=== PATIENT | male | born 1980 | race Caucasian/White ===

== ENCOUNTER 2019-12-25 10:24 | Outpatient (REF) | payer OTHER, SELFPAY ==
--- NOTE | 2019-12-25 10:31 | US_ITS ---
EXAMINATION: US EXTREMITY NONVASCULAR CLINICAL INFORMATION: Palpable soft tissue lesions right arm, left forearm and left hand. COMPARISON: None. TECHNIQUE: Routine limited imaging through the right arm, left forearm and left hand was performed. FINDINGS: Imaging through the right arm reveals a deep to subcutaneous soft tissue measuring 1.1 x 0.8 x 0.5 cm. It is slightly hyperechoic but similar to subcutaneous fat echotexture. This is most likely a small lipoma. Imaging through the left anterior mid forearm reveals an oval hyperechoic lesion deep to subcutaneous soft tissues measuring 1.1 x 1.6 x 0.4 cm. There is a similar echotexture to subcutaneous fat and most likely a lipoma. Imaging of the palmar aspect of left hand reveals an anechoic elongated lesion measuring 1.2 x 0.3 x 0.5 cm, deep to subcutaneous soft tissues, likely cyst or hematoma. Exact origin of this lesion is not known. US/US extremity nonvascular IMPRESSION: Two deep subcutaneous lesions in the right arm and left anterior mid forearm are most likely lipomas. An anechoic lesion in the left palmar aspect of the hand is likely complex fluid or old hematoma.
== END 2019-12-25 10:25 | disposition home or self-care (01) ==
LOC: HO.HMGCX 10:24
PROVIDERS: PCP Internal Medicine; Visit Provider Nurse Practitioner Family
DX: Q74.0 Other congenital malformations of upper limb(s), including shoulder girdle (principal)
CPT/HCPCS: 76882

== ENCOUNTER 2020-09-14 10:05 | Emergency (ER) | payer OTHER, SELFPAY ==
--- NOTE | ~2020-09-14 | US_ITS ---
EXAMINATION: US ABDOMEN LIMITED CLINICAL INFORMATION: Right upper quadrant pain with positive Dockery sign. COMPARISON: None TECHNIQUE: Real-time imaging of the right upper quadrant abdominal viscera. FINDINGS: PANCREAS: The pancreas is obscured by overlying gas LIVER: The liver is normal in size, contour with slight increased echogenicity. There is focal fatty sparing adjacent to the gallbladder. There is a hypodense lesion in the right hepatic lobe measuring 0.9 x 0.7 x 0.7 cm probable small cysts. No intrahepatic ductal dilatation seen. GALLBLADDER: There is a small echogenic stone in the neck of the gallbladder measuring 6 mm no additional echogenic stones seen. The gallbladder is physiologically distended without sludge, polyps, wall thickening or pericholecystic fluid. COMMON BILE DUCT: Normal in caliber measuring 0.6 cm in diameter. RIGHT KIDNEY: Normal. No hydronephrosis. No renal calculi or focal parenchymal lesions. The kidney measures 10.9 cm in maximum dimension. FREE FLUID: None. US/US abdomen limited IMPRESSION: Mild hepatic steers stenosis with area of focal fatty sparing adjacent to gallbladder. The small right hepatic lobe cyst. Small echogenic stone in neck of gallbladder but no wall thickening or pericholecystic fluid collection seen.
--- NOTE | ~2020-09-14 | XR_ITS ---
EXAMINATION: XR CHEST CLINICAL INFORMATION: Right-sided rib pain COMPARISON: Previous chest x-ray April 2019 TECHNIQUE: Frontal view of the chest was obtained. FINDINGS: The cardiac and mediastinal contours are stable. There are surgical clips projecting over the left mid lung. The lungs are otherwise clear. There is no pleural effusion or pneumothorax. There are median sternotomy wires. Bony structures are otherwise unremarkable. XR/XR chest 1V IMPRESSION: No evidence for acute disease in the chest.
[2020-09-14 10:06] VITALS: BP 140/95; PULSE 84; RESP 12; TEMP 36.6; O2SAT 97; BMI 34.0
--- NOTE | 2020-09-14 10:47 | ED_ITS ---
HPI - Abdominal Pain General Chief Complaint: Abdominal Pain Stated Complaint: abd pain Time Seen by Provider: 09/14/20 10:47 Source: patient Mode of arrival: ambulatory Limitations: no limitations History of Present Illness MD elicited complaint: abdominal pain Pertinent past history: other (12 years ago testicular cancer that resulted in large mass in chest needing reconstruction as well as incisional upper abdominal hernia x 2 mesh revisions) Onset (ago): week(s) (1) Pain Consistency: constant and intermittent Location: RUQ Severity: severe Quality: stabbing Radiation: back Migration to: no migration Exacerbating factors: eating and movement Relieving factors: nothing Associated symptoms: nausea and vomiting Related Data Previous Rx's Medication Instructions Recorded albuterol sulfate 90 mcg/actuation 2 puff INHALATION Q6H PRN #8.5 g 08/18/20 aerosol inhaler famotidine [Pepcid] 20 mg PO DAILY PRN #30 tab 09/14/20 hydrocodone-acetaminophen 1 tab PO Q6H PRN #15 tab 09/14/20 ondansetron 4 mg PO Q8H PRN #20 tab 09/14/20 Allergies Allergy/AdvReac Type Severity Reaction Status Date / Time metoclopramide [From REGLAN] Allergy Intermediate FEELS Unverified 12/24/19 11:15 LIKE I'M JUMPING OUT OF MY SKIN{ pneumococcal vaccine Allergy Unknown UNKNOWN Unverified 12/24/19 11:15 [PNEUMOCOCCAL VACCINE] Prevnar AdvReac Unknown CELLULITIS Uncoded 12/24/19 11:15 prevnar AdvReac Unknown cellulitis Uncoded 12/24/19 11:15 Review of Systems Review of Systems Constitutional : No Weight loss, No Fever, No Chills ENT/Mouth : No sore throat, No Rhinorrhea Eyes: No Swelling, No Redness Cardiovascular : No Chest Pain, No SOB, NoEdema Respiratory : No Cough, No Sputum, No Wheezing Gastrointestinal : Positive Nausea, Positive Vomiting, no Diarrhea, positive abdominal Pain, No Hematochezia, No Melena Genitourinary : No Dysuria, No Urinary Frequency, No Hematuria, No Urgency Musculoskeletal : No joint pain, No Myalgias, No Joint Swelling Skin : No Skin Lesions, No rash Neuro : No Weakness, No Numbness, No Dizziness, No Headache Psych : No Anxiety/Panic, No Depression Heme/Lymph: No Bruising, No Lymphadenopathy Endocrine : No Polyuria, No Polydipsia All other systems reviewed and are negative. Physical Exam Vital Signs: Vital Signs: Last Vital Signs Temp 98.1 F 09/14/20 12:57 Pulse 80 09/14/20 12:57 Resp 16 09/14/20 12:57 BP 141/84 H 09/14/20 12:57 Pulse Ox 97 09/14/20 12:57 Body Mass Index 34.0 Appearance: Alert. Oriented X3. No acute distress. Eyes: Pupils equal, round and reactive to light. ENT: Pharynx normal. Neck: Normal inspection. Neck supple. CVS: Normal heart rate and rhythm. Pulses normal. Respiratory: No respiratory distress. Breath sounds normal. Abdomen: Soft and moderate RUQ pain with + Dockery's sign Skin: Skin warm and dry. Normal skin color. Normal skin turgor. Extremities: No lower extremity edema. No calf ttp Neuro: Oriented X 3. No motor deficit. No sensory deficit. Course Course Course Narrative: normal LFTs, normal WBC - no cholecystitis, stable for DC home with outpatient follow up MDM - Abdominal Pain MDM Narrative Medical decision making narrative: 40 yo male with hx of testicular cancer in remission several years comes in with 1 week of RUQ pain and n/v has dockery's sign at this time will obtain labs, US of GB, IV morphine for pain, CXR to r/o mass (given history) dispo per results and findings. Differential Diagnosis Differential diagnosis: Likely abdominal pain; Unlikely acute appendicitis Lab Data Result diagrams: 09/14/20 11:08 09/14/20 11:08 Labs: Lab Results 09/14/20 09/14/20 09/14/20 Range/Units 11:08 11:08 11:08 WBC 5.8 (4.8-10.8) X10*3/uL RBC 4.52 L (4.60-5.80) X10*6/uL Hgb 13.6 L (14.0-18.0) g/dl Hct 40.8 L (42-52) % MCV 90.3 (80-98) fL MCH 30.1 (27.0-33.0) pg MCHC 33.3 (31.0-36.0) g/dl RDW 12.5 (11.0-16.0) % Plt Count 235 (160-400) X10*3/uL MPV 9.3 L (9.4-12.4) fL Immature Gran % (Auto) 0.3 (0.0-0.4) % Neut % (Auto) 62.8 (45-73) % Lymph % (Auto) 25.2 (20-40) % [place] % (Auto) 8.1 (2-11) % Eos % (Auto) 3.1 (0-4) % Baso % (Auto) 0.5 (0-2) % Lymph # (Auto) 1.5 (1.2-4.9) X10*3/uL [place] # (Auto) 0.5 (0.1-1.2) X10*3/uL Eos # (Auto) 0.2 (0.0-0.4) X10*3/uL Baso # (Auto) 0.0 (0.0-0.2) X10*3/uL Abs Immat Gran (auto) 0.02 (0.00-0.03) X10*3/uL Absolute Neuts (auto) 3.7 (2.0-8.3) X10*3/uL Absolute Nucleated RBC 0.000 (0.0-0.012) X10*3/uL Nucleated RBC % (auto) 0.0 (0.0-0.2) /100WBC Sodium 138 (135-145) mmol/L Potassium 4.2 (3.3-5.1) mmol/L Chloride 102 (96-108) mmol/L Carbon Dioxide 28 (22-29) mmol/L Anion Gap 12 (12-20) BUN 18 H (9-16) mg/dL Creatinine 1.26 (0.5-1.4) mg/dL Estim Creat Clear Calc 94.6 Estimated GFR > 60 Random Glucose 104 (60-115) mg/dL Calcium 9.6 (8.4-10.2) mg/dL Magnesium 1.9 (1.6-2.6) mg/dL Total Bilirubin 0.5 (0.0-1.0) mg/dL Direct Bilirubin 0.2 (0.0-0.5) mg/dL AST 24 (5-37) U/L ALT 34 (0-40) U/L Alkaline Phosphatase 96 (39-117) U/L Total Protein 7.5 (6.5-8.0) g/dL Albumin 4.3 (3.5-5.0) g/dL Lipase 19 (8-78) U/L COVID-19 ([facility]IDA) Negative (Negative) COVID-19 Clin Com See Note Discharge Plan Discharge Clinical Impression: Biliary colic Patient Disposition: Home, Self-Care Instructions: Biliary Colic (ED), Low Fat Diet (ED) Additional Instructions: return to ED for any worsening symptoms or concerns Prescriptions: New hydrocodone-acetaminophen 5-325 mg tablet 1 tab PO Q6H PRN (Reason: pain) Qty: 15 RF: 0 famotidine [Pepcid] 20 mg tablet 20 mg PO DAILY PRN (Reason: abdominal discomfort) Qty: 30 RF: 0 ondansetron 4 mg tablet,disintegrating 4 mg PO Q8H PRN (Reason: nausea and vomiting) Qty: 20 RF: 0 No Action albuterol sulfate [ProAir HFA] 90 mcg/actuation HFA aerosol inhaler 2 puff inhalation Q6H PRN (Reason: shortness of breath or wheezing) Qty: 8.5 RF: 1 Referrals: Kumar Carrillo MD [Physician] - 1 week (call for appointment in the next week ) Stand Alone Forms: Work/School Release [facility] Past Medical History Medical History (Updated 09/14/20 @ 13:37 by Guadalupe Arnold DO) Testicular cancer Surgical History (Updated 09/14/20 @ 11:05 by Guadalupe Arnold DO) H/O ventral hernia repair Social History Social History (Updated 09/14/20 @ 11:05 by Guadalupe Arnold DO) Alcohol intake: current Alcohol intake frequency: holidays/special occasions only Patient Tobacco Use Status: Never used Tobacco Use of substances other than those prescribed or required for medical reasons: No Advance Directives: Yes Advance Directives Information Provided: Yes Advance Directives on File: No
[2020-09-14 11:14] VITALS: BP 126/84; PULSE 84; RESP 16; TEMP 36.9; O2SAT 98
[2020-09-14 11:14] LABS: MANUAL DIFF FLAG NO
[2020-09-14] MEDS: ondansetron HCL 4 MG/2 ML VIAL IVPUSH (11:14)
[2020-09-14] MEDS: Morphine Sulfate 4 MG/ML CARTRIDGE IVPUSH (11:14)
[2020-09-14] MEDS: 0.9 % Sodium Chloride 1,000 ML 999 ML IVCONT (11:14)
[2020-09-14 11:17] LABS: Basophils Percent Auto 0.5 % (0-2); Eosinophils Absolute Auto 0.2 X10*3/uL (0.0-0.4); Eosinophils Percent Auto 3.1 % (0-4); Hematocrit 40.8 % (42-52); Hemoglobin 13.6 g/dl (14.0-18.0); Imm Gran Abs Auto 0.02 X10*3/uL (0.00-0.03); Imm Gran Pct Auto 0.3 % (0.0-0.4); Lymphocytes Absolute Auto 1.5 X10*3/uL (1.2-4.9); Lymphocytes Percent Auto 25.2 % (20-40); Mean Corpuscular HGB Conc 33.3 g/dl (31.0-36.0); Mean Corpuscular Hemoglobin 30.1 pg (27.0-33.0); Mean Corpuscular Volume 90.3 fL (80-98); Mean Platelet Volume 9.3 fL (9.4-12.4); Monocytes Absolute Auto 0.5 X10*3/uL (0.1-1.2); Monocytes Percent Auto 8.1 % (2-11); Neutrophils Absolute Auto 3.7 X10*3/uL (2.0-8.3); Neutrophils Percent Auto 62.8 % (45-73); Platelet Count 235 X10*3/uL (160-400); Red Blood Count 4.52 X10*6/uL (4.60-5.80); Red Cell Distribution Width 12.5 % (11.0-16.0); White Blood Count 5.8 X10*3/uL (4.8-10.8)
[2020-09-14 11:31] LABS: COVID-19 Test Negative (Negative)
[2020-09-14 11:41] LABS: Alanine Aminotransferase 34 U/L (0-40); Albumin Level 4.3 g/dL (3.5-5.0); Alkaline Phosphatase 96 U/L (39-117); Anion Gap 12 (12-20); Aspartate Amino Transferase 24 U/L (5-37); Bilirubin Direct 0.2 mg/dL (0.0-0.5); Bilirubin Total 0.5 mg/dL (0.0-1.0); Blood Urea Nitrogen 18 mg/dL (9-16); Calcium 9.6 mg/dL (8.4-10.2); Carbon Dioxide 28 mmol/L (22-29); Chloride 102 mmol/L (96-108); Creatinine Clr Calc Pharmacy 94.6; Estimated Glomerular Filt Rate > 60; Glucose Random 104 mg/dL (60-115); Lipase 19 U/L (8-78); Magnesium 1.9 mg/dL (1.6-2.6); Potassium 4.2 mmol/L (3.3-5.1); Sodium 138 mmol/L (135-145); Total Protein 7.5 g/dL (6.5-8.0)
[2020-09-14 12:57] VITALS: BP 141/84; PULSE 80; RESP 16; TEMP 36.7; O2SAT 97
== END 2020-09-14 14:25 | disposition home or self-care (01) ==
PROVIDERS: Emergency Provider Emergency Medicine; PCP Internal Medicine
DX: K80.50 Calculus of bile duct without cholangitis or cholecystitis without obstruction (principal); R10.11 Right upper quadrant pain; Z79.899 Other long term (current) drug therapy; Z20.822 Contact with and (suspected) exposure to COVID-19
CPT/HCPCS: 36415; 71045; 76705; 80048; 80076; 83690; 83735; 85025; 87635; 96365; 96375; 99284; J2270; J2405

== ENCOUNTER 2020-09-18 13:02 | Inpatient (IN) | payer OTHER, SELFPAY ==
[2020-09-18 13:04] VITALS: BP 135/75; PULSE 96; RESP 18; TEMP 36.7; O2SAT 99; BMI 34.7
[2020-09-18 15:55] LABS: MANUAL DIFF FLAG NO
[2020-09-18 15:56] LABS: Glucose Urine UA NEG (NEG); Leukocyte Esterase Urine NEG (NEG); Nitrite Urine NEG (NEG); PH 6.5 (5.0-8.0); Urine Blood NEG (NEG); Urine Ketones NEG (NEG); Urine Protein NEG (NEG-TRACE)
[2020-09-18 15:57] VITALS: BP 137/84; PULSE 88; RESP 18; TEMP 36.6; O2SAT 99
[2020-09-18 15:57] LABS: Appearance Urine CLEAR; Color Urine YELLOW
[2020-09-18 15:58] LABS: Basophils Percent Auto 0.2 % (0-2); Eosinophils Percent Auto 0.2 % (0-4); Hemoglobin 14.2 g/dl (14.0-18.0); Imm Gran Abs Auto 0.01 X10*3/uL (0.00-0.03); Imm Gran Pct Auto 0.2 % (0.0-0.4); Lymphocytes Absolute Auto 1.3 X10*3/uL (1.2-4.9); Lymphocytes Percent Auto 20.7 % (20-40); Mean Corpuscular Hemoglobin 29.8 pg (27.0-33.0); Mean Corpuscular Volume 90.1 fL (80-98); Mean Platelet Volume 9.2 fL (9.4-12.4); Monocytes Absolute Auto 0.4 X10*3/uL (0.1-1.2); Monocytes Percent Auto 6.2 % (2-11); Neutrophils Absolute Auto 4.6 X10*3/uL (2.0-8.3); Neutrophils Percent Auto 72.5 % (45-73); Platelet Count 239 X10*3/uL (160-400); Red Blood Count 4.77 X10*6/uL (4.60-5.80); Red Cell Distribution Width 12.6 % (11.0-16.0); White Blood Count 6.3 X10*3/uL (4.8-10.8)
[2020-09-18 16:00] VITALS: BP 121/68; PULSE 84; RESP 16; O2SAT 100
[2020-09-18 16:29] LABS: Alanine Aminotransferase 40 U/L (0-40); Albumin Level 4.7 g/dL (3.5-5.0); Alkaline Phosphatase 95 U/L (39-117); Anion Gap 13 (12-20); Aspartate Amino Transferase 21 U/L (5-37); Bilirubin Direct 0.2 mg/dL (0.0-0.5); Bilirubin Total 0.3 mg/dL (0.0-1.0); Blood Urea Nitrogen 12 mg/dL (9-16); Carbon Dioxide 29 mmol/L (22-29); Chloride 103 mmol/L (96-108); Creatinine Clr Calc Pharmacy 107.5; Estimated Glomerular Filt Rate > 60; Glucose Random 110 mg/dL (60-115); Lipase 16 U/L (8-78); Potassium 4.1 mmol/L (3.3-5.1); Sodium 141 mmol/L (135-145)
[2020-09-18] MEDS: 0.9 % Sodium Chloride 1,000 ML 999 ML IV (16:34)
--- NOTE | 2020-09-18 16:37 | ED_ITS ---
HPI - General Adult General Chief complaint: General Medical Stated complaint: Gallstone Time Seen by Provider: 09/18/20 16:04 Source: patient Mode of arrival: ambulatory Limitations: no limitations History of Present Illness HPI narrative: 40 y/o female with history of testicular cancer w large chest mass at age 28 s/p resection and reconstruction, history of incisional hernia repair x2, mild intermittent asthma and recently diagnosed gallstones who presents to the ER with ongoing RUQ pain. He was seen here on 09/14 - RUQ U/S showed a small stone in the neck of the gallbladder without wall thickening or pericholecystic fluid. LFTs were normal. He was discharged with hydrocodone for pain control and follow up with General Surgery. He called the Surgeon and cannot get in to be seen until of this week. He took his last hydrocodone last night and the pain persists. He has bouts of nause but no vomit ing. No fevers, chills, or diarrhea. He has been doing his best to make dietary modifications but admits to some indiscretions. MD complaint: RUQ pain Onset (ago): day(s) () Location: abdomen Radiation: non-radiation Severity: severe Severity scale (1-10): 7 Quality: aching and sharp Pain Consistency: constant (comes in waves) Relieving factors: medication Exacerbating factors: eating Associated symptoms: denies other symptoms and loss of appetite (because of pain) Treatments prior to arrival: none Related Data Previous Rx's Medication Instructions Recorded albuterol sulfate 90 mcg/actuation 2 puff INHALATION Q6H PRN #8.5 g 08/18/20 aerosol inhaler famotidine [Pepcid] 20 mg PO DAILY PRN #30 tab 09/14/20 hydrocodone-acetaminophen 1 tab PO Q6H PRN #15 tab 09/14/20 ondansetron 4 mg PO Q8H PRN #20 tab 09/14/20 Allergies Allergy/AdvReac Type Severity Reaction Status Date / Time metoclopramide [From REGLAN] Allergy Intermediate FEELS Verified 09/18/20 13:04 LIKE I'M JUMPING OUT OF MY SKIN{ pneumococcal vaccine Allergy Unknown UNKNOWN Verified 09/18/20 13:04 [PNEUMOCOCCAL VACCINE] Prevnar AdvReac Unknown CELLULITIS Uncoded 12/24/19 11:15 prevnar AdvReac Unknown cellulitis Uncoded 12/24/19 11:15 Review of Systems Review of Systems: Constitutional: No Fever, No Chills ENT/Mouth: No sore throat, No Rhinorrhea, No Swallowing Difficulty Cardiovascular: No Chest Pain, No SOB, No Orthopnea, No Edema Respiratory: No Cough, No Sputum, No Wheezing, No dyspnea Gastrointestinal: + Nausea, No Vomiting, No Diarrhea, + abdominal Pain, No Hematochezia, No Melena Genitourinary: No Dysuria, No Urinary Frequency, No Hematuria Musculoskeletal: No joint pain, No Myalgias Skin: No Skin Lesions, No rash Neuro: No Weakness, No Numbness, No Dizziness, No Headache Heme/Lymph: No Bruising, No Lymphadenopathy PMFSH Past Medical History Attestation statement: The following information was validated with the patient. Medical History Asthma Gallstones Lung collapse Testicular cancer Thoracic cancer Surgical History H/O ventral hernia repair History of thoracic surgery S/P hernia surgery Social History Social History (Updated 09/14/20 @ 11:05 by Guadalupe Arnold DO) Alcohol intake: current Alcohol intake frequency: holidays/special occasions only Patient Tobacco Use Status: Never used Tobacco Advance Directives: Yes Advance Directives Information Provided: Yes Advance Directives on File: No Physical Exam Vital Signs: Vital Signs: Last Vital Signs Temp 97.8 F 09/18/20 15:57 Pulse 88 09/18/20 15:57 Resp 18 09/18/20 15:57 BP 137/84 09/18/20 15:57 Pulse Ox 99 09/18/20 15:57 Body Mass Index 34.7 Appearance: Alert. Oriented X3. No acute distress. Eyes: Pupils equal, round and reactive to light. ENT: Pharynx normal. Neck: Normal inspection. Neck supple. CVS: Normal heart rate and rhythm. Pulses normal. Respiratory: No respiratory distress. Breath sounds normal. Abdomen: Soft with moderate RUQ and epigastric tenderness, +rebound, no guarding. +BS x4 Skin: Skin warm and dry. Normal skin color. Normal skin turgor. No rashes. Extremities: No lower extremity edema. Neuro: Oriented X 3. No motor deficit. No sensory deficit. Course Course Course Narrative: 40 y/o male with known gallstones presenting with ongoing RUQ pain despite oral narcotics and diet modifications. Stones were non-obstructing when initially diagnosed. He has no signs of sepsis, doubt cholangitis. LFTs ordered to help r/o ductal obstruction. Pain is currently 7/10 - IV morphine and IVF ordered. Reevaluation(s) Reevaluation #1: LFTs are normal. Will discuss admission for cholecystectomy given ongoing pain. Reevaluation #2: Dr. Maria will admit. Consultations Consultation #1: General Surgery - Dr. Mraia Medical Decision Making Lab Data Result diagrams: 09/18/20 15:48 09/18/20 15:48 Labs: Lab Results 09/18/20 09/18/20 09/18/20 Range/Units 15:48 15:48 15:48 WBC 6.3 (4.8-10.8) X10*3/uL RBC 4.77 (4.60-5.80) X10*6/uL Hgb 14.2 (14.0-18.0) g/dl Hct 43.0 (42-52) % MCV 90.1 (80-98) fL MCH 29.8 (27.0-33.0) pg MCHC 33.0 (31.0-36.0) g/dl RDW 12.6 (11.0-16.0) % Plt Count 239 (160-400) X10*3/uL MPV 9.2 L (9.4-12.4) fL Immature Gran % (Auto) 0.2 (0.0-0.4) % Neut % (Auto) 72.5 (45-73) % Lymph % (Auto) 20.7 (20-40) % [place] % (Auto) 6.2 (2-11) % Eos % (Auto) 0.2 (0-4) % Baso % (Auto) 0.2 (0-2) % Lymph # (Auto) 1.3 (1.2-4.9) X10*3/uL [place] # (Auto) 0.4 (0.1-1.2) X10*3/uL Eos # (Auto) 0.0 (0.0-0.4) X10*3/uL Baso # (Auto) 0.0 (0.0-0.2) X10*3/uL Abs Immat Gran (auto) 0.01 (0.00-0.03) X10*3/uL Absolute Neuts (auto) 4.6 (2.0-8.3) X10*3/uL Absolute Nucleated RBC 0.000 (0.0-0.012) X10*3/uL Nucleated RBC % (auto) 0.0 (0.0-0.2) /100WBC Sodium 141 (135-145) mmol/L Potassium 4.1 (3.3-5.1) mmol/L Chloride 103 (96-108) mmol/L Carbon Dioxide 29 (22-29) mmol/L Anion Gap 13 (12-20) BUN 12 (9-16) mg/dL Creatinine 1.12 (0.5-1.4) mg/dL Estim Creat Clear Calc 107.5 Estimated GFR > 60 Random Glucose 110 (60-115) mg/dL Calcium 10.0 (8.4-10.2) mg/dL Total Bilirubin 0.3 (0.0-1.0) mg/dL Direct Bilirubin 0.2 (0.0-0.5) mg/dL AST 21 (5-37) U/L ALT 40 (0-40) U/L Alkaline Phosphatase 95 (39-117) U/L Total Protein 8.0 (6.5-8.0) g/dL Albumin 4.7 (3.5-5.0) g/dL Lipase 16 (8-78) U/L Urine Color YELLOW Urine Appearance CLEAR Urine pH 6.5 (5.0-8.0) Ur Specific [place] 1.010 (1.005-1.025) Urine Protein NEG (NEG-TRACE) MG/DL Urine Glucose (UA) NEG (NEG) MG/DL Urine Ketones NEG (NEG) MG/DL Urine Blood NEG (NEG) Urine Nitrite NEG (NEG) Ur Leukocyte Esterase NEG (NEG) COVID-19 ([facility]IDA) (Negative) COVID-19 Clin Com 09/18/20 Range/Units 16:20 WBC (4.8-10.8) X10*3/uL RBC (4.60-5.80) X10*6/uL Hgb (14.0-18.0) g/dl Hct (42-52) % MCV (80-98) fL MCH (27.0-33.0) pg MCHC (31.0-36.0) g/dl RDW (11.0-16.0) % Plt Count (160-400) X10*3/uL MPV (9.4-12.4) fL Immature Gran % (Auto) (0.0-0.4) % Neut % (Auto) (45-73) % Lymph % (Auto) (20-40) % [place] % (Auto) (2-11) % Eos % (Auto) (0-4) % Baso % (Auto) (0-2) % Lymph # (Auto) (1.2-4.9) X10*3/uL [place] # (Auto) (0.1-1.2) X10*3/uL Eos # (Auto) (0.0-0.4) X10*3/uL Baso # (Auto) (0.0-0.2) X10*3/uL Abs Immat Gran (auto) (0.00-0.03) X10*3/uL Absolute Neuts (auto) (2.0-8.3) X10*3/uL Absolute Nucleated RBC (0.0-0.012) X10*3/uL Nucleated RBC % (auto) (0.0-0.2) /100WBC Sodium (135-145) mmol/L Potassium (3.3-5.1) mmol/L Chloride (96-108) mmol/L Carbon Dioxide (22-29) mmol/L Anion Gap (12-20) BUN (9-16) mg/dL Creatinine (0.5-1.4) mg/dL Estim Creat Clear Calc Estimated GFR Random Glucose (60-115) mg/dL Calcium (8.4-10.2) mg/dL Total Bilirubin (0.0-1.0) mg/dL Direct Bilirubin (0.0-0.5) mg/dL AST (5-37) U/L ALT (0-40) U/L Alkaline Phosphatase (39-117) U/L Total Protein (6.5-8.0) g/dL Albumin (3.5-5.0) g/dL Lipase (8-78) U/L Urine Color Urine Appearance Urine pH (5.0-8.0) Ur Specific [place] (1.005-1.025) Urine Protein (NEG-TRACE) MG/DL Urine Glucose (UA) (NEG) MG/DL Urine Ketones (NEG) MG/DL Urine Blood (NEG) Urine Nitrite (NEG) Ur Leukocyte Esterase (NEG) COVID-19 ([facility]IDA) Negative (Negative) COVID-19 Clin Com See Note Discharge Plan Discharge Clinical Impression: Biliary colic Gallstone Qualifiers: Cholecystitis presence: without cholecystitis Biliary obstruction: without biliary obstruction Qualified Code(s): K80.20 - Calculus of gallbladder without cholecystitis without obstruction Patient Disposition: Admitted As Inpatient
[2020-09-18 16:52] LABS: COVID-19 Test Negative (Negative)
[2020-09-18] MEDS: 0.9 % Sodium Chloride 1,000 ML 999 ML IVCONT (17:00)
[2020-09-18] MEDS: Morphine Sulfate 4 MG/ML CARTRIDGE IVPUSH ×3 (17:00→23:19)
[2020-09-18 18:22] VITALS: BP 125/80; PULSE 81; RESP 18; TEMP 36.8; O2SAT 97
[2020-09-18 20:09] VITALS: BP 145/88; PULSE 76; RESP 15; TEMP 36.5; O2SAT 99
[2020-09-18] MEDS: Piperacillin Sodium/Tazobactam 3.375 GM in 0.9 % Sodium Chloride 50 ML IV (20:27)
[2020-09-18] MEDS: Dextrose 5 % and Lactated Ring 1,000 ML 125 ML IVCONT (20:30)
[2020-09-18] MEDS: 0.9 % Sodium Chloride Flush 3 ML SYRINGE IVFLUSH (20:32)
[2020-09-18 20:33] VITALS: BMI 34.3
[2020-09-18] MEDS: Acetaminophen 325 MG TABLET 650 MG PO (21:43)
[2020-09-18] MEDS: oxyCODONE HCl Immed Release 5 MG TABLET PO (21:43)
[2020-09-18 23:10] VITALS: BP 108/66; PULSE 74; RESP 18; TEMP 36.4; O2SAT 94
[2020-09-19] VITALS (15 sets, daily range): BP systolic 115–146; BP diastolic 61–93; PULSE 56–87; RESP 14–18; TEMP 36.2–36.7; O2SAT 94–100
[2020-09-19] MEDS: Morphine Sulfate 4 MG/ML CARTRIDGE IVPUSH ×3 (03:23→23:04)
[2020-09-19] MEDS: Piperacillin Sodium/Tazobactam 3.375 GM in 0.9 % Sodium Chloride 50 ML IV ×2 (03:23→08:46)
[2020-09-19] MEDS: Dextrose 5 % and Lactated Ring 1,000 ML 125 ML IVCONT ×3 (03:23→23:04)
--- NOTE | 2020-09-19 05:54 | P.HPGS_ITS ---
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 He presents now with complaints of abdominal pain in the right upper quadrant and was determined to have gallstones in the gallbladder. He was previously evalauted in the ED and arrangements made for follow up in the with surgery, but the pain is worsening, therefore he returns to the ED. He is admitted to the surgical service for management of his acute cholecysititis Review of Systems Constitutional: Constitutional: Denies chills, Denies fever(s), Denies headache(s) and Denies poor appetite ENT: Denies dizziness and Denies headache(s) Cardiovascular: Cardiovascular: Denies chest pain, Denies rapid heart rate, Denies palpitations and Denies slow heart rate Respiratory: Respiratory: Denies chest congestion, Denies cough, Denies pain on inspiration and Denies wheezing Gastrointestinal: Gastrointestinal: Denies abdominal pain, Denies bloating, Denies change in stool character, Denies constipation, Denies diarrhea, Denies nausea, Denies vomiting and Denies hematemesis Musculoskeletal: Musculoskeletal: Denies back pain, Denies arthralgias, Denies joint swelling and Denies numbness Integumentary/Breasts: Skin/Breast: Denies change in pigmentation, Denies erythema and Denies rash Neurologic: Denies dizziness, Denies headache(s) and Denies numbness Psychiatric: Psychiatric: Denies anxiety and Denies depression Endocrine: Endocrine: Denies palpitations Hematologic/Lymphatic: Hematologic/Lymphatic: Denies easy bleeding, Denies easy bruising and Denies lymphadenopathy Allergic/Immunologic: Allergic/Immunologic: Denies wheezing PMFSH Past Medical History Medical History Asthma Gallstones Lung collapse Testicular cancer Thoracic cancer Surgical History Surgical History H/O ventral hernia repair History of thoracic surgery S/P hernia surgery Social History Social History (Updated 09/14/20 @ 11:05 by Guadalupe Arnold DO) Household Members: Family Housing: House Do you presently have visiting nurse or other home services: No Alcohol intake: current Alcohol intake frequency: a few times a week Patient Tobacco Use Status: Never used Tobacco Smoked in Last 30 Days: No Use of substances other than those prescribed or required for medical reasons: No Currently Displaying Signs/Symptoms of Drug Intoxication Withdrawal: No Any prior treatment program specific to substance use: No Have you been hit, kicked, punched, or otherwise hurt by someone within the past year? If so, by whom?: No Do you feel safe in your current relationship?: Yes Is there a partner from a previous relationship who is making you feel unsafe now?: No Are you made to feel afraid or neglected: No Advance Directives: Yes Advance Directives Information Provided: Yes Advance Directives on File: No Advance Directives Date on File: 09/18/20 Do you have thoughts of harming others: None Do you have a plan to hurt others: No Plan Recently lost weight without trying: No Nutrition Risks: No Nutritional Risk Poor oral hygiene: No Meds Allergies Allergy/AdvReac Type Severity Reaction Status Date / Time metoclopramide [From REGLAN] Allergy Intermediate FEELS Verified 09/18/20 13:04 LIKE I'M JUMPING OUT OF MY SKIN{ pneumococcal vaccine Allergy Unknown UNKNOWN Verified 09/18/20 13:04 [PNEUMOCOCCAL VACCINE] Prevnar AdvReac Unknown CELLULITIS Uncoded 12/24/19 11:15 prevnar AdvReac Unknown cellulitis Uncoded 12/24/19 11:15 Active Medications: Current Medications Generic Name Dose Route Start Last Admin Trade Name Freq PRN Reason Stop Dose Admin Acetaminophen 650 mg 09/18/20 17:27 09/18/20 21:43 Acetaminophen 325 Mg Tablet PO 650 mg Q6H PRN Administration Pain, Mild (Pain Scale 1-3) Albuterol Sulfate 2 puff 09/18/20 17:27 Albuterol Sulfate 90 Mcg 8 Gm Inhaler INHALE Q6H PRN shortness of breath or wheezing Dextrose/Lactated Ringer's 1,000 mls @ 125 mls/hr 09/18/20 17:27 09/19/20 04:14 D5lr IVCONT 125 mls/hr .Q8H MADHURI Infusion Piperacillin Sod/Tazobactam 50 mls @ 100 mls/hr 09/18/20 21:00 09/19/20 04:11 Sod 3.375 gm/ Sodium Chloride IV Infused Q6H MADHURI Infusion Morphine Sulfate 4 mg 09/18/20 17:27 09/19/20 03:23 Morphine Sulfate 4 Mg/Ml Cartridge IVPUSH 4 mg Q3H PRN Administration Pain, Severe (Pain Scale 7-10) Ondansetron HCl 4 mg 09/18/20 17:27 Ondansetron Hcl 4 Mg/2 Ml Vial IVPUSH Q8H PRN Nausea and Vomiting Oxycodone HCl 5 mg 09/18/20 17:27 09/18/20 21:43 Oxycodone Hcl Immed Release 5 Mg Tablet PO 5 mg Q6H PRN Administration Pain, Moderate (Pain Scale 4-6 Sodium Chloride 3 ml 09/19/20 00:00 09/18/20 20:32 0.9 % Sodium Chloride Flush 3 Ml Syringe IVFLUSH 3 ml QSHIFT MADHURI Administration Zolpidem Tartrate 5 mg 09/18/20 17:27 Zolpidem Tartrate 5 Mg Tablet PO BEDTIME PRN Insomnia Physical Exam 2 Vital Signs: Vital Signs: Last Vital Signs Temp 97.2 F 09/19/20 03:24 Pulse 56 09/19/20 03:24 Resp 16 09/19/20 03:24 BP 116/68 09/19/20 03:24 Pulse Ox 97 09/19/20 03:24 Body Mass Index 34.3 Const: General: cooperative, comfortable and well developed Nutritional Appearance: well nourished Orientation/consciousness: patient oriented x3 Eyes: Sclerae: sclerae normal EOM: EOMs intact bilaterally Neck: Neck: Yes normal visual inspection Resp: Effort & Inspection: normal respiratory effort, no cough, no respiratory distress and no stridor Cardio: Jugular venous distension: no JVD GI: Inspection: Yes normal to inspection Palpation (GI): Soft to palpation, Tenderness to palpation present (GI) in the RUQ and Dockery's sign positive, no guarding and not rigid Skin: General skin exam: dry skin Rashes: no rashes Neuro: General: patient oriented x3 and no focal motor deficits Extrem: General: Yes full ROM and Yes no clubbing, cyanosis or edema Psych: Appearance: grossly normal Results Results Labs: Short CBC 09/18/20 Range/Units 15:48 WBC 6.3 (4.8-10.8) X10*3/uL Hgb 14.2 (14.0-18.0) g/dl Hct 43.0 (42-52) % Plt Count 239 (160-400) X10*3/uL BMP 09/18/20 15:48 Sodium 141 Potassium 4.1 Chloride 103 Carbon Dioxide 29 BUN 12 Creatinine 1.12 Calcium 10.0 Liver Function 09/18/20 Range/Units 15:48 Total Bilirubin 0.3 (0.0-1.0) mg/dL Direct Bilirubin 0.2 (0.0-0.5) mg/dL AST 21 (5-37) U/L ALT 40 (0-40) U/L Alkaline Phosphatase 95 (39-117) U/L Albumin 4.7 (3.5-5.0) g/dL Urine 09/18/20 Range/Units 15:48 Urine Color YELLOW Urine Appearance CLEAR Urine pH 6.5 (5.0-8.0) Ur Specific [place] 1.010 (1.005-1.025) Urine Protein NEG (NEG-TRACE) MG/DL Urine Glucose (UA) NEG (NEG) MG/DL Assessment and Plan (1) Acute cholecystitis due to biliary calculus: Status: Acute Patient with a known history of gallstones returning to the ED with persistent pain in the right upper quadrant, admitted for management of his acute cholecystitis. He continues to have abdominal pain in the right upper quadrant. I discussed options of dietary restriction verses laparoscopic / open cholecystectomy. After discussion of the procedure, risks, and alternatives, he consents to a laparoscopic cholecystectomy. He will be added onto the operative schedule for today. Quality Stroke Does the patient have a stroke diagnosis?: No VTE Prior VTE?: No VTE Risk Level:: Surgical - low VTE Device Contraindication: N/A - Device Ordered VTE Drug Contraindication: Treatment Not Indicated Procedures Date of Service Date of Service: 09/19/20
[2020-09-19 06:44] LABS: MANUAL DIFF FLAG NO
[2020-09-19 06:51] LABS: Basophils Percent Auto 0.5 % (0-2); Eosinophils Absolute Auto 0.1 X10*3/uL (0.0-0.4); Eosinophils Percent Auto 2.4 % (0-4); Hematocrit 38.9 % (42-52); Hemoglobin 12.7 g/dl (14.0-18.0); Imm Gran Abs Auto 0.01 X10*3/uL (0.00-0.03); Imm Gran Pct Auto 0.2 % (0.0-0.4); Lymphocytes Absolute Auto 1.5 X10*3/uL (1.2-4.9); Lymphocytes Percent Auto 36.3 % (20-40); Mean Corpuscular HGB Conc 32.6 g/dl (31.0-36.0); Mean Corpuscular Hemoglobin 30.1 pg (27.0-33.0); Mean Corpuscular Volume 92.2 fL (80-98); Mean Platelet Volume 9.8 fL (9.4-12.4); Monocytes Absolute Auto 0.5 X10*3/uL (0.1-1.2); Monocytes Percent Auto 10.7 % (2-11); Neutrophils Absolute Auto 2.1 X10*3/uL (2.0-8.3); Neutrophils Percent Auto 49.9 % (45-73); Platelet Count 208 X10*3/uL (160-400); Red Blood Count 4.22 X10*6/uL (4.60-5.80); Red Cell Distribution Width 12.9 % (11.0-16.0); White Blood Count 4.2 X10*3/uL (4.8-10.8)
[2020-09-19 07:42] LABS: Anion Gap 11 (12-20); Blood Urea Nitrogen 12 mg/dL (9-16); Carbon Dioxide 30 mmol/L (22-29); Chloride 104 mmol/L (96-108); Creatinine Clr Calc Pharmacy 95.9; Estimated Glomerular Filt Rate > 60; Glucose Random 112 mg/dL (60-115); Potassium 4.1 mmol/L (3.3-5.1); Sodium 141 mmol/L (135-145)
[2020-09-19] MEDS: Acetaminophen 325 MG TABLET 650 MG PO ×2 (08:45→13:33)
[2020-09-19] MEDS: oxyCODONE HCl Immed Release 5 MG TABLET PO ×2 (08:45→19:37)
--- NOTE | 2020-09-19 10:20 | MHC.CM.PN ---
CM MET WITH PT WHO REPORTS HE LIVES WITH HIS AND TWO DAUGHTERS AGES 16 AND 11. 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 PT THINKS HE HAS A HCP NAMING HIS HIS AGENT. PT CONFIRMS HIS PCP IS FLORIDALMA JASSO. CURRENT DC PLAN IS HOME WITH NO SERVICES PT WILL SELF ARRANGE TRANSPORT
--- NOTE | 2020-09-19 11:39 | HO.ANESPROP2 ---
[facility] Active Problems Active Problems: All Active Problems (Updated 09/19/20 @ 05:59 by Gurpreet Maria MD) Acute cholecystitis due to biliary calculus (Acute) Cyst (Acute) Arm anomaly (Acute) Biliary colic (Acute) Gallstone (Acute) Past Medical History Medical History Asthma Gallstones Lung collapse Testicular cancer Thoracic cancer Surgical History Surgical History H/O ventral hernia repair History of thoracic surgery S/P hernia surgery Social History Social History (Updated 09/14/20 @ 11:05 by Guadalupe Arnold DO) Household Members: Family Housing: House Do you presently have visiting nurse or other home services: No Alcohol intake: current Alcohol intake frequency: a few times a week Patient Tobacco Use Status: Never used Tobacco Smoked in Last 30 Days: No Use of substances other than those prescribed or required for medical reasons: Yes Currently Displaying Signs/Symptoms of Drug Intoxication Withdrawal: No Any prior treatment program specific to substance use: No Have you been hit, kicked, punched, or otherwise hurt by someone within the past year? If so, by whom?: No Do you feel safe in your current relationship?: Yes Is there a partner from a previous relationship who is making you feel unsafe now?: No Are you made to feel afraid or neglected: No Advance Directives: Yes Advance Directives Information Provided: Yes Advance Directives on File: No Advance Directives Date on File: 09/18/20 Do you have thoughts of harming others: None Do you have a plan to hurt others: No Plan Recently lost weight without trying: No Nutrition Risks: No Nutritional Risk Poor oral hygiene: No Current occupational status: employed Meds Allergies Allergy/AdvReac Type Severity Reaction Status Date / Time metoclopramide [From REGLAN] Allergy Intermediate FEELS Verified 09/19/20 11:03 LIKE I'M JUMPING OUT OF MY SKIN{ pneumococcal vaccine Allergy Intermediate Swelling Verified 09/19/20 11:03 [PNEUMOCOCCAL VACCINE] Prevnar AdvReac Mild CELLULITIS Uncoded 09/19/20 11:03 Active Medications: Current Medications Generic Name Dose Route Start Last Admin Trade Name Freq PRN Reason Stop Dose Admin Acetaminophen 650 mg 09/18/20 17:27 09/19/20 08:45 Acetaminophen 325 Mg Tablet PO 650 mg Q6H PRN Administration Pain, Mild (Pain Scale 1-3) Albuterol Sulfate 2 puff 09/18/20 17:27 Albuterol Sulfate 90 Mcg 8 Gm Inhaler INHALE Q6H PRN shortness of breath or wheezing Dextrose/Lactated Ringer's 1,000 mls @ 125 mls/hr 09/18/20 17:27 09/19/20 11:22 D5lr IVCONT Infused .Q8H MADHURI Infusion Piperacillin Sod/Tazobactam 50 mls @ 100 mls/hr 09/18/20 21:00 09/19/20 09:31 Sod 3.375 gm/ Sodium Chloride IV Infused Q6H MADHURI Infusion Morphine Sulfate 4 mg 09/18/20 17:27 09/19/20 03:23 Morphine Sulfate 4 Mg/Ml Cartridge IVPUSH 4 mg Q3H PRN Administration Pain, Severe (Pain Scale 7-10) Ondansetron HCl 4 mg 09/18/20 17:27 Ondansetron Hcl 4 Mg/2 Ml Vial IVPUSH Q8H PRN Nausea and Vomiting Oxycodone HCl 5 mg 09/18/20 17:27 09/19/20 08:45 Oxycodone Hcl Immed Release 5 Mg Tablet PO 5 mg Q6H PRN Administration Pain, Moderate (Pain Scale 4-6 Sodium Chloride 3 ml 09/19/20 00:00 09/19/20 07:29 0.9 % Sodium Chloride Flush 3 Ml Syringe IVFLUSH Not Given QSHIFT [facility] Zolpidem Tartrate 5 mg 09/18/20 17:27 Zolpidem Tartrate 5 Mg Tablet PO BEDTIME PRN Insomnia Exam Exam Date and Time: September 19, 2020 1139 Height,Weight and Vital Signs: Height 5 ft 9 in Weight 105.5 kg Last Vital Signs Temp 97.7 F 09/19/20 11:04 Pulse 65 09/19/20 11:04 Resp 18 09/19/20 11:04 BP 130/87 09/19/20 11:04 Pulse Ox 98 09/19/20 11:04 Pertinent Lab Results Pertinent Lab Results: Laboratory Tests 09/18/20 09/18/20 09/18/20 15:48 15:48 15:48 WBC 6.3 RBC 4.77 Hgb 14.2 Hct 43.0 MCV 90.1 MCH 29.8 MCHC 33.0 RDW 12.6 Plt Count 239 MPV 9.2 L Immature Gran % (Auto) 0.2 Neut % (Auto) 72.5 Lymph % (Auto) 20.7 [place] % (Auto) 6.2 Eos % (Auto) 0.2 Baso % (Auto) 0.2 Lymph # (Auto) 1.3 [place] # (Auto) 0.4 Eos # (Auto) 0.0 Baso # (Auto) 0.0 Abs Immat Gran (auto) 0.01 Absolute Neuts (auto) 4.6 Absolute Nucleated RBC 0.000 Nucleated RBC % (auto) 0.0 Sodium 141 Potassium 4.1 Chloride 103 Carbon Dioxide 29 Anion Gap 13 BUN 12 Creatinine 1.12 Estim Creat Clear Calc 107.5 Estimated GFR > 60 Random Glucose 110 Lactic Acid Calcium 10.0 Total Bilirubin 0.3 Direct Bilirubin 0.2 AST 21 ALT 40 Alkaline Phosphatase 95 Total Protein 8.0 Albumin 4.7 Lipase 16 Urine Color YELLOW Urine Appearance CLEAR Urine pH 6.5 Ur Specific [place] 1.010 Urine Protein NEG Urine Glucose (UA) NEG Urine Ketones NEG Urine Blood NEG Urine Nitrite NEG Ur Leukocyte Esterase NEG COVID-19 ([facility]) COVID-19 Clin Com 09/18/20 09/18/20 09/19/20 16:20 16:27 05:49 WBC 4.2 L RBC 4.22 L Hgb 12.7 L Hct 38.9 L MCV 92.2 MCH 30.1 MCHC 32.6 RDW 12.9 Plt Count 208 MPV 9.8 Immature Gran % (Auto) 0.2 Neut % (Auto) 49.9 Lymph % (Auto) 36.3 [place] % (Auto) 10.7 Eos % (Auto) 2.4 Baso % (Auto) 0.5 Lymph # (Auto) 1.5 [place] # (Auto) 0.5 Eos # (Auto) 0.1 Baso # (Auto) 0.0 Abs Immat Gran (auto) 0.01 Absolute Neuts (auto) 2.1 Absolute Nucleated RBC 0.000 Nucleated RBC % (auto) 0.0 Sodium Potassium Chloride Carbon Dioxide Anion Gap BUN Creatinine Estim Creat Clear Calc Estimated GFR Random Glucose Lactic Acid 1.0 Calcium Total Bilirubin Direct Bilirubin AST ALT Alkaline Phosphatase Total Protein Albumin Lipase Urine Color Urine Appearance Urine pH Ur Specific [place] Urine Protein Urine Glucose (UA) Urine Ketones Urine Blood Urine Nitrite Ur Leukocyte Esterase COVID-19 ([facility]) Negative COVID-19 [employer] Com See Note 09/19/20 05:49 WBC RBC Hgb Hct MCV MCH MCHC RDW Plt Count MPV Immature Gran % (Auto) Neut % (Auto) Lymph % (Auto) [place] % (Auto) Eos % (Auto) Baso % (Auto) Lymph # (Auto) [place] # (Auto) Eos # (Auto) Baso # (Auto) Abs Immat Gran (auto) Absolute Neuts (auto) Absolute Nucleated RBC Nucleated RBC % (auto) Sodium 141 Potassium 4.1 Chloride 104 Carbon Dioxide 30 H Anion Gap 11 L BUN 12 Creatinine 1.25 Estim Creat Clear Calc 95.9 Estimated GFR > 60 Random Glucose 112 Lactic Acid Calcium 9.0 D Total Bilirubin Direct Bilirubin AST ALT Alkaline Phosphatase Total Protein Albumin Lipase Urine Color Urine Appearance Urine pH Ur Specific [place] Urine Protein Urine Glucose (UA) Urine Ketones Urine Blood Urine Nitrite Ur Leukocyte Esterase COVID-19 ([facility]) COVID-19 Clin Com Airway Mallampati Class: III TM Dist: >3cm Neck ROM: Full Loose/Missing/Broken Teeth: No Heart: RRR Lungs: CTA Assessment and Plan Assessment Anesthesia Assessment: Anesthesia Plan Discussed and Chart Reviewed Final Anesthetic Review NPO: Yes ASA Class: II Final Preanesthetic Review: Meds/Allgs Chart Reviewed, Consent Obtained/Reviewed and Anes Risks/Benef Reviewed Patient Risk: Low Procedure Risk: Intermediate Anesthetic Plan Anesthetic Plan: GA Disposition: Standard PACU
--- NOTE | 2020-09-19 13:24 | P.OP_ITS ---
Operative Note Operative Note Date of Service: 09/19/20 Narrative: Preoperative diagnosis: Acute cholecystitis, cholelithiasis Postoperative diagnosis: Same Procedure: Laparoscopic cholecystectomy Surgeon: Gurpreet Maria MD [employer] Developer: No physician Anesthesia: General endotracheal Indications for procedure: 40-year-old male patient with a recent history of abdominal pain in the right upper quadrant found to have gallstones with a stone impacted at the neck of the gallbladder. 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 Patient presents today for laparoscopic or possible open cholecystectomy. Operative findings: Slightly distended gallbladder with mild adhesions to the under surface. A stone was noted in the neck of the gallbladder. Specimen: Gallbladder Estimated blood loss: 2 mL Complications: None Procedure details: Patient was brought to the OR and placed in a supine position. After administering general anesthesia the patient's abdomen was prepped with ChloraPrep and draped in a sterile fashion. Local anesthesia consisting of 0.25% Sensorcaine with epinephrine was infiltrated in a periumbilical region. A 5 mm incision was made above the umbilicus in a transverse fashion. The Veress needle was then inserted while elevating abdominal cavity with towel clips. After positive drop test the abdomen was insufflated to a pressure of 15 mm of mercury. The Veress needle was then re moved and a 5 mm trocar inserted. The camera was inserted in the abdomen explored. A 12 mm trocar was then placed in the epigastrium and two 5 mm trocars placed in the right upper quadrant. The patient was placed in reverse Trendelenburg positioning and rotated to the left. The gallbladder was grasped with the fundus and retracted cephalad.. The infundibulum Was then grasped and retracted away from the liver bed. The Dolphin dissected was then used to dissect the peritoneum off the infundibulum to reveal the junction with the cystic duct. Cystic artery was noted slightly medial and posterior to the cystic duct. After obtaining a critical view the cystic duct was doubly clipped and divided. The cystic artery was then doubly clipped and divided. The gallbladder was then dissected off the liver bed using electrocautery with an L hook. Hemostasis was assured all times using the electrocautery. When the gallbladder is completely dissected off the liver bed was placed in an Endo- Catch bag and brought out through the epigastric incision. The gallbladder was sent to pathology for further examination. The abdomen was then re-examined. The liver bed was irrigated and suctioned dry. No bleeding or bile leak could be identified. CO2 was then evacuated and all trocars removed. Fascia was closed at the epigastric incision using a [id number] 0 Polysorb suture. Skin was closed in all incisions using a subcuticular 4 0 Polysorb suture. Sterile dressing consisting of surgical glue was applied. The patient tolerated the procedure well. Sponge instrument and needle counts reported as correct. The patient was transferred to PACU in stable condition.
[2020-09-19] MEDS: oxyCODONE HCl Immed Release 5 MG TABLET 10 MG PO (13:33)
[2020-09-19] MEDS: fentaNYL citrate/PF 100 MCG/2 ML VIAL 50 MCG IVPUSH ×4 (13:35→13:56)
[2020-09-19] MEDS: Albuterol Sulfate 90 MCG 8 GM INHALER 2 PUFF INHALE (13:45)
[2020-09-19] MEDS: HYDROmorphone HCl 1 MG/ML SYRINGE IVPUSH (14:16)
[2020-09-19] MEDS: 0.9 % Sodium Chloride Flush 3 ML SYRINGE IVFLUSH (15:30)
[2020-09-20] MEDS: Morphine Sulfate 4 MG/ML CARTRIDGE IVPUSH ×2 (04:17→09:05)
[2020-09-20 05:01] VITALS: BP 100/54; PULSE 74; RESP 16; TEMP 36.7; O2SAT 99
[2020-09-20] MEDS: oxyCODONE HCl Immed Release 5 MG TABLET PO (07:05)
[2020-09-20] MEDS: Dextrose 5 % and Lactated Ring 1,000 ML 125 ML IVCONT (07:07)
[2020-09-20 07:18] VITALS: BP 135/71; PULSE 64; RESP 17; TEMP 36.4; O2SAT 99
--- NOTE | 2020-09-20 08:22 | MHC.CM.PN ---
PT DISCHARGING TODAY HOME SELF-CARE W/FOLLOW-UP W/ DR. LU IN 1 WEEK, FAMILY FOR TRANSPORT.
--- NOTE | 2020-09-20 08:42 | P.DS_ITS ---
DS: Providers Provider Date of Service: 09/20/20 Date of admission: 09/18/20 17:06 Date of discharge: 09/20/20 Primary care physician: Shweta Byers MD Admitting clinician: Gurpreet Maria Discharging clinician: Gurpreet Maria DS: Diagnosis Discharge Diagnosis (1) Acute cholecystitis due to biliary calculus: Status: Resolved DS: Medications Discharge Medications Home Medications: Previous Rx's Medication Instructions Recorded albuterol sulfate 90 mcg/actuation 2 puff INHALATION Q6H PRN #8.5 g 08/18/20 aerosol inhaler famotidine [Pepcid] 20 mg PO DAILY PRN #30 tab 09/14/20 hydrocodone-acetaminophen 1 tab PO Q6H PRN #15 tab 09/14/20 ondansetron 4 mg PO Q8H PRN #20 tab 09/14/20 oxycodone 5 mg PO Q6H PRN #14 tab 09/20/20 DS: Summary Hospital Course Hospital Course: Chris Godwin is a 40 year old male patient with a 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 He presents now with complaints of abdominal pain in the right upper quadrant and was determined to have gallstones in the gallbladder. He was previously evalauted in the ED and arrangements made for follow up in the with surgery, but the pain is worsening, therefore he returns to the ED. He is admitted to the surgical service for management of his acute cholecysititis On examination he was noted to be tender in the epigastrium and right upper q uadrant with a positive Dockery sign suggestive of acute cholecystitis. He was made NPO started on IV fluids and IV antibiotics. Arrangements were made for a laparoscopic cholecystectomy which was performed on 09/19/2020. Operative findings included a distended gallbladder with mild adhesions to the under surface. A stone was noted in the neck of the gallbladder. He tolerated the procedure well and was observed overnight following the procedure. He was started on a regular diet which he tolerated well without nausea or vomiting. On postoperative day 1 he reports some incisional discomfort but otherwise felt improved. He reported no further nausea vomiting or abdominal pain. He was discharged to home in stable condition. Discharge instructions were to avoid any heavy lifting for the next 2 weeks and to avoid fatty/greasy foods the next month. He should return to my office in 1-2 weeks for wound examination. He should call sooner for any concerns. Time Spent with Patient Time attestation: Total time spent providing and/or coordinating discharge services: Discharge coordination time: Less than 30 minutes Quality: Stroke Does the patient have a stroke diagnosis?: No Physical Exam Vital Signs: Vital Signs: Last Vital Signs Temp 97.6 F 09/20/20 07:18 Pulse 64 09/20/20 07:18 Resp 17 09/20/20 07:18 BP 135/71 09/20/20 07:18 Pulse Ox 99 09/20/20 07:18 Body Mass Index 34.3 Const: General: no acute distress Nutritional Appearance: well nourished Orientation/consciousness: patient oriented x3 Resp: Effort & Inspection: normal respiratory effort GI: Other: Soft, nondistended, intact incisions without bleeding or discharge Neuro: General: patient oriented x3 Extrem: Other: No edema DS: Data Data Completed and Pending Pending studies at discharge: Pending at discharge 09/19/20 12:59 Surgical [PTH] Routine Labs on day of discharge: Preliminary micro results at discharge 09/18/20 16:27 Blood Culture - Preliminary Blood - Venous No growth after 24 hours. 09/18/20 16:27 Blood Culture - Preliminary Blood - Venous No growth after 24 hours. Discharge Plan Discharge Patient Disposition: Home, Self-Care Discharge Diagnosis: Acute cholecystitis, cholelithiasis Referrals: Shweta Byers MD [Primary Care Provider] - 1 Week Gurpreet Maria MD [Physician] - 1 Week Discharge Medications: New oxycodone 5 mg tablet 5 mg PO Q6H PRN (Reason: pain) Qty: 14 RF: 0 Continued albuterol sulfate [ProAir HFA] 90 mcg/actuation HFA aerosol inhaler 2 puff inhalation Q6H PRN (Reason: shortness of breath or wheezing) Qty: 8.5 RF: 1 hydrocodone-acetaminophen 5-325 mg tablet 1 tab PO Q6H PRN (Reason: pain) Qty: 15 RF: 0 famotidine [Pepcid] 20 mg tablet 20 mg PO DAILY PRN (Reason: abdominal discomfort) Qty: 30 RF: 0 ondansetron 4 mg tablet,disintegrating 4 mg PO Q8H PRN (Reason: nausea and vomiting) Qty: 20 RF: 0 Discharge Orders: Discharge Order (Routine); Ordered 09/20/20 Ordered By: Gurpreet Maria Diet: low fat, low cholesterol Activity on Discharge: No heavy lifting Stand Alone Forms: Patient Portal Discharge page Activity Restrictions/Additional Instructions: No lifting > 10 pounds for 2 weeks No driving for one week Follow up in office in one week. Care Plan Goals: Return to normal diet and activity Health Concerns: Abdominal pain in the RUQ Plan of Treatment: Laparoscopic cholecystectomy Assessment: Acute cholecystitis, cholelithiasis Discharge Date/Time: 09/20/20 10:53
--- NOTE | 2020-09-20 08:42 | PM.PNGS ---
Subjective Subjective Date of Service: 09/20/20 Interval history: Patient is awake and alert, reports some incisional soreness but otherwise feels well. He tolerated a regular diet last night without nausea or vomiting. He has good pain relief with oral pain medication. Physical Exam Vital Signs: Vital Signs: Last Vital Signs Temp 97.6 F 09/20/20 07:18 Pulse 64 09/20/20 07:18 Resp 17 09/20/20 07:18 BP 135/71 09/20/20 07:18 Pulse Ox 99 09/20/20 07:18 Body Mass Index 34.3 Const: General: no acute distress Nutritional Appearance: well nourished Orientation/consciousness: patient oriented x3 Resp: Effort & Inspection: normal respiratory effort GI: Other: Soft, nondistended, intact incisions without bleeding or discharge Neuro: General: patient oriented x3 Extrem: Other: No edema Progress Note: A&P Assessment and plan (1) Acute cholecystitis due to biliary calculus: Status: Acute Assessment and Plan: Status post laparoscopic cholecystectomy pod 1. Patient is stable, tolerated the procedure well. He is tolerating a regular diet without nausea or vomiting. He is comfortable with oral pain medication. Plan on discharge to home today. He should follow up in the office in approximately 1 week. He may resume regular diet, low-fat. Fall Risk Details Current Medications: Current Medications Generic Name Dose Route Start Last Admin Trade Name Freq PRN Reason Stop Dose Admin Acetaminophen 650 mg 09/18/20 17:27 09/19/20 13:33 Acetaminophen 325 Mg Tablet PO 650 mg Q6H PRN Administration Pain, Mild (Pain Scale 1-3) Albuterol Sulfate 2 puff 09/18/20 17:09/19/20 13:45 Albuterol Sulfate 90 Mcg 8 Gm Inhaler INHALE 2 puff Q6H PRN Administration shortness of breath or wheezing Dextrose/Lactated Ringer's 1,000 mls @ 125 mls/hr 09/18/20 17:09/20/20 07:07 D5lr IVCONT 125 mls/hr .Q8H MADHURI Administration Morphine Sulfate 4 mg 09/18/20 17:27 09/20/20 04:17 Morphine Sulfate 4 Mg/Ml Cartridge IVPUSH 4 mg Q3H PRN Administration Pain, Severe (Pain Scale 7-10) Ondansetron HCl 4 mg 09/18/20 17:27 Ondansetron Hcl 4 Mg/2 Ml Vial IVPUSH Q8H PRN Nausea and Vomiting Oxycodone HCl 5 mg 09/18/20 17:27 09/20/20 07:05 Oxycodone Hcl Immed Release 5 Mg Tablet PO 5 mg Q6H PRN Administration Pain, Moderate (Pain Scale 4-6 Sodium Chloride 3 ml 09/19/20 00:00 09/20/20 07:08 0.9 % Sodium Chloride Flush 3 Ml Syringe IVFLUSH Not Given QSHIFT [facility] Zolpidem Tartrate 5 mg 09/18/20 17:27 Zolpidem Tartrate 5 Mg Tablet PO BEDTIME PRN Insomnia Time Spent With Patient Time: Total time spent is greater than 50% in coordination of care (as documented) at patient's floor/unit and/or counseling patient: Time with patient: 15 - 24 minutes Procedures Date of Service Date of Service: 09/20/20 Quality Stroke Does the patient have a stroke diagnosis?: No VTE Prior VTE?: No VTE Risk Level:: Surgical - low VTE Device Contraindication: N/A - Device Ordered VTE Drug Contraindication: Treatment Not Indicated
--- NOTE | 2020-09-20 11:09 | HO.POSTANES ---
Post Anesthesia Evaluation Post Anesthesia Evaluation Vital Signs: Vital Signs Temp Pulse Resp BP Pulse Ox 09/20/20 07:18 97.6 F 64 17 135/71 99 09/20/20 05:01 98.0 F 74 16 100/54 L 99 Anesthesia: General Endotracheal-GETA Mental Status: Awake Pain Control: Satisfactory Nausea/Vomiting: None Hydration: Adequate Anesthesia-Related Issues: No Anes. Related Issues
== END 2020-09-20 10:53 | disposition home or self-care (01) | DRG 263 ==
LOC: HO.ED 17:00 → HO.EDOVER 17:16 → HO.S3 17:59
PROVIDERS: Physician Assistant; Admitting Provider Surgery; Emergency Provider Emergency Medicine; PCP Internal Medicine; Visit Provider Surgery
PROC: 0FT44ZZ Resection of Gallbladder, Percutaneous Endoscopic Approach (ICD-10-PCS; CPT 47562; principal; 2020-09-19 12:30)
DX: K80.00 Calculus of gallbladder with acute cholecystitis without obstruction (principal); Z20.822 Contact with and (suspected) exposure to COVID-19; Z85.47 Personal history of malignant neoplasm of testis; Z79.899 Other long term (current) drug therapy
CPT/HCPCS: 47562; 36415; 80048; 80076; 81003; 83605; 83690; 85025; 87040; 87635; 88304; 99024; 99285; J1100; J1170; J1885; J2250; J2270; J2405; J2543; J3010

== ENCOUNTER → 2020-09-29 15:05 | Outpatient (BNVA) | payer OTHER, SELFPAY | PROVIDERS: PCP Internal Medicine; Visit Provider Surgery ==

== ENCOUNTER 2021-12-10 14:59 | Emergency (ER) | payer BC, SELFPAY ==
--- NOTE | 2021-12-10 | ECG_ITS ---
Test Reason : TACHYCARDIA Blood Pressure : / mmHG Vent. Rate : 092 BPM Atrial Rate : 092 BPM P-R Int : 140 ms QRS Dur : 094 ms QT Int : 356 ms P-R-T Axes : 044 -19 026 degrees QTc Int : 440 ms Sinus rhythm with marked sinus arrhythmia Incomplete right bundle branch block Left axis deviation Borderline ECG When compared with ECG of 10-DEC-2021 15:04, Premature atrial complexes are no longer Present Vent. rate has decreased BY 59 BPM Incomplete right bundle branch block is now Present Referred By: Matt Townsend Electronically Signed By:SHAHEEN ASHER MD
[2021-12-10 15:01] VITALS: BP 133/85; PULSE 149; O2SAT 100; BMI 32.5
--- NOTE | 2021-12-10 15:18 | ECG_ITS ---
Test Reason : TACHY Blood Pressure : / mmHG Vent. Rate : 151 BPM Atrial Rate : 151 BPM P-R Int : 124 ms QRS Dur : 082 ms QT Int : 280 ms P-R-T Axes : 080 042 037 degrees QTc Int : 443 ms Sinus tachycardia with Premature atrial complexes Nonspecific ST abnormality Abnormal ECG No previous ECGs available Referred By: Matt Townsend Electronically Signed By:SHAHEEN ASHER MD
--- NOTE | 2021-12-10 15:19 | ED.GENADULT ---
HPI - General Adult General Chief complaint: Arrhythmia/Palpitations Stated complaint: Palpitations Time Seen by Provider: 12/10/21 15:18 Source: patient and family () Mode of arrival: ambulatory Limitations: no limitations History of Present Illness HPI narrative: 41-year-old male came in for evaluation of feeling anxious and palpitation. Patient been having right shoulder pain since yesterday patient took half a pill of supposedly Percocet (brought it from the street while ago) shortly after taking the pill patient started to feel diaphoretic, very anxious, and palpitation, patient admitted that he felt that this is effect of the Percocet that he took and was worried that he might need a Narcan. No SI or HI. Patient drink Red Bull and 2 large cup of coffee today. Related Data Home Medications Medication Instructions Recorded Confirmed fluticasone 500 mcg-salmeterol 50 1 inh inhalation BID 10/03/20 10/03/20 mcg/dose blistr powdr for inhalation (Advair Diskus) Previous Rx's Medication Instructions Recorded famotidine 20 mg tablet (Pepcid) 20 mg PO DAILY PRN abdominal 09/14/20 discomfort #30 tabs ondansetron 4 mg disintegrating 4 mg PO Q8H PRN nausea and 09/14/20 tablet vomiting #20 tabs cetirizine 10 mg tablet 10 mg PO DAILY #30 tabs 11/03/20 azithromycin 250 mg tablet See Rx Instructions PO .COMPLEX #6 02/20/21 tabs ondansetron HCl 4 mg tablet 4 mg PO Q8H PRN nausea and 04/03/21 vomiting #20 tabs albuterol sulfate 90 mcg/actuation 2 puff inhalation Q6H PRN 05/16/21 aerosol inhaler (ProAir HFA) shortness of breath or wheezing #8.5 grams Allergies Allergy/AdvReac Type Severity Reaction Status Date / Time metoclopramide [From REGLAN] Allergy Intermediate FEELS Verified 04/03/21 12:45 LIKE I'M JUMPING OUT OF MY SKIN{ pneumococcal vaccine Allergy Intermediate Swelling Verified 04/03/21 12:45 [PNEUMOCOCCAL VACCINE] Prevnar AdvReac Mild CELLULITIS Uncoded 04/03/21 12:45 Review of Systems Review of Systems: All other systems are reviewed and are negative Constitutional: Reports as per HPI and Reports no additional constitutional complaints Eyes: Reports as per HPI and Reports no additional eye complaints Reports system reviewed and no additional complaints, except as documented Cardiovascular: Reports as per HPI and Reports no additional cardiovascular complaints Respiratory: Reports as per HPI and Reports no additional respiratory complaints Gastrointestinal: Reports as per HPI and Reports no additional gastrointestinal complaints Genitourinary: Reports no additional female genitourinary complaints Musculoskeletal: Reports no additional musculoskeletal complaints Skin/Breast: Reports system reviewed and no additional complaints, except as docu Psychiatric: Reports no additional psychiatric complaints Endocrine: Reports no additional endocrine complaints Hematologic/Lymphatic: Reports no additional hematologic/lymphatic complaints Allergic/Immunologic: Reports no additional allergic/immunologic complaints Reports system reviewed and no additional complaints, except as documented and Reports Abnormal speech present [facility] Past Medical History Medical History Asthma Dyslipidemia Gallstones Lung collapse Testicular cancer Thoracic cancer Surgical History H/O ventral hernia repair History of thoracic surgery Hx laparoscopic cholecystectomy S/P hernia surgery Social History Social History Household Members: Family Housing: House Do you presently have visiting nurse or other home services: No Alcohol intake: current Alcohol intake frequency: a few times a week Patient Tobacco Use Status: Never used Tobacco e-Cigarette/Vaping Use: Never Used Second Hand Smoke Exposure: No Advance Directives Date on File: 09/18/20 Current occupational status: employed 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 Blood pressure normal. Heart rate elevated. Respiration rate normal. Temperature normal. Oxygen saturation normal. Appearance: Alert. Oriented X3. No acute distress. Head: Normal external exam. Normocephalic. Atraumatic. No Suresh signs noted. No raccoon eyes noted Eyes: PERRLA. EOMI. Conjunctiva and sclera normal. Eyelids normal. ENT: TM's Normal. Pharynx normal. Uvula midline. Moist mucous membranes. No trismus noted. No drooling noted. No muffled voice noted. Neck: Normal inspection. Neck supple. FROM. No adenopathy. Thyroid Normal. No meningeal signs. No neck mass noted. CVS: Normal heart rate and rhythm. Heart sound normal. No murmurs noted. Pulses normal throughout. Respiratory: No respiratory distress. Painless inspiration. Breath sounds normal. No wheezes/rales/rhonchi noted. Chest nontender. No accessory muscle usage noted or decreased air movement noted. Abdomen: Soft and nontender. Bowel sounds normal in all 4 quadrants. No distention noted. No organomegaly noted. No visible injury noted. Back: No CVA tenderness. Full range of motion noted. Skin: Skin warm and dry. Normal skin color. Normal skin turgor. No rashes/lesions/lacerations noted. Extremities: No lower extremity edema. Extremities exhibit normal range of motion. Extremities nontender. Neuro: Oriented X 3. Cranial nerve exam: II-XII are grossly intact No motor deficit. No sensory deficit. Reflexes normal. Course Course Course Narrative: 41-year-old male came in for severe anxiety after using a Percocet, patient had a history of drug abuse. Symptoms is improving with p.o. Ativan, case signed out to . Medical Decision Making Lab Data Result diagrams: 12/10/21 15:22 12/10/21 15:21 Labs: Lab Results 12/10/21 Range/Units 15:16 POC Glucose 152 H (60-115) mg/dL Discharge Plan Discharge Clinical Impression: Anxiety, Sinus tachycardia, Drug abuse Patient Disposition: Still a Patient Prescriptions: No Action cetirizine 10 mg tablet 10 mg PO DAILY Qty: 30 0RF albuterol sulfate [ProAir HFA] 90 mcg/actuation HFA aerosol inhaler 2 puff inhalation Q6H PRN (Reason: shortness of breath or wheezing) Qty: 8.5 3RF famotidine [Pepcid] 20 mg tablet 20 mg PO DAILY PRN (Reason: abdominal discomfort) Qty: 30 0RF ondansetron 4 mg tablet,disintegrating 4 mg PO Q8H PRN (Reason: nausea and vomiting) Qty: 20 0RF fluticasone propion-salmeterol [Advair Diskus] 500-50 mcg/dose blister with device 1 inh inhalation BID azithromycin 250 mg tablet See Rx Instructions PO .COMPLEX Qty: 6 0RF Rx Instructions: take 500 mg today (day 1), then 250 mg for 4 days (days 2-5) PO ondansetron HCl 4 mg tablet 4 mg PO Q8H PRN (Reason: nausea and vomiting) Qty: 20 0RF
[2021-12-10] MEDS: 0.9 % Sodium Chloride 1,000 ML 999 ML IV (15:23)
[2021-12-10 15:26] VITALS: BP 155/80; PULSE 122; RESP 19; TEMP 36.4; O2SAT 100
[2021-12-10 15:26] LABS: MANUAL DIFF FLAG NO
[2021-12-10 15:43] LABS: Alanine Aminotransferase 30 U/L (0-40); Albumin Level 4.9 g/dL (3.5-5.0); Alkaline Phosphatase 105 U/L (39-117); Anion Gap 20 (12-20); Aspartate Amino Transferase 22 U/L (5-37); Bilirubin Direct 0.2 mg/dL (0.0-0.5); Bilirubin Total 0.5 mg/dL (0.0-1.0); Blood Urea Nitrogen 13 mg/dL (9-16); Carbon Dioxide 21 mmol/L (22-29); Chloride 101 mmol/L (96-108); Creatinine Clr Calc Pharmacy 96.2; Estimated Glomerular Filt Rate > 60; Glucose Random 153 mg/dL (60-115); Lipase 17 U/L (8-78); Potassium 3.7 mmol/L (3.3-5.1); Sodium 138 mmol/L (135-145); Total Protein 8.1 g/dL (6.5-8.0)
[2021-12-10 15:47] LABS: B Type Natriuretic Peptide < 10 pg/mL (<100); Troponin-I High Sensitivity < 3.5 ng/L (<3.5-35.0)
[2021-12-10] MEDS: LORazepam 1 MG TABLET 2 MG PO (15:50)
[2021-12-10 15:57] LABS: Appearance Urine Clear; Color Urine Yellow; Glucose Urine UA Negative (Negative); Leukocyte Esterase Urine Negative (Negative); Nitrite Urine Negative (Negative); Specific Gravity - Urine <= 1.005 (1.005-1.025); Urine Blood Negative (Negative); Urine Ketones Negative (Negative); Urine Protein Negative (Neg-Trace)
[2021-12-10 15:58] LABS: Amphetamine Screen Urine Not Detected (Not Detect); Barbiturates, Urine Not Detected (Not Detect); Benzodiazepines Screen Urine Not Detected (Not Detect); Cannabinoid Screen Urine Not Detected (Not Detect); Cocaine Screen Urine Not Detected (Not Detect); Fentanyl, urine POSITIVE (Not Detect); Opiate Screen Urine Not Detected (Not Detect); Phencyclidine Screen Urine Not Detected (Not Detect)
[2021-12-10 16:01] LABS: COVID-19 Test Negative (Negative); IDNOW Serial# 16C4AD1C
[2021-12-10 17:17] LABS: Basophils Percent Auto 0.4 % (0-2); Eosinophils Percent Auto 0.1 % (0-4); Hematocrit 41.7 % (42.0-52.0); Hemoglobin 14.1 g/dl (14.0-18.0); Imm Gran Abs Auto 0.03 X10*3/uL (0.00-0.03); Imm Gran Pct Auto 0.3 % (0.0-0.4); Lymphocytes Absolute Auto 0.9 X10*3/uL (1.2-4.9); Lymphocytes Percent Auto 8.9 % (20-40); Mean Corpuscular HGB Conc 33.8 g/dl (31.0-36.0); Mean Corpuscular Hemoglobin 29.6 pg (27.0-33.0); Mean Corpuscular Volume 87.4 fL (80.0-98.0); Monocytes Absolute Auto 0.3 X10*3/uL (0.1-1.2); Neutrophils Absolute Auto 8.8 x10*3/uL (2.0-8.3); Neutrophils Percent Auto 87.3 % (45-73); Platelet Count 290 X10*3/uL (160-400); Red Blood Count 4.77 X10*6/uL (4.60-5.80); Red Cell Distribution Width 12.3 % (11.0-16.0); White Blood Count 10.1 X10*3/uL (4.8-10.8)
[2021-12-10 18:19] VITALS: BP 127/61; PULSE 113; RESP 21; TEMP 36.9; O2SAT 87
== END 2021-12-10 18:57 | disposition home or self-care (01) ==
PROVIDERS: Emergency Medicine; Emergency Provider Emergency Medicine Emergency Medical Services; PCP Internal Medicine
DX: R00.0 Tachycardia, unspecified (principal); F41.1 Generalized anxiety disorder; F43.0 Acute stress reaction; F11.10 Opioid abuse, uncomplicated; R06.02 Shortness of breath; Z20.822 Contact with and (suspected) exposure to COVID-19; Z79.899 Other long term (current) drug therapy
CPT/HCPCS: 36415; 71045; 80048; 80076; 80307; 81003; 82947; 83690; 83880; 84484; 85025; 87635; 93005; 99284

== ENCOUNTER 2022-10-30 20:26 | Emergency (ER) | payer BC, SELFPAY ==
--- NOTE | ~2022-10-30 | XR_ITS ---
EXAMINATION: XR FOOT, LEFT CLINICAL INFORMATION: Swelling, ecchymosis and tender distal and dorsal foot. COMPARISON: None available. TECHNIQUE: AP, lateral, and oblique views of the left foot. FINDINGS: There is no visible fracture or dislocation. There is mild distal dorsal foot soft tissue swelling. The joint spaces are maintained. The ankle mortise and subtalar joints are normal. XR/XR foot LT min 3V IMPRESSION: Nonspecific mild dorsal distal foot soft tissue swelling. No underlying bony or joint abnormality seen.
[2022-10-30 20:29] VITALS: BP 146/83; PULSE 113; RESP 18; TEMP 37.3; O2SAT 96; BMI 33.2
--- NOTE | 2022-10-30 20:37 | ED_ITS ---
HPI - General Adult General Chief complaint: Extremity Injury, Lower Stated complaint: L foot pain / ? fracture Time Seen by Provider: 10/30/22 23:24 Source: patient and family Mode of arrival: ambulatory Limitations: no limitations History of Present Illness HPI narrative: patient comes to the emergency room complaining of pain and swelling to the dorsum of the foot. Patient was playing softball today, patient got accidentaly cleated on the dorsum of the foot. Patient denies ankle pain. Related Data Home Medications Medication Instructions Recorded Confirmed fluticasone 500 mcg-salmeterol 50 1 inh inhalation BID 10/03/20 10/03/20 mcg/dose blistr powdr for inhalation (Advair Diskus) Previous Rx's Medication Instructions Recorded famotidine 20 mg tablet (Pepcid) 20 mg PO DAILY PRN abdominal 09/14/20 discomfort #30 tabs ondansetron 4 mg disintegrating 4 mg PO Q8H PRN nausea and 09/14/20 tablet vomiting #20 tabs cetirizine 10 mg tablet 10 mg PO DAILY #30 tabs 11/03/20 azithromycin 250 mg tablet See Rx Instructions PO .COMPLEX #6 02/20/21 tabs ondansetron HCl 4 mg tablet 4 mg PO Q8H PRN nausea and 04/03/21 vomiting #20 tabs albuterol sulfate 90 mcg/actuation 2 puff inhalation Q6H PRN 05/16/21 aerosol inhaler (ProAir HFA) shortness of breath or wheezing #8.5 grams ibuprofen 600 mg tablet 600 mg PO TID PRN fever or pain 10/30/22 #20 tabs Allergies Allergy/AdvReac Type Severity Reaction Status Date / Time metoclopramide [From REGLAN] Allergy Intermediate FEELS Verified 04/03/21 12:45 LIKE I'M JUMPING OUT OF MY SKIN{ pneumococcal vaccine Allergy Intermediate Swelling Verified 04/03/21 12:45 [PNEUMOCOCCAL VACCINE] Prevnar AdvReac Mild CELLULITIS Uncoded 04/03/21 12:45 Review of Systems Review of Systems: Constitutional : No Weight loss, No Fever, No Chills, No Night Sweats, No Fatigue, No Malaise ENT/Mouth : No Hearing loss, No Ear Pain, No Nasal Congestion, No Sinus Pain, No Hoarseness, No sore throat, No Rhinorrhea, No Swallowing Difficulty Eyes: No Eye Pain, No Swelling, No Redness, No Foreign Body, No Discharge, No Vision Changes Cardiovascular : No Chest Pain, No SOB, No Dyspnea on Exertion, No Orthopnea, No Edema, No Palpitations Respiratory : No Cough, No Sputum, No Wheezing, No Smoke Exposure, No Dyspnea Gastrointestinal : No Nausea, No Vomiting, No Diarrhea, No Constipation, No abdominal Pain, No Hematochezia, No Melena Genitourinary : no irregular bleeding, No Dysuria, No Urinary Frequency, No Hematuria, No Urinary Incontinence, No Urgency, No Flank Pain, No Urinary Flow Changes, No Hesitancy Musculoskeletal : Complaining of pain on the dorsum foot and swelling,No joint pain, No Myalgias, No Joint Swelling Skin : No Skin Lesions, No rash Neuro : No Weakness, No Numbness, No Paresthesias, No Loss of Consciousness, No Dizziness, No Headache Psych : No Anxiety/Panic, No Depression, No SI/HI/AH/VH, No Social Issues, Heme/Lymph: No Bruising, No Bleeding,No Lymphadenopathy Endocrine : No Polyuria, No Polydipsia, No Temperature Intolerance [facility] Past Medical History Medical History Asthma Dyslipidemia Gallstones Lung collapse Testicular cancer Thoracic cancer Surgical History H/O ventral hernia repair History of thoracic surgery Hx laparoscopic cholecystectomy S/P hernia surgery Social History Social History Household Members: Family Housing: House Do you presently have visiting nurse or other home services: No Alcohol intake: current Alcohol intake frequency: holidays/special occasions only Patient Tobacco Use Status: Never used Tobacco Smoked in Last 30 Days: Yes e-Cigarette/Vaping Use: Never Used Second Hand Smoke Exposure: No Use of substances other than those prescribed or required for medical reasons: No Advance Directives: No Advance Directives Information Provided: No Advance Directives Date on File: 09/18/20 Current occupational status: employed 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 Oriented X3. No acute distress. Eyes: Pupils equal, round and reactive to light. ENT: Pharynx normal. Neck: Normal inspection. Neck supple. No lymph nodes noted. No crepitus CVS: Normal heart rate and rhythm. Pulses normal. Normal S1 and S2 Respiratory: No respiratory distress. Breath sounds normal. No Wheezing. No rales Abdomen: Soft and nontender. No rigidity. No distention. Skin: Skin warm and dry. Normal skin color. Normal skin turgor. Extremities: No lower extremity edema. No Lacerations. No Rash, ecchymosis and swelling to the dorsum of the foot, patient able to wiggle the toes. No ankle swelling, ecchymosis or deformity. Patient ambulatory Neuro: Oriented X 3. No motor deficit. No sensory deficit. Moving all extremities. No slurred speech. CN 2 through 12 grossly intact Psych: calm, cooperative, normal affect Course Course Course Narrative: This is a rapid medical exam: Additional HPI, ROS, PE not included below will be deferred to primary provider. Patient is a 42-year-old male presenting to the emergency department with complaint of left foot pain, swelling, and ecchymosis. States he was playing a softball game when another player landed on his foot with their cleat. States pain is 5/10. Did not take any OTC medications. Ecchymosis to 2nd-4th toes. States he completed the first game, did not play the second game due to pain. Plan: x-ray Medications Administered Discontinued Medications Generic Name Dose Route Start Last Admin Trade Name Freq PRN Reason Stop Dose Admin Ibuprofen 600 mg 10/30/22 23:34 10/31/22 00:08 Ibuprofen 600 Mg Tablet PO 10/30/22 23:35 600 mg ONCE ONE Administration Medical Decision Making Medical Decision Making [facility] Narrative: - my interpretation of x-ray of the foot: No fracture - patient given p.o. ibuprofen and foot was Jose Roberto wrapped Differential Diagnosis Differential Diagnoses: The differential diagnosis associated with the presentation includes ( foot ecchymosis, contusion, fracture, dislocation) Independent Interpretation I performed an independent interpretation of an: Plain X-Ray Radiology Impression Discussion of test interpretation with radiology: I have reviewed the radiologist's reading. Radiologist Impression: FINDINGS: There is no visible fracture or dislocation. There is mild distal dorsal foot soft tissue swelling. The joint spaces are maintained. The ankle mortise and subtalar joints are normal. XR/XR foot LT min 3V IMPRESSION: Nonspecific mild dorsal distal foot soft tissue swelling. No underlying bony or joint abnormality seen. Discharge Plan Discharge Clinical Impression: Contusion of foot Patient Disposition: Home, Self-Care Instructions: Foot Contusion (ED) Additional Instructions: Please follow-up with your primary care physician tomorrow. If you have any worsening or new symptoms, please return to the emergency room or call 911 Prescriptions: New ibuprofen 600 mg tablet 600 mg PO TID PRN (Reason: fever or pain) Qty: 20 0RF No Action cetirizine 10 mg tablet 10 mg PO DAILY Qty: 30 0RF albuterol sulfate [ProAir HFA] 90 mcg/actuation HFA aerosol inhaler 2 puff inhalation Q6H PRN (Reason: shortness of breath or wheezing) Qty: 8.5 3RF famotidine [Pepcid] 20 mg tablet 20 mg PO DAILY PRN (Reason: abdominal discomfort) Qty: 30 0RF ondansetron 4 mg tablet,disintegrating 4 mg PO Q8H PRN (Reason: nausea and vomiting) Qty: 20 0RF fluticasone propion-salmeterol [Advair Diskus] 500-50 mcg/dose blister with device 1 inh inhalation BID azithromycin 250 mg tablet See Rx Instructions PO .COMPLEX Qty: 6 0RF Rx Instructions: take 500 mg today (day 1), then 250 mg for 4 days (days 2-5) PO ondansetron HCl 4 mg tablet 4 mg PO Q8H PRN (Reason: nausea and vomiting) Qty: 20 0RF Interventions: ED Discharge Assessment Last Done: 10/31/22 00:46 Discharge Date/Time: 10/31/22 00:46
[2022-10-31] MEDS: Ibuprofen 600 MG TABLET PO (00:08)
[2022-10-31 00:25] VITALS: BP 121/80; PULSE 78; RESP 18; TEMP 36.6; O2SAT 98
--- NOTE | 2022-10-31 00:26 | MHC.EDTECH ---
Hourly rounds and vitals completed, Jose Roberto wrap applied to left foot/ankle per the request of RN. Patient tolerated well and is awaiting discharge at this time.
--- NOTE | 2022-10-31 00:44 | PC.NURSE ---
licensed nurse practitioner placed bora wrap to L LE. CMS intact. pt able to move digits. pt able to bare body weight at discharge. pt ambulatory.vss. pt provided with discharge packet. pt verbalized understanding of discharge plan pt present at bedside at discharge
== END 2022-10-31 00:46 | disposition home or self-care (01) ==
PROVIDERS: Emergency Provider Emergency Medicine; PCP Registered Nurse
DX: M79.672 Pain in left foot (principal)
CPT/HCPCS: 73630; 99283; 99284

== ENCOUNTER 2023-01-22 21:31 | Inpatient (IN) | payer OTHER, SELFPAY ==
[2023-01-22] VITALS (7 sets, daily range): BP systolic 147–242; BP diastolic 93–108; PULSE 101–139; RESP 14–32; TEMP 35.1–37.6; O2SAT 97–98; BMI 33.2
--- NOTE | ~2023-01-22 | XR_ITS ---
EXAMINATION: PORTABLE CHEST 1 VIEW CLINICAL INFORMATION: cp. COMPARISON: 12/10/2021. TECHNIQUE: Portable frontal view of the chest was obtained. FINDINGS: Lungs well-expanded with chronic appearing reticular markings again seen more set the lung bases. Atelectasis would be favored. No superimposed focal infiltrate, edema, or pneumothorax. Endotracheal tube tip approximately 5 cm above the aminah. Patient status post sternotomy. Chain staple line in the left lung. No acute bony abnormality. XR/XR chest 1V IMPRESSION: Chronic appearing and postoperative changes. Endotracheal tube tip approximately 5 cm above the aminah.
--- NOTE | ~2023-01-22 | CT_ITS ---
EXAMINATION: CT ABDOMEN AND PELVIS WITH CONTRAST CLINICAL INFORMATION: Elevated lactic acid COMPARISON: CT abdomen pelvis 04/08/2019 TECHNIQUE: Multidetector volumetric images were obtained from the superior aspect of the liver through the pubic symphysis following administration 100 mL of Omnipaque 350 intravenous contrast. Sagittal and coronal reformatted images were obtained on the technologist's workstation. Oral contrast: No This CT examination was performed using dose optimization techniques as appropriate, variously including the following: *Automated exposure control *Adjustment of mA and/or kV according to patient size (this includes techniques or standardized protocols for targeted exams where dose is matched to indication/reason for exam; i.e. extremities or head) *Use of iterative reconstruction technique DLP: 1242 mGy-cm FINDINGS: LUNG BASES: See report of CT chest performed contemporaneously LIVER, GALLBLADDER, AND BILIARY TREE: The liver is normal in size but with decreased attenuation suggesting steatosis. No focal hepatic lesion or biliary ductal dilatation is present. Status post cholecystectomy. PANCREAS: Unremarkable. SPLEEN: Unremarkable. ADRENAL GLANDS: Unremarkable. KIDNEYS AND URETERS: The kidneys are normal in size, shape, and attenuation. No hydronephrosis, hydroureter, or calculi seen. No perinephric stranding. BLADDER: Paulino catheter is present. In the bladder with a small amount of air. The bladder is decompressed and poorly evaluated GASTROINTESTINAL TRACT: An NG tube is present with its tip in the gastric antrum. The small and large bowel are unremarkable. The appendix is unremarkable. ABDOMINAL WALL: No significant hernia is appreciated. LYMPH NODES: No retroperitoneal lymphadenopathy. VASCULAR: Unremarkable. PELVIC VISCERA: Unremarkable. OSSEOUS STRUCTURES: Unremarkable. CT/CT abdomen pelvis w IV con IMPRESSION: 1. A cause for the patient's elevated lactic acid is not found. 2. Incidental note made of hepatic steatosis, cholecystectomy, NG tube and Paulino catheter. Fleischner guidelines were followed.
--- NOTE | ~2023-01-22 | CT_ITS ---
EXAMINATION: CT ANGIOGRAM OF THE CHEST WITH AND WITHOUT CONTRAST (CT PULMONARY ANGIOGRAM FOR PE) CLINICAL INFORMATION: Reason for Exam ACUTE SOB, intubated COMPARISON: Chest radiographs earlier today TECHNIQUE: Prior to contrast administration, noncontrast localization images were obtained. Subsequently, multidetector volumetric imaging was performed from the thoracic inlet to below the diaphragms following the administration of 100 mL Omnipaque 350 intravenous contrast. No contrast reaction reported Sagittal, coronal, and MIP oblique sagittal reformatted images were obtained on the CT workstation, uploaded to PACS, and reviewed. This CT examination was performed using dose optimization techniques as appropriate, variously including the following: *Automated exposure control *Adjustment of mA and/or kV according to patient size (this includes techniques or standardized protocols for targeted exams where dose is matched to indication/reason for exam; i.e. extremities or head) *Use of iterative reconstruction technique Total exam dose-length product 1242 mGy-cm FINDINGS: QUALITY OF STUDY/CONTRAST BOLUS: Satisfactory. PULMONARY ARTERIES: No pulmonary emboli. THORACIC AORTA: No aneurysm. LUNG: ET tube is 2 cm above aminah. No focal consolidation, nodules or masses. Some mild basilar atelectasis is present. There is herniation of a small amount of lung between the ribs in the left upper chest at 1:00. PLEURA: No pleural effusion or pneumothorax. MEDIASTINUM: Median sternotomy. Normal heart size. No pericardial effusion. No hilar or mediastinal lymphadenopathy. No evidence of septal bowing or right heart strain. CORONARY ARTERY CALCIFICATION: Mild CHEST WALL/AXILLA: No axillary or internal mammary lymphadenopathy. OSSEOUS STRUCTURES: No acute or suspicious osseous abnormality. UPPER ABDOMEN: NG tube with tip in stomach. Status post cholecystectomy. No reflux of contrast into the hepatic veins to suggest elevated right heart pressures. CT/CT angio chest PE protocol IMPRESSION: No evidence of pulmonary emboli. Incidental findings as described above VTE: negative.
[2023-01-22] MEDS: methylPREDNISolone Sod Succ 125 MG/2 ML VIAL IVPUSH (21:40)
[2023-01-22] MEDS: Magnesium Sulfate/H2O 2 GM/50 ML PIGGYBACK IV (21:40)
[2023-01-22] MEDS: Ketamine HCl/NS 50 MG/5 ML SYRINGE 200 MG IVPUSH (21:43)
[2023-01-22] MEDS: Succinylcholine Chloride 100 MG/5 ML SYRINGE IVPUSH (21:43)
[2023-01-22] MEDS: propofoL 1,000 MG/100 ML VIAL 18.92 MG IVCONT (21:49)
--- NOTE | 2023-01-22 21:52 | ECG_ITS ---
Test Reason : DYSPNEA Blood Pressure : / mmHG Vent. Rate : 143 BPM Atrial Rate : 143 BPM P-R Int : 126 ms QRS Dur : 084 ms QT Int : 290 ms P-R-T Axes : 079 058 024 degrees QTc Int : 447 ms Sinus tachycardia Nonspecific ST abnormality Abnormal ECG When compared with ECG of 10-DEC-2021 15:58, Vent. rate has increased BY 51 BPM Incomplete right bundle branch block is no longer Present T wave amplitude has increased in Anterior leads Referred By: Alma Delia Rajput Electronically Signed By:SHAHEEN ASHER MD
[2023-01-22 22:08] LABS: Basophils Absolute Auto 0.1 X10*3/uL (0.0-0.2); Basophils Percent Auto 0.7 % (0-2); Eosinophils Absolute Auto 0.4 X10*3/uL (0.0-0.4); Eosinophils Percent Auto 3.8 % (0-4); Hematocrit 43.5 % (42.0-52.0); Imm Gran Abs Auto 0.02 X10*3/uL (0.00-0.03); Imm Gran Pct Auto 0.2 % (0.0-0.4); Lymphocytes Absolute Auto 5.6 X10*3/uL (1.2-4.9); Lymphocytes Percent Auto 52.3 % (20-40); MANUAL DIFF FLAG SCAN; Mean Corpuscular HGB Conc 32.2 g/dl (31.0-36.0); Mean Corpuscular Hemoglobin 29.8 pg (27.0-33.0); Mean Corpuscular Volume 92.6 fL (80.0-98.0); Mean Platelet Volume 9.7 fL (9.4-12.4); Monocytes Percent Auto 9.1 % (2-11); Neutrophils Absolute Auto 3.6 x10*3/uL (2.0-8.3); Neutrophils Percent Auto 33.9 % (45-73); Platelet Count 234 X10*3/uL (160-400); Red Cell Distribution Width 12.3 % (11.0-16.0); SCAN SMEAR FLAG 1; White Blood Count 10.7 X10*3/uL (4.8-10.8)
[2023-01-22] MEDS: cefEPime HCl 1 GM in 0.9 % Sodium Chloride 50 ML IV (22:16)
--- NOTE | 2023-01-22 22:17 | PC.NURSE ---
2139: Meds ready for intubation. RT at bedside. 2142: 200 mg Ketamine given 2142: 100 mg SUC given 2144: Pt intubated by Dr. Rajput.ET tube at the lip. + color change 2147: OG tube placed by Dr. Rajput. 2148: Propofol started at 30 mcg/kg/min. 2151: 100 mg Rocuronium given 2158: chest x-ray done.
[2023-01-22] MEDS: Albuterol Sulfate 7.5 MG, Albuterol Sulfate (0.083%) 2.5 MG 10 MG INHALE (22:18)
[2023-01-22 22:23] LABS: Lactic Acid 8.9 mmol/L (0.5-2.0)
--- NOTE | 2023-01-22 22:23 | ED_ITS ---
HPI - Asthma General Chief Complaint: Asthma Stated Complaint: Diff breathing Time Seen by Provider: 01/22/23 21:51 History of Present Illness HPI Narrative: Patient is a 42-year-old male with a history of testicular cancer over 10 years ago. history of asthma never been intubated in the past presented today with acute shortness of breath. Patient was doing fine all day. There has been no change in his diet no change in his environment. Patient had sudden onset of shortness of breath. He is unable to give detailed history secondary to his extreme shortness of breath Related Data Home Medications Medication Instructions Recorded Confirmed fluticasone 500 mcg-salmeterol 50 1 inh inhalation BID 10/03/20 10/03/20 mcg/dose blistr powdr for inhalation (Advair Diskus) Previous Rx's Medication Instructions Recorded famotidine 20 mg tablet (Pepcid) 20 mg PO DAILY PRN abdominal 09/14/20 discomfort #30 tabs ondansetron 4 mg disintegrating 4 mg PO Q8H PRN nausea and 09/14/20 tablet vomiting #20 tabs cetirizine 10 mg tablet 10 mg PO DAILY #30 tabs 11/03/20 azithromycin 250 mg tablet See Rx Instructions PO .COMPLEX #6 02/20/21 tabs ondansetron HCl 4 mg tablet 4 mg PO Q8H PRN nausea and 04/03/21 vomiting #20 tabs albuterol sulfate 90 mcg/actuation 2 puff inhalation Q6H PRN 05/16/21 aerosol inhaler (ProAir HFA) shortness of breath or wheezing #8.5 grams ibuprofen 600 mg tablet 600 mg PO TID PRN fever or pain 10/30/22 #20 tabs Allergies Allergy/AdvReac Type Severity Reaction Status Date / Time metoclopramide [From REGLAN] Allergy Intermediate FEELS Verified 04/03/21 12:45 LIKE I'M JUMPING OUT OF MY SKIN{ pneumococcal vaccine Allergy Intermediate Swelling Verified 04/03/21 12:45 [PNEUMOCOCCAL VACCINE] Prevnar AdvReac Mild CELLULITIS Uncoded 04/03/21 12:45 Review of Systems 2 Review of Systems: Unable to obtain review of systems secondary to patient condition PMFSH Past Medical History Attestation statement: The following information was validated with the patient. Medical History Dyslipidemia Lung collapse Thoracic cancer Asthma Gallstones Testicular cancer Surgical History Hx laparoscopic cholecystectomy History of thoracic surgery S/P hernia surgery H/O ventral hernia repair Social History Household Members: Family Housing: House Do you presently have visiting nurse or other home services: No Alcohol intake: current Alcohol intake frequency: holidays/special occasions only Patient Tobacco Use Status: Never used Tobacco e-Cigarette/Vaping Use: Never Used Second Hand Smoke Exposure: No Advance Directives: No Advance Directives Information Provided: No Advance Directives Date on File: 09/18/20 Current occupational status: employed 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 ENT: Pharynx normal. Neck: Normal inspection. Neck supple. No lymph nodes noted. No crepitus CVS: Normal heart rate and rhythm. Pulses normal. Normal S1 and S2 Respiratory: Diminished breath sounds bilaterally, increased work of breathing Abdomen: Soft and nontender. No rigidity. No distention. Skin: Diaphoretic Extremities: No lower extremity edema. Neurovascular intact to all extremities. No Lacerations. No Rash Neuro: Oriented times, was moving all extremities Medications Administered Generic Name Dose Route Start Last Admin Trade Name Freq PRN Reason Stop Dose Admin Magnesium Sulfate 2 gm in 50 mls @ 25 mls/hr 01/22/23 21:52 01/22/23 21:40 Magnesium Sulfate/H2o IV 01/22/23 23:51 25 mls/hr ONCE ONE Administration Propofol 1,000 mg in 100 mls @ 0 mls/hr 01/22/23 22:00 01/22/23 21:49 Diprivan IVCONT 30 mcg/kg/min .Q0M MADHURI 18.92 mls/hr Administration Protocol Per Protocol Discontinued Medications Generic Name Dose Route Start Last Admin Trade Name Karen PRN Reason Stop Dose Admin Albuterol Sulfate 7.5 mg/ 10 mg 01/22/23 21:52 01/22/23 22:18 Albuterol Sulfate 2.5 mg INHALE 01/22/23 21:53 10 mg ONCE ONE Administration Cefepime HCl 1 gm/ Sodium 50 mls @ 100 mls/hr 01/22/23 21:52 01/22/23 22:16 Chloride IV 01/22/23 22:21 100 mls/hr ONCE ONE Administration Ketamine HCl 200 mg 01/22/23 21:52 01/22/23 21:43 Ketamine Hcl/Ns 50 Mg/5 Ml Syringe IVPUSH 01/22/23 21:53 200 mg ONCE ONE Administration Methylprednisolone Sodium Succinate 125 mg 01/22/23 21:52 01/22/23 21:40 Methylprednisolone Sod Succ 125 Mg/2 Ml Vial IVPUSH 01/22/23 21:53 125 mg ONCE ONE Administration Rocuronium [place] 100 mg 01/22/23 22:45 01/22/23 21:52 Rocuronium [place] 100 Mg/10 Ml Vial IV 01/22/23 22:46 100 mg ONCE ONE Administration Succinylcholine Chloride 100 mg 01/22/23 22:45 01/22/23 21:43 Succinylcholine Chloride 100 Mg/5 Ml Syringe IVPUSH 01/22/23 22:46 100 mg ONCE ONE Administration Medical Decision Making Medical Decision Making [facility] Narrative: Patient is a 42-year-old male presented today with extreme shortness of breath history of asthma. Initially patient appeared ozuna ashen extremely diminished breath sounds bilaterally. Steroid given magnesium given attempted BiPAP well as setting up for intubation patient's symptoms does not seem to be improving patient actually got more ozuna breathing effort has actually now diminished elected to intubate using ketamine and succinylcholine. Patient was then placed on rocuronium and propofol drip. He labs are pending at this point. Cultures obtained. Patient's ABG showed a pH of 7.26 with a pCO2 57.7 PaO2 was good at 564. Mostly a respiratory acidosis that was acute. Given patient's extremis condition initially. Right after placing patient on the vent patient's pCO2 on the monitor was over 70. Will continue current setting for now will decrease the FiO2. Chest x-ray was obtained my review of the chest x-ray showed no focal infiltrate. The ET tube was in place. Above the aminah. Patient cultures are obtained antibiotic was started lactate was elevated at over 7. Likely resulting from respiratory failure patient is given a dose of cefepime. 30 cc/kilos of IV fluid was started. Repeat focal exam for sepsis was done patient essentially unchanged patient's potassium came back at 2.4 will start patient on additional potassium. Patient's symptoms seems to be improving. Now looking pink. Case was discussed with the supervisor [employer]. Currently in critical condition. Patient's BMP is normal no evidence for congestive heart failure. Differential Diagnosis Differential Diagnoses: The differential diagnosis associated with the presentation includes Respiratory failure secondary to pneumonia secondary to asthma secondary to congestive heart failure Admission/Observation Consideration of admission/observation: Escalation of care including admission/observation considered Patient require admission after intubation Consult Healthcare Provider Management of the patient was discussed with: Digital Imager (Consulted by the supervisor [employer] agreed to accept patient to the intensive care unit) Lab Data MDM Lab Attestation statement: I reviewed the patient's lab results. 01/22/23 22:00 01/22/23 22:00 Labs: Lab Results 01/22/23 01/22/23 01/22/23 Range/Units 22:00 22:03 22:21 WBC 10.7 (4.8-10.8) X10*3/uL RBC 4.70 (4.60-5.80) X10*6/uL Hgb 14.0 (14.0-18.0) g/dl Hct 43.5 (42.0-52.0) % MCV 92.6 (80.0-98.0) fL MCH 29.8 (27.0-33.0) pg MCHC 32.2 (31.0-36.0) g/dl RDW 12.3 (11.0-16.0) % Plt Count 234 (160-400) X10*3/uL MPV 9.7 (9.4-12.4) fL Immature Gran % (Auto) 0.2 (0.0-0.4) % Neut % (Auto) 33.9 L (45-73) % Lymph % (Auto) 52.3 H (20-40) % [place] % (Auto) 9.1 (2-11) % Eos % (Auto) 3.8 (0-4) % Baso % (Auto) 0.7 (0-2) % Lymph # (Auto) 5.6 H (1.2-4.9) X10*3/uL [place] # (Auto) 1.0 (0.1-1.2) X10*3/uL Eos # (Auto) 0.4 (0.0-0.4) X10*3/uL Baso # (Auto) 0.1 (0.0-0.2) X10*3/uL Abs Immat Gran (auto) 0.02 (0.00-0.03) X10*3/uL Absolute Neuts (auto) 3.6 (2.0-8.3) x10*3/uL Absolute Nucleated RBC 0.000 (0.0-0.012) X10*3/uL Nucleated RBC % (auto) 0.0 (0.0-0.2) /100WBC Smear Tech's Comments VERIFIED O2 Saturation 99.0 % ABG pH at Pt Temp 7.26 L (7.35-7.45) ABG pCO2 at Pt Temp 58 H (32-45) mmHg ABG pO2 at Pt Temp 565 H (83-108) mmHg ABG HCO3 26 (22-26) mmol/L ABG Base Excess (Actual) -1.4 mmol/L Sodium 145 (135-145) mmol/L Potassium 2.3 L* D (3.3-5.1) mmol/L Chloride 122 H D (96-108) mmol/L Carbon Dioxide 18 L (22-29) mmol/L Anion Gap 7 L (12-20) BUN 10 (9-16) mg/dL Creatinine 0.66 (0.5-1.4) mg/dL Estim Creat Clear Calc 180.6 Estimated GFR > 60 Random Glucose 67 (60-115) mg/dL Lactic Acid 8.9 H* (0.5-2.0) mmol/L Calcium 5.8 L* D (8.4-10.2) mg/dL Total Bilirubin 0.3 (0.0-1.0) mg/dL Direct Bilirubin 0.1 (0.0-0.5) mg/dL AST 15 (5-37) U/L ALT 17 (0-40) U/L Alkaline Phosphatase 51 (39-117) U/L Troponin I High Sens 3.2 (<3.5-35.0) ng/L B-Natriuretic Peptide 26 (<100) pg/mL Total Protein 4.6 L (6.5-8.0) g/dL Albumin 2.7 L (3.5-5.0) g/dL Lipase 8 (8-78) U/L Ethyl Alcohol < 10 mg/dL Independent Interpretation I performed an independent interpretation of an: EKG (My interpretation patient's EKG showed sinus tachycardia heart rate is 150 [place] QRS QTC within normal limits) and Plain X-Ray (My interpretation of patient's chest x-ray showed good ET tube placement there is no focal infiltrate noted) Radiology Impression Discussion of test interpretation with radiology: I have reviewed the radiologist's reading. External Record Review External record reviewed: Inpatient record Procedures Intubation Time out performed: Yes sedative: Ketamine paralytic: Succinylcholine Laryngoscope: fiber optic video scope ET Tube Size: 7.5 ET Tube Uncuffed: Yes Tube Secured Depth (cm): 24 Tube Secured Location: lips Tube Placement Confirmation: visualized tube passing through cords, equal breath sounds bilaterally, no breath sounds over epigastrium and confirmation by capnometry Patient Tolerated Procedure: well Intubation Complications: none Critical Care Time Critical Care Time Critical Care Time: Yes Total Critical Care Time: 90 Attestation: I have personally provided 90 minutes of critical care time exclusive of time spent on separately billable procedures. Time includes review of lab data, radiology results, discussion with consultants, and monitoring for potential decompensation. Interventions were performed as documented above Discharge Plan Discharge Clinical Impression: Respiratory failure Patient Disposition: Admitted As Inpatient
[2023-01-22 22:28] LABS: ABG Base Excess -1.4 mmol/L; ABG HCO3 26 mmol/L (22-26); ABG pCO2 58 mmHg (32-45); ABG pH 7.26 (7.35-7.45); ABG pO2 565 mmHg (83-108)
[2023-01-22 22:30] LABS: Alanine Aminotransferase 17 U/L (0-40); Albumin Level 2.7 g/dL (3.5-5.0); Alkaline Phosphatase 51 U/L (39-117); Anion Gap 7 (12-20); Aspartate Amino Transferase 15 U/L (5-37); Bilirubin Direct 0.1 mg/dL (0.0-0.5); Bilirubin Total 0.3 mg/dL (0.0-1.0); Blood Urea Nitrogen 10 mg/dL (9-16); Calcium 5.8 mg/dL (8.4-10.2); Carbon Dioxide 18 mmol/L (22-29); Chloride 122 mmol/L (96-108); Creatinine Clr Calc Pharmacy 180.6; Estimated Glomerular Filt Rate > 60; Ethanol < 10 mg/dL; Glucose Random 67 mg/dL (60-115); Lipase 8 U/L (8-78); Potassium 2.3 mmol/L (3.3-5.1); Sodium 145 mmol/L (135-145); Total Protein 4.6 g/dL (6.5-8.0); Troponin-I High Sensitivity 3.2 ng/L (<3.5-35.0)
[2023-01-22 22:36] LABS: B Type Natriuretic Peptide 26 pg/mL (<100)
[2023-01-22 22:44] LABS: SLIDE REVIEW VERIFIED
[2023-01-22] MEDS: Potassium Chloride/H20 10 MEQ/100 ML PIGGYBACK 100 MEQ IV (22:50)
[2023-01-22] MEDS: Calcium Gluconate/NaCl,Iso-Osm 2 GM/100 ML PLAST..BAG IV (22:50)
[2023-01-22 22:55] LABS: Magnesium 1.3 mg/dL (1.6-2.6)
[2023-01-22 22:58] LABS: Appearance Urine Clear; Color Urine Yellow; Glucose Urine UA Negative (Negative); Leukocyte Esterase Urine Negative (Negative); Nitrite Urine Negative (Negative); PH 5.5 (5.0-9.0); Specific Gravity - Urine 1.025 (1.005-1.025); UMIC TRIGGER UACC YES; Urine Blood Small (1+) (Negative); Urine Ketones Negative (Negative); Urine Protein 100 (2+) mg/dL (Neg-Trace)
[2023-01-22 23:04] LABS: Amphetamine Screen Urine Not Detected (Not Detect); Barbiturates, Urine Not Detected (Not Detect); Benzodiazepines Screen Urine Not Detected (Not Detect); Cannabinoid Screen Urine Not Detected (Not Detect); Cocaine Screen Urine Not Detected (Not Detect); Fentanyl, urine POSITIVE (Not Detect); Opiate Screen Urine Not Detected (Not Detect); Phencyclidine Screen Urine Not Detected (Not Detect)
[2023-01-22 23:11] LABS: Bacteria Urine None Seen (None Seen); Granular Casts Urine Present; RBC Urine 0-2 /HPF (0-2); Squamous Epithelial Cell Urine 0-2 /HPF (0-2); WBC Urine 0-5 /HPF (0-5)
[2023-01-22] MEDS: Midazolam HCl/PF 2 MG/2 ML VIAL IVPUSH (23:13)
--- NOTE | 2023-01-22 23:14 | PM.CCHP ---
History of Present Illness Date of Service: 01/22/23 Attending physician on admission: Jcarlos Alvarez Chief Complaint: Dyspnea The patient is a 42-year-old male with a past medical history of asthma, testicular cancer with large thoracic mass s/p resection? about 12 years ago,? who presented to the emergency room ? with severe shortness of breath.? According to his ,? [place],? patient was helping her wash a dog and he suddenly became short of breath,? he attempted to use? albuterol inhaler with no relief. ??On arrival to the emergency room,? patient? severely short of breath,? Ashen color,? Placed on BiPAP briefly? but subsequently required emergent intubation.? ? Laboratory data was significant for? potassium 2.3, chloride 122, serum bicarb 18, anion gap 7, lactic acid 8.9, calcium 5.8, Mag 1.3,? albumin 2.7 ?ABG? prior to intubation: / ?Toxicology:? positive for fentanyl IMAGING:? ?CHEST X-RAY-? with no acute findings ED course:? ?Patient received? a total of 4 g of magnesium, Solu-Medrol 125,? cefepime 1 g, and? albuterol 10mg. Review of Systems Review of Systems: Yes unobtainable due to endotracheal tube PMFSH Past Medical History Medical History Dyslipidemia Lung collapse Thoracic cancer Asthma Gallstones Testicular cancer Surgical History Surgical History Hx laparoscopic cholecystectomy History of thoracic surgery S/P hernia surgery H/O ventral hernia repair Social History Household Members: Family Housing: House Do you presently have visiting nurse or other home services: No Unable to assess alcohol history related to: Unable to respond Alcohol intake: current Alcohol intake frequency: holidays/special occasions only Patient Tobacco Use Status: Never used Tobacco e-Cigarette/Vaping Use: Never Used Second Hand Smoke Exposure: No Use of substances other than those prescribed or required for medical reasons: Unable to respond Currently Displaying Signs/Symptoms of Drug Intoxication Withdrawal: No Advance Directives: No Advance Directives Information Provided: No Advance Directives Date on File: 09/18/20 Nutrition Risks: No Nutritional Risk service: No Current occupational status: employed 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 Allergies Allergy/AdvReac Type Severity Reaction Status Date / Time metoclopramide [From REGLAN] Allergy Intermediate FEELS Verified 04/03/21 12:45 LIKE I'M JUMPING OUT OF MY SKIN{ pneumococcal vaccine Allergy Intermediate Swelling Verified 04/03/21 12:45 [PNEUMOCOCCAL VACCINE] Prevnar AdvReac Mild CELLULITIS Uncoded 04/03/21 12:45 Active Medications: Current Medications Enoxaparin Sodium (Enoxaparin Sodium 40 Mg/0.4 Ml Syringe) 40 mg SUBCUT Q24H MADHURI Magnesium Sulfate (Magnesium Sulfate/H2o) 2 gm in 50 mls @ 25 mls/hr IV ONCE ONE Stop: 01/22/23 23:51 Last Admin: 01/22/23 21:40 Dose: 25 mls/hr Propofol (Diprivan) 1,000 mg in 100 mls @ 0 mls/hr IVCONT .Q0M MADHURI; Protocol Last Admin: 01/22/23 21:49 Dose: 30 mcg/kg/min, 18.92 mls/hr Sodium Chloride (Ns) 3,153 mls @ 3,153 mls/hr 30 ml/kg infuse over 1 hr (3153 ml) IV .Q1H STA Stop: 01/22/23 23:28 Potassium Chloride (Potassium Chloride/H20) 10 meq in 100 mls @ 100 mls/hr IV Q1H MADHURI Stop: 01/23/23 02:44 Last Admin: 01/22/23 22:50 Dose: 100 mls/hr Calcium Gluconate (Calcium Gluconate) 2 gm in 100 mls @ 50 mls/hr IV ONCE ONE Stop: 01/23/23 00:45 Last Admin: 01/22/23 22:50 Dose: 50 mls/hr Magnesium Sulfate (Magnesium Sulfate/H2o) 2 gm in 50 mls @ 150 mls/hr IV ONCE ONE Stop: 01/22/23 23:16 Fentanyl (Sublimaze/Ns) 1,000 mcg in 100 mls @ 0 mls/hr IVCONT .Q0M MADHURI; Protocol Midazolam HCl (Midazolam Hcl/Pf 2 Mg/2 Ml Vial) 2 mg IVPUSH ONCE ONE Stop: 01/22/23 23:14 Home Medications Medication Instructions Recorded Confirmed Last Taken Type atorvastatin 20 mg tablet 20 mg PO DAILY 01/23/23 01/23/23 Unknown History metformin 500 mg tablet 500 mg PO BID 01/23/23 01/23/23 Unknown History Physical Exam Vital Signs: Vital Signs: Last Vital Signs Temp 99.6 F 01/22/23 22:31 Pulse 139 H 01/22/23 21:56 Resp 24 H 01/22/23 21:56 BP 188/96 H 01/22/23 21:56 Pulse Ox 97 01/22/23 21:56 O2 Del Method Mechanical Ventil ation 01/22/23 21:56 FiO2 40 01/22/23 22:43 BMI result Body Mass Index 33.2 Constitutional: patient is intubated Head: Normocephalic. Eyes: Pupils are equal, round and reactive to light. Ear, Nose and Throat: Oropharynx clear, mucous membranes moist. trachea midlight Neck: Supple Respiratory:? lungs with expiratory wheezing. on AC settings 16/400/5/40% Cardiovascular: Sinus. S1 S2 regular. No murmurs, rubs or gallops. no edema. + peripheral pulses Gastrointestinal: Abdomen soft, slightly distended. Normal bowel sounds. Genitourinary: Paulino present Neurologic:? No focal neurological deficits. Moves all extremities spontaneously. Skin:? intact, no ecchymosis, jaundice, ulcers. Results Labs 01/23/23 04:29 01/23/23 04:29 Labs: Laboratory Results - last 24 hr 01/22/23 01/22/23 01/22/23 22:00 22:03 22:21 MCV 92.6 MCH 29.8 MCHC 32.2 RDW 12.3 Plt Count 234 MPV 9.7 Immature Gran % (Auto) 0.2 Neut % (Auto) 33.9 L Lymph % (Auto) 52.3 H [place] % (Auto) 9.1 Eos % (Auto) 3.8 Baso % (Auto) 0.7 Lymph # (Auto) 5.6 H [place] # (Auto) 1.0 Eos # (Auto) 0.4 Baso # (Auto) 0.1 Abs Immat Gran (auto) 0.02 Absolute Neuts (auto) 3.6 Absolute Nucleated RBC 0.000 Nucleated RBC % (auto) 0.0 Smear Tech's Comments VERIFIED O2 Saturation 99.0 ABG pH at Pt Temp 7.26 L ABG pCO2 at Pt Temp 58 H ABG pO2 at Pt Temp 565 H ABG HCO3 26 ABG Base Excess (Actual) -1.4 Anion Gap 7 L Estim Creat Clear Calc 180.6 Estimated GFR > 60 Random Glucose 67 Lactic Acid 8.9 H* Calcium 5.8 L* D Magnesium 1.3 L* Total Bilirubin 0.3 Direct Bilirubin 0.1 AST 15 ALT 17 Alkaline Phosphatase 51 B-Natriuretic Peptide 26 Total Protein 4.6 L Albumin 2.7 L Lipase 8 Urine Color Urine Appearance Urine pH Ur Specific [place] Urine Protein Urine Glucose (UA) Urine Ketones Urine Blood Urine Nitrite Ur Leukocyte Esterase Urine RBC Urine WBC Ur Squamous Epith Cells Urine Bacteria Hyaline Casts Granular Casts Urine Opiates Screen Urine Fentanyl Screen Ur Barbiturates Screen Ur Phencyclidine Scrn Ur Amphetamines Screen U Benzodiazepines Scrn Urine Cocaine Screen U Marijuana (THC) Screen Ethyl Alcohol < 10 01/22/23 22:46 MCV MCH MCHC RDW Plt Count MPV Immature Gran % (Auto) Neut % (Auto) Lymph % (Auto) [place] % (Auto) Eos % (Auto) Baso % (Auto) Lymph # (Auto) [place] # (Auto) Eos # (Auto) Baso # (Auto) Abs Immat Gran (auto) Absolute Neuts (auto) Absolute Nucleated RBC Nucleated RBC % (auto) Smear Tech's Comments O2 Saturation ABG pH at Pt Temp ABG pCO2 at Pt Temp ABG pO2 at Pt Temp ABG HCO3 ABG Base Excess (Actual) Anion Gap Estim Creat Clear Calc Estimated GFR Random Glucose Lactic Acid Calcium Magnesium Total Bilirubin Direct Bilirubin AST ALT Alkaline Phosphatase B-Natriuretic Peptide Total Protein Albumin Lipase Urine Color Yellow Urine Appearance Clear Urine pH 5.5 Ur Specific [place] 1.025 Urine Protein 100 (2+) H Urine Glucose (UA) Negative Urine Ketones Negative Urine Blood Small (1+) H Urine Nitrite Negative Ur Leukocyte Esterase Negative Urine RBC 0-2 Urine WBC 0-5 Ur Squamous Epith Cells 0-2 Urine Bacteria None Seen Hyaline Casts 11-20 Granular Casts Present Urine Opiates Screen Not Detected Urine Fentanyl Screen POSITIVE H Ur Barbiturates Screen Not Detected Ur Phencyclidine Scrn Not Detected Ur Amphetamines Screen Not Detected U Benzodiazepines Scrn Not Detected Urine Cocaine Screen Not Detected U Marijuana (THC) Screen Not Detected Ethyl Alcohol Imaging Radiologist's Impressions: Impressions Chest X-Ray 01/22/23 22:06 IMPRESSION: Chronic appearing and postoperative changes. Endotracheal tube tip approximately 5 cm above the aminah. Assessment and Plan (1) Acute respiratory failure with hypoxia and hypercapnia: Status: Acute (2) Asthma exacerbation: Status: Acute (3) Elevated lactic acid level: Status: Acute (4) Hypokalemia: Status: Acute (5) Hypomagnesemia: Status: Acute (6) Hypocalcemia: Status: Acute (7) Substance use: Status: Acute Plan Plan: Neuro:? No acute issues. Cardiac:?? ?Elevated lactic:? no signs of acute infection,? white count is normal.?Hypotemsion is related to sedation. elevated lactic likely related to asthma exacerbation, but will order abdominal and chest CT to rule out other possible causes for elevated lactic acid.? Pulmonary:?? acute hypoxic and hypercapnic respiratory failure secondary to possible asthma exacerbation? require mechanical ventilation.? Patient with significant amount of wheezing,? received systemic glucocorticoids in ED. reports patient had a history of use of street percocet in the past, toxicology positive for fentanyl. Will scan obtain Chest CT to rule out PE,? other pulmonary causes. But cause for asthma exacerbation likely due to substance use. Will cont? systemic? glucocorticoids, nebulized bronchodilators.? Wean off vent as tolerated Renal:? ?Hypokalemia, Hypocalcemia and? hypo magnesemia:? No changes in EKG.? Continue to monitor and replace? Endo:? No acute issues.?? GI:? no acute issues ID:? ?No acute issues Heme/Onc:? No acute issues. Psych:? No acute issues. Miscellaneous:? No acute issues. Prophylaxis:? lovenox GI:? IV Pepcid Critical care time spent:? 60 minutes
[2023-01-22 23:44] LABS: Phosphorus 3.2 mg/dL (2.7-4.5)
[2023-01-22] MEDS: iohexoL 350 MG/ML 100 ML INFUS..BTL IV (23:56)
[2023-01-23] VITALS (35 sets, daily range): BP systolic 90–139; BP diastolic 42–80; PULSE 79–118; RESP 10–24; TEMP 34.7–38.1; O2SAT 90–100; BMI 33.6
[2023-01-23 00:05] LABS: Reflex Lactate? Lactic Acid Added
--- NOTE | 2023-01-23 00:09 | PC.NURSE ---
late entry - see previous RN notes about interventions in ED - see MAR for meds given. #20G IV RAC, #18G IV LAC. propofol at max drip 50mcg/mg/hr running through RAC potassium 10meq and calcium garbonate 2000mg running through LAC (compatible per pharmacist Elle) pt brought to ICU from CT scan by this RN and Resp Therapist.. Report given to Becky SOCIAL WELFARE RESEARCH WORKER.
[2023-01-23] MEDS: fentaNYL citrate/NS 1,000 MCG/100 ML PLAST..BAG 2.5 MCG IVCONT (00:13)
[2023-01-23] MEDS: propofoL 1,000 MG/100 ML VIAL 31.53 MG IVCONT ×3 (00:14→06:03)
[2023-01-23] MEDS: Potassium Chloride/H20 10 MEQ/100 ML PIGGYBACK 100 MEQ IV ×3 (00:29→02:42)
[2023-01-23 00:44] LABS: VBG Base Excess 2.4 mmol/L; VBG HCO3 30 mmol/L (22-26); VBG pCO2 58 mmHg; VBG pH 7.31 (7.32-7.43); VBG pO2 53 mmHg
[2023-01-23] MEDS: Albumin Human 25 % 100 ML IV ×4 (00:45→16:56)
[2023-01-23] MEDS: Magnesium Sulfate/H2O 2 GM/50 ML PIGGYBACK IV (00:46)
[2023-01-23 00:47] LABS: Venous Blood Gas Refer to POC result
[2023-01-23 00:51] LABS: ~Lactic Acid-LAB USE ONLY 2.7 mmol/L (0.5-2.0)
[2023-01-23] MEDS: Enoxaparin Sodium 40 MG/0.4 ML SYRINGE SUBCUT ×2 (00:53→22:10)
[2023-01-23] MEDS: Potassium Chloride Packet 20 MEQ PACKET 60 MEQ PO (00:59)
[2023-01-23] MEDS: diphenhydrAMINE HCL 50 MG/ML VIAL 25 MG IVPUSH (01:21)
[2023-01-23] MEDS: Midazolam HCl/PF 2 MG/2 ML VIAL IVPUSH (01:22)
[2023-01-23] MEDS: Calcium Gluconate/NaCl,Iso-Osm 2 GM/100 ML PLAST..BAG IV (01:33)
[2023-01-23] MEDS: Norepinephrine Bitartrate/D5W 8 MG/250 ML PLAST..BAG 9.85 MG IV (02:00)
[2023-01-23 02:39] LABS: Reflex Lactate? 2 Y
[2023-01-23 04:43] LABS: VBG Base Excess 1.6 mmol/L; VBG HCO3 25 mmol/L (22-26); VBG pCO2 36 mmHg; VBG pH 7.44 (7.32-7.43); VBG pO2 53 mmHg
[2023-01-23 04:46] LABS: Venous Blood Gas Refer to POC result
[2023-01-23 04:55] LABS: MANUAL DIFF FLAG NO
[2023-01-23 04:57] LABS: Basophils Percent Auto 0.2 % (0-2); Eosinophils Percent Auto 0.2 % (0-4); Hematocrit 37.2 % (42.0-52.0); Hemoglobin 12.6 g/dl (14.0-18.0); Imm Gran Abs Auto 0.02 X10*3/uL (0.00-0.03); Imm Gran Pct Auto 0.2 % (0.0-0.4); Lymphocytes Absolute Auto 1.2 X10*3/uL (1.2-4.9); Lymphocytes Percent Auto 11.4 % (20-40); Mean Corpuscular HGB Conc 33.9 g/dl (31.0-36.0); Mean Corpuscular Hemoglobin 30.7 pg (27.0-33.0); Mean Corpuscular Volume 90.5 fL (80.0-98.0); Mean Platelet Volume 9.9 fL (9.4-12.4); Monocytes Absolute Auto 0.4 X10*3/uL (0.1-1.2); Monocytes Percent Auto 4.3 % (2-11); Neutrophils Absolute Auto 8.6 x10*3/uL (2.0-8.3); Neutrophils Percent Auto 83.7 % (45-73); Platelet Count 220 X10*3/uL (160-400); Red Blood Count 4.11 X10*6/uL (4.60-5.80); Red Cell Distribution Width 12.5 % (11.0-16.0); White Blood Count 10.2 X10*3/uL (4.8-10.8)
[2023-01-23 05:18] LABS: Alanine Aminotransferase 31 U/L (0-40); Albumin Level 4.3 g/dL (3.5-5.0); Alkaline Phosphatase 74 U/L (39-117); Anion Gap 14 (12-20); Aspartate Amino Transferase 28 U/L (5-37); Bilirubin Total 0.6 mg/dL (0.0-1.0); Blood Urea Nitrogen 14 mg/dL (9-16); Calcium 10.3 mg/dL (8.4-10.2); Carbon Dioxide 24 mmol/L (22-29); Chloride 106 mmol/L (96-108); Creatinine Clr Calc Pharmacy 103.6; Estimated Glomerular Filt Rate > 60; Glucose Random 153 mg/dL (60-115); Magnesium 2.2 mg/dL (1.6-2.6); Phosphorus 2.6 mg/dL (2.7-4.5); Potassium 4.6 mmol/L (3.3-5.1); Sodium 139 mmol/L (135-145); Total Protein 7.2 g/dL (6.5-8.0)
[2023-01-23 05:20] LABS: ~Lactic Acid-LAB USE ONLY 2.2 mmol/L (0.5-2.0)
[2023-01-23] MEDS: Albuterol/Iprat 2.5/0.5MG 3 ML AMPUL.NEB INHALE ×4 (07:37→19:05)
[2023-01-23] MEDS: methylPREDNISolone Sod Succ 125 MG/2 ML VIAL 80 MG IVPUSH (07:38)
[2023-01-23] MEDS: Famotidine/PF 20 MG/2 ML VIAL IVPUSH (07:38)
[2023-01-23] MEDS: Chlorhexidine Gluc Oral Rinse 15 ML MOUTHWASH BUCCAL (07:38)
[2023-01-23] MEDS: Potassium Phosphate/NS 15 MMOL/250 ML PLAST..BAG 62.5 MMOL IV (08:46)
--- NOTE | 2023-01-23 09:43 | MHC.CM.PN ---
CM MET WITH PT'S SPOUSE AT BEDSIDE IN ICU. PT REMAINS INTUBATED. PER SPOUSE, PT IS FULLY INDEPENDENT AND SELF EMPLOYED. +HCP (COPY AT [facility]) PCP GERI GRISSOM APRN. DP: HOME WITH NO SERVICES ANTICIPATED. SPOUSE WILL TRANSPORT. CM WILL CONTINUE TO FOLLOW FOR ANY CHANGE IN DC NEEDS/PLAN.
--- NOTE | 2023-01-23 10:02 | PHA.MEDREC ---
Pharmacy Consult ? Medication Reconciliation Pharmacy has completed the medication reconciliation. Spoke to patient's [place] on phone ([phone]) who wasn't entirely sure of medications, but did mention metformin and ibuprofen as needed. Called [facility] ([phone]) who said atorvastatin was recently filled, and noted that metformin was never picked up. Added to med rec bc said she was sure he was taking metformin. She also noted cetirizine, famotidine, and albuterol were PRN
--- NOTE | 2023-01-23 10:12 | MHC.CLN ---
PT IS INTUBATED AND SEDATED CURRENTLY NPO IF TF NEEDED; RECOMMEND PROMOTE AT MAX GOAL RATE 65ML/HR TO PROVIDE 1560KCALS (1976KCALS WITH SEDATION; 23KCALS/KG), 97.5G PROTEIN, 1309ML FREE WATER FROM FORMULA MONITOR TOLERANCE, RESIDUALS AND LYTES SEE FULL CLINICAL NUTRITION ASSESSMENT
--- NOTE | 2023-01-23 10:21 | P.CDIM_ITS ---
PROVIDER RESPONSE TEXT: To clarify, the appropriate diagnosis supported by the clinical indicators: Severe persistent QUERY TEXT: PHYSICIAN'S DOCUMENTATION REQUEST Date of Query: 01/23/2023 10:05 AM EST Patient Name: Chris Godwin Admit Date: 01/23/2023 Dear Jcarlos Alvarez, A review of the medical record indicates additional documentation may be needed. Please review below and update the documentation accordingly. H&P: Patient arrived in severe shortness of breath, ashen color, dyspnea, wheezing - RR 24 Patient intubated on vent support. Cause of asthma exacerbation likely due to substance use. systemic glucocorticoids, nebulized bronchodilators, wean off vent as tolerated. Based on the above, please clarify in the Progress Notes further specificity regarding the type and a cuity of the asthma exacerbation: Mild intermittent Mild persistent Moderate persistent Severe persistent Other (explain) Clinically unable to determine (explain) Thank you, Zaira Masterson, CCS, CDIS Use of terms such as suspected, likely, concern for, or probable (associated with a specific diagnosi s that is being evaluated, monitored, or treated as if it exists) are acceptable and can be coded in the inpatient se tting, when documented at the time of discharge. Please use your independent medical judgment in providing your response. THIS QUERY IS PART OF THE PERMANENT MEDICAL RECORD
[2023-01-23] MEDS: Ibuprofen 800 MG TABLET PO ×2 (15:34→23:12)
--- NOTE | 2023-01-23 16:35 | HO.ADDICT_ITS ---
History of Present Illness Date of Service: 01/23/2023 Chief Complaint: acute respiratory failure Sources of Information: patient interviewed and chart reviewed HPI Narrative: Patient is a 42 year old male currently medically admitted following asthma exacerbation and respiratory failure requiring intubation. Consult placed as UDS +fentanyl and patient's reporting that patient has been using illicit percocet. Patient has since extubated. Patient seen in room 253. Awake, alert, engaged in interview. Expressing significant remorse, shame and embarrassment for current circumstances. He reports taking non prescribed oxycodone 2x/week for the last few years. He reports there are times when he goes weeks without any as well. States he takes one 5mg pill po. Denies any IN or IV use. Denies any history of overdose Denies any history of cocaine, benzo or alcohol use. Denies any history of treatment Reports that he was prescribed pain medications for a few years following cancer diagnosis approx 10 years ago. Then his provider abruptly stopped prescribing (unclear circumstances). He reports self tapering with non prescribed oxycodone over several months. Reports withdrawal sx during that time, including restless legs, anxiety and body aches. He denies any recent history of withdrawal sx. Patient reporting that he continues to use what he believes to be percocet, but also acknowledges that he is aware he has likely been purchasing pressed pills/fentanyl, because of ongoing pain. He verbalizes feelings of stigma when he has attempted to get pain addressed and has stopped seeking medical attention. Discussed suboxone as an option to address both pain and ongoing thoughts of using illicit percocet and decrease risk of overdose. Reviewed mechanism of action, dosing, side effects and goals of treatment. Patient agreeable to consider this as an option for treatment. Medical Evaluation Reviewed: Yes Review of Systems Constitutional: Reports as per HPI Diagnostics Vital Signs (24Hr): Vital Signs - 24 hr 01/22/23 21:40 01/22/23 21:49 01/22/23 21:51 Temperature Pulse Rate 119 H 117 H 101 H Respiratory Rate 32 H 14 Blood Pressure 206/108 H 242/99 H 162/96 H Pulse Oximetry 98 97 Oxygen Delivery Method BiPAP Mechanical Ventilation Fraction of Inspired Oxygen 01/22/23 21:56 01/22/23 22:31 01/22/23 22:43 Temperature 99.6 F Pulse Rate 139 H Respiratory Rate 24 H Blood Pressure 188/96 H Pulse Oximetry 97 Oxygen Delivery Method Mechanical Ventilation Fraction of Inspired Oxygen 40 01/23/23 00:00 01/23/23 00:00 01/23/23 00:45 Temperature Pulse Rate 98 Respiratory Rate 13 Blood Pressure 121/71 Pulse Oximetry 95 Oxygen Delivery Method Mechanical Ventilation Fraction of Inspired Oxygen 35 35 35 01/23/23 01:00 01/23/23 02:00 01/23/23 02:00 Temperature 98.8 F 98.6 F Pulse Rate 97 90 85 Respiratory Rate 21 H 20 Blood Pressure 122/71 90/42 L 90/42 L Pulse Oximetry 99 97 Oxygen Delivery Method Mechanical Ventilation Mechanical Ventilation Fraction of Inspired Oxygen 35 35 01/23/23 03:00 01/23/23 04:00 01/23/23 04:00 Temperature 98.4 F 98.8 F Pulse Rate 79 82 Respiratory Rate 20 20 Blood Pressure 102/46 L 99/42 L Pulse Oximetry 100 99 Oxygen Delivery Method Mechanical Ventilation Mechanical Ventilation Fraction of Inspired Oxygen 35 35 35 01/23/23 05:00 01/23/23 05:03 01/23/23 05:11 Temperature 99.1 F Pulse Rate 84 83 Respiratory Rate 20 20 Blood Pressure 93/48 L Pulse Oximetry 99 Oxygen Delivery Method Mechanical Ventilation Fraction of Inspired Oxygen 35 35 01/23/23 06:00 01/23/23 07:00 01/23/23 07:10 Temperature 99.5 F 99.7 F Pulse Rate 92 83 Respiratory Rate 20 20 Blood Pressure 102/45 L 99/48 L Pulse Oximetry 98 96 Oxygen Delivery Method Mechanical Ventilation Mechanical Ventilation Fraction of Inspired Oxygen 35 30 30 01/23/23 07:37 01/23/23 07:39 01/23/23 08:00 Temperature 100.0 F Pulse Rate 100 114 H Respiratory Rate 23 H 20 Blood Pressure 114/54 L Pulse Oximetry 95 Oxygen Delivery Method Mechanical Ventilation Fraction of Inspired Oxygen 21 30 01/23/23 09:00 01/23/23 09:29 01/23/23 10:00 Temperature 100.6 F H 100.6 F H Pulse Rate 101 H 107 H 102 H Respiratory Rate 22 H 11 L Blood Pressure 113/57 L 139/61 101/50 L Pulse Oximetry 90 L 91 L Oxygen Delivery Method Mechanical Ventilation Mechanical Ventilation Fraction of Inspired Oxygen 30 30 01/23/23 11:00 01/23/23 11:31 01/23/23 11:53 Temperature 100.2 F Pulse Rate 102 H 96 109 H Respiratory Rate 15 17 Blood Pressure 112/55 L 102/52 L Pulse Oximetry 93 Oxygen Delivery Method Room Air Fraction of Inspired Oxygen 01/23/23 12:00 01/23/23 13:00 01/23/23 14:00 Temperature Pulse Rate 107 H 101 H 95 Respiratory Rate 20 16 Blood Pressure 102/52 L 104/49 L 103/60 Pulse Oximetry 96 93 95 Oxygen Delivery Method Room Air Room Air Room Air Fraction of Inspired Oxygen 01/23/23 15:00 01/23/23 15:08 01/23/23 16:00 Temperature 99.5 F Pulse Rate 107 H 104 H 106 H Respiratory Rate 15 16 16 Blood Pressure 116/61 107/56 L Pulse Oximetry 92 93 Oxygen Delivery Method Room Air Room Air Fraction of Inspired Oxygen BMI result Body Mass Index 33.6 Labs 01/23/23 04:29 01/23/23 04:29 Labs: Laboratory Results - last 48 hr 01/22/23 01/22/23 01/22/23 22:00 22:03 22:21 WBC 10.7 RBC 4.70 Hgb 14.0 Hct 43.5 MCV 92.6 MCH 29.8 MCHC 32.2 RDW 12.3 Plt Count 234 MPV 9.7 Immature Gran % (Auto) 0.2 Neut % (Auto) 33.9 L Lymph % (Auto) 52.3 H [place] % (Auto) 9.1 Eos % (Auto) 3.8 Baso % (Auto) 0.7 Lymph # (Auto) 5.6 H [place] # (Auto) 1.0 Eos # (Auto) 0.4 Baso # (Auto) 0.1 Abs Immat Gran (auto) 0.02 Absolute Neuts (auto) 3.6 Absolute Nucleated RBC 0.000 Nucleated RBC % (auto) 0.0 Smear Tech's Comments VERIFIED O2 Saturation 99.0 ABG pH at Pt Temp 7.26 L ABG pCO2 at Pt Temp 58 H ABG pO2 at Pt Temp 565 H ABG HCO3 26 ABG Base Excess (Actual) -1.4 VBG pH VBG pCO2 VBG pO2 VBG HCO3 VBG O2 Saturation VBG Base Excess Sodium 145 Potassium 2.3 L* D Chloride 122 H D Carbon Dioxide 18 L Anion Gap 7 L BUN 10 Creatinine 0.66 Estim Creat Clear Calc 180.6 Estimated GFR > 60 Random Glucose 67 Lactic Acid 8.9 H* Lactic Acid F/U @ 2Hr Lactic Acid F/U @ 4Hr Calcium 5.8 L* D Phosphorus 3.2 Magnesium 1.3 L* Total Bilirubin 0.3 Direct Bilirubin 0.1 AST 15 ALT 17 Alkaline Phosphatase 51 Troponin I High Sens 3.2 B-Natriuretic Peptide 26 Total Protein 4.6 L Albumin 2.7 L Lipase 8 Urine Color Urine Appearance Urine pH Ur Specific [place] Urine Protein Urine Glucose (UA) Urine Ketones Urine Blood Urine Nitrite Ur Leukocyte Esterase Urine RBC Urine WBC Ur Squamous Epith Cells Urine Bacteria Hyaline Casts Granular Casts Urine Opiates Screen Urine Fentanyl Screen Ur Barbiturates Screen Ur Phencyclidine Scrn Ur Amphetamines Screen U Benzodiazepines Scrn Urine Cocaine Screen U Marijuana (THC) Screen Ethyl Alcohol < 10 01/22/23 01/23/23 01/23/23 22:46 00:36 00:37 WBC RBC Hgb Hct MCV MCH MCHC RDW Plt Count MPV Immature Gran % (Auto) Neut % (Auto) Lymph % (Auto) [place] % (Auto) Eos % (Auto) Baso % (Auto) Lymph # (Auto) [place] # (Auto) Eos # (Auto) Baso # (Auto) Abs Immat Gran (auto) Absolute Neuts (auto) Absolute Nucleated RBC Nucleated RBC % (auto) Smear Tech's Comments O2 Saturation ABG pH at Pt Temp ABG pCO2 at Pt Temp ABG pO2 at Pt Temp ABG HCO3 ABG Base Excess (Actual) VBG pH 7.31 L VBG pCO2 58 VBG pO2 53 VBG HCO3 30 H VBG O2 Saturation 81.0 VBG Base Excess 2.4 Sodium Potassium Chloride Carbon Dioxide Anion Gap BUN Creatinine Estim Creat Clear Calc Estimated GFR Random Glucose Lactic Acid Lactic Acid F/U @ 2Hr 2.7 H* Lactic Acid F/U @ 4Hr Calcium Phosphorus Magnesium Total Bilirubin Direct Bilirubin AST ALT Alkaline Phosphatase Troponin I High Sens B-Natriuretic Peptide Total Protein Albumin Lipase Urine Color Yellow Urine Appearance Clear Urine pH 5.5 Ur Specific [place] 1.025 Urine Protein 100 (2+) H Urine Glucose (UA) Negative Urine Ketones Negative Urine Blood Small (1+) H Urine Nitrite Negative Ur Leukocyte Esterase Negative Urine RBC 0-2 Urine WBC 0-5 Ur Squamous Epith Cells 0-2 Urine Bacteria None Seen Hyaline Casts 11-20 Granular Casts Present Urine Opiates Screen Not Detected Urine Fentanyl Screen POSITIVE H Ur Barbiturates Screen Not Detected Ur Phencyclidine Scrn Not Detected Ur Amphetamines Screen Not Detected U Benzodiazepines Scrn Not Detected Urine Cocaine Screen Not Detected U Marijuana (THC) Screen Not Detected Ethyl Alcohol 01/23/23 01/23/23 04:29 04:37 WBC 10.2 RBC 4.11 L Hgb 12.6 L Hct 37.2 L MCV 90.5 MCH 30.7 MCHC 33.9 RDW 12.5 Plt Count 220 MPV 9.9 Immature Gran % (Auto) 0.2 Neut % (Auto) 83.7 H Lymph % (Auto) 11.4 L [place] % (Auto) 4.3 Eos % (Auto) 0.2 Baso % (Auto) 0.2 Lymph # (Auto) 1.2 [place] # (Auto) 0.4 Eos # (Auto) 0.0 Baso # (Auto) 0.0 Abs Immat Gran (auto) 0.02 Absolute Neuts (auto) 8.6 H Absolute Nucleated RBC 0.000 Nucleated RBC % (auto) 0.0 Smear Tech's Comments O2 Saturation ABG pH at Pt Temp ABG pCO2 at Pt Temp ABG pO2 at Pt Temp ABG HCO3 ABG Base Excess (Actual) VBG pH 7.44 H VBG pCO2 36 VBG pO2 53 VBG HCO3 25 VBG O2 Saturation 87.0 VBG Base Excess 1.6 Sodium 139 Potassium 4.6 D Chloride 106 Carbon Dioxide 24 Anion Gap 14 BUN 14 Creatinine 1.15 Estim Creat Clear Calc 103.6 Estimated GFR > 60 Random Glucose 153 H Lactic Acid Lactic Acid F/U @ 2Hr Lactic Acid F/U @ 4Hr 2.2 H* Calcium 10.3 H D Phosphorus 2.6 L Magnesium 2.2 Total Bilirubin 0.6 Direct Bilirubin AST 28 ALT 31 Alkaline Phosphatase 74 Troponin I High Sens B-Natriuretic Peptide Total Protein 7.2 Albumin 4.3 Lipase Urine Color Urine Appearance Urine pH Ur Specific [place] Urine Protein Urine Glucose (UA) Urine Ketones Urine Blood Urine Nitrite Ur Leukocyte Esterase Urine RBC Urine WBC Ur Squamous Epith Cells Urine Bacteria Hyaline Casts Granular Casts Urine Opiates Screen Urine Fentanyl Screen Ur Barbiturates Screen Ur Phencyclidine Scrn Ur Amphetamines Screen U Benzodiazepines Scrn Urine Cocaine Screen U Marijuana (THC) Screen Ethyl Alcohol Imaging Radiology Impressions: ITS Impressions Chest X-Ray 01/22/23 22:06 IMPRESSION: Chronic appearing and postoperative changes. Endotracheal tube tip approximately 5 cm above the amianh. Abdomen/Pelvis CT 01/23/23 00:07 IMPRESSION: 1. A cause for the patient's elevated lactic acid is not found. 2. Incidental note made of hepatic steatosis, cholecystectomy, NG tube and Paulino catheter. Fleischner guidelines were followed. Chest CTA 01/23/23 00:07 IMPRESSION: No evidence of pulmonary emboli. Incidental findings as described above VTE: negative. Mental Status Exam Mental Status Exam Patient Appearance: Appropriate Patient Orientation: Person, Place, Time and Situation Level of Consciousness: Awake, Appropriate and Alert Patient Behavior: Appropriate and Talkative Mood Description: Anxious Affect Description: Anxious Thought Process: Goal Oriented Thought Content: positive for Intact Judgement: Fair Medications Medications Current Medications Albuterol Sulfate (Albuterol Sulfate (0.083%) 2.5 Mg/3 Ml Vial.Neb) 2.5 mg INHALE Q4H PRN PRN Reason: Shortness of Breath/Wheezing Albuterol/Ipratropium (Albuterol/Iprat 2.5/0.5mg 3 Ml Ampul.Neb) 3 ml INHALE RQ4H WHILE AWAKE [facility] Last Admin: 01/23/23 15:09 Dose: 3 ml Enoxaparin Sodium (Enoxaparin Sodium 40 Mg/0.4 Ml Syringe) 40 mg SUBCUT Q24H [facility] Last Admin: 01/23/23 00:53 Dose: 40 mg Albumin Human (Kedbumin 25 %) 100 mls @ 100 mls/hr IV Q6H [facility] Stop: 01/23/23 18:29 Last Infusion: 01/23/23 12:22 Dose: Infused Ibuprofen (Ibuprofen 800 Mg Tablet) 800 mg PO Q8H PRN PRN Reason: Pain, Moderate(Pain Scale 4-6) Last Admin: 01/23/23 15:34 Dose: 800 mg Allergies Allergies Allergy/AdvReac Type Severity Reaction Status Date / Time metoclopramide [From REGLAN] Allergy Intermediate FEELS Verified 04/03/21 12:45 LIKE I'M JUMPING OUT OF MY SKIN{ pneumococcal vaccine Allergy Intermediate Swelling Verified 04/03/21 12:45 [PNEUMOCOCCAL VACCINE] pneumococcal 7-valent AdvReac Mild Cellulitis Verified 01/23/23 15:57 conjugate to [From Prevnar] Assessment & Plan Assessment & Plan (1) Opioid use disorder: Status: Acute Code(s): F11.90 - Opioid use, unspecified, uncomplicated Assessment and Plan: * patient to consider subxone--can start while inpatient. Dose likely 2mg QD or 1mg BID to start * will follow up to answer any questions and potentially start medication and coordinate outpatient follow up Total time managing care of this patient today __40__ minutes. PMFSH Past Medical History Medical History Dyslipidemia Lung collapse Thoracic cancer Asthma Gallstones Testicular cancer Surgical History Surgical History Hx laparoscopic cholecystectomy History of thoracic surgery S/P hernia surgery H/O ventral hernia repair Social History Household Members: Family Housing: House Do you presently have visiting nurse or other home services: No Unable to assess alcohol history related to: Unable to respond Alcohol intake: current Alcohol intake frequency: holidays/special occasions only Patient Tobacco Use Status: Never used Tobacco e-Cigarette/Vaping Use: Never Used Second Hand Smoke Exposure: No Use of substances other than those prescribed or required for medical reasons: Unable to respond Currently Displaying Signs/Symptoms of Drug Intoxication Withdrawal: No Advance Directives: No Advance Directives Information Provided: No Advance Directives Date on File: 09/18/20 Nutrition Risks: No Nutritional Risk service: No Current occupational status: employed 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
[2023-01-23] MEDS: Melatonin 3 MG TABLET 6 MG PO (22:11)
[2023-01-24] VITALS (17 sets, daily range): BP systolic 90–154; BP diastolic 54–85; PULSE 62–91; RESP 11–18; TEMP 36.6–36.9; O2SAT 92–99; BMI 33.3
[2023-01-24 05:06] LABS: VBG Base Excess 3.4 mmol/L; VBG HCO3 27 mmol/L (22-26); VBG pCO2 39 mmHg; VBG pH 7.44 (7.32-7.43); VBG pO2 39 mmHg
[2023-01-24 05:07] LABS: Venous Blood Gas Refer to POC result
[2023-01-24 05:11] LABS: MANUAL DIFF FLAG NO
[2023-01-24 05:14] LABS: Basophils Percent Auto 0.4 % (0-2); Eosinophils Percent Auto 0.2 % (0-4); Hematocrit 38.1 % (42.0-52.0); Hemoglobin 12.6 g/dl (14.0-18.0); Imm Gran Abs Auto 0.02 X10*3/uL (0.00-0.03); Imm Gran Pct Auto 0.2 % (0.0-0.4); Lymphocytes Percent Auto 24.4 % (20-40); Mean Corpuscular HGB Conc 33.1 g/dl (31.0-36.0); Mean Corpuscular Hemoglobin 29.9 pg (27.0-33.0); Mean Corpuscular Volume 90.5 fL (80.0-98.0); Mean Platelet Volume 9.9 fL (9.4-12.4); Monocytes Absolute Auto 0.7 X10*3/uL (0.1-1.2); Monocytes Percent Auto 8.7 % (2-11); Neutrophils Absolute Auto 5.3 x10*3/uL (2.0-8.3); Neutrophils Percent Auto 66.1 % (45-73); Platelet Count 192 X10*3/uL (160-400); Red Blood Count 4.21 X10*6/uL (4.60-5.80); Red Cell Distribution Width 12.7 % (11.0-16.0)
[2023-01-24 05:29] LABS: Albumin Level 4.6 g/dL (3.5-5.0); Anion Gap 14 (12-20); Blood Urea Nitrogen 11 mg/dL (9-16); Calcium 9.8 mg/dL (8.4-10.2); Carbon Dioxide 25 mmol/L (22-29); Chloride 106 mmol/L (96-108); Creatinine Clr Calc Pharmacy 110.9; Estimated Glomerular Filt Rate > 60; Glucose Random 101 mg/dL (60-115); Magnesium 2.2 mg/dL (1.6-2.6); Phosphorus 4.4 mg/dL (2.7-4.5); Potassium 3.9 mmol/L (3.3-5.1); Sodium 141 mmol/L (135-145)
[2023-01-24] MEDS: Albuterol/Iprat 2.5/0.5MG 3 ML AMPUL.NEB INHALE ×4 (08:12→19:51)
[2023-01-24] MEDS: Ibuprofen 800 MG TABLET PO ×2 (08:19→16:25)
--- NOTE | 2023-01-24 10:13 | P.PNCC_ITS ---
Subjective Subjective Date of Service: 01/24/23 Interval History: 42-year-old gentleman with underlying history of remote history testicular cancer with thoracic mass status post resection 12 years prior admitted on 01/23/2023 with acute hypercapnic respiratory failure with fentanyl abuse requiring ventilatory support extubated uneventfully on 01/23/2023. No events overnight. Critical Care Time (minutes): 0 Physical Exam 2 Vital Signs: Vital Signs: Last Vital Signs Temp 98.5 F 01/24/23 08:00 Pulse 83 01/24/23 10:00 Resp 15 01/24/23 10:00 BP 114/65 01/24/23 10:00 Pulse Ox 94 01/24/23 10:00 O2 Del Method Room Air 01/24/23 10:00 FiO2 30 01/23/23 10:00 BMI result Body Mass Index 33.3 Const: General: no acute distress, alert and awake Eyes: Sclerae: sclerae normal EOM: EOMs intact bilaterally Neck: Neck: Yes no lymphadenopathy, Yes trachea midline and Yes supple Resp: Effort & Inspection: normal respiratory effort and no respiratory distress Auscultation: clear to auscultation bilaterally Cardio: Rate: regular rate Rhythm: regular rhythm Heart sounds: no gallops, no murmurs and no rubs GI: Palpation (GI): Soft to palpation and Other GI palpation findings present ( Nontender) Auscultation: normal bowel sounds Extrem: General: Yes no pedal edema, No clubbing and No cyanosis Objective Data Labs 01/24/23 04:54 01/24/23 04:54 Labs: Laboratory Results - last 24 hr 01/24/23 01/24/23 04:54 05:00 WBC 8.0 RBC 4.21 L Hgb 12.6 L Hct 38.1 L MCV 90.5 MCH 29.9 MCHC 33.1 RDW 12.7 Plt Count 192 MPV 9.9 Immature Gran % (Auto) 0.2 Neut % (Auto) 66.1 Lymph % (Auto) 24.4 [place] % (Auto) 8.7 Eos % (Auto) 0.2 Baso % (Auto) 0.4 Lymph # (Auto) 2.0 [place] # (Auto) 0.7 Eos # (Auto) 0.0 Baso # (Auto) 0.0 Abs Immat Gran (auto) 0.02 Absolute Neuts (auto) 5.3 Absolute Nucleated RBC 0.000 Nucleated RBC % (auto) 0.0 VBG pH 7.44 H VBG pCO2 39 VBG pO2 39 VBG HCO3 27 H VBG O2 Saturation 68.0 VBG Base Excess 3.4 Sodium 141 Potassium 3.9 Chloride 106 Carbon Dioxide 25 Anion Gap 14 BUN 11 Creatinine 1.08 Estim Creat Clear Calc 110.9 Estimated GFR > 60 Random Glucose 101 Calcium 9.8 Phosphorus 4.4 Magnesium 2.2 Albumin 4.6 Microbiology Microbiology Results: Microbiology 01/22/23 22:15 Blood - Venous Blood Culture - Preliminary No growth after 24 hours. 01/22/23 22:15 Blood - Venous Blood Culture - Preliminary No growth after 24 hours. Progress Note: A&P Assessment and plan (1) Substance use: Status: Acute (2) Acute respiratory failure with hypoxia and hypercapnia: Status: Acute Plan Assessment: 42-year-old gentleman admitted with acute respiratory failure secondary to substance abuse requiring ventilatory support Plan: Neuro: No acute issues. Cardiac: No acute issues. Pulmonary: acute hypercapnic respiratory failure initially requiring ventilatory support, extubated uneventfully on 01/23/2023. Renal: No acute issues. Endo: No acute issues. GI: No acute issues. ID: No acute issues Heme/Onc: No acute issues. Psych: Underlying substance abuse. Evaluated by addiction team. Miscellaneous: No acute issues. Prophylaxis: Heparin Diet: regular Quality Stroke Does the patient have a stroke diagnosis?: No VTE Prior VTE?: No VTE Risk Level:: Medical - moderate - high VTE Device Contraindication: N/A - Device Ordered VTE Drug Contraindication: N/A - Med Ordered
--- NOTE | 2023-01-24 13:52 | MHC.RECOVSUP ---
Met with pt in 253. Pt informs he has been thinking about starting suboxone and would like to start as soon as he can and come to [facility] to continue treatment. T/W discussed MAT, potential precipitated withdrawals, and self care with pt in addition to harm reduction. Pt verbalized understanding and has no other questions or concerns at this time.
--- NOTE | 2023-01-24 16:38 | PM.EVENT ---
Event Note Date of Service: 01/24/23 Event Note: Addiction follow up: Patient seen by in follow up by Recovery physical therapy coordinator on 01/24. Expressed desire to start suboxone (discussed on 01/23 with this marine underwriter) Plan: Suboxone 2mg daily to start in AM Patient will likely require education on how to take medication (under the tongue and allow to dissolve) as well as reassurance button grader to follow up in AM Time Spent With Patient Time: Total time managing care of this patient today ____ minutes.
[2023-01-24] MEDS: Melatonin 3 MG TABLET 6 MG PO (20:51)
[2023-01-24] MEDS: Enoxaparin Sodium 40 MG/0.4 ML SYRINGE SUBCUT (23:54)
[2023-01-25 03:20] VITALS: BP 125/68; PULSE 68; RESP 14; TEMP 36.9; O2SAT 96
[2023-01-25] MEDS: Ibuprofen 800 MG TABLET PO (05:31)
[2023-01-25 06:16] LABS: MANUAL DIFF FLAG NO
[2023-01-25 06:36] LABS: Anion Gap 14 (12-20); Blood Urea Nitrogen 10 mg/dL (9-16); Carbon Dioxide 26 mmol/L (22-29); Chloride 105 mmol/L (96-108); Creatinine Clr Calc Pharmacy 104.6; Estimated Glomerular Filt Rate > 60; Glucose Random 113 mg/dL (60-115); Magnesium 2.1 mg/dL (1.6-2.6); Phosphorus 3.5 mg/dL (2.7-4.5); Potassium 3.8 mmol/L (3.3-5.1); Sodium 141 mmol/L (135-145)
[2023-01-25 07:26] LABS: Glucose, Whole Blood 150 mg/dL (60-115)
[2023-01-25] MEDS: Albuterol/Iprat 2.5/0.5MG 3 ML AMPUL.NEB INHALE (07:36)
[2023-01-25 07:37] VITALS: PULSE 79; RESP 16; O2SAT 95
[2023-01-25 07:40] VITALS: BP 133/82; PULSE 72; RESP 18; TEMP 36.6; O2SAT 100
[2023-01-25 08:14] LABS: Basophils Percent Auto 0.4 % (0-2); Eosinophils Absolute Auto 0.1 X10*3/uL (0.0-0.4); Eosinophils Percent Auto 0.8 % (0-4); Hematocrit 41.5 % (42.0-52.0); Hemoglobin 13.8 g/dl (14.0-18.0); Imm Gran Abs Auto 0.02 X10*3/uL (0.00-0.03); Imm Gran Pct Auto 0.3 % (0.0-0.4); Lymphocytes Absolute Auto 1.6 X10*3/uL (1.2-4.9); Lymphocytes Percent Auto 21.7 % (20-40); Mean Corpuscular HGB Conc 33.3 g/dl (31.0-36.0); Mean Corpuscular Hemoglobin 29.9 pg (27.0-33.0); Mean Platelet Volume 10.1 fL (9.4-12.4); Monocytes Absolute Auto 0.6 X10*3/uL (0.1-1.2); Monocytes Percent Auto 8.4 % (2-11); Neutrophils Absolute Auto 4.9 x10*3/uL (2.0-8.3); Neutrophils Percent Auto 68.4 % (45-73); Platelet Count 218 X10*3/uL (160-400); Red Blood Count 4.61 X10*6/uL (4.60-5.80); Red Cell Distribution Width 12.5 % (11.0-16.0); White Blood Count 7.2 X10*3/uL (4.8-10.8)
[2023-01-25] MEDS: Buprenorphine/Naloxone 2/0.5mg FILM 1 FILM SUBLINGUAL (08:44)
--- NOTE | 2023-01-25 08:58 | PM.DS ---
DS: Providers Provider Date of Service: 01/25/23 Date of admission: 01/22/23 22:54 Primary care physician: Zehra Hurd APRN Consults: 01/23/23 12:34 Addiction Medicine Routine Consulting Provider: Addiction Covering Reason for consultation: consult DS: Diagnosis Discharge Diagnosis (1) Substance use: Status: Acute (2) Acute respiratory failure with hypoxia and hypercapnia: Status: Acute DS: Summary Hospital Course Hospital Course: from initial hpi: 42-year-old male with a past medical history of asthma, testicular cancer with large thoracic mass s/p resection? about 12 years ago,? who presented to the emergency room ? with severe shortness of breath.? According to his ,? [place],? patient was helping her wash a dog and he suddenly became short of breath,? he attempted to use? albuterol inhaler with no relief. ??On arrival to the emergency room,? patient? severely short of breath,? Ashen color,? Placed on BiPAP briefly? but subsequently required emergent intubation.? ? Laboratory data was significant for? potassium 2.3, chloride 122, serum bicarb 18, anion gap 7, lactic acid 8.9, calcium 5.8, Mag 1.3,? albumin 2.7 ?ABG? prior to intubation: 7.26/58/565/ 26 ?Toxicology:? positive for fentanyl IMAGING:? ?CHEST X-RAY-? with no acute findings ED course:? ?Patient received? a total of 4 g of magnesium, Solu-Medrol 125,? cefepime 1 g, and? albuterol 10mg. hospital course: Patient was admitted for acute hypoxic and hypercapnic respiratory failure secondary to acute toxic metabolic encephalopathy due to opiate overdose unintentional requiring emergent intubation. Patient was successfully extubated on 01/23/2023 and remained stable. Will be discharged home. Follow up for opiate replacement therapy. For diabetes will continue on metformin. For anemia will continue on statin. For obesity weight loss is recommended. Time Attestation Discharge coordination time: Greater than 30 minutes Quality: Safe Use of Opioids Does Pt have an Active Cancer Diagnosis on the Problem List?: No Quality: Stroke Does the patient have a stroke diagnosis?: No Physical Exam Vital Signs: Vital Signs: Last Vital Signs Temp 97.9 F 01/25/23 07:40 Pulse 72 01/25/23 07:40 Resp 18 01/25/23 07:40 BP 133/82 01/25/23 07:40 Pulse Ox 100 01/25/23 07:40 O2 Del Method Room Air 01/25/23 07:40 FiO2 30 01/23/23 10:00 BMI result Body Mass Index 33.3 General: AO X 3, no acute distress Resp: CTA bilateral, no accessory muscles used CVS: S1,S2,RRR GI: soft, non tender, non distended Neuro: motor grossly intact, alert Psych: appropriate affect, appropriate insight DS: Data Data Completed and Pending Completed studies during hospitalization [Text1]: Procedures Resection of Gallbladder, Percutaneous Endoscopic Approach (09/18/20) Labs on day of discharge: Laboratory Results - last 24 hr 01/22/23 01/25/23 21:40 05:42 WBC 7.2 RBC 4.61 Hgb 13.8 L Hct 41.5 L MCV 90.0 MCH 29.9 MCHC 33.3 RDW 12.5 Plt Count 218 MPV 10.1 Immature Gran % (Auto) 0.3 Neut % (Auto) 68.4 Lymph % (Auto) 21.7 [place] % (Auto) 8.4 Eos % (Auto) 0.8 Baso % (Auto) 0.4 Lymph # (Auto) 1.6 [place] # (Auto) 0.6 Eos # (Auto) 0.1 Baso # (Auto) 0.0 Abs Immat Gran (auto) 0.02 Absolute Neuts (auto) 4.9 Absolute Nucleated RBC 0.000 Nucleated RBC % (auto) 0.0 Sodium 141 Potassium 3.8 Chloride 105 Carbon Dioxide 26 Anion Gap 14 BUN 10 Creatinine 1.14 Estim Creat Clear Calc 104.6 Estimated GFR > 60 POC Glucose 150 H Random Glucose 113 Calcium 10.0 Phosphorus 3.5 Magnesium 2.1 Preliminary micro results at discharge 01/22/23 22:15 Blood Culture - Preliminary Blood - Venous No growth after 48 hours. 01/22/23 22:15 Blood Culture - Preliminary Blood - Venous No growth after 48 hours. Discharge Plan Discharge Anticipated Discharge Date/Time: 01/25/23 08:57 Patient Disposition: Home, Self-Care Discharge Diagnosis: overdose Referrals: Zehra Hurd APRN [Primary Care Provider] - 1 Week Discharge Medications: Continued cetirizine 10 mg tablet 10 mg PO DAILY Qty: 30 0RF albuterol sulfate [ProAir HFA] 90 mcg/actuation HFA aerosol inhaler 2 puff inhalation Q6H PRN (Reason: shortness of breath or wheezing) Qty: 8.5 3RF famotidine [Pepcid] 20 mg tablet 20 mg PO DAILY PRN (Reason: abdominal discomfort) Qty: 30 0RF ibuprofen 600 mg tablet 600 mg PO TID PRN (Reason: fever or pain) Qty: 20 0RF metformin 500 mg Tablet 500 mg PO BID atorvastatin 20 mg tablet 20 mg PO DAILY Discharge Orders: Discharge Order (Routine); Ordered 01/25/23 Ordered By: Souleymane Valencia Diet: Advance to usual diet Activity on Discharge: As tolerated Stand Alone Forms: Patient Portal Discharge page Care Plan Goals: recovery Health Concerns: opiate dependence Plan of Treatment: opiate replacement therapy Assessment: see above Patient Instructions: Buprenorphine/Naloxone (Into the mouth)
--- NOTE | 2023-01-25 09:43 | MHC.CM.PN ---
PT WILL DC HOME TODAY WITH NO SERVICES VIA PRIVATE TRANSPORT
[2023-01-25] MEDS: Naloxone HCl Nasal TAKE HOME 4 MG SPRAY 8 MG NOSTRILALT (10:58)
--- NOTE | 2023-01-25 16:29 | P.PNADD_ITS ---
Subjective Subjective Date of Service: 01/25/23 Reason For Visit: acute respiratory failure Interim History: Patient seen in follow up Suboxone 2mg administered this morning with positive effect. Patient scheduled to discharge today. Discussed ongoing dosing--patient asking appropriate questions regarding dosing and ongoing dose titration. Reviewed plan to send 2mg BID to pharmacy. Discussed when to take second dose if needed, reviewed importance of not taking any other opiates, discussed risk of withdrawal if medication is abruptly d/c. Acknowledged patient's anxiety related to starting new medication. Review of Systems Acute medical concerns: No Review of Systems Constitutional: Reports as per HPI and Reports no additional constitutional complaints Mental Status Exam Mental Status Exam Patient Appearance: Well Grooomed and Appropriate Level of Consciousness: Awake, Appropriate and Alert Diagnostics Vital Signs (24Hr): Vital Signs - 24 hr 01/24/23 19:38 01/24/23 19:51 01/25/23 03:20 Temperature 97.8 F 98.4 F Pulse Rate 79 79 68 Respiratory Rate 14 14 14 Blood Pressure 154/85 H 125/68 Pulse Oximetry 98 96 Oxygen Delivery Method Room Air Room Air 01/25/23 07:37 01/25/23 07:40 Temperature 97.9 F Pulse Rate 79 72 Respiratory Rate 16 18 Blood Pressure 133/82 Pulse Oximetry 100 Oxygen Delivery Method Room Air BMI result Body Mass Index 33.3 Labs 01/25/23 05:42 01/25/23 05:42 Labs: Laboratory Results - last 48 hr 01/22/23 01/24/23 01/24/23 21:40 04:54 05:00 WBC 8.0 RBC 4.21 L Hgb 12.6 L Hct 38.1 L MCV 90.5 MCH 29.9 MCHC 33.1 RDW 12.7 Plt Count 192 MPV 9.9 Immature Gran % (Auto) 0.2 Neut % (Auto) 66.1 Lymph % (Auto) 24.4 Bertie % (Auto) 8.7 Eos % (Auto) 0.2 Baso % (Auto) 0.4 Lymph # (Auto) 2.0 Bertie # (Auto) 0.7 Eos # (Auto) 0.0 Baso # (Auto) 0.0 Abs Immat Gran (auto) 0.02 Absolute Neuts (auto) 5.3 Absolute Nucleated RBC 0.000 Nucleated RBC % (auto) 0.0 VBG pH 7.44 H VBG pCO2 39 VBG pO2 39 VBG HCO3 27 H VBG O2 Saturation 68.0 VBG Base Excess 3.4 Sodium 141 Potassium 3.9 Chloride 106 Carbon Dioxide 25 Anion Gap 14 BUN 11 Creatinine 1.08 Estim Creat Clear Calc 110.9 Estimated GFR > 60 POC Glucose 150 H Random Glucose 101 Calcium 9.8 Phosphorus 4.4 Magnesium 2.2 Albumin 4.6 01/25/23 05:42 WBC 7.2 RBC 4.61 Hgb 13.8 L Hct 41.5 L MCV 90.0 MCH 29.9 MCHC 33.3 RDW 12.5 Plt Count 218 MPV 10.1 Immature Gran % (Auto) 0.3 Neut % (Auto) 68.4 Lymph % (Auto) 21.7 Bertie % (Auto) 8.4 Eos % (Auto) 0.8 Baso % (Auto) 0.4 Lymph # (Auto) 1.6 Bertie # (Auto) 0.6 Eos # (Auto) 0.1 Baso # (Auto) 0.0 Abs Immat Gran (auto) 0.02 Absolute Neuts (auto) 4.9 Absolute Nucleated RBC 0.000 Nucleated RBC % (auto) 0.0 VBG pH VBG pCO2 VBG pO2 VBG HCO3 VBG O2 Saturation VBG Base Excess Sodium 141 Potassium 3.8 Chloride 105 Carbon Dioxide 26 Anion Gap 14 BUN 10 Creatinine 1.14 Estim Creat Clear Calc 104.6 Estimated GFR > 60 POC Glucose Random Glucose 113 Calcium 10.0 Phosphorus 3.5 Magnesium 2.1 Albumin Imaging Radiology Impressions: ITS Impressions Chest X-Ray 01/22/23 22:06 IMPRESSION: Chronic appearing and postoperative changes. Endotracheal tube tip approximately 5 cm above the aminah. Abdomen/Pelvis CT 01/23/23 00:07 IMPRESSION: 1. A cause for the patient's elevated lactic acid is not found. 2. Incidental note made of hepatic steatosis, cholecystectomy, NG tube and Paulino catheter. Fleischner guidelines were followed. Chest CTA 01/23/23 00:07 IMPRESSION: No evidence of pulmonary emboli. Incidental findings as described above VTE: negative. Medications Allergies Allergies Allergy/AdvReac Type Severity Reaction Status Date / Time metoclopramide [From REGLAN] Allergy Intermediate FEELS Verified 04/03/21 12:45 LIKE I'M JUMPING OUT OF MY SKIN{ pneumococcal vaccine Allergy Intermediate Swelling Verified 04/03/21 12:45 [PNEUMOCOCCAL VACCINE] pneumococcal 7-valent AdvReac Mild Cellulitis Verified 01/23/23 15:57 conjugate to [From Prevnar] Assessment & Plan Assessment & Plan (1) Opioid use disorder: Status: Acute Code(s): F11.90 - Opioid use, unspecified, uncomplicated Assessment and Plan: * suboxone 2mg daily --rx sent for BID dosing * take home narcan provided * will follow up with [facility] for ongoing outpatient tx Total time managing care of this patient today _30___ minutes.
== END 2023-01-25 11:04 | disposition home or self-care (01) | DRG 812 ==
LOC: HO.ED 22:53 → HO.EDOVER 22:55 → HO.ICU 22:57 → HO.S3 01-24 11:16
PROVIDERS: Internal Medicine Pulmonary Disease; Admitting Provider Registered Nurse Community Health; Emergency Provider Emergency Medicine Emergency Medical Services; PCP Registered Nurse; Visit Provider Internal Medicine
DX: T40.411A Poisoning by fentanyl or fentanyl analogs, accidental (unintentional), initial encounter (principal); J96.01 Acute respiratory failure with hypoxia; G92.8 Other toxic encephalopathy; J45.51 Severe persistent asthma with (acute) exacerbation; I95.9 Hypotension, unspecified; E83.51 Hypocalcemia; E87.6 Hypokalemia; E66.9 Obesity, unspecified; Z68.33 Body mass index [BMI] 33.0-33.9, adult; E83.42 Hypomagnesemia; J96.02 Acute respiratory failure with hypercapnia; F11.20 Opioid dependence, uncomplicated; Z85.47 Personal history of malignant neoplasm of testis; Z79.84 Long term (current) use of oral hypoglycemic drugs; Z79.899 Other long term (current) drug therapy
CPT/HCPCS: 36415; 71045; 71275; 74177; 80048; 80053; 80076; 80307; 81001; 82040; 82803; 82947; 83605; 83690; 83735; 83880; 84100; 84484; 85025; 87040; 93005; 94002; 94003; 99285; C1758; J0330; J0613; J0692; J1200; J1650; J2250; J2704; J2930; J3010; J3475; J3480; P9047; Q9967

== ENCOUNTER → 2023-01-22 22:54 | Outpatient (BNV) | payer OTHER, SELFPAY | PROVIDERS: Admitting Provider Registered Nurse Community Health; Emergency Provider Emergency Medicine Emergency Medical Services; PCP Registered Nurse; Visit Provider Nurse Practitioner Psychiatric/Mental Health | DX: F11.90 Opioid use, unspecified, uncomplicated (principal) | CPT/HCPCS: 99222; 99232; 99499 ==

== ENCOUNTER → 2023-01-22 22:54 | Outpatient (BNV) | payer OTHER, SELFPAY | PROVIDERS: Admitting Provider Registered Nurse Community Health; Emergency Provider Emergency Medicine Emergency Medical Services; PCP Registered Nurse; Visit Provider Internal Medicine | DX: J96.01 Acute respiratory failure with hypoxia (principal); J96.02 Acute respiratory failure with hypercapnia; F19.90 Other psychoactive substance use, unspecified, uncomplicated | CPT/HCPCS: 99239 ==

== ENCOUNTER → 2023-01-22 22:54 | Outpatient (BNV) | payer OTHER, SELFPAY | PROVIDERS: Admitting Provider Registered Nurse Community Health; Emergency Provider Emergency Medicine Emergency Medical Services; PCP Registered Nurse; Visit Provider Internal Medicine Pulmonary Disease | DX: J96.01 Acute respiratory failure with hypoxia (principal); J96.02 Acute respiratory failure with hypercapnia; F19.90 Other psychoactive substance use, unspecified, uncomplicated | CPT/HCPCS: 99232 ==

== ENCOUNTER → 2023-01-22 22:54 | Outpatient (BNV) | payer OTHER, SELFPAY | PROVIDERS: Admitting Provider Registered Nurse Community Health; Emergency Provider Emergency Medicine Emergency Medical Services; PCP Registered Nurse; Visit Provider Registered Nurse Community Health | DX: J96.01 Acute respiratory failure with hypoxia (principal); J96.02 Acute respiratory failure with hypercapnia; J45.901 Unspecified asthma with (acute) exacerbation; R79.89 Other specified abnormal findings of blood chemistry; E87.6 Hypokalemia; E83.42 Hypomagnesemia; E83.51 Hypocalcemia; F19.90 Other psychoactive substance use, unspecified, uncomplicated | CPT/HCPCS: 99291 ==

== ENCOUNTER 2023-02-01 11:04 | Outpatient (AMB) | payer OTHER, SELFPAY ==
--- NOTE | 2023-02-01 11:06 | A.OFFVIS_ITS ---
Intake Vital Signs 02/01/23 11:12 BP 116/82 Blood Pressure Location Lt radial Position Sitting Pulse 85 Pulse Source Pulse Oximeter Pulse Oximetry (%) 96 Oxygen Delivery Method Room Air Intake Visit Reasons: MAT Intake Intake Note: THE PATIENT PRESENTS FOR A MAT INTAKE Daily Release And Dupe Printer Required: No Allergies metoclopramide [From REGLAN] Allergy (Intermediate, Verified 02/01/23 11:12) FEELS LIKE I'M JUMPING OUT OF MY SKIN{ pneumococcal vaccine [PNEUMOCOCCAL VACCINE] Allergy (Intermediate, Verified 02/01/23 11:12) Swelling pneumococcal 7-valent conjugate to [From Prevnar] Adverse Reaction (Mild, Verified 02/01/23 11:12) Cellulitis Medication List - Last Reconciled 02/01/23 by Sera Hernandez CNP albuterol sulfate 90 mcg/actuation (ProAir HFA) 2 puffs inhalation Q6H PRN atorvastatin 20 mg PO DAILY buprenorphine-naloxone 2-0.5 mg (Suboxone) 1 film sublingual BID ibuprofen 600 mg PO TID PRN metformin 500 mg PO DAILY Do you need a note to return to daycare/school/sports/work: No HPI MAT Intake HPI Details Patient presents for intake and continuation of treatment for OUD following hospitalization for asthma exacerbation Patient seen by this [facility] underwriter while medically admitted. UDS + opiates and patient shared that he was purchasing pressed pills due to chronic pain. Started on Suboxone while inpatient 2mg QD. Has increased dose to 2mg BID Tolerating suboxone BID. Denies constipation, difficulty sleeping. Denies cravings or pain. Saw PCP recently and disclosed opioid use to her. Family very supportive. PFSH Medical History (Updated 02/02/23 @ 00:03 by Background Daemon) Substance use Dyslipidemia Lung collapse Thoracic cancer Asthma Gallstones Testicular cancer Surgical History (Updated 02/02/23 @ 00:03 by Background Daemon) Hx laparoscopic cholecystectomy History of thoracic surgery S/P hernia surgery H/O ventral hernia repair Social History Household Members: Family Housing: Unknown / Unable to assess Do you presently have visiting nurse or other home services: No Unable to assess alcohol history related to: Unknown Alcohol intake: current Alcohol intake frequency: holidays/special occasions only Comment: see MAR Patient Tobacco Use Status: Tobacco use Unknown e-Cigarette/Vaping Use: Never Used Second Hand Smoke Exposure: No Advance Directives Date on File: 09/18/20 service: No Current occupational status: employed 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 Systems Const Reports as per HPI and Reports no additional complaints Physical Exam Vital Signs: Last Vital Signs Pulse 85 02/01/23 11:12 BP 116/82 02/01/23 11:12 Pulse Ox 96 02/01/23 11:12 Oxygen Delivery Method Room Air 02/01/23 11:12 Const General: cooperative, healthy appearing and anxious Nutritional Appearance: average body habitus Orientation/consciousness: patient oriented x3 Limitations: no limitations Skin General skin exam: no rashes or lesions noted Neuro General: patient oriented x3 Psych Appearance: well kempt Mental Status: mental status grossly normal Speech and movement: Clear speech present Affect: Anxious affect present Attitude: cooperative Thought process: Normal thought process present Thought content: Normal thought content present Insight: Fair insight present (Psych) Judgement: Good judgement present (Psych) Results AMB 14 Panel Urine Drug Screen Urine Marijuana (THC) Negative Last Edit by Sarina Up CMA on 02/01/23 11:17 Urine Cocaine Negative Last Edit by Sarina Up CMA on 02/01/23 11:17 Urine Morphine Negative Last Edit by Sarina Up CMA on 02/01/23 11:17 Urine Methamphetamine Negative Last Edit by Sarina Up CMA on 02/01/23 11:17 Urine Amphetamine Negative Last Edit by Sarina Up CMA on 02/01/23 11:1 7 Urine Benzodiazepine Negative Last Edit by Sarina Up CMA on 02/01/23 11:17 Urine Barbiturates Negative Last Edit by Sarina Up CMA on 02/01/23 11: 17 Urine Methadone Negative Last Edit by Sarina Up CMA on 02/01/23 11:17 Urine Buprenorphine Positive Last Edit by Sarina Up CMA on 02/01/23 11 :17 Urine Tricyclic Antidepressant Negative Last Edit by Sarina Up CMA on 02/01/23 11:17 Urine MDMA Negative Last Edit by Sarina Up CMA on 02/01/23 11:17 Urine Oxycodone Negative Last Edit by Sarina Up CMA on 02/01/23 11:17 Urine Phencyclidine Negative Last Edit by Sarina Up CMA on 02/01/23 11 :17 Urine Propoxyphene Negative Last Edit by Sarian Up CMA on 02/01/23 11: 17 Results Reviewed Results Reviewed: Laboratory Last Values POC Urine Buprenorphine Positive 02/01/23 11:13 POC Urine Morphine Negative 02/01/23 11:13 POC Urine Oxycodone Negative 02/01/23 11:13 POC Urine Methadone Negative 02/01/23 11:13 POC Urine Propoxyphene Negative 02/01/23 11:13 POC Urine Barbiturates Negative 02/01/23 11:13 POC U Tricyclic Antidpr Negative 02/01/23 11:13 POC Urine PCP Negative 02/01/23 11:13 POC Ur Amphetamines Negative 02/01/23 11:13 POC Ur Methamphetamine Negative 02/01/23 11:13 POC Urine MDMA Negative 02/01/23 11:13 POC Ur Benzodiazepine Negative 02/01/23 11:13 POC Urine Cocaine Negative 02/01/23 11:13 POC Ur Marijuana (THC) Negative 02/01/23 11:13 Assessment & Plan Assessment & Plan (1) Opioid use disorder: Code(s): F11.90 - Opioid use, unspecified, uncomplicated Plan: * continue suboxone at current dose * relapse prevention discussion * follow up one week Orders: Orders AMB 14 Panel Urine Drug Screen 02/01/23 Z51.81 - Encounter for therapeutic drug level monitoring Medications: Refilled buprenorphine-naloxone 2-0.5 mg (Suboxone) 1 film sublingual BID 28 ea 0RF Coding Level of Care Code New Pt Level 3 (50937) Diagnoses Opioid use disorder F11.90
[2023-02-01 11:12] VITALS: BP 116/82; PULSE 85; O2SAT 96
== END 2023-02-01 11:53 | disposition home or self-care (01) ==
PROVIDERS: PCP Registered Nurse; Visit Provider Nurse Practitioner Psychiatric/Mental Health
DX: F11.90 Opioid use, unspecified, uncomplicated (principal)
CPT/HCPCS: 99213

== ENCOUNTER → 2023-02-01 11:04 | Outpatient (BNVA) | payer OTHER, SELFPAY | PROVIDERS: PCP Registered Nurse; Visit Provider Nurse Practitioner Psychiatric/Mental Health | DX: F11.20 Opioid dependence, uncomplicated (principal) | CPT/HCPCS: 80305 ==

== ENCOUNTER 2023-02-08 13:43 | Outpatient (AMB) | payer OTHER, SELFPAY ==
--- NOTE | 2023-02-08 13:46 | A.OFFVIS_ITS ---
Intake Vital Signs 02/08/23 13:55 BP 122/70 Blood Pressure Location Lt radial Position Sitting Pulse 74 Pulse Source Pulse Oximeter Pulse Oximetry (%) 96 Oxygen Delivery Method Room Air Intake Visit Reasons: MAT Visit Intake Note: the patient presents for a mat visit Language And Literature Division Chair Required: No Allergies metoclopramide [From REGLAN] Allergy (Intermediate, Verified 02/08/23 13:56) FEELS LIKE I'M JUMPING OUT OF MY SKIN{ pneumococcal vaccine [PNEUMOCOCCAL VACCINE] Allergy (Intermediate, Verified 02/08/23 13:56) Swelling pneumococcal 7-valent conjugate to [From Prevnar] Adverse Reaction (Mild, Verified 02/08/23 13:56) Cellulitis Do you need a note to return to daycare/school/sports/work: No HPI MAT Visit HPI Details Patient presents for OUD treatment follow up Currently prescribed Suboxone 2mg BID Continues to do well with this dose Discussed early recovery and associated challenges with family. Encouraged patient to continue focusing on the present moment. Discussed re-establishing care with therapist [facility] Medical History (Updated 02/02/23 @ 00:03 by Background Daemon) Substance use Dyslipidemia Lung collapse Thoracic cancer Asthma Gallstones Testicular cancer Surgical History (Updated 02/02/23 @ 00:03 by Background Daemon) Hx laparoscopic cholecystectomy History of thoracic surgery S/P hernia surgery H/O ventral hernia repair Social History Household Members: Family Housing: Unknown / Unable to assess Do you presently have visiting nurse or other home services: No Unable to assess alcohol history related to: Unknown Alcohol intake: current Alcohol intake frequency: holidays/special occasions only Comment: see MAR Patient Tobacco Use Status: Tobacco use Unknown e-Cigarette/Vaping Use: Never Used Second Hand Smoke Exposure: No Advance Directives Date on File: 09/18/20 service: No Current occupational status: employed 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 Systems Const Reports as per HPI and Reports no additional complaints Physical Exam Vital Signs: Last Vital Signs Pulse 74 02/08/23 13:55 BP 122/70 02/08/23 13:55 Pulse Ox 96 02/08/23 13:55 Oxygen Delivery Method Room Air 02/08/23 13:55 Const General: cooperative and healthy appearing Nutritional Appearance: average body habitus Orientation/consciousness: patient oriented x3 Limitations: no limitations Skin General skin exam: no rashes or lesions noted Neuro General: patient oriented x3 Psych Appearance: well kempt Mental Status: mental status grossly normal Speech and movement: Clear speech present Affect: Anxious affect present Attitude: cooperative Thought process: Normal thought process present Thought content: Normal thought content present Insight: Fair insight present (Psych) Judgement: Good judgement present (Psych) Assessment & Plan Assessment & Plan (1) Opioid use disorder: Code(s): F11.90 - Opioid use, unspecified, uncomplicated Plan: * continue suboxone at current dose * goal for next visit--update on therapy call * follow up 2 weeks Coding Level of Care Code Est Pt Level 3 (56163) Diagnoses Opioid use disorder F11.90
[2023-02-08 13:55] VITALS: BP 122/70; PULSE 74; O2SAT 96
== END 2023-02-08 14:24 | disposition home or self-care (01) ==
PROVIDERS: PCP Registered Nurse; Visit Provider Nurse Practitioner Psychiatric/Mental Health
DX: F11.90 Opioid use, unspecified, uncomplicated (principal)
CPT/HCPCS: 99213

== ENCOUNTER → 2023-02-08 13:43 | Outpatient (BNVA) | payer OTHER, SELFPAY | PROVIDERS: PCP Registered Nurse; Visit Provider Nurse Practitioner Psychiatric/Mental Health | DX: Z51.81 Encounter for therapeutic drug level monitoring (principal) ==

== ENCOUNTER 2023-02-22 14:03 | Outpatient (AMB) | payer OTHER, SELFPAY ==
--- NOTE | 2023-02-22 14:07 | A.OFFVIS_ITS ---
Intake Vital Signs 02/22/23 14:15 BP 118/78 Blood Pressure Location Lt radial Position Sitting Pulse 74 Pulse Source Pulse Oximeter Pulse Oximetry (%) 96 Oxygen Delivery Method Room Air Intake Visit Reasons: MAT Visit Intake Note: THE PATIENT PRESENTS FOR A MAT VISIT Irrigation System Installer Required: No Allergies metoclopramide [From REGLAN] Allergy (Intermediate, Verified 02/22/23 14:09) FEELS LIKE I'M JUMPING OUT OF MY SKIN{ pneumococcal vaccine [PNEUMOCOCCAL VACCINE] Allergy (Intermediate, Verified 02/22/23 14:09) Swelling pneumococcal 7-valent conjugate to [From Prevnar] Adverse Reaction (Mild, Verified 02/22/23 14:09) Cellulitis Do you need a note to return to daycare/school/sports/work: No HPI MAT Visit HPI Details Patient presents for OUD treatment follow up Currently prescribed Suboxone 2mg BID Had a positive week --feeling better every day. No questions or concerns at this time PFSH Medical History (Updated 02/02/23 @ 00:03 by Background Daemon) Substance use Dyslipidemia Lung collapse Thoracic cancer Asthma Gallstones Testicular cancer Surgical History (Updated 02/02/23 @ 00:03 by Background Daemon) Hx laparoscopic cholecystectomy History of thoracic surgery S/P hernia surgery H/O ventral hernia repair Social History Household Members: Family Housing: Unknown / Unable to assess Do you presently have visiting nurse or other home services: No Unable to assess alcohol history related to: Unknown Alcohol intake: current Alcohol intake frequency: holidays/special occasions only Comment: see MAR Patient Tobacco Use Status: Tobacco use Unknown e-Cigarette/Vaping Use: Never Used Second Hand Smoke Exposure: No Advance Directives Date on File: 09/18/20 service: No Current occupational status: employed 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 Systems Const Reports as per HPI Physical Exam Vital Signs: Last Vital Signs Pulse 74 02/22/23 14:15 BP 118/78 02/22/23 14:15 Pulse Ox 96 02/22/23 14:15 Oxygen Delivery Method Room Air 02/22/23 14:15 Const General: cooperative and healthy appearing Nutritional Appearance: average body habitus Orientation/consciousness: patient oriented x3 Limitations: no limitations Skin General skin exam: no rashes or lesions noted Neuro General: patient oriented x3 Psych Appearance: well kempt Mental Status: mental status grossly normal Speech and movement: Clear speech present Affect: Anxious affect present Attitude: cooperative Thought process: Normal thought process present Thought content: Normal thought content present Insight: Fair insight present (Psych) Judgement: Good judgement present (Psych) Assessment & Plan Assessment & Plan (1) Opioid use disorder: Code(s): F11.90 - Opioid use, unspecified, uncomplicated Plan: * continue suboxone at current dose * follow up 2 weeks * no refill needed at this time Coding Level of Care Code Est Pt Level 3 (17816) Diagnoses Opioid use disorder F11.90
[2023-02-22 14:15] VITALS: BP 118/78; PULSE 74; O2SAT 96
== END 2023-02-22 14:55 | disposition home or self-care (01) ==
PROVIDERS: PCP Registered Nurse; Visit Provider Nurse Practitioner Psychiatric/Mental Health
DX: F11.90 Opioid use, unspecified, uncomplicated (principal)
CPT/HCPCS: 99213

== ENCOUNTER → 2023-02-22 14:03 | Outpatient (BNVA) | payer OTHER, SELFPAY | PROVIDERS: PCP Registered Nurse; Visit Provider Nurse Practitioner Psychiatric/Mental Health | DX: Z51.81 Encounter for therapeutic drug level monitoring (principal) ==

== ENCOUNTER 2023-03-06 13:55 | Outpatient (AMB) | payer OTHER, SELFPAY ==
--- NOTE | 2023-03-06 14:00 | MHC.AM.SUB ---
Intake Vital Signs 03/06/23 14:03 BP 118/74 Blood Pressure Location Lt radial Position Sitting Pulse 74 Pulse Source Pulse Oximeter Pulse Oximetry (%) 96 Oxygen Delivery Method Room Air Intake Visit Reasons: MAT Visit Intake Note: the patient presents for a mat visit Soil Fertility Specialist Required: No Allergies metoclopramide [From REGLAN] Allergy (Intermediate, Verified 03/06/23 14:04) FEELS LIKE I'M JUMPING OUT OF MY SKIN{ pneumococcal vaccine [PNEUMOCOCCAL VACCINE] Allergy (Intermediate, Verified 03/06/23 14:04) Swelling pneumococcal 7-valent conjugate to [From Prevnar] Adverse Reaction (Mild, Verified 03/06/23 14:04) Cellulitis Do you need a note to return to daycare/school/sports/work: No HPI MAT Visit HPI Details Patient presents for OUD treatment follow up Currently prescribed Suboxone 2mg BID Continues to do well with current dose. Denies any side effects Enjoyed time with his family during the holidays [facility] Medical History (Updated 02/02/23 @ 00:03 by Background Daemon) Substance use Dyslipidemia Lung collapse Thoracic cancer Asthma Gallstones Testicular cancer Surgical History (Updated 02/02/23 @ 00:03 by Background Daemon) Hx laparoscopic cholecystectomy History of thoracic surgery S/P hernia surgery H/O ventral hernia repair Social History Household Members: Family Housing: Unknown / Unable to assess Do you presently have visiting nurse or other home services: No Unable to assess alcohol history related to: Unknown Alcohol intake: current Alcohol intake frequency: holidays/special occasions only Comment: see MAR Patient Tobacco Use Status: Tobacco use Unknown e-Cigarette/Vaping Use: Never Used Second Hand Smoke Exposure: No Advance Directives Date on File: 09/18/20 service: No Current occupational status: employed 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 Systems Const Reports as per HPI and Reports no additional complaints Physical Exam Vital Signs: Last Vital Signs Pulse 74 03/06/23 14:03 BP 118/74 03/06/23 14:03 Pulse Ox 96 03/06/23 14:03 Oxygen Delivery Method Room Air 03/06/23 14:03 Const General: cooperative and healthy appearing Nutritional Appearance: average body habitus Orientation/consciousness: patient oriented x3 Limitations: no limitations Skin General skin exam: no rashes or lesions noted Neuro General: patient oriented x3 Psych Appearance: well kempt Mental Status: mental status grossly normal Speech and movement: Clear speech present Affect: Anxious affect present Attitude: cooperative Thought process: Normal thought process present Thought content: Normal thought content present Insight: Fair insight present (Psych) Judgement: Good judgement present (Psych) Assessment & Plan Assessment & Plan (1) Opioid use disorder: Code(s): F11.90 - Opioid use, unspecified, uncomplicated Plan: continue suboxone at current dose follow up 2 weeks Medications: Refilled buprenorphine-naloxone 2-0.5 mg (Suboxone) 1 film sublingual BID 29 ea 0RF buprenorphine-naloxone 2-0.5 mg (Suboxone) 1 film sublingual BID 60 ea 0RF Coding Level of Care Code Est Pt Level 3 (27515) Diagnoses Opioid use disorder F11.90
[2023-03-06 14:03] VITALS: BP 118/74; PULSE 74; O2SAT 96
== END 2023-03-06 14:20 | disposition home or self-care (01) ==
PROVIDERS: PCP Registered Nurse; Visit Provider Nurse Practitioner Psychiatric/Mental Health
DX: F11.90 Opioid use, unspecified, uncomplicated (principal)
CPT/HCPCS: 99213

== ENCOUNTER → 2023-03-06 13:55 | Outpatient (BNVA) | payer OTHER, SELFPAY | PROVIDERS: PCP Registered Nurse; Visit Provider Nurse Practitioner Psychiatric/Mental Health | DX: Z51.81 Encounter for therapeutic drug level monitoring (principal); F11.90 Opioid use, unspecified, uncomplicated ==

== ENCOUNTER 2023-03-20 12:52 | Outpatient (AMB) | payer OTHER, SELFPAY ==
--- NOTE | 2023-03-20 12:57 | A.OFFVISCC_ITS ---
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 Required: No Allergies metoclopramide [From REGLAN] Allergy (Intermediate, Verified 03/20/23 13:06) FEELS LIKE I'M JUMPING OUT OF MY SKIN{ pneumococcal vaccine [PNEUMOCOCCAL VACCINE] Allergy (Intermediate, Verified 03/20/23 13:06) Swelling pneumococcal 7-valent conjugate to [From Prevnar] Adverse Reaction (Mild, Verified 03/20/23 13:06) Cellulitis Do you need a note to return to daycare/school/sports/work: No HPI MAT Visit HPI Details Patient presents for OUD treatment follow up Currently prescribed Suboxone 2mg BID Tolerating dose with no issues almost 2 months since last substance use PFSH Medical History (Updated 02/02/23 @ 00:03 by Background Daemon) Substance use Dyslipidemia Lung collapse Thoracic cancer Asthma Gallstones Testicular cancer Surgical History (Updated 02/02/23 @ 00:03 by Background Daemon) Hx laparoscopic cholecystectomy History of thoracic surgery S/P hernia surgery H/O ventral hernia repair Social History Household Members: Family Housing: Unknown / Unable to assess Do you presently have visiting nurse or other home services: No Unable to assess alcohol history related to: Unknown Alcohol intake: current Alcohol intake frequency: holidays/special occasions only Comment: see MAR Patient Tobacco Use Status: Tobacco use Unknown e-Cigarette/Vaping Use: Never Used Second Hand Smoke Exposure: No Advance Directives Date on File: 09/18/20 service: No Current occupational status: employed 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 Systems Const Reports as per HPI and Reports no additional complaints Physical Exam Vital Signs: Last Vital Signs Pulse 74 03/20/23 13:06 BP 136/78 03/20/23 13:06 Pulse Ox 96 03/20/23 13:06 Oxygen Delivery Method Room Air 03/20/23 13:06 Const General: cooperative and healthy appearing Nutritional Appearance: average body habitus Orientation/consciousness: patient oriented x3 Limitations: no limitations Skin General skin exam: no rashes or lesions noted Neuro General: patient oriented x3 Psych Appearance: well kempt Mental Status: mental status grossly normal Speech and movement: Clear speech present Affect: Anxious affect present Attitude: cooperative Thought process: Normal thought process present Thought content: Normal thought content present Insight: Fair insight present (Psych) Judgement: Good judgement present (Psych) Assessment & Plan Assessment & Plan (1) Opioid use disorder: Code(s): F11.90 - Opioid use, unspecified, uncomplicated Plan: * continue suboxone at current dose * follow up 2 weeks * relapse prevention discussion Coding Level of Care Code Est Pt Level 3 (22939) Diagnoses Opioid use disorder F11.90
[2023-03-20 13:06] VITALS: BP 136/78; PULSE 74; O2SAT 96
== END 2023-03-20 13:32 | disposition home or self-care (01) ==
PROVIDERS: PCP Registered Nurse; Visit Provider Nurse Practitioner Psychiatric/Mental Health
DX: F11.90 Opioid use, unspecified, uncomplicated (principal)
CPT/HCPCS: 99213

== ENCOUNTER → 2023-03-20 12:52 | Outpatient (BNVA) | payer OTHER, SELFPAY | PROVIDERS: PCP Registered Nurse; Visit Provider Nurse Practitioner Psychiatric/Mental Health | DX: Z51.81 Encounter for therapeutic drug level monitoring (principal); F11.90 Opioid use, unspecified, uncomplicated ==

== ENCOUNTER 2023-04-02 12:49 | Outpatient (AMB) | payer OTHER, SELFPAY ==
--- NOTE | 2023-04-02 12:57 | A.OFFVISCC_ITS ---
Intake Vital Signs 04/02/23 12:58 BP 128/80 Blood Pressure Location Lt radial Position Sitting Pulse 82 Pulse Source Pulse Oximeter Pulse Oximetry (%) 94 Oxygen Delivery Method Room Air Intake Visit Reasons: MAT Visit Intake Note: the patient presents for a mat visit Service Now Developer Required: No Allergies metoclopramide [From REGLAN] Allergy (Intermediate, Verified 04/02/23 12:58) FEELS LIKE I'M JUMPING OUT OF MY SKIN{ pneumococcal vaccine [PNEUMOCOCCAL VACCINE] Allergy (Intermediate, Verified 04/02/23 12:58) Swelling pneumococcal 7-valent conjugate to [From Prevnar] Adverse Reaction (Mild, Verified 04/02/23 12:58) Cellulitis Do you need a note to return to daycare/school/sports/work: No HPI MAT Visit HPI Details Patient presents for OUD treatment follow up reports that he continues to do well with recovery discussed ongoing processing that has been occurring--severity of hospitalization well supported by family and spouse [facility] Medical History (Updated 02/02/23 @ 00:03 by Background Daemon) Substance use Dyslipidemia Lung collapse Thoracic cancer Asthma Gallstones Testicular cancer Surgical History (Updated 02/02/23 @ 00:03 by Background Daemon) Hx laparoscopic cholecystectomy History of thoracic surgery S/P hernia surgery H/O ventral hernia repair Social History Household Members: Family Housing: Unknown / Unable to assess Do you presently have visiting nurse or other home services: No Unable to assess alcohol history related to: Unknown Alcohol intake: current Alcohol intake frequency: holidays/special occasions only Comment: see MAR Patient Tobacco Use Status: Tobacco use Unknown e-Cigarette/Vaping Use: Never Used Second Hand Smoke Exposure: No Advance Directives Date on File: 09/18/20 service: No Current occupational status: employed 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 Systems Const Reports as per HPI and Reports no additional complaints Physical Exam Vital Signs: Last Vital Signs Pulse 82 04/02/23 12:58 BP 128/80 04/02/23 12:58 Pulse Ox 94 04/02/23 12:58 Oxygen Delivery Method Room Air 04/02/23 12:58 Const General: cooperative and healthy appearing Nutritional Appearance: average body habitus Orientation/consciousness: patient oriented x3 Limitations: no limitations Skin General skin exam: no rashes or lesions noted Neuro General: patient oriented x3 Psych Appearance: well kempt Mental Status: mental status grossly normal Speech and movement: Clear speech present Affect: Anxious affect present Attitude: cooperative Thought process: Normal thought process present Thought content: Normal thought content present Insight: Fair insight present (Psych) Judgement: Good judgement present (Psych) Assessment & Plan Assessment & Plan (1) Opioid use disorder: Code(s): F11.90 - Opioid use, unspecified, uncomplicated Plan: * continue suboxone at current dose * follow up 2 weeks * relapse prevention discussion Medications: Refilled buprenorphine-naloxone 2-0.5 mg (Suboxone) 1 film sublingual BID 60 ea 0RF Coding Level of Care Code Est Pt Level 3 (47874) Diagnoses Opioid use disorder F11.90
[2023-04-02 12:58] VITALS: BP 128/80; PULSE 82; O2SAT 94
== END 2023-04-02 14:06 | disposition home or self-care (01) ==
PROVIDERS: PCP Registered Nurse; Visit Provider Nurse Practitioner Psychiatric/Mental Health
DX: F11.90 Opioid use, unspecified, uncomplicated (principal)
CPT/HCPCS: 99213

== ENCOUNTER → 2023-04-02 12:49 | Outpatient (BNVA) | payer OTHER, SELFPAY | PROVIDERS: PCP Registered Nurse; Visit Provider Nurse Practitioner Psychiatric/Mental Health | DX: Z51.81 Encounter for therapeutic drug level monitoring (principal); F11.90 Opioid use, unspecified, uncomplicated ==

== ENCOUNTER 2023-04-23 10:00 | Outpatient (AMB) | payer OTHER, SELFPAY ==
[2023-04-23 10:17] VITALS: BP 128/84; PULSE 82; O2SAT 96; BMI 32.6
--- NOTE | 2023-04-23 10:17 | A.OFFVISCC_ITS ---
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 Required: No Allergies metoclopramide [From REGLAN] Allergy (Intermediate, Verified 04/23/23 10:18) FEELS LIKE I'M JUMPING OUT OF MY SKIN{ pneumococcal vaccine [PNEUMOCOCCAL VACCINE] Allergy (Intermediate, Verified 04/23/23 10:18) Swelling pneumococcal 7-valent conjugate to [From Prevnar] Adverse Reaction (Mild, Verified 04/23/23 10:18) Cellulitis Do you need a note to return to daycare/school/sports/work: No HPI MAT Visit HPI Details Patient presents for OUD treatment follow up Currently prescribed 2mg BID Doing well with recovery 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 no questions or concerns at this time PFSH Medical History (Updated 02/02/23 @ 00:03 by Background Daemon) Substance use Dyslipidemia Lung collapse Thoracic cancer Asthma Gallstones Testicular cancer Surgical History (Updated 02/02/23 @ 00:03 by Background Daemon) Hx laparoscopic cholecystectomy History of thoracic surgery S/P hernia surgery H/O ventral hernia repair Social History Household Members: Family Housing: Unknown / Unable to assess Do you presently have visiting nurse or other home services: No Unable to assess alcohol history related to: Unknown Alcohol intake: current Alcohol intake frequency: holidays/special occasions only Comment: see MAR Patient Tobacco Use Status: Tobacco use Unknown e-Cigarette/Vaping Use: Never Used Second Hand Smoke Exposure: No Advance Directives Date on File: 09/18/20 service: No Current occupational status: employed 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 Systems Const Reports as per HPI and Reports no additional complaints Physical Exam Vital Signs: Last Vital Signs Pulse 82 04/23/23 10:17 BP 128/84 04/23/23 10:17 Pulse Ox 96 04/23/23 10:17 Oxygen Delivery Method Room Air 04/23/23 10:17 BMI result Body Mass Index 32.6 Const General: cooperative and healthy appearing Nutritional Appearance: average body habitus Orientation/consciousness: patient oriented x3 Limitations: no limitations Skin General skin exam: no rashes or lesions noted Neuro General: patient oriented x3 Psych Appearance: well kempt Mental Status: mental status grossly normal Speech and movement: Clear speech present Attitude: cooperative Thought process: Normal thought process present Thought content: Normal thought content present Insight: Fair insight present (Psych) Judgement: Good judgement present (Psych) Assessment & Plan Assessment & Plan (1) Opioid use disorder: Code(s): F11.90 - Opioid use, unspecified, uncomplicated Plan: * continue suboxone at current dose * follow up 3 weeks * relapse prevention discussion Coding Level of Care Code Est Pt Level 3 (98832) Diagnoses Opioid use disorder F11.90
== END 2023-04-23 10:37 | disposition home or self-care (01) ==
PROVIDERS: PCP Registered Nurse; Visit Provider Nurse Practitioner Psychiatric/Mental Health
DX: F11.90 Opioid use, unspecified, uncomplicated (principal)
CPT/HCPCS: 99213

== ENCOUNTER → 2023-04-23 10:00 | Outpatient (BNVA) | payer OTHER, SELFPAY | PROVIDERS: PCP Registered Nurse; Visit Provider Nurse Practitioner Psychiatric/Mental Health | DX: F11.20 Opioid dependence, uncomplicated (principal) | CPT/HCPCS: 99212 ==

== ENCOUNTER 2023-05-14 09:30 | Outpatient (AMB) | payer OTHER, SELFPAY ==
--- NOTE | 2023-05-14 09:36 | MHC.AM.SUB ---
Intake Vital Signs 05/14/23 09:55 BP 118/78 Blood Pressure Location Lt radial Position Sitting Pulse 82 Pulse Source Pulse Oximeter Pulse Oximetry (%) 96 Oxygen Delivery Method Room Air Intake Visit Reasons: MAT Visit Intake Note: the patient presents for a mat visit Currency Examiner Required: No Allergies metoclopramide [From REGLAN] Allergy (Intermediate, Verified 05/14/23 09:55) FEELS LIKE I'M JUMPING OUT OF MY SKIN{ pneumococcal vaccine [PNEUMOCOCCAL VACCINE] Allergy (Intermediate, Verified 05/14/23 09:55) Swelling pneumococcal 7-valent conjugate to [From Prevnar] Adverse Reaction (Mild, Verified 05/14/23 09:55) Cellulitis Do you need a note to return to daycare/school/sports/work: No HPI MAT Visit HPI Details Patient presents for follow up every 3 weeks visit reports positive last few weeks 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 Discussed transitioning suboxone to other pharmacy for next script. PFS Medical History (Updated 02/02/23 @ 00:03 by Background Daemon) Substance use Dyslipidemia Lung collapse Thoracic cancer Asthma Gallstones Testicular cancer Surgical History (Updated 02/02/23 @ 00:03 by Background Daemon) Hx laparoscopic cholecystectomy History of thoracic surgery S/P hernia surgery H/O ventral hernia repair Social History Household Members: Family Housing: Unknown / Unable to assess Do you presently have visiting nurse or other home services: No Unable to assess alcohol history related to: Unknown Alcohol intake: current Alcohol intake frequency: holidays/special occasions only Comment: see MAR Patient Tobacco Use Status: Tobacco use Unknown e-Cigarette/Vaping Use: Never Used Second Hand Smoke Exposure: No Advance Directives Date on File: 09/18/20 service: No Current occupational status: employed 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 Systems Const Reports as per HPI Physical Exam Vital Signs: Last Vital Signs Pulse 82 05/14/23 09:55 BP 118/78 05/14/23 09:55 Pulse Ox 96 05/14/23 09:55 Oxygen Delivery Method Room Air 05/14/23 09:55 Const General: cooperative and healthy appearing Nutritional Appearance: average body habitus Orientation/consciousness: patient oriented x3 Limitations: no limitations Skin General skin exam: no rashes or lesions noted Neuro General: patient oriented x3 Psych Appearance: well kempt Mental Status: mental status grossly normal Speech and movement: Clear speech present Attitude: cooperative Thought process: Normal thought process present Thought content: Normal thought content present Insight: Fair insight present (Psych) Judgement: Good judgement present (Psych) Results AMB 14 Panel Urine Drug Screen Urine Marijuana (THC) Positive Last Edit by Sarina Up CMA on 05/14/23 09:56 Urine Cocaine Negative Last Edit by Sarina Up CMA on 05/14/23 09:56 Urine Morphine Negative Last Edit by Sarina Up CMA on 05/14/23 09:56 Urine Methamphetamine Negative Last Edit by Sarina Up CMA on 05/14/23 09:56 Urine Amphetamine Negative Last Edit by Sarina Up CMA on 05/14/23 09:56 Urine Benzodiazepine Negative Last Edit by Sarina Up CMA on 05/14/23 09:56 Urine Barbiturates Negative Last Edit by Sarina Up CMA on 05/14/23 09:56 Urine Methadone Negative Last Edit by Sarina Up CMA on 05/14/23 09:56 Urine Buprenorphine Positive Last Edit by Sarina Up CMA on 05/14/23 09:56 Urine Tricyclic Antidepressant Negative Last Edit by Sarina Up CMA on 05/14/23 09:56 Urine MDMA Negative Last Edit by Sarina Up CMA on 05/14/23 09:56 Urine Oxycodone Negative Last Edit by Sarina Up CMA on 05/14/23 09:56 Urine Phencyclidine Negative Last Edit by Sarina Up CMA on 05/14/23 09:56 Urine Propoxyphene Negative Last Edit by Sarina Up CMA on 05/14/23 09:56 Results Reviewed Results Reviewed: Laboratory Last Values POC Urine Buprenorphine Positive 05/14/23 09:55 POC Urine Morphine Negative 05/14/23 09:55 POC Urine Oxycodone Negative 05/14/23 09:55 POC Urine Methadone Negative 05/14/23 09:55 POC Urine Propoxyphene Negative 05/14/23 09:55 POC Urine Barbiturates Negative 05/14/23 09:55 POC U Tricyclic Antidpr Negative 05/14/23 09:55 POC Urine PCP Negative 05/14/23 09:55 POC Ur Amphetamines Negative 05/14/23 09:55 POC Ur Methamphetamine Negative 05/14/23 09:55 POC Urine MDMA Negative 05/14/23 09:55 POC Ur Benzodiazepine Negative 05/14/23 09:55 POC Urine Cocaine Negative 05/14/23 09:55 POC Ur Marijuana (THC) Positive 05/14/23 09:55 Assessment & Plan Assessment & Plan (1) Opioid use disorder: Code(s): F11.90 - Opioid use, unspecified, uncomplicated Plan: continue suboxone at current dose follow up 3 weeks relapse prevention discussion Orders: Orders AMB 14 Panel Urine Drug Screen Today Z51.81 - Encounter for therapeutic drug level monitoring Coding Level of Care Code Est Pt Level 3 (95857) Diagnoses Opioid use disorder F11.90
[2023-05-14 09:55] VITALS: BP 118/78; PULSE 82; O2SAT 96
== END 2023-05-14 10:17 | disposition home or self-care (01) ==
PROVIDERS: PCP Registered Nurse; Visit Provider Nurse Practitioner Psychiatric/Mental Health
DX: Z51.81 Encounter for therapeutic drug level monitoring (principal); F11.90 Opioid use, unspecified, uncomplicated
CPT/HCPCS: 99213

== ENCOUNTER → 2023-05-14 09:30 | Outpatient (BNVA) | payer OTHER, SELFPAY | PROVIDERS: PCP Registered Nurse; Visit Provider Nurse Practitioner Psychiatric/Mental Health | DX: Z51.81 Encounter for therapeutic drug level monitoring (principal); F11.20 Opioid dependence, uncomplicated | CPT/HCPCS: 80305; 99212 ==

== ENCOUNTER 2023-06-05 13:23 | Outpatient (AMB) | payer OTHER, SELFPAY ==
--- NOTE | 2023-06-05 13:25 | A.OFFVISCC_ITS ---
Intake Vital Signs 06/05/23 13:32 BP 124/78 Blood Pressure Location Lt radial Position Sitting Pulse 88 Pulse Source Pulse Oximeter Pulse Oximetry (%) 98 Oxygen Delivery Method Room Air Intake Visit Reasons: MAT Visit Intake Note: the patient presents for a mat visit As400 Operator Required: No Allergies metoclopramide [From REGLAN] Allergy (Intermediate, Verified 06/05/23 13:33) FEELS LIKE I'M JUMPING OUT OF MY SKIN{ pneumococcal vaccine [PNEUMOCOCCAL VACCINE] Allergy (Intermediate, Verified 06/05/23 13:33) Swelling pneumococcal 7-valent conjugate to [From Prevnar] Adverse Reaction (Mild, Verified 06/05/23 13:33) Cellulitis Do you need a note to return to daycare/school/sports/work: No HPI MAT Visit HPI Details Patient presents for OUD treatment follow up Bright affect. Feeling positive about life and how things are going Continues to reflect on his progress and the changes that have resulted Hopes to start working by the end of the month [facility] Medical History (Updated 02/02/23 @ 00:03 by Background Daemon) Substance use Dyslipidemia Lung collapse Thoracic cancer Asthma Gallstones Testicular cancer Surgical History (Updated 02/02/23 @ 00:03 by Background Daemon) Hx laparoscopic cholecystectomy History of thoracic surgery S/P hernia surgery H/O ventral hernia repair Social History Household Members: Family Housing: Unknown / Unable to assess Do you presently have visiting nurse or other home services: No Unable to assess alcohol history related to: Unknown Alcohol intake: current Alcohol intake frequency: holidays/special occasions only Comment: see MAR Patient Tobacco Use Status: Tobacco use Unknown e-Cigarette/Vaping Use: Never Used Second Hand Smoke Exposure: No Advance Directives Date on File: 09/18/20 service: No Current occupational status: employed 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 Systems Const Reports as per HPI and Reports no additional complaints Physical Exam Vital Signs: Last Vital Signs Pulse 88 06/05/23 13:32 BP 124/78 06/05/23 13:32 Pulse Ox 98 06/05/23 13:32 Oxygen Delivery Method Room Air 06/05/23 13:32 Const General: cooperative and healthy appearing Nutritional Appearance: average body habitus Orientation/consciousness: patient oriented x3 Limitations: no limitations Skin General skin exam: no rashes or lesions noted Neuro General: patient oriented x3 Psych Appearance: well kempt Mental Status: mental status grossly normal Speech and movement: Clear speech present Attitude: cooperative Thought process: Normal thought process present Thought content: Normal thought content present Insight: Good insight present (Psych) Judgement: Good judgement present (Psych) Assessment & Plan Assessment & Plan (1) Opioid use disorder: Code(s): F11.90 - Opioid use, unspecified, uncomplicated Plan: * continue suboxone at current dose * follow up 3 weeks * relapse prevention discussion Coding Level of Care Code Est Pt Level 3 (44465) Diagnoses Opioid use disorder F11.90
[2023-06-05 13:32] VITALS: BP 124/78; PULSE 88; O2SAT 98
== END 2023-06-05 13:54 | disposition home or self-care (01) ==
PROVIDERS: PCP Registered Nurse; Visit Provider Nurse Practitioner Psychiatric/Mental Health
DX: F11.90 Opioid use, unspecified, uncomplicated (principal)
CPT/HCPCS: 99213

== ENCOUNTER → 2023-06-05 13:23 | Outpatient (BNVA) | payer OTHER, SELFPAY | PROVIDERS: PCP Registered Nurse; Visit Provider Nurse Practitioner Psychiatric/Mental Health | DX: F11.20 Opioid dependence, uncomplicated (principal); Z51.81 Encounter for therapeutic drug level monitoring | CPT/HCPCS: 99212 ==

== ENCOUNTER 2023-07-02 14:09 | Outpatient (AMB) | payer OTHER, SELFPAY ==
[2023-07-02 14:12] VITALS: BP 122/86; PULSE 89; O2SAT 96
--- NOTE | 2023-07-02 14:12 | MHC.AM.SUB ---
Vital Signs 07/02/23 14:12 BP 122/86 Blood Pressure Location Lt brachial Position Sitting Pulse 89 Pulse Source Pulse Oximeter Pulse Oximetry (%) 96 Oxygen Delivery Method Room Air Intake Visit Reasons: MAT visit Allergies metoclopramide [From REGLAN] Allergy (Intermediate, Verified 06/05/23 13:33) FEELS LIKE I'M JUMPING OUT OF MY SKIN{ pneumococcal vaccine [PNEUMOCOCCAL VACCINE] Allergy (Intermediate, Verified 06/05/23 13:33) Swelling pneumococcal 7-valent conjugate to [From Prevnar] Adverse Reaction (Mild, Verified 06/05/23 13:33) Cellulitis HPI HPI MAT visit: Details: Patient presents as a walk-in for check in He is due for refill of suboxone 2mg BID Tolerating dose well, denies concerns for recovery States he had an appt at [facility] tomorrow, but presented today because tomorrow and Weds he has orientation for a new job 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 Reports he has been keeping busy with his 6 month old puppy Doing well overall HPI Comments Details: Patient presents for MAT visit [facility] Medical History (Updated 02/02/23 @ 00:03 by Background Daemon) Substance use Dyslipidemia Lung collapse Thoracic cancer Asthma Gallstones Testicular cancer Surgical History (Updated 02/02/23 @ 00:03 by Background Daemon) Hx laparoscopic cholecystectomy History of thoracic surgery S/P hernia surgery H/O ventral hernia repair Social History Household Members: Family Housing: Unknown / Unable to assess Do you presently have visiting nurse or other home services: No Unable to assess alcohol history related to: Unknown Alcohol intake: current Alcohol intake frequency: holidays/special occasions only Comment: see MAR Patient Tobacco Use Status: Tobacco use Unknown e-Cigarette/Vaping Use: Never Used Second Hand Smoke Exposure: No Advance Directives Date on File: 09/18/20 service: No Current occupational status: employed 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 Systems Const Reports as per HPI Physical Exam Vital Signs: Last Vital Signs Pulse 89 07/02/23 14:12 BP 122/86 07/02/23 14:12 Pulse Ox 96 07/02/23 14:12 Oxygen Delivery Method Room Air 07/02/23 14:12 Const General: cooperative and no acute distress Resp Effort & Inspection: normal respiratory effort and able to speak in complete sentences Psych Appearance: grossly normal Mental Status: mental status grossly normal Speech and movement: Normal speech and movement present Affect: normal affect Attitude: cooperative Thought process: Normal thought process present Assessment & Plan Assessment & Plan (1) Opioid use disorder: Code(s): F11.90 - Opioid use, unspecified, uncomplicated Category: Medical Plan: -AJITH wynn reviewed -Suboxone refilled at 2mg BID -Follow up 4 weeks
== END 2023-07-02 14:24 | disposition home or self-care (01) ==
LOC: HO.HCC 14:09
PROVIDERS: PCP Registered Nurse; Visit Provider Nurse Practitioner Family
DX: F11.90 Opioid use, unspecified, uncomplicated (principal)
CPT/HCPCS: 99213

== ENCOUNTER → 2023-07-02 14:09 | Outpatient (BNVA) | payer OTHER, SELFPAY | PROVIDERS: PCP Registered Nurse; Visit Provider Nurse Practitioner Family | DX: F11.20 Opioid dependence, uncomplicated (principal) | CPT/HCPCS: 99212 ==

== ENCOUNTER 2023-08-02 13:31 | Outpatient (AMB) | payer OTHER, SELFPAY ==
[2023-08-02 13:39] VITALS: BP 128/76; PULSE 91; O2SAT 94
--- NOTE | 2023-08-02 13:39 | A.OFFVISCC_ITS ---
Vital Signs 08/02/23 13:39 BP 128/76 Blood Pressure Location Lt brachial Position Sitting Pulse 91 Pulse Source Pulse Oximeter Pulse Oximetry (%) 94 Oxygen Delivery Method Room Air Intake Visit Reasons: MAT Visit Allergies metoclopramide [From REGLAN] Allergy (Intermediate, Verified 06/05/23 13:33) FEELS LIKE I'M JUMPING OUT OF MY SKIN{ pneumococcal vaccine [PNEUMOCOCCAL VACCINE] Allergy (Intermediate, Verified 06/05/23 13:33) Swelling pneumococcal 7-valent conjugate to [From Prevnar] Adverse Reaction (Mild, Verified 06/05/23 13:33) Cellulitis HPI HPI MAT Visit: Details: Patient presents for MAT visit States he has been doing well Has been playing softball with his , states he likes when he feels aches and pains now because it makes him feel alive He states he is taking things day by day but is continuing to do well with his suboxone dose 2mg BID Denies concerns for side effects Denies cravings HPI Comments Details: Patient presents for MAT visit [facility] Medical History (Updated 02/02/23 @ 00:03 by Background Daemon) Substance use Dyslipidemia Lung collapse Thoracic cancer Asthma Gallstones Testicular cancer Surgical History (Updated 02/02/23 @ 00:03 by Background Daemon) Hx laparoscopic cholecystectomy History of thoracic surgery S/P hernia surgery H/O ventral hernia repair Social History Household Members: Family Housing: Unknown / Unable to assess Do you presently have visiting nurse or other home services: No Unable to assess alcohol history related to: Unknown Alcohol intake: current Alcohol intake frequency: holidays/special occasions only Comment: see MAR Patient Tobacco Use Status: Tobacco use Unknown e-Cigarette/Vaping Use: Never Used Second Hand Smoke Exposure: No Advance Directives Date on File: 09/18/20 service: No Current occupational status: employed 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 Systems Const Reports as per HPI Physical Exam Vital Signs: Last Vital Signs Pulse 91 08/02/23 13:39 BP 128/76 08/02/23 13:39 Pulse Ox 94 08/02/23 13:39 Oxygen Delivery Method Room Air 08/02/23 13:39 Const General: cooperative and no acute distress Resp Effort & Inspection: normal respiratory effort and able to speak in complete sentences Psych Appearance: grossly normal Mental Status: mental status grossly normal Speech and movement: Normal speech and movement present Affect: normal affect Attitude: cooperative Thought process: Normal thought process present Assessment & Plan Assessment & Plan (1) Opioid use disorder: Code(s): F11.90 - Opioid use, unspecified, uncomplicated Category: Medical Plan: -Mass pat reviewed -Suboxone script sent to pharmacy -FOllow up 4 weeks Medications: Refilled buprenorphine-naloxone 2-0.5 mg (Suboxone) 1 film sublingual BID 60 ea 0RF
== END 2023-08-02 13:46 | disposition home or self-care (01) ==
PROVIDERS: PCP Registered Nurse; Visit Provider Nurse Practitioner Family
DX: F11.90 Opioid use, unspecified, uncomplicated (principal)
CPT/HCPCS: 99213

== ENCOUNTER → 2023-08-02 13:31 | Outpatient (BNVA) | payer OTHER, SELFPAY | PROVIDERS: PCP Registered Nurse; Visit Provider Nurse Practitioner Family | DX: F11.20 Opioid dependence, uncomplicated (principal) | CPT/HCPCS: 99212 ==

== ENCOUNTER 2023-08-28 09:34 | Outpatient (AMB) | payer OTHER, SELFPAY ==
--- NOTE | 2023-08-28 10:12 | MHC.AM.SUB ---
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 Denies side effects PFSH Medical History (Updated 08/28/23 @ 11:13 by Sera Hernandez CNP) Opioid use disorder Substance use Dyslipidemia Lung collapse Thoracic cancer Asthma Gallstones Testicular cancer Surgical History (Updated 02/02/23 @ 00:03 by Acacia Clarke) Hx laparoscopic cholecystectomy History of thoracic surgery S/P hernia surgery H/O ventral hernia repair Social History Household Members: Family Housing: Unknown / Unable to assess Do you presently have visiting nurse or other home services: No Unable to assess alcohol history related to: Unknown Alcohol intake: current Alcohol intake frequency: holidays/special occasions only Comment: see MAR Patient Tobacco Use Status: Tobacco use Unknown e-Cigarette/Vaping Use: Never Used Second Hand Smoke Exposure: No Advance Directives Date on File: 09/18/20 service: No Current occupational status: employed 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 Systems Const Reports as per HPI and Reports no additional complaints Physical Exam Const General: cooperative and no acute distress Resp Effort & Inspection: normal respiratory effort Psych Appearance: grossly normal Mental Status: mental status grossly normal Speech and movement: Normal speech and movement present Affect: normal affect Attitude: cooperative Thought process: Normal thought process present Assessment & Plan Assessment & Plan (1) Opioid use disorder, moderate, in early remission, on maintenance therapy, dependence: Code(s): F11.21 - Opioid dependence, in remission Category: Medical Plan: continue suboxone at current dose relapse prevention discussion follow up 4 weeks
== END 2023-08-28 09:50 | disposition home or self-care (01) ==
PROVIDERS: PCP Registered Nurse; Visit Provider Nurse Practitioner Psychiatric/Mental Health
DX: F11.21 Opioid dependence, in remission (principal)
CPT/HCPCS: 99213

== ENCOUNTER → 2023-08-28 09:34 | Outpatient (BNVA) | payer OTHER, SELFPAY | PROVIDERS: PCP Registered Nurse; Visit Provider Nurse Practitioner Psychiatric/Mental Health | DX: F11.21 Opioid dependence, in remission (principal) | CPT/HCPCS: 99212 ==

== ENCOUNTER 2023-09-27 10:11 | Outpatient (AMB) | payer OTHER, SELFPAY ==
--- NOTE | 2023-10-01 17:41 | A.OFFVISCC_ITS ---
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 no questions or concerns at this time PFSH Medical History (Updated 08/28/23 @ 11:13 by Sera Hernandez CNP) Opioid use disorder Substance use Dyslipidemia Lung collapse Thoracic cancer Asthma Gallstones Testicular cancer Surgical History (Updated 02/02/23 @ 00:03 by Acacia Clarke) Hx laparoscopic cholecystectomy History of thoracic surgery S/P hernia surgery H/O ventral hernia repair Social History Household Members: Family Housing: Unknown / Unable to assess Do you presently have visiting nurse or other home services: No Unable to assess alcohol history related to: Unknown Alcohol intake: current Alcohol intake frequency: holidays/special occasions only Comment: see MAR Patient Tobacco Use Status: Tobacco use Unknown e-Cigarette/Vaping Use: Never Used Second Hand Smoke Exposure: No Advance Directives Date on File: 09/18/20 service: No Current occupational status: employed 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 Systems Const Reports as per HPI and Reports no additional complaints Physical Exam Const General: cooperative and no acute distress Psych Appearance: grossly normal Mental Status: mental status grossly normal Speech and movement: Normal speech and movement present Affect: normal affect Attitude: cooperative Thought process: Normal thought process present Assessment & Plan Assessment & Plan (1) Opioid use disorder, moderate, in early remission, on maintenance therapy, dependence: Code(s): F11.21 - Opioid dependence, in remission Category: Medical Plan: * continue suboxone at current dose * follow up in office Medications: Refilled buprenorphine-naloxone 2-0.5 mg (Suboxone) 1 film sublingual BID 60 ea 1RF
== END 2023-09-27 10:46 | disposition home or self-care (01) ==
PROVIDERS: PCP Registered Nurse; Visit Provider Nurse Practitioner Psychiatric/Mental Health
DX: F11.21 Opioid dependence, in remission (principal)
CPT/HCPCS: 99213

== ENCOUNTER → 2023-09-27 10:11 | Outpatient (BNVA) | payer OTHER, SELFPAY | PROVIDERS: PCP Registered Nurse; Visit Provider Nurse Practitioner Psychiatric/Mental Health | DX: F11.21 Opioid dependence, in remission (principal); Z79.899 Other long term (current) drug therapy | CPT/HCPCS: 99212 ==

== ENCOUNTER 2023-11-08 10:04 | Outpatient (AMB) | payer OTHER, SELFPAY ==
--- NOTE | 2023-11-08 10:11 | A.OFFVISCC_ITS ---
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 Doing well overall [facility] Medical History (Updated 08/28/23 @ 11:13 by Sera Hernandez CNP) Opioid use disorder Substance use Dyslipidemia Lung collapse Thoracic cancer Asthma Gallstones Testicular cancer Surgical History (Updated 02/02/23 @ 00:03 by Acacia Clarke) Hx laparoscopic cholecystectomy History of thoracic surgery S/P hernia surgery H/O ventral hernia repair Social History Household Members: Family Housing: Unknown / Unable to assess Do you presently have visiting nurse or other home services: No Unable to assess alcohol history related to: Unknown Alcohol intake: current Alcohol intake frequency: holidays/special occasions only Comment: see MAR Patient Tobacco Use Status: Tobacco use Unknown e-Cigarette/Vaping Use: Never Used Second Hand Smoke Exposure: No Advance Directives Date on File: 09/18/20 service: No Current occupational status: employed 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 Systems Const Reports as per HPI and Reports no additional complaints Physical Exam Const General: cooperative and no acute distress Psych Appearance: grossly normal Mental Status: mental status grossly normal Speech and movement: Normal speech and movement present Affect: normal affect Attitude: cooperative Thought process: Normal thought process present Assessment & Plan Assessment & Plan (1) Opioid use disorder, moderate, in early remission, on maintenance therapy, dependence: Code(s): F11.21 - Opioid dependence, in remission Category: Medical Plan: * continue suboxone at current dose * follow up 6 weeks
== END 2023-11-08 11:23 | disposition home or self-care (01) ==
PROVIDERS: PCP Registered Nurse; Visit Provider Nurse Practitioner Psychiatric/Mental Health
DX: F11.21 Opioid dependence, in remission (principal)
CPT/HCPCS: 99213

== ENCOUNTER → 2023-11-08 10:04 | Outpatient (BNVA) | payer OTHER, SELFPAY | PROVIDERS: PCP Registered Nurse; Visit Provider Nurse Practitioner Psychiatric/Mental Health ==

== ENCOUNTER 2023-12-20 10:39 | Outpatient (AMB) | payer OTHER, SELFPAY ==
--- NOTE | 2023-12-20 11:00 | A.OFFVISCC_ITS ---
Intake Visit Reasons: MAT Allergies metoclopramide [From REGLAN] Allergy (Intermediate, Verified 06/05/23 13:33) FEELS LIKE I'M JUMPING OUT OF MY SKIN{ pneumococcal vaccine [PNEUMOCOCCAL VACCINE] Allergy (Intermediate, Verified 06/05/23 13:33) Swelling pneumococcal 7-valent conjugate to [From Prevnar] Adverse Reaction (Mild, Verified 06/05/23 13:33) Cellulitis HPI HPI MAT: Details: Patient presents for follow up coming up on one year since overdose and last use reflecting all the work that has occurred over the last 11 months tolerating medication no questions or concerns at this time PFSH Medical History (Updated 08/28/23 @ 11:13 by Sera Hernandez CNP) Opioid use disorder Substance use Dyslipidemia Lung collapse Thoracic cancer Asthma Gallstones Testicular cancer Surgical History (Updated 02/02/23 @ 00:03 by Acacia Clarke) Hx laparoscopic cholecystectomy History of thoracic surgery S/P hernia surgery H/O ventral hernia repair Social History Household Members: Family Housing: Unknown / Unable to assess Do you presently have visiting nurse or other home services: No Unable to assess alcohol history related to: Unknown Alcohol intake: current Alcohol intake frequency: holidays/special occasions only Comment: see MAR Patient Tobacco Use Status: Tobacco use Unknown e-Cigarette/Vaping Use: Never Used Second Hand Smoke Exposure: No Advance Directives Date on File: 09/18/20 service: No Current occupational status: employed 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
== END 2023-12-20 14:33 | disposition home or self-care (01) ==
PROVIDERS: PCP Registered Nurse; Visit Provider Nurse Practitioner Psychiatric/Mental Health
DX: F11.21 Opioid dependence, in remission (principal)
CPT/HCPCS: 99213

== ENCOUNTER → 2023-12-20 10:39 | Outpatient (BNVA) | payer OTHER, SELFPAY | PROVIDERS: PCP Registered Nurse; Visit Provider Nurse Practitioner Psychiatric/Mental Health ==

== ENCOUNTER 2024-03-02 14:10 | Outpatient (AMB) | payer OTHER, MEDICAID, SELFPAY ==
--- OUTSIDE RECORDS SUMMARY | 2024-03-02 14:13 | XMS_ITS ---
Author Organization [facility], [facility] Address [address] [place] [id number] Care Team Providers Care Biological Engineer Name Role Phone COLT WISE Primary Care Provider [phone] Zehra Hurd Unavailable [phone] ALLERGIES Allergen (clinical drug ingredient) Drug/Non Drug Allergy documented on EMR Reaction Allergy Type Onset Date Status metoclopramide Reglan , Severity Observation:Mod erate , Drug Allergy Active REASON FOR VISIT F/U LABS SOCIAL HISTORY Tobacco Use: Social History Observation Description Date Details (start date - stop date) Unknown Sex Assigned At : Social History Observation Description Sex Assigned At Unknown Household Question Answer Notes Marital status: Number of adults in household: 2 Tobacco Use/Smoking Question Answer Notes Tobacco use: Uses tobacco in other forms Sexual History Question Answer Notes Had sex in the past 12 months (vaginal, oral, or anal)? Yes with Women only Encounters Encounter Location Date Provider Diagnosis [address] [id number] 07/23/2023 Zehra Hurd PLAN OF TREATMENT Next Appt Details Provider Name:Zehra Hurd 03/25/2024 01:30:00 PM, [address] [place] [address], [phone], Progress Notes * WARD MARDOB:1980 (43 yo M)Acc No.[id number]:07/23/2023 Progress Notes Patient:??ZAIDCHRISTIANWARD Provider:??Zehra Hurd DNP :1980?Age:43 Y?Sex:Ma le Date:07/23/2023 Phone: Address:[address] [place] [address] [id number] Pcp:COLT WISE Subjective: * Chief Complaints: * ?1. F/U LABS. * HPI: ?Patient Care Team:? 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 * Medical History:??Anxiety, A sthma - mild intermittent, Blood transfusion, Testicular cancer, Alcohol abuse, Chicken pox as a child, Allergies. * Surgical History:??hernia re pair , removed tumor on top of lung (not inside lung) 4 rounds of chemo , cholecystectomy . * Family History:??Father: ali ve, Asthma , Diabetes , Bleeding Disorder , Other CA .??Siblings: sister: sister:No Health Concern .??Mother: alive, Ovarian CA .??Paternal Grandmother: , diagnosed with Type 2 diabetes mellitus without complication, unspecified whether fdc insulin use.??Maternal Grandfather: , heart attack.??Maternal Grandmother: 80 yrs, Alzheimer's dementia.??1 sister(s) - healthy. 2 daughter(s) . .?? * Social History:?Tobacco Use:??Tobacco Use/Smoking??Tobacco use:??Uses tobacco in other forms.?Sexual History:??Sexual History??Had sex in the past 12 months (vaginal, oral, or anal)???Yes,??with??Women only.?Drugs/Alcohol:??Do you smoke marijuana?: Admits. Do you drink alcohol?: Socially. ?Household:??Household??Marital status:??,??Number of adults in household:??2.?Miscellaneous:??Occupation: out of work. * Allergies:??Reglan: , Severi ty Observation:Moderate , - Allergy. Objective: Assessment: Plan: * Treatment: * Preventive Medicine:?Last CPE: 04/12/2022 Colonoscopy: Never Endoscopy: Never Covid Vac: Yes Flu Vac: No 07/05/22- Vitamin D 27; Tcol 238; HDL 57; LDL 158; trigs 117; APO B 113; glucose 108; GFR 78; A1c 5.8; insulin 20.6 11/19/22- Vitamin D 43; Tcol 199; HDL 55; LDL 122; trigs 111; APO B 102; glucoes 99; GFR 100; A1c 5.5; insulin 14.1. * Billing Information: * Visit Code:?? * Procedure Codes:?? * Sign off status: Pending * Provider:??Zehra Hurd DNP Date:?? History and Physical Notes * HPI (History of Present Illness) Category Sub-Category Detail Notes Category Not es Patient Care Team Pulmonolog ist- [facility]
--- OUTSIDE RECORDS SUMMARY | 2024-03-02 14:13 | XMS_ITS | Patient Health Record ---
Author Organization [facility] Address [address] [place], [place] [id number] Care Team Providers Care Lube Man Name Role Phone COLT WISE Primary Care Provider Zehra Hurd Unavailable [phone] ALLERGIES Allergen (clinical drug ingredient) Drug/Non Drug Allergy documented on EMR Reaction Allergy Type Onset Date Status metoclopramide Reglan , Severity Observation:Mod erate , Drug Allergy Active REASON FOR REFERRAL Reason Dr. Hammond for referra l for abdominal hernia. Has history of 2 hernia repairs in same location. Now has pain in upper abdomen and needs to push it back in. Can we please see if they have received this referral- he never got a call to schedule an appointment Diagnosis 1 Diaphragmatic hernia without obstruction and without gangrene (K44.9) Referral Organization [facility] Referring Provider First Name Zehra Referring Provider Last Name Vickey Referring Provider Speciality Nurse Prac titioner Referred Organization [facility] Referred Address [address], [place],[id number] Referred Provider Specialty General Surg adam General Notes CORINA CARR 0 07/15/2023 02:57:30 PM >demographics, insurance info, referral and office note faxed to Surgery for Dr. Hammond [phone], CORINA CARR 02/28/2024 12:23:42 PM >demographics, insurance info, referral and office note have been refaxed to [facility] at [phone]. Advised this referral is from July and we are resending due to patient never receiving appt Referral Priority Routine MEDICATIONS Medication SIG (Take, Route, Frequency, Duration) Notes Start Date End Date Status Trelegy Ellipta 200-62.5-25 MCG/ACT 1 puff Inhalation Once a day for 30 days 08/01/2022 Not-Taking Albuterol Sulfate HFA 108 (90 Base) MCG/ACT INHALE 2 PUFFS BY MOUTH EVERY 4-6 HOURS NEEDED FOR SHORTNESS OF BREATH FOR 17 DAYS Active Advair Diskus 500-50 MCG/ACT 1 puff Inhalation Twice a day for 30 days 05/04/2022 Not-Taking metFORMIN HCl 500 MG 1 tablet with a brandon l Orally twice a day 07/11/2022 Active Atorvastatin Calcium 20 mg TAKE 1 TABLET ORALLY ONCE A DAY FOR 90 DAYS Active Suboxone 2-0.5 MG 1 film under the ton johann and allow to dissolve Sublingual Twice a day Active Singulair 10 MG 1 tablet Orally Once a day Active Breo Ellipta 200-25 MCG/ACT 1 puff Inhalation Once a day Active SOCIAL HISTORY Tobacco Use: Social History Observation [...] oral, or anal)? Yes with Women only PROBLEMS Problem Type ICD Code Onset Dates Problem Status W/U Status Risk SNOMED Code Notes Problem Mixed hyperlipidemia (E78.2) Active confirmed 083906851 Problem Other chronic pain (G89.29) Active confirmed 43063866 Problem Benign prostatic hyperplasia without lower urinary tract symptoms (N40.0) Active confirmed 701474192 Problem Seasonal allergies (J30.2) Active confirmed 124608101 Problem Obesity (BMI 30.0-34.9) (E66.9) Active confirmed 796002245321128 Problem Mild intermittent asthma without complication (J45.20) Active confirmed 402097799 Problem Vitamin D deficiency (E55.9) Active confirmed 26967179 Problem Insulin resistance (E88.81) Active confirmed 912481332 Problem Eczema, unspecified type (L30.9) Active confirmed 55324945 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 58158200 Problem Acute pain of right shoulder (M25.511) Active confirmed 12638453 Problem History of testicular cancer (Z85.47) Active confirmed 287833987 Problem Moderate persistent asthma with exacerbation (J45.41) Active confirmed 017214010 Problem Moderate persistent asthma with acute exacerbation (J45.41) Active confirmed 996209438 VITAL SIGNS Heart Rate 79 /min 02/27/2024 Height-cm 175.26 cm 02/27/2024 Oximetry 97 % 02/27/2024 Blood pressure diastolic 82 mm Hg 02/27/2024 Weight-kg 110.86 kg 02/27/2024 Height 69 in 02/27/2024 Blood pressure systolic 148 mm Hg 02/27/2024 Weight 244.4 lbs 02/27/2024 BMI 36.09 kg/m2 02/27/2024 Encounters Encounter Location Date Provider Diagnosis [address] [id number] 03/05/2023 Zehra Hurd [address] [id number] 07/23/2023 Zehra Hurd [address] [id number] 08/01/2023 Zehra Hurd [address] [id number] 07/09/2023 Zehra Hurd Mild intermittent asthma without complication J45.20 and Diaphragmatic hernia without obstruction and without gangrene K44.[address] [id number] 02/27/2024 Zehra Hurd Mixed hyperlipidemia E78.2 ; Sylvia's disease E06.3 ; Vitamin D deficiency E55.9 ; Obesity (BMI 30.0-34.9) E66.9 ; Moderate persistent asthma with acute exacerbation J45.41 ; Leg cramps R25.2 and Benign prostatic hyperplasia without lower urinary tract symptoms N40.0 ASSESSMENTS Encounter Date Diagnosis Assessment Notes Treatment Notes Treatment Clinical Notes Section Notes 07/09/2023 Mild intermittent asthma without complication (ICD-10 - J45.20) Continue occasional use of inhaler Avoid allergens Promptly address any infections Call if using inhalers more frequently Does follow with Pulmonary 07/09/2023 Diaphragmatic hernia without obstruction and without gangrene (ICD-10 - K44.9) Will refer to General Surg Discussed concerning symptoms of hernia strangulation and when to seek emergency medical 02/27/2024 Mixed hyperlipidemia (ICD-10 - E78.2) Continue current statin Low fat, low cholesterol diet Exercise Check lipids, LFTs 02/27/2024 Sylvia's disease (ICD-10 - E06.3) Will check labs 02/27/2024 Vitamin D deficiency (ICD-10 - E55.9) Increase Vit D rich foods Check levels periodically Supplement as indicated 02/27/2024 Obesity (BMI 30.0-34.9) (ICD-10 - E66.9) Common treatments for overweight and obesity include losing weight through healthy eating, being more physically active, and making other changes to your usual habits. Weight-management programs may help some people lose weight or keep from regaining lost weight. Some people who have obesity are unable to lose enough weight to improve their health or are unable to keep from regaining weight. In such cases, a doctor may consider adding other treatments, including weight-loss medicines, weight-loss devices, or bariatric surgery. Experts recommend losing 5 to 10 percent of your body weight within the first 6 months of treatment. If you weigh 200 pounds, this means losing as little as 10 pounds. Losing 5 to 10 percent of your weight may help lower your chances of developing health problems related to overweight and obesity improve health problems related to overweight and obesity, such as high blood pressure and high cholesterol levels. Following a healthy eating plan with fewer calories is often the first step in trying to treat overweight and obesity. People who are overweight or have obesity should also start regular physical activity when they begin their healthy eating plan. Being active may help you use calories. Regular physical activity may help you stay at a healthy weight. Changing your eating and physical activity habits and lifestyle is difficult, but with a plan, effort, regular support, and patience, you may be able to lose weight and improve your health. The following tips may help you think about ways to lose weight, engage in regular physical activity, and improve health over the long-term. Be prepared for set backs they are normal. After a setback, like overeating at a family or workplace gathering, try to regroup and focus on getting back to your healthy eating plan as soon as you can. Try to eat only when you're sitting at your dining room or kitchen table. At work, avoid areas where treats may be available. Track your progress using online food or physical activity trackers, such as the Body Weight Machine Shorthand Reporter, that can help you keep track of the foods you eat, your physical activity, and your weight. These tools may help you stick with it and stay motivated. Set goals. Having specific goals can help you stay on track. Rather than be more active, set a goal to walk 15 to 30 minutes before work or at lunch on Saturday and Saturday. If you miss a walk on Saturday, pick it up again Saturday. Seek support. Ask for help or encouragement from your family, friends, or health youth care specialist. You can get support in person, through email or texting, or by talking on the phone. You can also join a support group. Specially trained health professionals can help you change your lifestyle. Continues on Metformin- continues to gain weight Will repeat labs Was insulin resistant 02/27/2024 Moderate persistent asthma with acute exacerbation (ICD-10 - J45.41) Continue occasional use of inhaler Avoid allergens Promptly address any infections Call if using inhalers more frequently 02/27/2024 Leg cramps (ICD-10 - R25.2) Recommended increasing water intake Magnesium Glycinate 400mg nightly Will check electrolytes 02/27/2024 Benign prostatic hyperplasia without lower urinary tract symptoms (ICD-10 - N40.0) Will trend PSA given testicular cancer history Notes not to have prostate stimulation for 48-72 hours prior to lab draw 07/09/2023 Other Total time spen t with patient 20 minutes which includes face to face visit, education and coordination of care. 02/27/2024 Other Labs printed as he would like to go to [facility] PLAN OF TREATMENT Pending Test Test Name Order Date MRI : Shoulder, right 05/04/2022 X ray : Shoulder, left 04/12/2022 X ray : Shoulder, right 04/12/2022 Ultrasound : Doppler : Veins Arm Kei. Future Test Test Name Order Date THYROID PEROXIDASE AND THYROGLOBULIN ANT IBODIES (7899) 02/27/2024 LIPID PANEL, STANDARD (8750) 02/27/2024 THYROID PANEL WITH TSH (5944) 02/27/2024 ALBUMIN, RANDOM URINE W/CREATININE (6817 ) 02/27/2024 METHYLMALONIC ACID AND HOMOCYSTEINE (305 17) 02/27/2024 COMPREHENSIVE METABOLIC PANEL (95644) URIC ACID (905) 02/27/2024 CBC (INCLUDES DIFF/PLT) (6399) URINALYSIS, COMPLETE W/REFLEX TO CULTURE (3020) 02/27/2024 HS CRP (04865) 02/27/2024 HEMOGLOBIN A1c (496) 02/27/2024 APOLIPOPROTEIN A1 (5223) 02/27/2024 APOLIPOPROTEIN B (5224) 02/27/2024 INSULIN (561) 02/27/2024 PSA (FREE AND TOTAL) (07105) 02/27/2024 VITAMIN D,25-OH,TOTAL,IA (16604) 024 ADIPONECTIN (00283) 02/27/2024 GALECTIN 3 (65644) 02/27/2024 Next Appt Details Provider Name:Zehra Hurd, 03/25/2024 01:30:00 PM, [address] [place] [address], [phone], Insurance Providers Payer Name Payer Address Payer Phone Subscriber Number Group Number Insured Name Patient Relationship to Insured Coverage Start Date Coverage End Date [address] [place] [phone] [id number] WARD MAR Self - patient is the insured MEDICAL (GENERAL) HISTORY Medical History History ICD Code anxiety asthma - mild intermittent blood transfusion testicular cancer alcohol abuse chicken pox as a child allergies Surgical History Surgery Date(Month/Year) hernia repair removed tumor on top of lung (not inside lung) 4 rounds of chemo cholecystectomy
--- OUTSIDE RECORDS SUMMARY | 2024-03-02 14:13 | XMS_ITS ---
Author Organization [facility] Address [address] [place] [id number] Care Team Providers Care Turbogenerator Operator Name Role Phone COLT WISE Primary Care Provider [phone] Zehra Hurd Unavailable [phone] ALLERGIES Allergen (clinical drug ingredient) Drug/Non Drug Allergy documented on EMR Reaction Allergy Type Onset Date Status metoclopramide Reglan , Severity Observation:Mod erate , Drug Allergy Active REASON FOR VISIT follow up MEDICATIONS Medication SIG (Take, Route, Frequency, Duration) Notes Start Date End Date Status Albuterol Sulfate HFA 108 (90 Base) MCG/ACT INHALE 2 PUFFS BY MOUTH EVERY 4-6 HOURS NEEDED FOR SHORTNESS OF BREATH FOR 17 DAYS Active metFORMIN HCl 500 MG 1 tablet with a brandon l Orally twice a day 07/11/2022 Active Atorvastatin Calcium 20 mg TAKE 1 TABLET ORALLY ONCE A DAY FOR 90 DAYS Active Singulair 10 MG 1 tablet Orally Once a day Active Breo Ellipta 200-25 MCG/ACT 1 puff Inhalation Once a day Active Trelegy Ellipta 200-62.5-25 MCG/ACT 1 puff Inhalation Once a day for 30 days 08/01/2022 Not-Taking Advair Diskus 500-50 MCG/ACT 1 puff Inhalation Twice a day for 30 days 05/04/2022 Not-Taking Suboxone 2-0.5 MG 1 film under the ton johann and allow to dissolve Sublingual Twice a day Active SOCIAL HISTORY Tobacco Use: [...] oral, or anal)? 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 You can get support in person, through [...] for 48-72 hours prior to lab draw 02/27/2024 Other Labs printed as he would like to go to [facility] PLAN OF TREATMENT Medication Medication Name Sig Start Date Stop Date Notes Albuterol Sulfate HFA 108 (9 0 Base) MCG/ACT INHALE 2 PUFFS BY MOUTH EVERY 4-6 HOURS NEEDED FOR SHORTNESS OF BREATH FOR 17 DAYS metFORMIN HCl 500 MG 1 tablet with a brandon l Orally twice a day 07/11/2022 Atorvastatin Calcium 20 mg TAKE 1 TABLET ORALLY ONCE A DAY FOR 90 DAYS Singulair 10 MG 1 tablet Orally Once a day Breo Ellipta 200-25 MCG/ACT 1 puff Inhalation Once a day Suboxone 2-0.5 MG 1 film under the ton johann and allow to dissolve Sublingual Twice a day Treatment Notes Assessment Notes Mixed hyperlipidemia Continue current statin Low fat, low cholesterol diet Exercise Check lipids, LFTs Sylvia's disease Will check labs Vitamin D deficiency Increase Vit D rich foods Check levels periodically Supplement as indicated Obesity (BMI 30.0-34.9) Common treatments for overweight and obesity include [...] activity trackers, such as the Body Weight Mathematics Academic Chair, that can help you keep track of [...] encouragement from your family, friends, or health physician locums urgent care. You can get support in person, through email or texting, or by talking on the phone. You can also join a support group. Specially trained health professionals can help you change your lifestyle. Continues on Metformin- continues to gain weight Will repeat labs Was insulin resistant Moderate persistent asthma w ith acute exacerbation Continue occasional use of inhaler Avoid allergens Promptly address any infections Call if using inhalers more frequently Leg cramps Recommended increasing water intake Magnesium Glycinate 400mg nightly Will check electrolytes Benign prostatic hyperplasia without lower urinary tract symptoms Will trend PSA given testicular cancer history Notes not to have prostate stimulation for 48-72 hours prior to lab draw Other Labs printed as [facility] Test Name Order Date THYROID PEROXIDASE AND THYROGLOBULIN ANT IBODIES (9707) 02/27/2024 LIPID PANEL, STANDARD (0610) 02/27/2024 THYROID PANEL WITH TSH (7444) 02/27/2024 ALBUMIN, RANDOM URINE W/CREATININE (1517 ) 02/27/2024 METHYLMALONIC ACID AND HOMOCYSTEINE (305 17) 02/27/2024 COMPREHENSIVE METABOLIC PANEL (00726) URIC ACID (905) 02/27/2024 CBC (INCLUDES DIFF/PLT) (6399) URINALYSIS, COMPLETE W/REFLEX TO CULTURE (3020) 02/27/2024 HS CRP (83820) 02/27/2024 HEMOGLOBIN A1c (496) 02/27/2024 APOLIPOPROTEIN A1 (5223) 02/27/2024 APOLIPOPROTEIN B (5224) 02/27/2024 INSULIN (561) 02/27/2024 PSA (FREE AND TOTAL) (24090) 02/27/2024 VITAMIN D,25-OH,TOTAL,IA (76169) 024 ADIPONECTIN (46104) 02/27/2024 GALECTIN 3 (00174) 02/27/2024 Next Appt Details Follow Up: 3 Weeks- or next available, Reason: CPE/LABS Provider Name:Zehra Hurd, 03/25/2024 01:30:00 PM, [address] [place] [address], [phone], Progress Notes * WARD MARDOB:1980 (43 yo M)Acc No.[id number]:02/27/2024 Progress Notes Patient:??WARD MAR Provider:??Zehra Hurd DNP :1980?Age:43 Y?Sex:Ma le Date:02/27/2024 Phone: Address:[address] [place] [address] Pcp:COLT WISE Subjective: * Chief Complaints: * ?Follow up * HPI: ?Patient Care Team:? Sound Technician- [facility]. ?Visit info:? Robb presents today for routine f/u. ? - No specific concerns to address today. ?General surgery- check on referral- sent to Dr. Hammond in July, has not received a phone call- will reopen, continues with abdominal bulging at old surgical site ?Recently started seeing a chiropractor- believes that it helps with some of his body pain ?Did see [facility] and they gave him a cortisone shot in his shoulder, they recommended PT as well, however he has not done PT ?No caffeine- stopped drinking caffeinated soda and coffee ?Leg cramps- Chiropractor did recommend Magnesium- encouraged to make sure that it is Elemental Magnesium Glycinate 400mg and to take nightly. Will check lytes ?Breathing well- states that when he has and takes his Breo he does not need his rescue inhaler ?Still follows up with parvin for pain management- still on same dose. FU every 6 weeks, has appointment tomorrow. * ROS:?Reviewed. * Medical History:?? 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 2 daughter(s) . .?? * Social History:?Tobacco Use:??Tobacco Use/Smoking??Tobacco use:??Uses tobacco in other forms.?Sexual History:??Sexual History??Had sex in the past 12 months (vaginal, oral, or anal)???Yes,??with??Women only.?Drugs/Alcohol:??Do you smoke marijuana?: Admits. Do you drink alcohol?: Socially. ?Household:??Household??Marital status:??,??Number of adults in household:??2.?Miscellaneous:??Occupation: out of work. * Medications:??TakingBreo Ell ipta 200-25 MCG/ACT Aerosol Powder Breath Activated 1 puff Inhalation Once a day Suboxone 2-0.5 MG Film 1 film under the tongue and allow to dissolve Sublingual Twice a day Singulair 10 MG Tablet 1 tablet Orally Once a day metFORMIN HCl 500 MG Tablet 1 tablet with a meal Orally twice a day Atorvastatin Calcium 20 mg Tablet TAKE 1 TABLET ORALLY ONCE A DAY FOR 90 DAYS Albuterol Sulfate HFA 108 (90 Base) MCG/ACT Aerosol Solution INHALE 2 PUFFS BY MOUTH EVERY 4-6 HOURS NEEDED FOR SHORTNESS OF BREATH FOR 17 DAYS Taking Breo Ellipta 200-25 MCG/ACT Aerosol Powder Breath Activated 1 puff Inhalation Once a day Taking Suboxone 2-0.5 MG Film 1 film under the tongue and allow to dissolve Sublingual Twice a day Taking Singulair 10 MG Tablet 1 tablet Orally Once a day Taking metFORMIN HCl 500 MG Tablet 1 tablet with a meal Orally twice a day Taking Atorvastatin Calcium 20 mg Tablet TAKE 1 TABLET ORALLY ONCE A DAY FOR 90 DAYS Taking Albuterol Sulfate HFA 108 (90 Base) MCG/ACT Aerosol Solution INHALE 2 PUFFS BY MOUTH EVERY 4-6 HOURS NEEDED FOR SHORTNESS OF BREATH FOR 17 DAYS Not-TakingAdvair Diskus 500-50 MCG/ACT Aerosol Powder Breath Activated 1 puff Inhalation Twice a day Trelegy Ellipta 200-62.5-25 MCG/ACT Aerosol Powder Breath Activated 1 puff Inhalation Once a day Medication List reviewed and reconciled with the patientNot-Taking Advair Diskus 500-50 MCG/ACT Aerosol Powder Breath Activated 1 puff Inhalation Twice a day Not-Taking Trelegy Ellipta 200-62.5-25 MCG/ACT Aerosol Powder Breath Activated 1 puff Inhalation Once a day Medication List reviewed and reconciled with the patient * Allergies:??Reglan: , Severi ty Observation:Moderate , - Allergy Objective: * Vitals:??BP:148/82mm Hg, HR: 79/min, Oxygen sat %:97%, Wt:244.4lbs, Wt-k.86 kg, Ht: 69 in, Ht-cm: 175.26 cm, BMI:36.09Index, Body Surface Area: 2.32. * Examination: ?General Examination: ?General appearance: no acute distress, speaking full sentences, thoughts clear and appropriate. ? Head: normocephalic, atraumatic. ? Eyes: sclera anicteric. ? Oral cavity: with good dentition, tongue is midline. ? Lungs: non-labored breathing, no audible shortness of breath or wheezing. ? Neurologic: alert and oriented, cooperative with exam. ? Psych: with good judgement and insight, speech is clear and coherent, normal affect / mood. 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 Plan: * Treatment: 2.??Sylvia's disease?LAB: ADIPONECTIN (24026) (Ordered for 02/27/2024) ?LAB: ALBUMIN, RANDOM URINE W/CREATININE (6517) (Ordered for 02/27/2024) ?LAB: APOLIPOPROTEIN A1 (5223) (Ordered for 02/27/2024) ?LAB: APOLIPOPROTEIN B (5224) (Ordered for 02/27/2024) ?LAB: CBC (INCLUDES DIFF/PLT) (6399) (Ordered for 02/27/2024) ?LAB: COMPREHENSIVE METABOLIC PANEL (64054) (Ordered for 02/27/2024) ?LAB: HEMOGLOBIN A1c (496) (Ordered for 02/27/2024) ?LAB: HS CRP (36584) (Ordered for 02/27/2024) ?LAB: INSULIN (561) (Ordered for 02/27/2024) ?LAB: LIPID PANEL, STANDARD (0590) (Ordered for 02/27/2024) ?LAB: METHYLMALONIC ACID AND HOMOCYSTEINE (50722) (Ordered for 02/27/2024) ?LAB: THYROID PANEL WITH TSH (8898) (Ordered for 02/27/2024) ?LAB: THYROID PEROXIDASE AND THYROGLOBULIN ANTIBODIES (2584) (Ordered for 02/27/2024) ?LAB: URIC ACID (905) (Ordered for 02/27/2024) ?LAB: URINALYSIS, COMPLETE W/REFLEX TO CULTURE (7980) (Ordered for 02/27/2024) ?LAB: VITAMIN D,25-OH,TOTAL,IA (81178) (Ordered for 02/27/2024) ?LAB: PSA (FREE AND TOTAL) (27337) (Ordered for 02/27/2024) Notes: Will check labs? 3.??Vitamin D deficiency?LAB: ADIPONECTIN (58856) (Ordered for 02/27/2024) ?LAB: ALBUMIN, RANDOM URINE W/CREATININE (0214) (Ordered for 02/27/2024) ?LAB: APOLIPOPROTEIN A1 (6623) (Ordered for 02/27/2024) ?LAB: APOLIPOPROTEIN B (5224) (Ordered for 02/27/2024) ?LAB: CBC (INCLUDES DIFF/PLT) (9499) (Ordered for 02/27/2024) ?LAB: COMPREHENSIVE METABOLIC PANEL (04334) (Ordered for 02/27/2024) ?LAB: HEMOGLOBIN A1c (496) (Ordered for 02/27/2024) ?LAB: HS CRP (62189) (Ordered for 02/27/2024) ?LAB: INSULIN (561) (Ordered for 02/27/2024) ?LAB: LIPID PANEL, STANDARD (0790) (Ordered for 02/27/2024) ?LAB: METHYLMALONIC ACID AND HOMOCYSTEINE (09785) (Ordered for 02/27/2024) ?LAB: THYROID PANEL WITH TSH (2669) (Ordered for 02/27/2024) ?LAB: THYROID PEROXIDASE AND THYROGLOBULIN ANTIBODIES (2869) (Ordered for 02/27/2024) ?LAB: URIC ACID (905) (Ordered for 02/27/2024) ?LAB: URINALYSIS, COMPLETE W/REFLEX TO CULTURE (3890) (Ordered for 02/27/2024) ?LAB: VITAMIN D,25-OH,TOTAL,IA (98142) (Ordered for 02/27/2024) ?LAB: PSA (FREE AND TOTAL) (54731) (Ordered for 02/27/2024) Notes: Increase Vit D rich foods Check levels periodically Supplement as indicated? 4.??Obesity (BMI 30.0-34.9)? ? Continue metFORMIN HCl Tablet, 500 MG, 1 tablet with a meal, Orally, twice a day.?LAB: ADIPONECTIN (02696) (Ordered for 02/27/2024) ?LAB: ALBUMIN, RANDOM URINE W/CREATININE (9317) (Ordered for 02/27/2024) ?LAB: APOLIPOPROTEIN A1 (6623) (Ordered for 02/27/2024) ?LAB: APOLIPOPROTEIN B (5224) (Ordered for 02/27/2024) ?LAB: CBC (INCLUDES DIFF/PLT) (6399) (Ordered for 02/27/2024) ?LAB: COMPREHENSIVE METABOLIC PANEL (55930) (Ordered for 02/27/2024) ?LAB: HEMOGLOBIN A1c (496) (Ordered for 02/27/2024) ?LAB: HS CRP (57237) (Ordered for 02/27/2024) ?LAB: INSULIN (561) (Ordered for 02/27/2024) ?LAB: LIPID PANEL, STANDARD (0510) (Ordered for 02/27/2024) ?LAB: METHYLMALONIC ACID AND HOMOCYSTEINE (52816) (Ordered for 02/27/2024) ?LAB: THYROID PANEL WITH TSH (7944) (Ordered for 02/27/2024) ?LAB: THYROID PEROXIDASE AND THYROGLOBULIN ANTIBODIES (4360) (Ordered for 02/27/2024) ?LAB: URIC ACID (905) (Ordered for 02/27/2024) ?LAB: URINALYSIS, COMPLETE W/REFLEX TO CULTURE (3430) (Ordered for 02/27/2024) ?LAB: VITAMIN D,25-OH,TOTAL,IA (59352) (Ordered for 02/27/2024) ?LAB: GALECTIN 3 (35067) (Ordered for 02/27/2024) Notes: Common treatments for overweight and obesity include [...] activity trackers, such as the Body Weight Mathematics Academic Chair, that can help you keep track of [...] encouragement from your family, friends, or health physician locums urgent care. You can get support in person, through email or texting, or by talking on the phone. You can also join a support group. Specially trained health professionals can help you change your lifestyle. Continues on Metformin- continues to gain weight Will repeat labs Was insulin resistant ? 5.??Moderate persistent asth ma with acute exacerbation?? Continue Breo Ellipta Aerosol Powder Breath Activated, 200-25 MCG/ACT, 1 puff, Inhalation, Once a day;??Continue Singulair Tablet, 10 MG, 1 tablet, Orally, Once a day;??Continue Albuterol Sulfate HFA Aerosol Solution, 108 (90 Base) MCG/ACT, INHALE 2 PUFFS BY MOUTH EVERY 4-6 HOURS NEEDED FOR SHORTNESS OF BREATH FOR 17 DAYS.? Notes: Continue occasional use of inhaler Avoid allergens Promptly address any infections Call if using inhalers more frequently? 6.??Leg cramps?LAB: ADIPONECTIN (92516) (Ordered for 02/27/2024) ?LAB: ALBUMIN, RANDOM URINE W/CREATININE (5217) (Ordered for 02/27/2024) ?LAB: APOLIPOPROTEIN A1 (5223) (Ordered for 02/27/2024) ?LAB: APOLIPOPROTEIN B (5224) (Ordered for 02/27/2024) ?LAB: CBC (INCLUDES DIFF/PLT) (6399) (Ordered for 02/27/2024) ?LAB: COMPREHENSIVE METABOLIC PANEL (30410) (Ordered for 02/27/2024) ?LAB: HEMOGLOBIN A1c (496) (Ordered for 02/27/2024) ?LAB: HS CRP (05522) (Ordered for 02/27/2024) ?LAB: INSULIN (561) (Ordered for 02/27/2024) ?LAB: LIPID PANEL, STANDARD (8000) (Ordered for 02/27/2024) ?LAB: METHYLMALONIC ACID AND HOMOCYSTEINE (93978) (Ordered for 02/27/2024) ?LAB: THYROID PANEL WITH TSH (6714) (Ordered for 02/27/2024) ?LAB: THYROID PEROXIDASE AND THYROGLOBULIN ANTIBODIES (8863) (Ordered for 02/27/2024) ?LAB: URIC ACID (905) (Ordered for 02/27/2024) ?LAB: URINALYSIS, COMPLETE W/REFLEX TO CULTURE (1650) (Ordered for 02/27/2024) ?LAB: VITAMIN D,25-OH,TOTAL,IA (55426) (Ordered for 02/27/2024) Notes: Recommended increasing water intake Magnesium Glycinate 400mg nightly Will check electrolytes? 7.??Benign prostatic hyperpl randal without lower urinary tract symptoms?LAB: PSA (FREE AND TOTAL) (57325) (Ordered for 02/27/2024) ?LAB: GALECTIN 3 (83226) (Ordered for 02/27/2024) Notes: Will trend PSA given testicular cancer history Notes not to have prostate stimulation for 48-72 hours prior to lab draw? 8.??Others?? Continue Suboxone Film, 2-0.5 MG, 1 film under the tongue and allow to dissolve, Sublingual, Twice a day.? Notes: [facility] * Procedure Codes:?? * Preventive Medicine:?Last CPE: 04/12/2022 Colonoscopy: Never Endoscopy: Never Covid Vac: Yes Flu Vac: No 07/05/22- Vitamin D 27; Tcol 238; HDL 57; LDL 158; trigs 117; APO B 113; glucose 108; GFR 78; A1c 5.8; insulin 20.6 11/19/22- Vitamin D 43; Tcol 199; HDL 55; LDL 122; trigs 111; APO B 102; glucoes 99; GFR 100; A1c 5.5; insulin 14.1. * Follow Up:??3 Weeks- or next available (Reason: CPE/LABS) * Billing Information: * Visit Code:?? 22250 Office Visit, Est Pt., Level 4. * Procedure Codes:?? * Sign off status: Completed true * Provider:??Zehra Hurd DNP Date:?? History and Physical Notes * HPI (History of Present Illness) Category Sub-Category Detail Notes Category Not es Patient Care Team Pulmonolog ist- [facility] Pulmonology Examination Category Sub-Category Detail Notes Category Not es General Examination General appearance: no acute distress, speaking full sentences, thoughts clear and appropriate. Head: normocephalic, atraumatic. Eyes: sclera anicteric. Oral cavity: with good dentition, tongue is midline. Lungs: non-labored breathing, no audible shortness of breath or wheezing. Neurologic: alert and oriented, cooperative with exam. Psych: with good judgement and insight, speech is clear and coherent, normal affect / mood.
--- OUTSIDE RECORDS SUMMARY | 2024-03-02 14:13 | XMS_ITS ---
Author Organization [facility] Address [address], [place] [id number] Care Team Providers Care Agricultural Chemicals Inspector Name Role Phone COLT WISE Primary Care Provider Zehra Hurd Unavailable [phone] REASON FOR VISIT F/U LABS Encounters Encounter Location Date Provider Diagnosis [facility], [facility] [address], [place] [id number] 08/01/2023 Zehra Hurd PLAN OF TREATMENT Next Appt Details Provider Name:Zehra Hurd, 03/25/2024 01:30:00 PM, [address] [place] [address], [phone], Progress Notes * ZAIDCHRISTIANLUIS EDUARDODOB:1980 (43 yo M)Acc No.[id number]:08/01/2023 Progress Notes Patient:??WARD MAR Provider:??Zehra Hurd DNP :1980?Age:43 Y?Sex:Ma le Date:08/01/2023 Phone: Address:[address] [place] [address] [id number] Pcp:COLT WISE Subjective: * Chief Complaints: * ?1. F/U LABS. * Medical History:?? Objective: Assessment: Plan: * Treatment: * Billing Information: * Visit Code:?? * Procedure Codes:?? * Sign off status: Pending * Provider:??Zehra Hurd DNP Date:??
--- NOTE | 2024-03-02 14:18 | A.OFFVISCC_ITS ---
Intake Visit Reasons: Follow up Allergies metoclopramide [From REGLAN] Allergy (Intermediate, Verified 06/05/23 13:33) FEELS LIKE I'M JUMPING OUT OF MY SKIN{ pneumococcal vaccine [PNEUMOCOCCAL VACCINE] Allergy (Intermediate, Verified 06/05/23 13:33) Swelling pneumococcal 7-valent conjugate to [From Prevnar] Adverse Reaction (Mild, Verified 06/05/23 13:33) Cellulitis Medication List - Last Reconciled 03/02/24 by Sera Hernandez CNP albuterol sulfate 90 mcg/actuation (ProAir HFA) 2 puffs inhalation Q6H PRN atorvastatin 20 mg PO DAILY buprenorphine-naloxone 2-0.5 mg (Suboxone) 1 film sublingual BID ibuprofen 600 mg PO TID PRN metformin 500 mg PO DAILY HPI HPI Follow up: Details: Patient presents for OUD treatment follow up Prescribed Suboxone 2mg BID --tolerating current dose one year in remission Continues to work FT Spending time with family -enjoyed holidays Saw PCP recently and scheduled for a full physical Will have lab work Review of Systems Const Reports as per HPI and Reports no additional complaints Physical Exam Const General: cooperative and no acute distress Psych Appearance: grossly normal Mental Status: mental status grossly normal Speech and movement: Normal speech and movement present Affect: normal affect Attitude: cooperative Thought process: Normal thought process present Assessment & Plan Assessment & Plan (1) Opioid use disorder, moderate, in sustained remission: Code(s): F11.21 - Opioid dependence, in remission Category: Medical Plan: * continue suboxone at current dose * follow up 2 months * labs to be drawn with PCP Medications: New fluticasone furoate-vilanterol 200-25 mcg/dose (Breo Ellipta) 1 inh inhalation DAILY PFSH Medical History (Updated 03/02/24 @ 14:36 by Sera Hernandez CNP) Opioid use disorder Substance use Dyslipidemia Lung collapse Thoracic cancer Asthma Gallstones Testicular cancer Surgical History (Updated 02/02/23 @ 00:03 by Acacia Clarke) Hx laparoscopic cholecystectomy History of thoracic surgery S/P hernia surgery H/O ventral hernia repair Social History Household Members: Family Housing: Unknown / Unable to assess Do you presently have visiting nurse or other home services: No Unable to assess alcohol history related to: Unknown Alcohol intake: current Alcohol intake frequency: holidays/special occasions only Comment: see MAR Patient Tobacco Use Status: Tobacco use Unknown e-Cigarette/Vaping Use: Never Used Second Hand Smoke Exposure: No Advance Directives Date on File: 09/18/20 service: No Current occupational status: employed 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
== END 2024-03-02 14:37 | disposition home or self-care (01) ==
PROVIDERS: PCP Registered Nurse; Visit Provider Nurse Practitioner Psychiatric/Mental Health
DX: F11.21 Opioid dependence, in remission (principal)
CPT/HCPCS: 99213

== ENCOUNTER 2024-04-30 13:43 | Outpatient (AMB) | payer OTHER, MEDICAID, SELFPAY ==
--- NOTE | 2024-04-30 13:51 | A.OFFVISCC_ITS ---
Intake Visit Reasons: office visit Allergies metoclopramide [From REGLAN] Allergy (Intermediate, Verified 06/05/23 13:33) FEELS LIKE I'M JUMPING OUT OF MY SKIN{ pneumococcal vaccine [PNEUMOCOCCAL VACCINE] Allergy (Intermediate, Verified 06/05/23 13:33) Swelling pneumococcal 7-valent conjugate to [From Prevnar] Adverse Reaction (Mild, Verified 06/05/23 13:33) Cellulitis HPI HPI office visit: Details: Patient presents for OUD treatment follow up Currently prescribed Suboxone 2mg BID Tolerating current dose, denies any constipation or difficulty sleeping related to medication No issues related to recovery father in law 2 weeks ago Review of Systems Const Reports as per HPI and Reports no additional complaints Physical Exam Const General: cooperative and no acute distress Psych Appearance: grossly normal Mental Status: mental status grossly normal Speech and movement: Normal speech and movement present Affect: normal affect Attitude: cooperative Thought process: Normal thought process present PFS Medical History (Updated 03/02/24 @ 14:36 by Sera Hernandez CNP) Opioid use disorder Substance use Dyslipidemia Lung collapse Thoracic cancer Asthma Gallstones Testicular cancer Surgical History (Updated 02/02/23 @ 00:03 by Acacia Clarke) Hx laparoscopic cholecystectomy History of thoracic surgery S/P hernia surgery H/O ventral hernia repair Social History Household Members: Family Housing: Unknown / Unable to assess Do you presently have visiting nurse or other home services: No Unable to assess alcohol history related to: Unknown Alcohol intake: current Alcohol intake frequency: holidays/special occasions only Comment: see MAR Patient Tobacco Use Status: Tobacco use Unknown e-Cigarette/Vaping Use: Never Used Second Hand Smoke Exposure: No Advance Directives Date on File: 09/18/20 service: No Current occupational status: employed 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
--- OUTSIDE RECORDS SUMMARY | 2024-04-30 16:31 | XMS_ITS | Patient Health Record ---
Author Organization [facility] Address [address], [place] [address] Care Team Providers Care Pretzel Twister Name Role Phone COLT WISE Primary Care Provider Zehra Hurd Unavailable [phone] ALLERGIES Allergen (clinical drug ingredient) Drug/Non Drug [...] obstruction and without gangrene (K44.9) Referral Organization [facility] Referring Provider First Name Zehra Referring Provider Last Name Vickey Referring Provider Speciality Nurse Prac titioner Referred Organization [facility] Referred Address [address], [id number] Referred Provider Specialty General Surg adam General Notes CORINA CARR 0 07/15/2023 02:57:30 PM >demographics, insurance info, referral and office note faxed to [facility] for Dr. Hammond [phone], CORINA CARR 02/28/2024 12:23:42 PM >demographics, insurance info, referral and office note have been refaxed to [facility] at [phone]. Advised this referral is from July and we are resending due to patient never receiving appt, CORINA CARR 03/11/2024 09:25:47 AM >Correspondence from [facility]: Patient is scheduled with on 03/30/24 at 1:30pm- advised patient is aware of this appt Referral Priority Routine MEDICATIONS Medication SIG [...] Notes Problem Mixed hyperlipidemia (E78.2) Active confirmed 551071848 Problem Other chronic pain (G89.29) Active confirmed 78725578 Problem Benign prostatic hyperplasia without lower urinary tract symptoms (N40.0) Active confirmed 475178166 Problem Seasonal allergies (J30.2) Active confirmed 666896595 Problem Obesity (BMI 30.0-34.9) (E66.9) Active confirmed [id number] Problem Mild intermittent asthma without complication (J45.20) Active confirmed 440326338 Problem Vitamin D deficiency (E55.9) Active confirmed 39251642 Problem Insulin resistance (E88.81) Active confirmed 007142636 Problem Eczema, unspecified type (L30.9) Active confirmed 76959559 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 88451465 Problem Acute pain of right shoulder (M25.511) Active confirmed 00153113 Problem History of testicular cancer (Z85.47) Active confirmed 202568941 Problem Moderate persistent asthma with exacerbation (J45.41) Active confirmed 760692490 Problem Moderate persistent asthma with acute exacerbation (J45.41) Active confirmed 617056491 VITAL SIGNS Heart Rate 79 /min 02/27/2024 Height-cm 175.26 cm 02/27/2024 Oximetry 97 % 02/27/2024 Blood pressure diastolic 82 mm Hg 02/27/2024 Weight-kg 110.86 kg 02/27/2024 Height 69 in 02/27/2024 Blood pressure systolic 148 mm Hg 02/27/2024 Weight 244.4 lbs 02/27/2024 BMI 36.09 kg/m2 02/27/2024 Encounters Encounter Location Date Provider Diagnosis [address] [id number] 07/23/[address] [id number] 08/01/[address] [id number] 03/25/[address] [id number] 07/09/2023 Zehra Hurd Mild intermittent asthma without complication J45.20 and Diaphragmatic hernia without obstruction and without gangrene K44.[address] [id number] 02/27/2024 Zehra Hurd Mixed hyperlipidemia E78.2 ; [...] activity trackers, such as the Body Weight Clinical Care Leader, that can help you keep track of [...] encouragement from your family, friends, or health reservoir caretaker. You can get support in person, through [...] Date THYROID PEROXIDASE AND THYROGLOBULIN ANT IBODIES (0202) 02/27/2024 LIPID PANEL, STANDARD (6790) 02/27/2024 THYROID PANEL WITH TSH (2644) 02/27/2024 ALBUMIN, RANDOM URINE W/CREATININE (7617 ) 02/27/2024 METHYLMALONIC ACID AND HOMOCYSTEINE (305 17) 02/27/2024 COMPREHENSIVE METABOLIC PANEL (41347) URIC ACID (905) 02/27/2024 CBC (INCLUDES DIFF/PLT) (6399) URINALYSIS, COMPLETE W/REFLEX TO CULTURE (3020) 02/27/2024 HS CRP (54142) 02/27/2024 HEMOGLOBIN A1c (496) 02/27/2024 APOLIPOPROTEIN A1 (5223) 02/27/2024 APOLIPOPROTEIN B (5224) 02/27/2024 INSULIN (561) 02/27/2024 PSA (FREE AND TOTAL) (74624) 02/27/2024 VITAMIN D,25-OH,TOTAL,IA (31714) 024 ADIPONECTIN (13606) 02/27/2024 GALECTIN 3 (95639) 02/27/2024 Insurance Providers Payer Name Payer Address Payer Phone Subscriber Number Group Number Insured Name Patient Relationship to Insured Coverage Start Date Coverage End Date HNE [address] [facility] [address] [place] [phone] [id number] WARD MAR Self - patient is the insured MEDICAL (GENERAL) HISTORY Medical History History ICD Code anxiety asthma - mild intermittent blood transfusion testicular cancer alcohol abuse chicken pox as a child allergies Surgical History Surgery Date(Month/Year) hernia repair removed tumor on top of lung (not inside lung) 4 rounds of chemo cholecystectomy
--- OUTSIDE RECORDS SUMMARY | 2024-04-30 16:31 | XMS_ITS ---
Author Organization [facility], [facility] Address [address] [place], [place] [id number] Care Team Providers Care Senior Technical Support Analyst Name Role Phone COLT WISE Primary Care Provider [phone] Zehra Hurd [phone] REASON FOR VISIT CPE/ lab fu Encounters Encounter Location Date Provider Diagnosis [facility], [address] [id number] 03/25/2024 Zehra Hurd PLAN OF TREATMENT No Information Progress Notes * WARD MARDOB:1980 (44 yo M)Acc No.[id number]:03/25/2024 Progress Note Patient:??WARD MAR Provider:??Zehra Hurd DNP :1980?Age:43 Y?Sex:Ma le Date:03/25/2024 Phone: Address:[address] [place], [place] [id number] Pcp:COLT WISE Subjective: * Chief Complaints: * ?1. CPE/ lab fu. * Medical History:?? Objective: Assessment: Plan: * Treatment: Care Plan: * Problems:?? * Billing Information: * Visit Code:?? * Procedure Codes:?? * Sign off status: Pending * Provider:??Zehra Hurd DNP Date:??
--- OUTSIDE RECORDS SUMMARY | 2024-04-30 16:31 | XMS_ITS ---
Author Organization [facility], [facility] Address [address] [place], [place] [id number] Care Team Providers Care Tank Truck Loader Name Role Phone COLT WISE Primary Care Provider Zehra Hurd [phone] REASON FOR VISIT F/U LABS Encounters Encounter Location Date Provider Diagnosis [facility], [address] [id number] 08/01/2023 Zehra Hurd PLAN OF TREATMENT No Information Progress Notes * MERRILLWARD DUMONTDOB:1980 (44 yo M)Acc No.[id number]:08/01/2023 Progress Notes Patient:??WARD MAR Provider:??Zehra Hurd DNP :1980?Age:43 Y?Sex:Ma le Date:08/01/2023 Phone: Address:[address] [place], [place] [id number] Pcp:COLT WISE Subjective: * Chief Complaints: * ?1. F/U LABS. * Medical History:?? Objective: Assessment: Plan: * Treatment: * Billing Information: * Visit Code:?? * Procedure Codes:?? * Sign off status: Pending * Provider:??Zehra Hurd DNP Date:??
--- OUTSIDE RECORDS SUMMARY | 2024-04-30 16:32 | XMS_ITS ---
Author Organization [facility] Address [address] [place] [id number] Care Team Providers Care Billet Checker Name Role Phone COLT WISE Primary Care Provider [phone] Zehra Hurd Unavailable [phone] ALLERGIES Allergen (clinical drug ingredient) Drug/Non Drug [...] 02/27/2024 Encounters Encounter Location Date Provider Diagnosis [address] [id number] 02/27/2024 Zehra Hurd Mixed hyperlipidemia E78.2 ; [...] activity trackers, such as the Body Weight Power Plant Operations Manager, that can help you keep track of [...] encouragement from your family, friends, or health patient care manager. You can get support in person, through [...] activity trackers, such as the Body Weight Power Plant Operations Manager, that can help you keep track of [...] encouragement from your family, friends, or health patient care manager. You can get support in person, through [...] he w [facility] Test Test Name Order Date THYROID PEROXIDASE AND THYROGLOBULIN ANT IBODIES (9734) 02/27/2024 LIPID PANEL, STANDARD (5080) 02/27/2024 THYROID PANEL WITH TSH (7444) 02/27/2024 ALBUMIN, RANDOM URINE W/CREATININE (0117 ) 02/27/2024 METHYLMALONIC ACID AND HOMOCYSTEINE (305 17) 02/27/2024 COMPREHENSIVE METABOLIC PANEL (40784) URIC ACID (905) 02/27/2024 CBC (INCLUDES DIFF/PLT) (6399) URINALYSIS, COMPLETE W/REFLEX TO CULTURE (3020) 02/27/2024 HS CRP (07828) 02/27/2024 HEMOGLOBIN A1c (496) 02/27/2024 APOLIPOPROTEIN A1 (5223) 02/27/2024 APOLIPOPROTEIN B (5224) 02/27/2024 INSULIN (561) 02/27/2024 PSA (FREE AND TOTAL) (57661) 02/27/2024 VITAMIN D,25-OH,TOTAL,IA (04000) 024 ADIPONECTIN (07527) 02/27/2024 GALECTIN 3 (75716) 02/27/2024 Next Appt Details Follow Up: 3 Weeks- or next available, Reason: CPE/LABS Progress Notes * WARD MARDOB:1980 (43 yo M)Acc No.[id number]:02/27/2024 Progress Notes Patient:??WARD MAR Provider:??Zehra Hurd DNP :1980?Age:43 Y?Sex:Ma le Date:02/27/2024 Phone: Address:[address] [place] [address], [id number] Pcp:COLT WISE Subjective: * Chief Complaints: * ?Follow up * HPI: ?Patient Care Team:? Silo Tender- [facility] Pulmonology. ?Visit info:? Robb presents today for [...] 2 diabetes mellitus without complication, unspecified whether emt intermediate insulin use.??Maternal Grandfather: , heart attack.??Maternal Grandmother: [...] N40.0?? Plan: * Treatment: 2.??Sylvia's disease?LAB: ADIPONECTIN (09357) (Ordered for 02/27/2024) ?LAB: ALBUMIN, RANDOM URINE W/CREATININE (6517) (Ordered for 02/27/2024) ?LAB: APOLIPOPROTEIN A1 (5223) (Ordered for 02/27/2024) ?LAB: APOLIPOPROTEIN B (5224) (Ordered for 02/27/2024) ?LAB: CBC (INCLUDES DIFF/PLT) (6399) (Ordered for 02/27/2024) ?LAB: COMPREHENSIVE METABOLIC PANEL (43224) (Ordered for 02/27/2024) ?LAB: HEMOGLOBIN A1c (496) (Ordered for 02/27/2024) ?LAB: HS CRP (13587) (Ordered for 02/27/2024) ?LAB: INSULIN (561) (Ordered for 02/27/2024) ?LAB: LIPID PANEL, STANDARD (9620) (Ordered for 02/27/2024) ?LAB: METHYLMALONIC ACID AND HOMOCYSTEINE (99235) (Ordered for 02/27/2024) ?LAB: THYROID PANEL WITH TSH (2613) (Ordered for 02/27/2024) ?LAB: THYROID PEROXIDASE AND THYROGLOBULIN ANTIBODIES (7100) (Ordered for 02/27/2024) ?LAB: URIC ACID (905) (Ordered for 02/27/2024) ?LAB: URINALYSIS, COMPLETE W/REFLEX TO CULTURE (3990) (Ordered for 02/27/2024) ?LAB: VITAMIN D,25-OH,TOTAL,IA (93305) (Ordered for 02/27/2024) ?LAB: PSA (FREE AND TOTAL) (26089) (Ordered for 02/27/2024) Notes: Will check labs? 3.??Vitamin D deficiency?LAB: ADIPONECTIN (73711) (Ordered for 02/27/2024) ?LAB: ALBUMIN, RANDOM URINE W/CREATININE (2117) (Ordered for 02/27/2024) ?LAB: APOLIPOPROTEIN A1 (5223) (Ordered for 02/27/2024) ?LAB: APOLIPOPROTEIN B (5224) (Ordered for 02/27/2024) ?LAB: CBC (INCLUDES DIFF/PLT) (6999) (Ordered for 02/27/2024) ?LAB: COMPREHENSIVE METABOLIC PANEL (39564) (Ordered for 02/27/2024) ?LAB: HEMOGLOBIN A1c (496) (Ordered for 02/27/2024) ?LAB: HS CRP (09223) (Ordered for 02/27/2024) ?LAB: INSULIN (561) (Ordered for 02/27/2024) ?LAB: LIPID PANEL, STANDARD (8830) (Ordered for 02/27/2024) ?LAB: METHYLMALONIC ACID AND HOMOCYSTEINE (63349) (Ordered for 02/27/2024) ?LAB: THYROID PANEL WITH TSH (5596) (Ordered for 02/27/2024) ?LAB: THYROID PEROXIDASE AND THYROGLOBULIN ANTIBODIES (1520) (Ordered for 02/27/2024) ?LAB: URIC ACID (905) (Ordered for 02/27/2024) ?LAB: URINALYSIS, COMPLETE W/REFLEX TO CULTURE (7170) (Ordered for 02/27/2024) ?LAB: VITAMIN D,25-OH,TOTAL,IA (38973) (Ordered for 02/27/2024) ?LAB: PSA (FREE AND TOTAL) (33099) (Ordered for 02/27/2024) Notes: Increase Vit D rich foods Check levels periodically Supplement as indicated? 4.??Obesity (BMI 30.0-34.9)? ? Continue metFORMIN HCl Tablet, 500 MG, 1 tablet with a meal, Orally, twice a day.?LAB: ADIPONECTIN (28242) (Ordered for 02/27/2024) ?LAB: ALBUMIN, RANDOM URINE W/CREATININE (3279) (Ordered for 02/27/2024) ?LAB: APOLIPOPROTEIN A1 (2523) (Ordered for 02/27/2024) ?LAB: APOLIPOPROTEIN B (1724) (Ordered for 02/27/2024) ?LAB: CBC (INCLUDES DIFF/PLT) (1599) (Ordered for 02/27/2024) ?LAB: COMPREHENSIVE METABOLIC PANEL (72917) (Ordered for 02/27/2024) ?LAB: HEMOGLOBIN A1c (496) (Ordered for 02/27/2024) ?LAB: HS CRP (02320) (Ordered for 02/27/2024) ?LAB: INSULIN (561) (Ordered for 02/27/2024) ?LAB: LIPID PANEL, STANDARD (4700) (Ordered for 02/27/2024) ?LAB: METHYLMALONIC ACID AND HOMOCYSTEINE (66003) (Ordered for 02/27/2024) ?LAB: THYROID PANEL WITH TSH (4144) (Ordered for 02/27/2024) ?LAB: THYROID PEROXIDASE AND THYROGLOBULIN ANTIBODIES (4460) (Ordered for 02/27/2024) ?LAB: URIC ACID (905) (Ordered for 02/27/2024) ?LAB: URINALYSIS, COMPLETE W/REFLEX TO CULTURE (2390) (Ordered for 02/27/2024) ?LAB: VITAMIN D,25-OH,TOTAL,IA (05522) (Ordered for 02/27/2024) ?LAB: GALECTIN 3 (11583) (Ordered for 02/27/2024) Notes: Common treatments for [...] activity trackers, such as the Body Weight Power Plant Operations Manager, that can help you keep track of [...] encouragement from your family, friends, or health patient care manager. You can get support in person, through [...] using inhalers more frequently? 6.??Leg cramps?LAB: ADIPONECTIN (08375) (Ordered for 02/27/2024) ?LAB: ALBUMIN, RANDOM URINE W/CREATININE (5017) (Ordered for 02/27/2024) ?LAB: APOLIPOPROTEIN A1 (8123) (Ordered for 02/27/2024) ?LAB: APOLIPOPROTEIN B (5224) (Ordered for 02/27/2024) ?LAB: CBC (INCLUDES DIFF/PLT) (3399) (Ordered for 02/27/2024) ?LAB: COMPREHENSIVE METABOLIC PANEL (81762) (Ordered for 02/27/2024) ?LAB: HEMOGLOBIN A1c (496) (Ordered for 02/27/2024) ?LAB: HS CRP (93618) (Ordered for 02/27/2024) ?LAB: INSULIN (561) (Ordered for 02/27/2024) ?LAB: LIPID PANEL, STANDARD (5780) (Ordered for 02/27/2024) ?LAB: METHYLMALONIC ACID AND HOMOCYSTEINE (31092) (Ordered for 02/27/2024) ?LAB: THYROID PANEL WITH TSH (5344) (Ordered for 02/27/2024) ?LAB: THYROID PEROXIDASE AND THYROGLOBULIN ANTIBODIES (0274) (Ordered for 02/27/2024) ?LAB: URIC ACID (905) (Ordered for 02/27/2024) ?LAB: URINALYSIS, COMPLETE W/REFLEX TO CULTURE (3020) (Ordered for 02/27/2024) ?LAB: VITAMIN D,25-OH,TOTAL,IA (42296) (Ordered for 02/27/2024) Notes: Recommended increasing water intake Magnesium Glycinate 400mg nightly Will check electrolytes? 7.??Benign prostatic hyperpl randal without lower urinary tract symptoms?LAB: PSA (FREE AND TOTAL) (56581) (Ordered for 02/27/2024) ?LAB: GALECTIN 3 (06671) (Ordered for 02/27/2024) Notes: Will trend PSA given testicular cancer history Notes not to have prostate stimulation for 48-72 hours prior to lab draw? 8.??Others?? Continue Suboxone Film, 2-0.5 MG, 1 film under the tongue and allow to dissolve, Sublingual, Twice a day.? Notes: [facility] * Procedure Codes:?? * Preventive Medicine:?Last [...] CPE/LABS) * Billing Information: * Visit Code:?? 50568 Office Visit, Est Pt., Level 4. * Procedure Codes:?? * Sign off status: Completed true * Provider:??Zehra Hurd DNP Date:?? History and Physical Notes * HPI (History of Present Illness) Category Sub-Category Detail Notes Category Not es Patient Care Team Pulmonolog ist- [facility] Pulmonology Examination Category Sub-Category Detail Notes Category [...]
== END 2024-04-30 14:27 | disposition home or self-care (01) ==
PROVIDERS: PCP Registered Nurse; Visit Provider Nurse Practitioner Psychiatric/Mental Health
DX: F11.21 Opioid dependence, in remission (principal)
CPT/HCPCS: 99213

== ENCOUNTER → 2024-04-30 13:43 | Outpatient (BNVA) | payer OTHER, SELFPAY | PROVIDERS: PCP Registered Nurse; Visit Provider Nurse Practitioner Psychiatric/Mental Health ==

== ENCOUNTER 2024-06-26 13:38 | Outpatient (AMB) | payer OTHER, SELFPAY ==
--- NOTE | 2024-06-26 13:40 | MHC.OFFVIS ---
Vital Signs 06/26/24 13:49 Height 5 ft 9 in Weight 236 lb BMI 34.8 Pulse 83 Pulse Source Pulse Oximeter Pulse Oximetry (%) 95 Oxygen Delivery Method Room Air Intake Visit Reasons: MAT Allergies metoclopramide [From REGLAN] Allergy (Intermediate, Verified 06/26/24 13:49) FEELS LIKE I'M JUMPING OUT OF MY SKIN{ pneumococcal vaccine [PNEUMOCOCCAL VACCINE] Allergy (Intermediate, Verified 06/26/24 13:49) Swelling pneumococcal 7-valent conjugate to [From Prevnar] Adverse Reaction (Mild, Verified 06/26/24 13:49) Cellulitis HPI HPI MAT: Details: He takes two Suboxone 2/.5 mg daily. He does well and has no complaints He had taken street pressed pills before to treat pain and ended up in the hospital with shortness of breath. He has been doing well with Suboxone since. He doesnt think he has any Hepatitis C or HIV and will get tested at some point. [facility] Medical History Opioid use disorder Substance use Dyslipidemia Lung collapse Thoracic cancer Asthma Gallstones Testicular cancer Surgical History Hx laparoscopic cholecystectomy History of thoracic surgery S/P hernia surgery H/O ventral hernia repair Social History Household Members: Family Housing: Unknown / Unable to assess Do you presently have visiting nurse or other home services: No Unable to assess alcohol history related to: Unknown Alcohol intake: current Alcohol intake frequency: holidays/special occasions only Comment: see MAR Patient Tobacco Use Status: Tobacco use Unknown e-Cigarette/Vaping Use: Never Used Second Hand Smoke Exposure: No Advance Directives Date on File: 09/18/20 service: No Current occupational status: employed 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 Systems Const All systems reviewed & are unremarkable except as noted in HPI and below Physical Exam Vital Signs: Last Vital Signs Pulse 83 06/26/24 13:49 Pulse Ox 95 06/26/24 13:49 Oxygen Delivery Method Room Air 06/26/24 13:49 BMI result Body Mass Index 34.8 Const General: cooperative Results AMB 14 Panel Urine Drug Screen Urine Marijuana (THC) Positive Last Edit by Wade Miller CMA on 06/26/24 13:54 Urine Cocaine Negative Last Edit by Wade Miller CMA on 06/26/24 13:54 Urine Morphine Negative Last Edit by Wade Miller CMA on 06/26/24 13:54 Urine Methamphetamine Negative Last Edit by Wade Miller CMA on 06/26/24 13:54 Urine Amphetamine Negative Last Edit by Wade Miller CMA on 06/26/24 13:54 Urine Benzodiazepine Negative Last Edit by Wade Miller CMA on 06/26/24 13:54 Urine Barbiturates Negative Last Edit by Wade Miller CMA on 06/26/24 13:54 Urine Methadone Negative Last Edit by Wade Miller CMA on 06/26/24 13:54 Urine Buprenorphine Positive Last Edit by Wade Miller CMA on 06/26/24 14:24 Urine Buprenorphine previously reported as Negative Wade Miller 06/26/24 14:24 Urine Tricyclic Antidepressant Negative Last Edit by Wade iMller CMA on 06/26/24 13:54 Urine MDMA Negative Last Edit by Wade Miller CMA on 06/26/24 13:54 Urine Oxycodone Negative Last Edit by Wade Miller CMA on 06/26/24 13:54 Urine Phencyclidine Negative Last Edit by Wade Miller CMA on 06/26/24 13:54 Urine Propoxyphene Negative Last Edit by Wade Miller CMA on 06/26/24 13:54 Results Reviewed Results Reviewed: Laboratory Last Values POC Urine Buprenorphine Positive 06/26/24 13:54 POC Urine Morphine Negative 06/26/24 13:54 POC Urine Oxycodone Negative 06/26/24 13:54 POC Urine Methadone Negative 06/26/24 13:54 POC Urine Propoxyphene Negative 06/26/24 13:54 POC Urine Barbiturates Negative 06/26/24 13:54 POC U Tricyclic Antidpr Negative 06/26/24 13:54 POC Urine PCP Negative 06/26/24 13:54 POC Ur Amphetamines Negative 06/26/24 13:54 POC Ur Methamphetamine Negative 06/26/24 13:54 POC Urine MDMA Negative 06/26/24 13:54 POC Ur Benzodiazepine Negative 06/26/24 13:54 POC Urine Cocaine Negative 06/26/24 13:54 POC Ur Marijuana (THC) Positive 06/26/24 13:54 Assessment & Plan Assessment & Plan (1) Opioid use disorder, moderate, in sustained remission: Comment: He is stable on same dose and doesnt want to switch to Sublocade since feels better with taking something oral Code(s): F11.21 - Opioid dependence, in remission Category: Medical Plan: Check labs at some point. Suboxone 2/.5, 2 a day 30 days and one refill. Orders: Orders Hepatitis C Antibody Today F1.21 - Opioid dependence, in remission Hepatitis B Surface Ab Qnt Today F1. - Opioid dependence, in remission AMB 14 Panel Urine Drug Screen Today Z51.81 - Encounter for therapeutic drug level monitoring HIV Ab/Ag Today F1. - Opioid dependence, in remission Hepatitis B Surface Antigen Today F1.21 - Opioid dependence, in remission Hepatitis A IgG Today F1. - Opioid dependence, in remission Syphilis Screen Today F1. - Opioid dependence, in remission T Spot TB Today F11.21 - Opioid dependence, in remission Medications: New buprenorphine-naloxone 2-0.5 mg (Suboxone) place 1 strip/tab under (each) side of tongue 2 film buccal DAILY 60 ea 1RF 30 days Coding Level of Care Code Est Pt Level 3 (07136) Diagnoses Opioid use disorder, moderate, in sustained remission
[2024-06-26 13:49] VITALS: PULSE 83; O2SAT 95; BMI 34.8
--- OUTSIDE RECORDS SUMMARY | 2024-06-26 14:22 | XMS_ITS ---
Author Organization [facility], [facility] Address [address] [place], [place] [id number] Care Team Providers Care Product/Device Technologist Name Role Phone COLT WISE Primary Care Provider [phone] Zehra Hurd [phone] REASON FOR VISIT F/U LABS Encounters Encounter Location Date Provider Diagnosis [facility], [address] [id number] 08/01/2023 Zehra Hurd PLAN OF TREATMENT No Information Progress Notes * MERRILLWARD DUMONTDOB:1980 (44 yo M)Acc No.[id number]:08/01/2023 Progress Notes Patient:??WARD MAR Provider:??Zehra Hurd DNP :1980?Age:43 Y?Sex:Ma le Date:08/01/2023 Phone: Address:[address] [place], [place] [id number] Pcp:COLT WISE Subjective: * Chief Complaints: * ?1. F/U LABS. * Medical History:?? Objective: Assessment: Plan: * Treatment: * Billing Information: * Visit Code:?? * Procedure Codes:?? * Sign off status: Pending * Provider:??Zehra Hurd DNP Date:??
--- OUTSIDE RECORDS SUMMARY | 2024-06-26 14:22 | XMS_ITS ---
Author Organization [facility], [facility] Address [address] [place], [place] [id number] Care Team Providers Care Vice President Sales And Marketing Name Role Phone COLT WISE Primary Care Provider [phone] Zehra Hurd [phone] REASON FOR VISIT CPE/ lab fu Encounters Encounter Location Date Provider Diagnosis [facility], [address] [id number] 03/25/2024 Zehra Hurd PLAN OF TREATMENT No Information Progress Notes * WARD MARDOB:1980 (44 yo M)Acc No.[id number]:03/25/2024 Progress Note Patient:??WARD MAR Provider:??Zehra Hurd DNP :1980?Age:43 Y?Sex:Ma le Date:03/25/2024 Phone: Address:[address] [place], [place] [id number] Pcp:COLT WISE Subjective: * Chief Complaints: * ?1. CPE/ lab fu. * Medical History:?? Objective: Assessment: Plan: * Treatment: Care Plan: * Problems:?? * Billing Information: * Visit Code:?? * Procedure Codes:?? * Sign off status: Pending * Provider:??Zehra Hurd DNP Date:??
--- OUTSIDE RECORDS SUMMARY | 2024-06-26 14:23 | XMS_ITS | Patient Health Record ---
Author Organization [facility] Address [address] [place], [place] [id number] Care Team Providers Care Parts Advisor Name Role Phone COLT WISE Primary Care Provider Zehra Hurd Unavailable [phone] ALLERGIES Allergen (clinical drug ingredient) Drug/Non Drug [...] obstruction and without gangrene (K44.9) Referral Organization [facility] Referring Provider First Name Zehra Referring Provider Last Name Vickey Referring Provider Speciality Nurse Prac titioner Referred Organization [facility] Referred Address [address], [place],[id number] Referred Provider Specialty General Surg adam General Notes CORINA CARR 0 07/15/2023 02:57:30 PM >demographics, insurance info, referral and office note faxed to [facility] for Dr. Hammond [phone], CORINA CARR 02/28/2024 12:23:42 PM >demographics, insurance info, referral and office note have been refaxed to [facility] at [phone]. Advised this referral is from July and [...] Notes Problem Mixed hyperlipidemia (E78.2) Active confirmed 341036415 Problem Other chronic pain (G89.29) Active confirmed 57856683 Problem Benign prostatic hyperplasia without lower urinary tract symptoms (N40.0) Active confirmed 207197527 Problem Seasonal allergies (J30.2) Active confirmed 804539095 Problem Obesity (BMI 30.0-34.9) (E66.9) Active confirmed [id number] Problem Mild intermittent asthma without complication (J45.20) Active confirmed 623233211 Problem Vitamin D deficiency (E55.9) Active confirmed 32407021 Problem Insulin resistance (E88.81) Active confirmed 299272228 Problem Eczema, unspecified type (L30.9) Active confirmed 87854446 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 88727266 Problem Acute pain of right shoulder (M25.511) Active confirmed 88732752 Problem History of testicular cancer (Z85.47) Active confirmed 275803724 Problem Moderate persistent asthma with exacerbation (J45.41) Active confirmed 593561719 Problem Moderate persistent asthma with acute exacerbation (J45.41) Active confirmed 747984681 VITAL SIGNS Heart Rate 79 /min 02/27/2024 Height-cm 175.26 cm 02/27/2024 Oximetry 97 % 02/27/2024 Blood pressure diastolic 82 mm Hg 02/27/2024 Weight-kg 110.86 kg 02/27/2024 Height 69 in 02/27/2024 Blood pressure systolic 148 mm Hg 02/27/2024 Weight 244.4 lbs 02/27/2024 BMI 36.09 kg/m2 02/27/2024 Encounters Encounter Location Date Provider Diagnosis [address] [id number] 07/23/[address] [id number] 08/01/[address] [id number] 03/25/[address] [id number] 07/09/2023 Zehra Hurd Mild intermittent asthma without complication J45.20 and Diaphragmatic hernia without obstruction and without gangrene K44.[address] [id number] 02/27/2024 Zehra Hurd Mixed hyperlipidemia E78.2 ; [...] low cholesterol diet Exercise Check lipids, LFTs 07/09/2023 Mild intermittent asthma without complication (ICD-10 - J45.20) Continue occasional use of inhaler Avoid allergens Promptly address any infections Call if using inhalers more frequently Does follow with Pulmonary 07/09/2023 Diaphragmatic hernia without obstruction and without gangrene (ICD-10 - K44.9) Will refer to General Surg Discussed concerning symptoms of hernia strangulation and when to seek emergency medical 02/27/2024 Sylvia's disease (ICD-10 - E06.3) Will [...] activity trackers, such as the Body Weight Architectural Wood Model Maker, that can help you keep track of [...] encouragement from your family, friends, or health career advisor. You can get support in person, through [...] Date THYROID PEROXIDASE AND THYROGLOBULIN ANT IBODIES (9923) 02/27/2024 LIPID PANEL, STANDARD (1800) 02/27/2024 THYROID PANEL WITH TSH (4944) 02/27/2024 ALBUMIN, RANDOM URINE W/CREATININE (7417 ) 02/27/2024 METHYLMALONIC ACID AND HOMOCYSTEINE (305 17) 02/27/2024 COMPREHENSIVE METABOLIC PANEL (65388) URIC ACID (905) 02/27/2024 CBC (INCLUDES DIFF/PLT) (6399) URINALYSIS, COMPLETE W/REFLEX TO CULTURE (3020) 02/27/2024 HS CRP (98600) 02/27/2024 HEMOGLOBIN A1c (496) 02/27/2024 APOLIPOPROTEIN A1 (5223) 02/27/2024 APOLIPOPROTEIN B (5224) 02/27/2024 INSULIN (561) 02/27/2024 PSA (FREE AND TOTAL) (04895) 02/27/2024 VITAMIN D,25-OH,TOTAL,IA (92977) 024 ADIPONECTIN (28230) 02/27/2024 GALECTIN 3 (09918) 02/27/2024 Insurance Providers Payer Name Payer Address Payer Phone Subscriber Number Group Number Insured Name Patient Relationship to Insured Coverage Start Date Coverage End Date [address]NE [address] [place] [phone] [id number] WARD MAR Self - patient is the insured MEDICAL (GENERAL) HISTORY Medical History History ICD Code anxiety asthma - mild intermittent blood transfusion testicular cancer alcohol abuse chicken pox as a child allergies Surgical History Surgery Date(Month/Year) hernia repair removed tumor on top of lung (not inside lung) 4 rounds of chemo cholecystectomy
--- OUTSIDE RECORDS SUMMARY | 2024-06-26 14:23 | XMS_ITS ---
Author Organization [facility] Address [address] [place] [id number] Care Team Providers Care Director Internal Audit Name Role Phone COLT WISE Primary Care Provider Zehra Hurd Unavailable [phone] ALLERGIES Allergen (clinical drug ingredient) Drug/Non Drug [...] 02/27/2024 Encounters Encounter Location Date Provider Diagnosis [address] [id number] 02/27/2024 Zehra Hurd Mixed hyperlipidemia E78.2 ; [...] activity trackers, such as the Body Weight Turner Splitter Machine Operator, that can help you keep track of [...] encouragement from your family, friends, or health careers counsellor. You can get support in person, through [...] activity trackers, such as the Body Weight Turner Splitter Machine Operator, that can help you keep track of [...] encouragement from your family, friends, or health careers counsellor. You can get support in person, through [...] he w ould like to go to [facility] Test Test Name Order Date THYROID PEROXIDASE AND THYROGLOBULIN ANT IBODIES (1991) 02/27/2024 LIPID PANEL, STANDARD (5250) 02/27/2024 THYROID PANEL WITH TSH (7444) 02/27/2024 ALBUMIN, RANDOM URINE W/CREATININE (0217 ) 02/27/2024 METHYLMALONIC ACID AND HOMOCYSTEINE (305 17) 02/27/2024 COMPREHENSIVE METABOLIC PANEL (88660) URIC ACID (905) 02/27/2024 CBC (INCLUDES DIFF/PLT) (6399) URINALYSIS, COMPLETE W/REFLEX TO CULTURE (3020) 02/27/2024 HS CRP (65792) 02/27/2024 HEMOGLOBIN A1c (496) 02/27/2024 APOLIPOPROTEIN A1 (5223) 02/27/2024 APOLIPOPROTEIN B (5224) 02/27/2024 INSULIN (561) 02/27/2024 PSA (FREE AND TOTAL) (85443) 02/27/2024 VITAMIN D,25-OH,TOTAL,IA (70267) 024 ADIPONECTIN (51847) 02/27/2024 GALECTIN 3 (21720) 02/27/2024 Next Appt Details Follow Up: 3 Weeks- or next available, Reason: CPE/LABS Progress Notes * WARD MARDOB:1980 (43 yo M)Acc No.[id number]:02/27/2024 Progress Notes Patient:??WARD MAR Provider:??Zehra Hurd DNP :1980?Age:43 Y?Sex:Ma le Date:02/27/2024 Phone: Address:[address] [place] [address], [id number] Pcp:COLT WISE Subjective: * Chief Complaints: * ?Follow up * HPI: ?Patient Care Team:? 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 Pulmonology. ?Visit info:? Robb presents today [...] 2 diabetes mellitus without complication, unspecified whether terminal computer operator insulin use.??Maternal Grandfather: , heart attack.??Maternal Grandmother: [...] N40.0?? Plan: * Treatment: 2.??Sylvia's disease?LAB: ADIPONECTIN (55814) (Ordered for 02/27/2024) ?LAB: ALBUMIN, RANDOM URINE W/CREATININE (6517) (Ordered for 02/27/2024) ?LAB: APOLIPOPROTEIN A1 (5223) (Ordered for 02/27/2024) ?LAB: APOLIPOPROTEIN B (5224) (Ordered for 02/27/2024) ?LAB: CBC (INCLUDES DIFF/PLT) (6399) (Ordered for 02/27/2024) ?LAB: COMPREHENSIVE METABOLIC PANEL (06779) (Ordered for 02/27/2024) ?LAB: HEMOGLOBIN A1c (496) (Ordered for 02/27/2024) ?LAB: HS CRP (17022) (Ordered for 02/27/2024) ?LAB: INSULIN (561) (Ordered for 02/27/2024) ?LAB: LIPID PANEL, STANDARD (4140) (Ordered for 02/27/2024) ?LAB: METHYLMALONIC ACID AND HOMOCYSTEINE (20546) (Ordered for 02/27/2024) ?LAB: THYROID PANEL WITH TSH (6893) (Ordered for 02/27/2024) ?LAB: THYROID PEROXIDASE AND THYROGLOBULIN ANTIBODIES (1500) (Ordered for 02/27/2024) ?LAB: URIC ACID (905) (Ordered for 02/27/2024) ?LAB: URINALYSIS, COMPLETE W/REFLEX TO CULTURE (6020) (Ordered for 02/27/2024) ?LAB: VITAMIN D,25-OH,TOTAL,IA (13957) (Ordered for 02/27/2024) ?LAB: PSA (FREE AND TOTAL) (00278) (Ordered for 02/27/2024) Notes: Will check labs? 3.??Vitamin D deficiency?LAB: ADIPONECTIN (82721) (Ordered for 02/27/2024) ?LAB: ALBUMIN, RANDOM URINE W/CREATININE (8117) (Ordered for 02/27/2024) ?LAB: APOLIPOPROTEIN A1 (5223) (Ordered for 02/27/2024) ?LAB: APOLIPOPROTEIN B (5224) (Ordered for 02/27/2024) ?LAB: CBC (INCLUDES DIFF/PLT) (0899) (Ordered for 02/27/2024) ?LAB: COMPREHENSIVE METABOLIC PANEL (53617) (Ordered for 02/27/2024) ?LAB: HEMOGLOBIN A1c (496) (Ordered for 02/27/2024) ?LAB: HS CRP (21885) (Ordered for 02/27/2024) ?LAB: INSULIN (561) (Ordered for 02/27/2024) ?LAB: LIPID PANEL, STANDARD (9840) (Ordered for 02/27/2024) ?LAB: METHYLMALONIC ACID AND HOMOCYSTEINE (94174) (Ordered for 02/27/2024) ?LAB: THYROID PANEL WITH TSH (7350) (Ordered for 02/27/2024) ?LAB: THYROID PEROXIDASE AND THYROGLOBULIN ANTIBODIES (4196) (Ordered for 02/27/2024) ?LAB: URIC ACID (905) (Ordered for 02/27/2024) ?LAB: URINALYSIS, COMPLETE W/REFLEX TO CULTURE (7400) (Ordered for 02/27/2024) ?LAB: VITAMIN D,25-OH,TOTAL,IA (41068) (Ordered for 02/27/2024) ?LAB: PSA (FREE AND TOTAL) (70549) (Ordered for 02/27/2024) Notes: Increase Vit D rich foods Check levels periodically Supplement as indicated? 4.??Obesity (BMI 30.0-34.9)? ? Continue metFORMIN HCl Tablet, 500 MG, 1 tablet with a meal, Orally, twice a day.?LAB: ADIPONECTIN (80499) (Ordered for 02/27/2024) ?LAB: ALBUMIN, RANDOM URINE W/CREATININE (1691) (Ordered for 02/27/2024) ?LAB: APOLIPOPROTEIN A1 (8023) (Ordered for 02/27/2024) ?LAB: APOLIPOPROTEIN B (2324) (Ordered for 02/27/2024) ?LAB: CBC (INCLUDES DIFF/PLT) (9599) (Ordered for 02/27/2024) ?LAB: COMPREHENSIVE METABOLIC PANEL (75362) (Ordered for 02/27/2024) ?LAB: HEMOGLOBIN A1c (496) (Ordered for 02/27/2024) ?LAB: HS CRP (84161) (Ordered for 02/27/2024) ?LAB: INSULIN (561) (Ordered for 02/27/2024) ?LAB: LIPID PANEL, STANDARD (6790) (Ordered for 02/27/2024) ?LAB: METHYLMALONIC ACID AND HOMOCYSTEINE (97930) (Ordered for 02/27/2024) ?LAB: THYROID PANEL WITH TSH (0544) (Ordered for 02/27/2024) ?LAB: THYROID PEROXIDASE AND THYROGLOBULIN ANTIBODIES (6660) (Ordered for 02/27/2024) ?LAB: URIC ACID (905) (Ordered for 02/27/2024) ?LAB: URINALYSIS, COMPLETE W/REFLEX TO CULTURE (3140) (Ordered for 02/27/2024) ?LAB: VITAMIN D,25-OH,TOTAL,IA (01306) (Ordered for 02/27/2024) ?LAB: GALECTIN 3 (83692) (Ordered for 02/27/2024) Notes: Common treatments for [...] activity trackers, such as the Body Weight Turner Splitter Machine Operator, that can help you keep track of [...] encouragement from your family, friends, or health careers counsellor. You can get support in person, through [...] using inhalers more frequently? 6.??Leg cramps?LAB: ADIPONECTIN (33182) (Ordered for 02/27/2024) ?LAB: ALBUMIN, RANDOM URINE W/CREATININE (8317) (Ordered for 02/27/2024) ?LAB: APOLIPOPROTEIN A1 (2623) (Ordered for 02/27/2024) ?LAB: APOLIPOPROTEIN B (5224) (Ordered for 02/27/2024) ?LAB: CBC (INCLUDES DIFF/PLT) (7499) (Ordered for 02/27/2024) ?LAB: COMPREHENSIVE METABOLIC PANEL (29273) (Ordered for 02/27/2024) ?LAB: HEMOGLOBIN A1c (496) (Ordered for 02/27/2024) ?LAB: HS CRP (43837) (Ordered for 02/27/2024) ?LAB: INSULIN (561) (Ordered for 02/27/2024) ?LAB: LIPID PANEL, STANDARD (5250) (Ordered for 02/27/2024) ?LAB: METHYLMALONIC ACID AND HOMOCYSTEINE (09632) (Ordered for 02/27/2024) ?LAB: THYROID PANEL WITH TSH (2644) (Ordered for 02/27/2024) ?LAB: THYROID PEROXIDASE AND THYROGLOBULIN ANTIBODIES (5716) (Ordered for 02/27/2024) ?LAB: URIC ACID (905) (Ordered for 02/27/2024) ?LAB: URINALYSIS, COMPLETE W/REFLEX TO CULTURE (3020) (Ordered for 02/27/2024) ?LAB: VITAMIN D,25-OH,TOTAL,IA (70689) (Ordered for 02/27/2024) Notes: Recommended increasing water intake Magnesium Glycinate 400mg nightly Will check electrolytes? 7.??Benign prostatic hyperpl randal without lower urinary tract symptoms?LAB: PSA (FREE AND TOTAL) (52697) (Ordered for 02/27/2024) ?LAB: GALECTIN 3 (67297) (Ordered for 02/27/2024) Notes: Will trend PSA given testicular cancer history Notes not to have prostate stimulation for 48-72 hours prior to lab draw? 8.??Others?? Continue Suboxone Film, 2-0.5 MG, 1 film under the tongue and allow to dissolve, Sublingual, Twice a day.? Notes: Labs printed as [facility]? * Procedure Codes:?? * Preventive Medicine:?Last [...] CPE/LABS) * Billing Information: * Visit Code:?? 33632 Office Visit, Est Pt., Level 4. * Procedure Codes:?? * Sign off status: Completed true * Provider:??Zehra Hurd DNP Date:?? History and Physical Notes * HPI (History of Present Illness) Category Sub-Category Detail Notes Category Not es Patient Care Team Pulmonolog ist- [facility] Pulmonology Examination Category Sub-Category Detail Notes [...]
== END 2024-06-26 14:20 | disposition home or self-care (01) ==
LOC: HO.HCC 13:38
PROVIDERS: PCP Registered Nurse; Visit Provider Internal Medicine
DX: Z51.81 Encounter for therapeutic drug level monitoring (principal); F11.21 Opioid dependence, in remission
CPT/HCPCS: 99213

== ENCOUNTER → 2024-06-26 13:38 | Outpatient (BNVA) | payer OTHER, SELFPAY | PROVIDERS: PCP Registered Nurse; Visit Provider Internal Medicine | DX: F11.20 Opioid dependence, uncomplicated (principal) | CPT/HCPCS: 80307 ==

== ENCOUNTER 2024-08-26 13:55 | Outpatient (AMB) | payer OTHER, SELFPAY ==
--- NOTE | 2024-08-26 14:12 | A.OFFVIS_ITS ---
Vital Signs 08/26/24 14:12 08/26/24 14:15 Height 5 ft 9 in Pulse 75 Pulse Source Pulse Oximeter Pulse Oximetry (%) 99 Intake Visit Reasons: MAT Allergies metoclopramide (From REGLAN) Allergy (Intermediate, Verified 08/26/24 14:13) FEELS LIKE I'M JUMPING OUT OF MY SKIN{ pneumococcal vaccine (PNEUMOCOCCAL VACCINE) Allergy (Intermediate, Verified 08/26/24 14:13) Swelling pneumococcal 7-valent conjugate to (From Prevnar) Adverse Reaction (Mild, Verified 08/26/24 14:13) Cellulitis HPI HPI MAT: Details: He has been doing well. [facility] Medical History Opioid use disorder Substance use Dyslipidemia Lung collapse Thoracic cancer Asthma Gallstones Testicular cancer Surgical History Hx laparoscopic cholecystectomy History of thoracic surgery S/P hernia surgery H/O ventral hernia repair Social History Household Members: Family Housing: Unknown / Unable to assess Do you presently have visiting nurse or other home services: No Unable to assess alcohol history related to: Unknown Alcohol intake: current Alcohol intake frequency: holidays/special occasions only Comment: see MAR Patient Tobacco Use Status: Tobacco use Unknown e-Cigarette/Vaping Use: Never Used Second Hand Smoke Exposure: No Advance Directives Date on File: 09/18/20 service: No Current occupational status: employed 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 Systems Const All systems reviewed & are unremarkable except as noted in HPI and below Physical Exam Vital Signs: Last Vital Signs Pulse 75 08/26/24 14:15 Pulse Ox 99 08/26/24 14:15 Const General: cooperative Assessment & Plan Assessment & Plan (1) Opioid use disorder, moderate, in early remission, on maintenance therapy, dependence: Comment: He is doing well Code(s): F11.21 - Opioid dependence, in remission Category: Medical Plan: Continue current medication see as scheduled Medications: New buprenorphine-naloxone 2-0.5 mg (Suboxone) place 1 strip/tab under (each) side of tongue 1 film sublingual BID 60 ea 1RF 30 days Coding Level of Care Code Est Pt Level 3 (21685) Diagnoses Opioid use disorder, moderate, in early remission, on maintenance therapy, dependence F11.21
[2024-08-26 14:15] VITALS: PULSE 75; O2SAT 99
== END 2024-08-26 14:51 | disposition home or self-care (01) ==
LOC: HO.HCC 13:55
PROVIDERS: PCP Registered Nurse; Visit Provider Internal Medicine
DX: F11.21 Opioid dependence, in remission (principal)
CPT/HCPCS: 99213

== ENCOUNTER 2024-10-22 13:25 | Inpatient (IN) | payer OTHER, SELFPAY ==
--- NOTE | ~2024-10-22 | XR_ITS ---
EXAMINATION: XR KNEE, LEFT CLINICAL INFORMATION: pain and swelling COMPARISON: None available. TECHNIQUE: Four views of the left knee. FINDINGS: There is soft tissue swelling anterior to the knee joint. There is no joint effusion. Joint spaces are preserved. There are small marginal osteophytes involving the tibial plateau. XR/XR knee LT 4V IMPRESSION: Anterior soft tissue swelling/hematoma. Electronically signed by: Aurelio Wing MD 10/22/2024 02:37 PM EDT
[2024-10-22 13:41] VITALS: BP 167/81; PULSE 144; RESP 18; TEMP 37.2; O2SAT 96; BMI 34.0
--- NOTE | 2024-10-22 13:42 | ED.GENADULT ---
HPI - General Adult General Chief complaint: General Medical Stated complaint: Infection, sent by Dr Branham Seen by Provider: 10/22/24 13:51 History of Present Illness ED Provider: Dr. Hooper HPI narrative: 44-year-old male history of testicular cancer in the past currently in remission, opioid use disorder on Suboxone presenting to ER today for left knee pain and swelling concern of possible infection. Patient stated that a month ago he had swelling of the left knee he was seen by [facility]. He was placed on anti-inflammatory and sent home. However recently he had upper respiratory infection his family was sick. He noticed that his left knee became more swollen and red in nature. He had lab work performed by his primary care doctor shows that his white blood cell count has climbed from 11 to 17. Therefore patient was sent in here for further evaluation. Related Data Home Medications ?Medication ?Instructions ?Recorded ?Confirmed atorvastatin 20 mg tablet 20 mg PO BEDTIME 01/23/23 10/22/24 albuterol sulfate 90 mcg/actuation 1 puff inhalation Q6H PRN 10/22/24 10/22/24 aerosol inhaler shortness of breath or wheezing doxycycline hyclate 100 mg capsule 100 mg PO BID 10/22/24 10/22/24 fluticasone furoate 100 1 ea inhalation DAILY 10/22/24 10/22/24 mcg-vilanterol 25 mcg/dose inhalation powder (Breo Ellipta) metformin 500 mg tablet,extended 500 mg PO BID 10/22/24 10/22/24 release 24 hr naproxen 500 mg tablet 500 mg PO BID PRN Pain 10/22/24 10/22/24 Previous Rx's ?Medication ?Instructions ?Recorded ibuprofen 600 mg tablet 600 mg PO TID PRN fever or pain 10/30/22 #20 tabs buprenorphine 2 mg-naloxone 0.5 mg 1 film sublingual BID #60 ea 04/29/24 sublingual film (Suboxone) Allergies Allergy/AdvReac Type Severity Reaction Status Date / Time metoclopramide (From REGLAN) Allergy Intermediate FEELS Verified 10/22/24 13:44 LIKE I'M JUMPING OUT OF MY SKIN{ pneumococcal vaccine Allergy Intermediate Swelling Verified 10/22/24 13:44 (PNEUMOCOCCAL VACCINE) pneumococcal 7-valent AdvReac Mild Cellulitis Verified 10/22/24 13:44 conjugate to (From Prevnar) Review of Systems Review of Systems: Pertinent review of systems as mentioned in HPI. All other system otherwise negative. [facility] Past Medical History [facility] Narrative: Medical history as mentioned in HPI Medical History Opioid use disorder Substance use Dyslipidemia Lung collapse Thoracic cancer Asthma Gallstones Testicular cancer Surgical History Hx laparoscopic cholecystectomy History of thoracic surgery S/P hernia surgery H/O ventral hernia repair Social History Social History Household Members: Family Housing: Unknown / Unable to assess Do you presently have visiting nurse or other home services: No Unable to assess alcohol history related to: Unknown Alcohol intake: current Alcohol intake frequency: holidays/special occasions only Comment: see MAR Patient Tobacco Use Status: Tobacco use Unknown e-Cigarette/Vaping Use: Never Used Second Hand Smoke Exposure: No Advance Directives: No Advance Directives Information Provided: Yes Advance Directives Date on File: 09/18/20 Do you have a plan to hurt others: No Plan service: No Current occupational status: employed 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 Physical Exam ED Exam Exam: General: Pleasant, no distress, interacting appropriately Head: Normacephalic, atraumatic ENT: oral mucosa moist, neck supple, no tracheal deviation Cardiovascular: Tachycardic rate, regular rhythm, no murmurs, rubbing, gallops Respiratory: CTAB, no wheeze, rales, rhonchi Gastrointestinal: Soft, non distended, non tender, non guarding Extremities: Erythema over the left knee swelling consistent with prepatellar bursitis Neurological: Awake and alert, no facial droop noted Skin: Warm and dry Psychiatric: Appropriate mood and thoughts Vital Signs: Vital Signs - 24 hr 10/22/24 13:41 Temperature 99.0 F Pulse Rate 144 H Respiratory Rate 18 Blood Pressure 167/81 H Pulse Oximetry 96 Oxygen Delivery Method Room Air BMI result Body Mass Index 34.0 Course Course Course Narrative: This is a rapid medical exam performed by Amalia Yang NP: Additional HPI, ROS, PE not included below will be deferred to primary provider. Patient is a 44y/oM referred to the ED by doctor for left knee pain and swelling. Around one month ago saw ortho, told he had effusion, was not tapped, sxs improved with anti-inflammatories. Recently has been having flu-like sxs, went to PCP office who was concerned about knee, had labs done. PCP started on doxy, has taken 3 total doses. Plan: Labs including cxs, xray Medications Administered Discontinued Medications Generic Name Dose Route Start Last Admin Trade Name Karen PRN Reason Stop Dose Admin Acetaminophen 975 mg 10/22/24 14:03 10/22/24 15:08 Acetaminophen 325 Mg Tablet PO 10/22/24 14:04 975 mg ONCE ONE Administration Lactated Ringer's 3,132 mls @ 3,132 mls/hr 10/22/24 14:03 10/22/24 15:09 Lr 30 ml/kg infuse over 1 hr (3132 ml) 10/22/24 15:02 3,132 mls/hr IV Administration .Q1H ONE Ketorolac Tromethamine 15 mg 10/22/24 15:05 10/22/24 15:09 Ketorolac Tromethamine 15 Mg/Ml Vial IVPUSH 10/22/24 15:06 15 mg ONCE ONE Administration Procedures Joint Aspiration/Injection Joint Asp./Inject. 1: Time Out Performed: Yes Side of body: left Joint Aspirated: knee Ultrasound Guidance: Yes Skin Prep: other (alcohol swab) Local Anesthetic: lidocaine 1% Amount of anesthesia used (mL): 2 Needle Size Used: 18G Fluid Obtained: purulent Total fluid obtained (mL): 35 Patient Tolerated Procedure: well and no complications Medical Decision Making Medical Decision Making MDM Narrative: 44-year-old male presented hospital today for increased swelling to the left knee with some erythema of the left knee. I suspect this is a prepatellar bursitis that is infected. Do not think this is an infected knee. I did consider septic arthritis. However given patient's tachycardia with elevated white blood cell count from outpatient lab work. Sepsis protocol will be activated for the patient. Obtain CBC chemistry, lactic acid, blood cultures. We will plan to reach out to orthopedic team for further recommendations to see whether this can be safely drain. Knee x-ray will be obtained as well. Anticipate admission for the patient given signs of sepsis. Will require antibiotics. Did discuss the case with the orthopedic team. They recommend drainage and antibiotic therapy at this time. Perform aspiration of the prepatellar bursa. Obtain approximately 35 cc of purulent drainage. Noted decompression of patient prepatellar bursa. Patient felt better after drainage. This will be sent off for cell count and Gram stain and culture. Patient will be started on vancomycin and Zosyn for IV antibiotic. Patient will be admitted to the hospital for further IV antibiotic therapy. He does have a white count 16.6. ESR of 83 and CRP of 36.6. I think patient has signs of sepsis secondary to infected prepatellar bursitis. Differential Diagnosis Differential Diagnoses: The differential diagnosis associated with the presentation includes Septic arthritis, infected prepatellar bursitis, gout, pseudogout Admission/Observation Consideration of admission/observation: Escalation of care including admission/observation considered Consult Healthcare Provider Management of the patient was discussed with: Hospitalist and Manufacturing Operator (Orthopedic team) Lab Data MDM Lab Attestation statement: I reviewed the patient's lab results. 10/22/24 14:08 10/22/24 14:08 Labs: Lab Results 10/22/24 Range/Units 14:08 WBC 16.6 H (4.8-10.8) X10*3/uL RBC 4.29 L (4.60-5.80) X10*6/uL Hgb 12.9 L (14.0-18.0) g/dl Hct 37.5 L (42.0-52.0) % MCV 87.4 (80.0-98.0) fL MCH 30.1 (27.0-33.0) pg MCHC 34.4 (31.0-36.0) g/dl RDW 12.6 (11.0-16.0) % Plt Count 325 D (160-400) X10*3/uL MPV 9.8 (9.4-12.4) fL Immature Gran % (Auto) 1.0 H (0.0-0.4) % Neut % (Auto) 85.4 H (45-73) % Lymph % (Auto) 6.9 L (20-40) % Green % (Auto) 6.5 (2-11) % Eos % (Auto) 0.0 (0-4) % Baso % (Auto) 0.2 (0-2) % Lymph # (Auto) 1.1 L (1.2-4.9) X10*3/uL [place] # (Auto) 1.1 (0.1-1.2) X10*3/uL Eos # (Auto) 0.0 (0.0-0.4) X10*3/uL Baso # (Auto) 0.0 (0.0-0.2) X10*3/uL Abs Immat Gran (auto) 0.17 H (0.00-0.03) X10*3/uL Absolute Neuts (auto) 14.2 H (2.0-8.3) x10*3/uL Absolute Nucleated RBC 0.000 (0.0-0.012) X10*3/uL Nucleated RBC % (auto) 0.0 (0.0-0.2) /100WBC ESR 83 H (0-15) MM/HR Sodium 135 (135-145) mmol/L Potassium 3.3 (3.3-5.1) mmol/L Chloride 94 L (96-108) mmol/L Carbon Dioxide 29 (22-29) mmol/L Anion Gap 15 (12-20) BUN 11 (9-16) mg/dL Creatinine 1.00 (0.5-1.4) mg/dL Estim Creat Clear Calc 114.5 Estimated GFR > 60 Random Glucose 129 H (60-115) mg/dL Lactic Acid 1.3 (0.5-2.0) mmol/L Calcium 9.8 (8.4-10.2) mg/dL Total Bilirubin 1.1 H (0.0-1.0) mg/dL AST 28 (5-37) U/L ALT 27 (0-40) U/L Alkaline Phosphatase 139 H (39-117) U/L C-Reactive Protein 36.61 H (< or = 0.50) mg/dL Total Protein 8.2 H (6.5-8.0) g/dL Albumin 4.0 (3.5-5.0) g/dL Independent Interpretation I performed an independent interpretation of an: Plain X-Ray Radiology Impression Discussion of test interpretation with radiology: I have reviewed the radiologist's reading. External Record Review External record reviewed: Outpatient record Critical Care Time Critical Care Time Critical Care Time: Yes Total Critical Care Time: 38 Attestation: Time is exclusive of separately billable procedures. Time includes: direct patient care, patient reassessment, coordination of patient care, interpretation of data (laboratory data, pulse oximetry, arterial blood gases and chest xrays), review of patient's medical records, medical consultation and documentation of patient care. Procedures excluded from critical care time: central intravenous line placement and electrocardiography. Discharge Plan Discharge Clinical Impression: Sepsis, Infected prepatellar bursa Patient Disposition: Admitted As Inpatient Print Language: Macedonian
--- NOTE | 2024-10-22 13:45 | ECG_ITS ---
Test Reason : TACHY Blood Pressure : */* mmHG Vent. Rate : 124 BPM Atrial Rate : 124 BPM P-R Int : 136 ms QRS Dur : 90 ms QT Int : 310 ms P-R-T Axes : 45 -23 32 degrees QTcB Int : 445 ms Sinus tachycardia Possible Left atrial enlargement Borderline ECG When compared with ECG of 22-Jan-2023 22:05, Questionable change in QRS axis Referred By: Shavon Yang Electronically Signed By: ORLY CONDE MD
[2024-10-22 14:17] LABS: MANUAL DIFF FLAG NO
[2024-10-22 14:20] LABS: Hematocrit 37.5 % (42.0-52.0); Hemoglobin 12.9 g/dl (14.0-18.0); Imm Gran Abs Auto 0.17 X10*3/uL (0.00-0.03); Imm Gran Pct Auto 1.0 % (0.0-0.4); Lymphocytes Absolute Auto 1.1 X10*3/uL (1.2-4.9); Mean Corpuscular HGB Conc 34.4 g/dl (31.0-36.0); Mean Corpuscular Hemoglobin 30.1 pg (27.0-33.0); Mean Corpuscular Volume 87.4 fL (80.0-98.0); NRBC Abs Auto 0.000 X10*3/uL (0.0-0.012); NRBC Pct Auto 0.0 /100WBC (0.0-0.2); Platelet Count 325 X10*3/uL (160-400); Red Blood Count 4.29 X10*6/uL (4.60-5.80); White Blood Count 16.6 X10*3/uL (4.8-10.8)
[2024-10-22 14:35] LABS: Alanine Aminotransferase 27 U/L (0-40); Albumin Level 4.0 g/dL (3.5-5.0); Alkaline Phosphatase 139 U/L (39-117); Anion Gap 15 (12-20); Aspartate Amino Transferase 28 U/L (5-37); Blood Urea Nitrogen 11 mg/dL (9-16); Calcium 9.8 mg/dL (8.4-10.2); Carbon Dioxide 29 mmol/L (22-29); Chloride 94 mmol/L (96-108); Creatinine Clr Calc Pharmacy 114.5; Estimated Glomerular Filt Rate > 60; Potassium 3.3 mmol/L (3.3-5.1); Sodium 135 mmol/L (135-145); Total Protein 8.2 g/dL (6.5-8.0)
[2024-10-22] MEDS: LACTATED RINGERS 3132 ML IV (15:09)
--- NOTE | 2024-10-22 15:26 | PHA.MEDREC ---
Pharmacy Consult ? Medication Reconciliation Pharmacy has completed the medication reconciliation. Spoke to patient to confirm medication list. Patient confirmed he takes suboxone 2 mg/0.5 mg films 1 film bid (last dose was this morning 10/22/24). He took 2 doses of the doxycycline so far (last dose was this morning 10/22/24). Last dose of other medications was yesterday 10/21/24.
[2024-10-22 15:55] LABS: Source Synovial Fluid Left knee prepatellar
[2024-10-22 15:56] VITALS: BP 155/79; PULSE 100; RESP 18; TEMP 36.9; O2SAT 96
--- NOTE | 2024-10-22 15:56 | PC.NURSE ---
Arthrocentesis for lab analysis performed by MD; pt tolerated well; prurulent yellow/green fluids out; samples obtained/sent to lab/pending; ABX begun per orders
[2024-10-22] MEDS: vancomycin HCL 1,000 MG, vancomycin HCL 750 MG in 0.9 % Sodium Chloride 500 ML 267.5 MG IV (16:30)
[2024-10-22 16:34] LABS: MN% 24.3 %; PMN% 75.7 %; RBC Synovial Fluid 0.154 X10*6/uL
--- NOTE | 2024-10-22 16:43 | PM.IMHP ---
History of Present Illness Date of Service: 10/22/24 Attending physician on admission: Manda Gregory Chief Complaint: left knee pain This is a 44-year-old male with history of diabetes, hyperlipidemia who presents to the emergency department with left knee pain. Patient initially began having left knee pain in September, at that time he was seen in the orthopedic office and was told that he had ?water on his knee? and at that time he was recommended compression, anti-inflammatories. With that treatment his symptoms did improve. Over the past 10 days or so he reports having chills, subjective fever, return of left knee pain and severe fatigue. He thought he had viral illness. His knee also has become more red and swollen. He was seen by his primary care provider who ordered outpatient labs over the past 3 days his white count increased from [id number]. He was started on oral antibiotics but today his primary care recommended that he come to the emergency department for evaluation. In the emergency department x-ray showed anterior soft tissue swelling/hematoma. The emergency room provider aspirated the joint and reported purulent output. Lab work was significant for leukocytosis of 16.6, CRP 36.6 and he will be admitted for further management of presumed infected prepatellar bursitis with cellulitis Review of Systems Review of Systems: Yes all other systems are reviewed and are negative Constitutional: Constitutional: Reports chills and Reports fever(s) ENT: Denies dizziness Cardiovascular: Cardiovascular: Denies chest pain, Denies palpitations and Denies dyspnea Respiratory: Respiratory: Denies cough and Denies dyspnea Neurologic: Denies dizziness Endocrine: Endocrine: Denies palpitations [facility] Medical History Diabetes Opioid use disorder Substance use Dyslipidemia Lung collapse Thoracic cancer Asthma Gallstones Testicular cancer Surgical History Hx laparoscopic cholecystectomy History of thoracic surgery S/P hernia surgery H/O ventral hernia repair Social History Household Members: Family Housing: Unknown / Unable to assess Do you presently have visiting nurse or other home services: No Unable to assess alcohol history related to: Unknown Alcohol intake: current Alcohol intake frequency: holidays/special occasions only Comment: see MAR Patient Tobacco Use Status: Tobacco use Unknown e-Cigarette/Vaping Use: Never Used Second Hand Smoke Exposure: No Advance Directives: No Advance Directives Information Provided: Yes Advance Directives Date on File: 09/18/20 Do you have a plan to hurt others: No Plan service: No Current occupational status: employed 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 Allergies Allergy/AdvReac Type Severity Reaction Status Date / Time metoclopramide (From REGLAN) Allergy Intermediate FEELS Verified 10/22/24 13:44 LIKE I'M JUMPING OUT OF MY SKIN{ pneumococcal vaccine Allergy Intermediate Swelling Verified 10/22/24 13:44 (PNEUMOCOCCAL VACCINE) pneumococcal 7-valent AdvReac Mild Cellulitis Verified 10/22/24 13:44 conjugate to (From Prevnar) Active Medications: Current Medications Acetaminophen (Acetaminophen 325 Mg Tablet) 650 mg PO Q6H PRN PRN Reason: Pain, Mild 1-3,fever,headache Calcium Carbonate (Calcium Carbonate 750 Mg Tab.Chew) 750 mg PO Q4H PRN PRN Reason: Heartburn Vancomycin HCl 1,000 mg/Vancomycin HCl 750 mg/ Sodium Chloride 535 mls @ 267.5 mls/hr IV ONCE ONE Stop: 10/22/24 17:28 Last Admin: 10/22/24 16:30 Dose: 267.5 mls/hr Magnesium Hydroxide (Milk Of Magnesia 30 Ml Oral.Susp) 30 ml PO DAILY PRN PRN Reason: Constipation Melatonin (Melatonin 3 Mg Tablet) 6 mg PO BEDTIME PRN PRN Reason: Insomnia Ondansetron HCl (Ondansetron Hcl 4 Mg/2 Ml Vial) 4 mg IVPUSH Q8H PRN PRN Reason: Nausea and Vomiting Sodium Chloride (0.9 % Sodium Chloride Flush 3 Ml Syringe) 3 ml IVFLUSH [facility] Medications ?Medication ?Instructions ?Recorded ?Confirmed ?Last Taken ?Type atorvastatin 20 mg tablet 20 mg PO BEDTIME 01/23/23 10/22/24 10/21/24 History albuterol sulfate 90 mcg/actuation 1 puff inhalation Q6H PRN 10/22/24 10/22/24 Unknown History aerosol inhaler shortness of breath or wheezing doxycycline hyclate 100 mg capsule 100 mg PO BID 10/22/24 10/22/24 10/22/24 History fluticasone furoate 100 1 ea inhalation DAILY 10/22/24 10/22/24 10/21/24 History mcg-vilanterol 25 mcg/dose inhalation powder (Breo Ellipta) metformin 500 mg tablet,extended 500 mg PO BID 10/22/24 10/22/24 10/21/24 History release 24 hr naproxen 500 mg tablet 500 mg PO BID PRN Pain 10/22/24 10/22/24 Unknown History Physical Exam Vital Signs and Narrative: Vital Signs: Last Vital Signs Temp 98.4 F 10/22/24 15:56 Pulse 100 10/22/24 15:56 Resp 18 10/22/24 15:56 BP 155/79 H 10/22/24 15:56 Pulse Ox 96 10/22/24 15:56 O2 Del Method Room Air 10/22/24 15:56 BMI result Body Mass Index 34.0 Const: General: cooperative, comfortable, no acute distress, alert and awake Nutritional Appearance: average body habitus Orientation/consciousness: patient oriented x3 Resp: Effort & Inspection: normal respiratory effort, able to speak in complete sentences, no respiratory distress and no use of accessory muscles Cardio: Rate: regular rate GI: Inspection: No distended Palpation (GI): Soft to palpation and nontender Neuro: General: patient oriented x3, moves all extremities and CN's II-XI intact bilaterally Extrem: Other: left knee swelling, erythema, tenderness, warmth Results Labs 10/22/24 14:08 10/22/24 14:08 Labs: Laboratory Results - last 24 hr 10/22/24 10/22/24 14:08 15:46 MCV 87.4 MCH 30.1 MCHC 34.4 RDW 12.6 Plt Count 325 D MPV 9.8 Immature Gran % (Auto) 1.0 H Neut % (Auto) 85.4 H Lymph % (Auto) 6.9 L [place] % (Auto) 6.5 Eos % (Auto) 0.0 Baso % (Auto) 0.2 Lymph # (Auto) 1.1 L [place] # (Auto) 1.1 Eos # (Auto) 0.0 Baso # (Auto) 0.0 Abs Immat Gran (auto) 0.17 H Absolute Neuts (auto) 14.2 H Absolute Nucleated RBC 0.000 Nucleated RBC % (auto) 0.0 ESR 83 H Anion Gap 15 Estim Creat Clear Calc 114.5 Estimated GFR > 60 Random Glucose 129 H Lactic Acid 1.3 Calcium 9.8 Total Bilirubin 1.1 H AST 28 ALT 27 Alkaline Phosphatase 139 H C-Reactive Protein 36.61 H Total Protein 8.2 H Albumin 4.0 Synovial Source Left knee prepatellar Imaging Radiologist's Impressions: Impressions Knee X-Ray 10/22/24 14:20 IMPRESSION: Anterior soft tissue swelling/hematoma. Electronically signed by: Aurelio Wing MD 10/22/2024 02:37 PM EDT RP Assessment and Plan (1) Infected prepatellar bursa: Qualifiers: Laterality: left Qualified Code(s): M71.162 - Other infective bursitis, left knee Status: Acute Plan This is a 44-year-old male with history of diabetes, substance use on Suboxone, hyperlipidemia who presents to the emergency department with left knee pain and swelling found to have infected prepatellar bursitis Sepsis due to infected prepatellar bursitis and cellulitis Meet sepsis criteria with leukocytosis, tachycardia. No severe features. Lactic acid normal Aspirated in ED- follow wound culture Follow blood cultures Continue broad-spectrum antibiotics with IV vancomycin and Zosyn per ortho no further aspiration or I&D warranted check lyme panel DM Hold metformin SSI, POCs, ADA diet h/o opiate use Continue Suboxone HLD continue statin asthma, unspecified continue breo, prn albuterol dvt ppx - boots Quality Stroke Does the patient have a stroke diagnosis?: No VTE Prior VTE?: No VTE Risk Level:: Medical - moderate - high VTE Device Contraindication: Treatment Not Indicated VTE Drug Contraindication: Treatment Not Indicated
--- NOTE | 2024-10-22 16:54 | PHA.PROG ---
Admission Date/Time: Indication: skin Weight in k.4 kg Adjusted body weight in Kg: [place] body weight in Kg: Obesity Dosing Indication % IBW: Serum Creatinine - Last 168 Hours 10/22/24 14:08 Creatinine 1.00 Estimated CrCl and GFR - Last 168 Hours 10/22/24 14:08 Estim Creat Clear Calc 114.5 Estimated GFR > 60 Vancomycin Loading Dose: 1750mg x 1 Current Vancomycin Dosing Regimen: 1250mg Q12H Vancomycin Monitoring using AUC goal of 400 - 600 range with trough as surrogate marker: 482 mg/L Date and Time for next Vancomycin Level to be drawn: 10/23 @1500 Pharmacist Comments on Vancomycin Plan: predicted trough of 15.1 mg/L Vancomycin dosing will take advantage of [employer] as a clinical decision support tool that uses Bayesian modeling to calculate individual patient's pharmacokinetic parameters and forecast the patient's drug concentration time course with the target goal AUC 24 range of 400 - 600 mg/L/hr.
--- NOTE | 2024-10-22 16:57 | P.CONOP_ITS ---
History of Present Illness HPI Consult date: 10/22/24 Chief complaint: Infection, sent by Dr Boogie: Chris Is a 44-year-old male who presents to the hospital after being sent to the ED by his doctor for assessment of his left knee The patient reports that his knee has been swollen for approximately 1 month, was evaluated at [facility] ?a few weeks ago? for swelling and was sent home on anti- inflammatories and with compression therapy Patient reports that over a proximally of the last week, he has noticed increasing swelling, redness, and pain in the area of his kneecap Patient reports that his pain grew very significant today, so he was seen by his Primary Care Provider, who recommended presentation to the emergency department While in the ED, the prepatellar bursa of the patient's left knee was aspirated and approximately 35 cc of purulent fluid was aspirated Fluid was sent for cultures Patient reports that his pain has improved significantly since aspiration, although he is unsure if this is due to the local numbing medicine Patient states that he is able to flex the knee, is not limited due to pain, but feels like he is ?pulling something? due to swelling Patient states that he is able to ambulate on the left knee without pain, but reports some soreness if on it for long periods of time Denies numbness or tingling in the left lower extremity No other acute complaints or concerns at this time Review of Systems 2 Review of Systems: Yes all other systems are reviewed and are negative [facility] Past Medical History Medical History Diabetes Opioid use disorder Substance use Dyslipidemia Lung collapse Thoracic cancer Asthma Gallstones Testicular cancer Surgical History Surgical History Hx laparoscopic cholecystectomy History of thoracic surgery S/P hernia surgery H/O ventral hernia repair Social History Social History Household Members: Family Housing: Unknown / Unable to assess Do you presently have visiting nurse or other home services: No Unable to assess alcohol history related to: Unknown Alcohol intake: current Alcohol intake frequency: holidays/special occasions only Comment: see MAR Patient Tobacco Use Status: Tobacco use Unknown e-Cigarette/Vaping Use: Never Used Second Hand Smoke Exposure: No Advance Directives: No Advance Directives Information Provided: Yes Advance Directives Date on File: 09/18/20 Do you have a plan to hurt others: No Plan service: No Current occupational status: employed 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 [employer] Meds Allergies Allergy/AdvReac Type Severity Reaction Status Date / Time metoclopramide (From REGLAN) Allergy Intermediate FEELS Verified 10/22/24 13:44 LIKE I'M JUMPING OUT OF MY SKIN{ pneumococcal vaccine Allergy Intermediate Swelling Verified 10/22/24 13:44 (PNEUMOCOCCAL VACCINE) pneumococcal 7-valent AdvReac Mild Cellulitis Verified 10/22/24 13:44 conjugate to (From Prevnar) Active Medications: Current Medications Acetaminophen (Acetaminophen 325 Mg Tablet) 650 mg PO Q6H PRN PRN Reason: Pain, Mild 1-3,fever,headache Calcium Carbonate (Calcium Carbonate 750 Mg Tab.Chew) 750 mg PO Q4H PRN PRN Reason: Heartburn Dextrose (Dextrose 50 % 25 Gm/50 Ml Syringe) 25 gm IVPUSH Q15M PRN; Protocol PRN Reason: per Hypoglycemia Standing Ord. Glucose (Glucose Gel 15 Gm Gel..Gram.) 15 gm PO Q15M PRN; Protocol PRN Reason: per Hypoglycemia Standing Ord. Vancomycin HCl 1,000 mg/Vancomycin HCl 750 mg/ Sodium Chloride 535 mls @ 267.5 mls/hr IV ONCE ONE Stop: 10/22/24 17:28 Last Admin: 10/22/24 16:30 Dose: 267.5 mls/hr Piperacillin Sod/Tazobactam (Sod 4.5 gm/ Sodium Chloride) 100 mls @ 200 mls/hr IV Q6H [facility] Vancomycin HCl 1,250 mg/ (Sodium Chloride) 250 mls @ 166.667 mls/hr IV Q12H [facility] Insulin Human Lispro (Insulin Lispro 100 Unit/Ml 3 Ml Vial) 0 unit SUBCUT QIDACHS [facility]; Protocol Magnesium Hydroxide (Milk Of Magnesia 30 Ml Oral.Susp) 30 ml PO DAILY PRN PRN Reason: Constipation Melatonin (Melatonin 3 Mg Tablet) 6 mg PO BEDTIME PRN PRN Reason: Insomnia Morphine Sulfate (Morphine Sulfate 4 Mg/Ml Cartridge) 2 mg IVPUSH Q4H PRN; Protocol PRN Reason: Pain, Severe (Pain Scale 7-10) Ondansetron HCl (Ondansetron Hcl 4 Mg/2 Ml Vial) 4 mg IVPUSH Q8H PRN PRN Reason: Nausea and Vomiting Oxycodone HCl (Oxycodone Hcl Immed Release 5 Mg Tablet) 5 mg PO Q6H PRN PRN Reason: Pain, Moderate(Pain Scale 4-6) Pharmacy Consult (Consult Rx Vancomycin Dosing) 1 each MISCELLANE DAILY PRN PRN Reason: Consult order Sodium Chloride (0.9 % Sodium Chloride Flush 3 Ml Syringe) [facility]ations ?Medication ?Instructions ?Recorded ?Confirmed ?Last Taken ?Type atorvastatin 20 mg tablet 20 mg PO BEDTIME 01/23/2310/21/24 History albuterol sulfate 90 mcg/actuation 1 puff inhalation Q 6H PRN 10/22/24 10/22/24 Unknown History aerosol inhaler shortness of breath or wheez ing doxycycline hyclate 100 mg capsule 100 mg PO BID 10/2210/22/24 10/22/24 History fluticasone furoate 100 1 ea inhalation DAILY 10/22/24 10/21/24 History mcg-vilanterol 25 mcg/dose inhalation powder (Breo Ellipta) metformin 500 mg tablet,extended 500 mg PO BID 5 10/22/24 10/21/24 History release 24 hr naproxen 500 mg tablet 500 mg PO BID PRN Pain 10/2210/22/24 Unknown History Physical Exam 2 Vital Signs: Vital Signs: Last Vital Signs Temp 98.4 F 10/22/24 15:56 Pulse 100 10/22/24 15:56 Resp 18 10/22/24 15:56 BP 155/79 H 10/22/24 15:56 Pulse Ox 96 10/22/24 15:56 O2 Del Method Room Air 10/22/24 15:56 BMI result Body Mass Index 34.0 Extrem: Other: Patient's left knee swollen to inspection over the patella There is noted to be erythema on the anterior aspect of the knee, primarily over the patella but also extending slightly towards the thigh No ecchymosis Bandage noted over the aspiration site There is noted to be fluctuance of the prepatellar bursa Patient reports no tenderness to palpation of the prepatellar bursa, medial or lateral joint line, posterior knee Patient is able to flex the knee to approximately 50 degrees without difficulty, reports that he feels some ?pulling? beyond this, but no pain No pain with axial loading of the left knee Distal sensation intact Capillary refill brisk Results Labs 10/22/24 14:08 10/22/24 14:08 Labs: Abnormal lab results 10/22/24 Range/Units 14:08 WBC 16.6 H (4.8-10.8) X10*3/uL RBC 4.29 L (4.60-5.80) X10*6/uL Hgb 12.9 L (14.0-18.0) g/dl Hct 37.5 L (42.0-52.0) % Immature Gran % (Auto) 1.0 H (0.0-0.4) % Neut % (Auto) 85.4 H (45-73) % Lymph % (Auto) 6.9 L (20-40) % Lymph # (Auto) 1.1 L (1.2-4.9) X10*3/uL Abs Immat Gran (auto) 0.17 H (0.00-0.03) X10*3/uL Absolute Neuts (auto) 14.2 H (2.0-8.3) x10*3/uL ESR 83 H (0-15) MM/HR Chloride 94 L (96-108) mmol/L Random Glucose 129 H (60-115) mg/dL Total Bilirubin 1.1 H (0.0-1.0) mg/dL Alkaline Phosphatase 139 H (39-117) U/L C-Reactive Protein 36.61 H (< or = 0.50) mg/dL Total Protein 8.2 H (6.5-8.0) g/dL H & H 10/22/24 Range/Units 14:08 Hgb 12.9 L (14.0-18.0) g/dl Hct 37.5 L (42.0-52.0) % All other labs normal. Diagnostic results Knee x-ray: report reviewed and image reviewed Assessment and Plan (1) Septic prepatellar bursitis of left knee: Status: Acute Plan 1. Infected prepatellar bursitis of the left knee The patient is educated about this condition Patient is educated about the typical treatment course, which includes aspiration and antibiotics No surgical intervention is indicated at this time Index of suspicion for septic left knee joint extremely low at this point, as patient is able to perform range of motion of the left knee without pain, no pain with axial loading of the left knee, is able to weightbear with minimal difficulty, and there is no joint effusion noted on x-ray Continue IV antibiotics Await results of cultures of aspirated fluid from prepatellar bursa Patient should continue with range of motion of the left knee as tolerated Can gently compress the left knee for swelling Weight-bearing as tolerated on left lower extremity Procedures Date of Service Date of Service: 10/22/24
[2024-10-22 17:13] LABS: Hemoglobin A1C 129.0524 umol/L; Total Hemoglobin (HGBA1C) 3339.7589 umol/L
[2024-10-22 18:00] LABS: BF Shift QC OK YES
[2024-10-22] MEDS: Lactated Ringers 1,000 ML 100 ML IVCONT (18:05)
[2024-10-22 18:15] LABS: Lymphocytes Synovial Fluid 5 %; Monocytes Synovial Fluid 4 %; Neutrophils Synovial Fluid 79 %
[2024-10-22 18:16] LABS: Other Cells Synovial Fluid 12
--- NOTE | 2024-10-22 18:35 | PC.NURSE ---
Pt reports + decrease in pain to L knee; reddened area circled with surgical marker/dated/timed by this RN; pt able to ambulate to BR with steady gait; IVF's and ABX infusing per orders; family at bedisde; pt to be NPO after midnight tonight per ortho [employer] pending possible intervention in the a.m.; pt/family aware
[2024-10-22 18:36] VITALS: BP 146/74; PULSE 88; RESP 16; O2SAT 96
[2024-10-22 23:00] VITALS: BP 139/80; PULSE 93; RESP 16; O2SAT 99
[2024-10-22] MEDS: Buprenorphine/Naloxone 2/0.5mg FILM 1 FILM SUBLINGUAL (23:01)
[2024-10-22 23:02] LABS: Glucose, Whole Blood 81 mg/dL (60-115)
--- NOTE | 2024-10-22 23:12 | PC.NURSE ---
Medicated per MAY. Insulin held due to POC of 81. Pt aware he is NPO after midnight, resting comfortably in bed, lights dim. Continue to monitor.
[2024-10-23] MEDS: 0.9 % Sodium Chloride Flush 3 ML SYRINGE IVFLUSH ×2 (04:22→20:44)
[2024-10-23] MEDS: Lactated Ringers 1,000 ML 100 ML IVCONT (05:01)
[2024-10-23 05:11] VITALS: BP 102/62; PULSE 85; RESP 16; TEMP 36.9; O2SAT 99
[2024-10-23 06:41] LABS: MANUAL DIFF FLAG NO
[2024-10-23 07:00] LABS: Anion Gap 13 (12-20); Blood Urea Nitrogen 9 mg/dL (9-16); Carbon Dioxide 30 mmol/L (22-29); Chloride 101 mmol/L (96-108); Creatinine Clr Calc Pharmacy 124.5; Estimated Glomerular Filt Rate > 60; Potassium 3.6 mmol/L (3.3-5.1); Sodium 140 mmol/L (135-145)
[2024-10-23 07:01] LABS: Hematocrit 31.9 % (42.0-52.0); Hemoglobin 10.7 g/dl (14.0-18.0); Imm Gran Abs Auto 0.11 X10*3/uL (0.00-0.03); Imm Gran Pct Auto 1.0 % (0.0-0.4); Lymphocytes Absolute Auto 1.1 X10*3/uL (1.2-4.9); Mean Corpuscular HGB Conc 33.5 g/dl (31.0-36.0); Mean Corpuscular Hemoglobin 29.9 pg (27.0-33.0); Mean Corpuscular Volume 89.1 fL (80.0-98.0); NRBC Abs Auto 0.000 X10*3/uL (0.0-0.012); NRBC Pct Auto 0.0 /100WBC (0.0-0.2); Platelet Count 271 X10*3/uL (160-400); Red Blood Count 3.58 X10*6/uL (4.60-5.80); White Blood Count 11.6 X10*3/uL (4.8-10.8)
[2024-10-23 07:08] LABS: Calcium 8.8 mg/dL (8.4-10.2)
[2024-10-23 07:41] LABS: Glucose, Whole Blood 102 mg/dL (60-115)
[2024-10-23] MEDS: Buprenorphine/Naloxone 2/0.5mg FILM 1 FILM SUBLINGUAL ×2 (09:06→20:44)
[2024-10-23] MEDS: Fluticasone/Vilanterol 100/25 BLST.W.DEV 1 PUFF INHALE (09:09)
[2024-10-23 09:49] LABS: Lyme Abs Screen <0.90 index
[2024-10-23 11:26] VITALS: BP 111/65; PULSE 86; RESP 16; TEMP 37.2; O2SAT 96
[2024-10-23 11:46] LABS: Glucose, Whole Blood 109 mg/dL (60-115)
[2024-10-23 14:35] VITALS: BP 122/71; PULSE 90; RESP 18; TEMP 36.9; O2SAT 97
--- NOTE | 2024-10-23 15:52 | HO.PM.IMPN ---
Subjective Subjective Date of Service: 10/23/24 Interval History: knee pain/swelling improved no fever chills resolved patellar fluid growing Group G Streptococcus Review of Systems Review of Systems: Yes all other systems are reviewed and are negative Physical Exam Vital Signs: Vital Signs: Last Vital Signs Temp 98.4 F 10/23/24 14:35 Pulse 90 10/23/24 14:35 Resp 18 10/23/24 14:35 BP 122/71 10/23/24 14:35 Pulse Ox 97 10/23/24 14:35 O2 Del Method Room Air 10/23/24 14:35 BMI result Body Mass Index 34.0 Gen: in no acute distress HEENT: sclera anicteric, moist mucus membranes Neck: supple Lungs: clear to auscultation bilaterally Heart: regular rate and rhythm, no murmurs Abd: soft, non-tender, non-distended Ext: no edema, L knee with prepatellar swelling, I+D site dry Skin: warm/well-perfused Neuro: alert and oriented x3, no focal findings Psych: appropriate affect Objective Data Active Medications Acetaminophen (Acetaminophen 325 Mg Tablet) 650 mg PO Q6H PRN PRN Reason: Pain, Mild 1-3,fever,headache Last Admin: 10/22/24 23:03 Dose: 650 mg Documented By: JESSICA Albuterol Sulfate (Albuterol Sulfate 90 Mcg 8 Gm Inhaler) 1 puff INHALE Q6H PRN PRN Reason: shortness of breath or wheezing Atorvastatin Calcium (Atorvastatin Calcium 20 Mg Tablet) 20 mg PO BEDTIME [facility] Last Admin: 10/22/24 23:01 Dose: 20 mg Documented By: JESSICA Buprenorphine/Naloxone (Buprenorphine/Naloxone 2/0.5mg Film) 1 film SUBLINGUAL BID [facility] Last Admin: 10/23/24 09:06 Dose: 1 film Documented By: BALTA Calcium Carbonate (Calcium Carbonate 750 Mg Tab.Chew) 750 mg PO Q4H PRN PRN Reason: Heartburn Ceftriaxone Sodium (Ceftriaxone Sodium 2 Gm Vial) 2 gm IVPUSH Q24H [facility] Last Admin: 10/23/24 11:08 Dose: 2 gm Documented By: BALTA Dextrose (Dextrose 50 % 25 Gm/50 Ml Syringe) 25 gm IVPUSH Q15M PRN; Protocol PRN Reason: per Hypoglycemia Standing Ord. Fluticasone/Vilanterol (Fluticasone/Vilanterol 100/25 Blst.W.Dev) 1 puff INHALE RDAILY [facility] Last Admin: 10/23/24 09:09 Dose: 1 puff Documented By: BALTA Glucose (Glucose Gel 15 Gm Gel..Gram.) 15 gm PO Q15M PRN; Protocol PRN Reason: per Hypoglycemia Standing Ord. Lactated Ringer's (Lr) 1,000 mls @ 100 mls/hr IVCONT .Q10H [facility] Last Admin: 10/23/24 05:01 Dose: 100 mls/hr Documented By: THOMAS Insulin Human Lispro (Insulin Lispro 100 Unit/Ml 3 Ml Vial) 0 unit SUBCUT QIDACHS [facility]; Protocol Last Admin: 10/23/24 12:21 Dose: Not Given Documented By: BALTA Non-Admin Reason: [id number] Ketorolac Tromethamine (Ketorolac Tromethamine 15 Mg/Ml Vial) 15 mg IVPUSH Q6H PRN PRN Reason: Pain, Severe (Pain Scale 7-10) Magnesium Hydroxide (Milk Of Magnesia 30 Ml Oral.Susp) 30 ml PO DAILY PRN PRN Reason: Constipation Melatonin (Melatonin 3 Mg Tablet) 6 mg PO BEDTIME PRN PRN Reason: Insomnia Ondansetron HCl (Ondansetron Hcl 4 Mg/2 Ml Vial) 4 mg IVPUSH Q8H PRN PRN Reason: Nausea and Vomiting Oxycodone HCl (Oxycodone Hcl Immed Release 5 Mg Tablet) 5 mg PO Q6H PRN PRN Reason: Pain, Moderate(Pain Scale 4-6) Sodium Chloride (0.9 % Sodium Chloride Flush 3 Ml Syringe) 3 ml IVFLUSH QSHIFT [facility] Last Admin: 10/23/24 08:19 Dose: Not Given Documented By: BALTA Non-Admin Reason: IV Running Labs 10/23/24 06:07 10/23/24 06:07 Labs: Laboratory Results - last 24 hr 10/22/24 10/22/24 10/22/24 14:08 15:46 17:15 MCV MCH MCHC RDW Plt Count MPV Immature Gran % (Auto) Neut % (Auto) Lymph % (Auto) [place] % (Auto) Eos % (Auto) Baso % (Auto) Lymph # (Auto) [place] # (Auto) Eos # (Auto) Baso # (Auto) Abs Immat Gran (auto) Absolute Neuts (auto) Absolute Nucleated RBC Nucleated RBC % (auto) Anion Gap Estim Creat Clear Calc Estimated GFR POC Glucose Random Glucose Estimat Average Glucose 117 Hemoglobin A1c % 5.7 Calcium Synovial Source Left knee prepatellar Synovial WBC 217.566 Synovial RBC 0.154 Synovial Neutrophils 79 Synovial Lymphocytes 5 Synovial Monocytes 4 Synovial Other Cells 12 Lyme Screen IgG & IgM <0.90 Lyme Progressive Test TNP 10/22/24 10/23/24 10/23/24 22:56 06:07 07:31 MCV 89.1 MCH 29.9 MCHC 33.5 RDW 12.5 Plt Count 271 MPV 10.0 Immature Gran % (Auto) 1.0 H Neut % (Auto) 79.5 H Lymph % (Auto) 9.6 L [place] % (Auto) 8.7 Eos % (Auto) 0.9 Baso % (Auto) 0.3 Lymph # (Auto) 1.1 L [place] # (Auto) 1.0 Eos # (Auto) 0.1 Baso # (Auto) 0.0 Abs Immat Gran (auto) 0.11 H Absolute Neuts (auto) 9.2 H Absolute Nucleated RBC 0.000 Nucleated RBC % (auto) 0.0 Anion Gap 13 Estim Creat Clear Calc 124.5 Estimated GFR > 60 POC Glucose 81 102 Random Glucose 109 Estimat Average Glucose Hemoglobin A1c % Calcium 8.8 D Synovial Source Synovial WBC Synovial RBC Synovial Neutrophils Synovial Lymphocytes Synovial Monocytes Synovial Other Cells Lyme Screen IgG & IgM Lyme Progressive Test 10/23/24 11:41 MCV MCH MCHC RDW Plt Count MPV Immature Gran % (Auto) Neut % (Auto) Lymph % (Auto) [place] % (Auto) Eos % (Auto) Baso % (Auto) Lymph # (Auto) [place] # (Auto) Eos # (Auto) Baso # (Auto) Abs Immat Gran (auto) Absolute Neuts (auto) Absolute Nucleated RBC Nucleated RBC % (auto) Anion Gap Estim Creat Clear Calc Estimated GFR POC Glucose 109 Random Glucose Estimat Average Glucose Hemoglobin A1c % Calcium Synovial Source Synovial WBC Synovial RBC Synovial Neutrophils Synovial Lymphocytes Synovial Monocytes Synovial Other Cells Lyme Screen IgG & IgM Lyme Progressive Test Microbiology Microbiology Results: Microbiology 10/22/24 16:03 Gram Stain - Final Knee,Left Anaerobic Culture - Preliminary Culture in progress. 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 ago] presenting with L knee pain/swelling, admitted for sepsis due to infected prepatellar bursitis septic prepatellar bursitis, group G streptococcal - change IV vanco + piperacillin-tazobactam to ceftriaxone; Ortho consulted and no washout planned; ID consult pending; follow BCx to ensure not bacteremic prediabetes - A1c only 5.7, d/c lispro + accuchecks OUD - Suboxone HLD - statin asthma, unspecified, not acute - continue Breo + prn albuterol VTE ppx - SCDs dispo - eventual home In my clinical judgment, the patient requires continued inpatient hospitalization for the following reasons: IV ABX Total time managing care of this patient today: 35 minutes. Quality Stroke Does the patient have a stroke diagnosis?: No VTE Prior VTE?: No VTE Risk Level:: Medical - moderate - high VTE Device Contraindication: Treatment Not Indicated VTE Drug Contraindication: Treatment Not Indicated
[2024-10-23 15:56] VITALS: BMI 35.7
[2024-10-23 16:00] VITALS: BP 133/64; PULSE 84; RESP 18; TEMP 36.5; O2SAT 95
--- NOTE | 2024-10-23 16:39 | W.PM.IDCN ---
History of Present Illness Data of Consult Service Date: 10/23/24 Requesting physician: Jovani Robert Primary Care Provider: Cooper Pearson MD HPI Reason for consult: prepatellar bursitis He presents with left knee pain and swelling for last week. He went to [facility] and says use naproxen and compression. It became more swollen Review of Systems Review of Systems: Yes all other systems are reviewed and are negative PMFSH Past Medical History Medical History Diabetes Opioid use disorder Substance use Dyslipidemia Lung collapse Thoracic cancer Asthma Gallstones Testicular cancer Family History Family history: reviewed and not pertinent Surgical History Surgical History Hx laparoscopic cholecystectomy History of thoracic surgery S/P hernia surgery H/O ventral hernia repair Social History Social History Household Members: Spouse and Children Housing: House Do you presently have visiting nurse or other home services: No Unable to assess alcohol history related to: Unknown Alcohol intake: current Alcohol intake frequency: 0-2 drinks per day Comment: see MAR Patient Tobacco Use Status: Former Tobacco user e-Cigarette/Vaping Use: Never Used Second Hand Smoke Exposure: No Substance Use Type: Marijuana Advance Directives Date on File: 09/18/20 service: No Current occupational status: employed 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 [employer]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 Allergies Allergy/AdvReac Type Severity Reaction Status Date / Time metoclopramide (From REGLAN) Allergy Intermediate FEELS Verified 10/22/24 13:44 LIKE I'M JUMPING OUT OF MY SKIN{ pneumococcal vaccine Allergy Intermediate Swelling Verified 10/22/24 13:44 (PNEUMOCOCCAL VACCINE) pneumococcal 7-valent AdvReac Mild Cellulitis Verified 10/22/24 13:44 conjugate to (From Prevnar) Active Medications: Current Medications Acetaminophen (Acetaminophen 325 Mg Tablet) 650 mg PO Q6H PRN PRN Reason: Pain, Mild 1-3,fever,headache Last Admin: 10/22/24 23:03 Dose: 650 mg Albuterol Sulfate (Albuterol Sulfate 90 Mcg 8 Gm Inhaler) 1 puff INHALE Q6H PRN PRN Reason: shortness of breath or wheezing Atorvastatin Calcium (Atorvastatin Calcium 20 Mg Tablet) 20 mg PO BEDTIME [facility] Last Admin: 10/22/24 23:01 Dose: 20 mg Buprenorphine/Naloxone (Buprenorphine/Naloxone 2/0.5mg Film) 1 film SUBLINGUAL BID [facility] Last Admin: 10/23/24 09:06 Dose: 1 film Calcium Carbonate (Calcium Carbonate 750 Mg Tab.Chew) 750 mg PO Q4H PRN PRN Reason: Heartburn Ceftriaxone Sodium (Ceftriaxone Sodium 2 Gm Vial) 2 gm IVPUSH Q24H [facility] Last Admin: 10/23/24 11:08 Dose: 2 gm Fluticasone/Vilanterol (Fluticasone/Vilanterol 100/25 Blst.W.Dev) 1 puff INHALE RDAILY [facility] Last Admin: 10/23/24 09:09 Dose: 1 puff Lactated Ringer's (Lr) 1,000 mls @ 100 mls/hr IVCONT .Q10H [facility] Last Infusion: 10/23/24 15:55 Dose: Infused Ketorolac Tromethamine (Ketorolac Tromethamine 15 Mg/Ml Vial) 15 mg IVPUSH Q6H PRN PRN Reason: Pain, Severe (Pain Scale 7-10) Magnesium Hydroxide (Milk Of Magnesia 30 Ml Oral.Susp) 30 ml PO DAILY PRN PRN Reason: Constipation Melatonin (Melatonin 3 Mg Tablet) 6 mg PO BEDTIME PRN PRN Reason: Insomnia Ondansetron HCl (Ondansetron Hcl 4 Mg/2 Ml Vial) 4 mg IVPUSH Q8H PRN PRN Reason: Nausea and Vomiting Oxycodone HCl (Oxycodone Hcl Immed Release 5 Mg Tablet) 5 mg PO Q6H PRN PRN Reason: Pain, Moderate(Pain Scale 4-6) Sodium Chloride (0.9 % Sodium Chloride Flush 3 Ml Syringe) 3 ml IVFLUSH QSHIFT [facility] Last Admin: 10/23/24 08:19 Dose: Not Given Home Medications ?Medication ?Instructions ?Recorded ?Confirmed ?Last Taken ?Type atorvastatin 20 mg tablet 20 mg PO BEDTIME 01/23/23 10/22/24 10/21/24 History albuterol sulfate 90 mcg/actuation 1 puff inhalation Q6H PRN 10/22/24 10/22/24 Unknown History aerosol inhaler shortness of breath or wheezing doxycycline hyclate 100 mg capsule 100 mg PO BID 10/22/24 10/22/24 10/22/24 History fluticasone furoate 100 1 ea inhalation DAILY 10/22/24 10/22/24 10/21/24 History mcg-vilanterol 25 mcg/dose inhalation powder (Breo Ellipta) metformin 500 mg tablet,extended 500 mg PO BID 10/22/24 10/22/24 10/21/24 History release 24 hr naproxen 500 mg tablet 500 mg PO BID PRN Pain 10/22/24 10/22/24 Unknown History Physical Exam Vital Signs: Vital Signs: Last Vital Signs Temp 97.7 F 10/23/24 16:00 Pulse 84 10/23/24 16:00 Resp 18 10/23/24 16:00 BP 133/64 10/23/24 16:00 Pulse Ox 95 10/23/24 16:00 O2 Del Method Room Air 10/23/24 16:00 BMI result Body Mass Index 34.0 Const: General: cooperative HEENT: Head: Yes normal to inspection Face and sinus: Yes normal facial exam Mouth: Normal oral and palatal mucosa present Teeth and gingiva: dentition normal Eyes: General: appearance normal, both eyes and all related structures Pupils: Equal, round and reactive pupils present Resp: Effort & Inspection: normal respiratory effort Cardio: Rate: regular rate Rhythm: regular rhythm GI: Palpation (GI): Soft to palpation and nontender : General: Yes no CVA tenderness Back/Spine/Pelvis: Back: no CVA tenderness Skin: General skin exam: no rashes or lesions noted Neuro: General: moves all extremities Cranial nerves: Yes Equal, round and reactive pupils present Extrem: Other: swollen left knee General: Yes normal to inspection Psych: Appearance: grossly normal Results Labs 10/23/24 06:07 10/23/24 06:07 Labs: Short CBC 10/23/24 Range/Units 06:07 WBC 11.6 H (4.8-10.8) X10*3/uL Hgb 10.7 L (14.0-18.0) g/dl Hct 31.9 L (42.0-52.0) % Plt Count 271 (160-400) X10*3/uL BMP 10/23/24 06:07 Sodium 140 Potassium 3.6 Chloride 101 Carbon Dioxide 30 H BUN 9 Creatinine 0.92 Calcium 8.8 D Microbiology Microbiology Results: Microbiology 10/22/24 14:08 Blood - Venous Blood Culture - Preliminary No growth after 24 hours. 10/22/24 14:08 Blood - Venous Blood Culture - Preliminary No growth after 24 hours. 10/22/24 16:03 Knee,Left Gram Stain - Final 10/22/24 16:03 Knee,Left Anaerobic Culture - Preliminary Culture in progress. 10/22/24 16:03 Knee,Left Joint Fluid Culture - Preliminary Group G streptococcus Assessment and Plan (1) Sepsis: Qualifiers: Sepsis acute organ dysfunction status: without acute organ dysfunction Sepsis type: sepsis due to unspecified organism Qualified Code(s): A41.9 - Sepsis, unspecified organism Status: Acute Plan Group G strep IV Ceftriaxone until improved and then po cephalosporin total 14 days.
[2024-10-23 20:00] VITALS: BP 127/57; PULSE 85; RESP 18; TEMP 36.8; O2SAT 96
[2024-10-24 03:36] VITALS: BP 116/60; PULSE 87; RESP 16; TEMP 36.7; O2SAT 96
[2024-10-24 07:32] VITALS: BP 136/75; PULSE 75; RESP 14; TEMP 36.9; O2SAT 98
[2024-10-24] MEDS: 0.9 % Sodium Chloride Flush 3 ML SYRINGE IVFLUSH ×3 (08:42→20:50)
[2024-10-24] MEDS: Buprenorphine/Naloxone 2/0.5mg FILM 1 FILM SUBLINGUAL ×2 (08:42→20:50)
--- NOTE | 2024-10-24 10:14 | P.PNIM_ITS ---
Subjective Subjective Date of Service: 10/24/24 Interval History: chills resolved knee pain/swelling improved, still quite red though not as hot Review of Systems Review of Systems: Yes all other systems are reviewed and are negative Physical Exam 2 Vital Signs: Vital Signs: Last Vital Signs Temp 98.5 F 10/24/24 07:32 Pulse 75 10/24/24 07:32 Resp 14 10/24/24 07:32 BP 136/75 10/24/24 07:32 Pulse Ox 98 10/24/24 07:32 O2 Del Method Room Air 10/24/24 07:32 BMI result Body Mass Index 35.7 Gen: in no acute distress HEENT: sclera anicteric, moist mucus membranes Neck: supple Lungs: clear to auscultation bilaterally Heart: regular rate and rhythm, no murmurs Abd: soft, non-tender, non-distended Ext: no edema, L knee with prepatellar swelling and surrounding erythema, I+D site dry Skin: warm/well-perfused Neuro: alert and oriented x3, no focal findings Psych: appropriate affect Objective Data Active Medications Acetaminophen (Acetaminophen 325 Mg Tablet) 650 mg PO Q6H PRN PRN Reason: Pain, Mild 1-3,fever,headache Last Admin: 10/24/24 03:51 Dose: 650 mg Documented By: MARTHA Albuterol Sulfate (Albuterol Sulfate 90 Mcg 8 Gm Inhaler) 1 puff INHALE Q6H PRN PRN Reason: shortness of breath or wheezing Atorvastatin Calcium (Atorvastatin Calcium 20 Mg Tablet) 20 mg PO BEDTIME [facility] Last Admin: 10/23/24 20:44 Dose: 20 mg Documented By: MARTHA Buprenorphine/Naloxone (Buprenorphine/Naloxone 2/0.5mg Film) 1 film SUBLINGUAL BID [facility] Last Admin: 10/24/24 08:42 Dose: 1 film Documented By: CHRISTIANO Calcium Carbonate (Calcium Carbonate 750 Mg Tab.Chew) 750 mg PO Q4H PRN PRN Reason: Heartburn Ceftriaxone Sodium (Ceftriaxone Sodium 2 Gm Vial) 2 gm IVPUSH Q24H [facility] Last Admin: 10/24/24 09:57 Dose: 2 gm Documented By: CHRISTIANO Fluticasone/Vilanterol (Fluticasone/Vilanterol 100/25 Blst.W.Dev) 1 puff INHALE RDAILY [facility] Last Admin: 10/23/24 09:09 Dose: 1 puff Documented By: BALTA Ketorolac Tromethamine (Ketorolac Tromethamine 15 Mg/Ml Vial) 15 mg IVPUSH Q6H PRN PRN Reason: Pain, Severe (Pain Scale 7-10) Magnesium Hydroxide (Milk Of Magnesia 30 Ml Oral.Susp) 30 ml PO DAILY PRN PRN Reason: Constipation Melatonin (Melatonin 3 Mg Tablet) 6 mg PO BEDTIME PRN PRN Reason: Insomnia Ondansetron HCl (Ondansetron Hcl 4 Mg/2 Ml Vial) 4 mg IVPUSH Q8H PRN PRN Reason: Nausea and Vomiting Oxycodone HCl (Oxycodone Hcl Immed Release 5 Mg Tablet) 5 mg PO Q6H PRN PRN Reason: Pain, Moderate(Pain Scale 4-6) Sodium Chloride (0.9 % Sodium Chloride Flush 3 Ml Syringe) 3 ml IVFLUSH QSHIFT [facility] Last Admin: 10/24/24 08:42 Dose: 3 ml Documented By: BEIT Labs 10/23/24 06:07 10/23/24 06:07 Labs: Laboratory Results - last 24 hr 10/22/24 10/23/24 17:15 11:41 POC Glucose 109 Lyme Progressive Test TNP Microbiology Microbiology Results: Microbiology 10/22/24 14:08 Blood Culture - Preliminary Blood - Venous No growth after 24 hours. 10/22/24 14:08 Blood Culture - Preliminary Blood - Venous No growth after 24 hours. 10/22/24 16:03 Gram Stain - Final Knee,Left Anaerobic Culture - Preliminary Culture in progress. 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] presenting with L knee pain/swelling, admitted for sepsis due to infected prepatellar bursitis septic prepatellar bursitis and cellulitis, group G streptococcal - changed IV vanco + piperacillin-tazobactam to ceftriaxone; Ortho consulted and no washout planned; ID consulted and plan 14d of cephalosporin [cefadroxil upon discharge, keep IV ceftriaxone for now until clinically improved]; follow BCx to ensure not bacteremic prediabetes - A1c only 5.7 OUD - Suboxone HLD - statin asthma, unspecified, not acute - continue Breo + prn albuterol VTE ppx - SCDs dispo - eventual home In my clinical judgment, the patient requires continued inpatient hospitalization for the following reasons: IV ABX Total time managing care of this patient today: 35 minutes. Quality Stroke Does the patient have a stroke diagnosis?: No VTE Prior VTE?: No VTE Risk Level:: Medical - moderate - high VTE Device Contraindication: Treatment Not Indicated VTE Drug Contraindication: Treatment Not Indicated
[2024-10-24 15:33] VITALS: BP 120/67; PULSE 79; RESP 18; TEMP 36.4; O2SAT 97
--- NOTE | 2024-10-24 16:29 | MHC.CM.PN ---
Addendum entered by Mare Rodriguez 10/25/24 11:46: PT CLEARED TO DC HOME TODAY WITHI NO SERVICES Original Note: PT REPORTS HE LIVES WITH HIS AND 2 KIDS HE IS INDEPENDENT, HAS NO SERVICES AND NO DME COPY OF HCP REQUESTED PCP: CHARLA CRAWFORD DCP: HOME VIA PRIVATE TRANSPORT
[2024-10-24 19:24] VITALS: BP 146/76; PULSE 80; RESP 18; TEMP 36.5; O2SAT 97
[2024-10-25 03:52] VITALS: BP 136/70; PULSE 79; RESP 18; TEMP 36.6; O2SAT 98
[2024-10-25 07:02] LABS: Hematocrit 32.5 % (42.0-52.0); Hemoglobin 10.9 g/dl (14.0-18.0); Mean Corpuscular HGB Conc 33.5 g/dl (31.0-36.0); Mean Corpuscular Hemoglobin 29.9 pg (27.0-33.0); Mean Corpuscular Volume 89.0 fL (80.0-98.0); NRBC Abs Auto 0.000 X10*3/uL (0.0-0.012); NRBC Pct Auto 0.0 /100WBC (0.0-0.2); Platelet Count 340 X10*3/uL (160-400); Red Blood Count 3.65 X10*6/uL (4.60-5.80); White Blood Count 7.3 X10*3/uL (4.8-10.8)
[2024-10-25] MEDS: Fluticasone/Vilanterol 100/25 BLST.W.DEV 1 PUFF INHALE (07:47)
[2024-10-25 07:48] VITALS: PULSE 91; RESP 16; O2SAT 95
[2024-10-25 08:00] VITALS: BP 134/60; PULSE 81; RESP 12; TEMP 36.8; O2SAT 96
[2024-10-25] MEDS: Buprenorphine/Naloxone 2/0.5mg FILM 1 FILM SUBLINGUAL (08:58)
[2024-10-25] MEDS: 0.9 % Sodium Chloride Flush 3 ML SYRINGE IVFLUSH (08:58)
--- NOTE | 2024-10-25 10:44 | PM.DS ---
DS: Providers Provider Date of Service: 10/25/24 Date of admission: 10/22/24 16:14 Date of discharge: 10/25/24 Primary care physician: Cooper Pearson MD Consults: 10/22/24 16:36 Consult to Orthopedics Routine Consulting Provider: [facility] Reason for consultation: left knee infected bursitis/cellulitis Has provider been notified: Yes 10/23/24 08:32 Consult to Infectious Diseases Routine Consulting Provider: [facility] Reason for consultation: prepatellar bursitis 10/23/24 16:17 Consult to Wound Care Routine Reason for consultation: left knee. DS: Diagnosis Discharge Diagnosis (1) Septic prepatellar bursitis of left knee: Status: Acute (2) Group G streptococcal infection: Status: Acute (3) Sepsis: Status: Acute DS: Summary Hospital Course Hospital Course: From the history and physical by the admitting hospitalist, MORALES Caruso, 10/22/24: This is a 44-year-old male with history of diabetes, hyperlipidemia who presents to the emergency department with left knee pain. Patient initially began having left knee pain in September, at that time he was seen in the orthopedic office and was told that he had ?water on his knee? and at that time he was recommended compression, anti-inflammatories. With that treatment his symptoms did improve. Over the past 10 days or so he reports having chills, subjective fever, return of left knee pain and severe fatigue. He thought he had viral illness. His knee also has become more red and swollen. He was seen by his primary care provider who ordered outpatient labs over the past 3 days his white count increased from [phone]. He was started on oral antibiotics but today his primary care recommended that he come to the emergency department for evaluation. In the emergency department x-ray showed anterior soft tissue swelling/hematoma. The emergency room provider aspirated the joint and reported purulent output. 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 He was treated with IV vancomycin and piperacillin-tazobactam initially. Joint fluid grew group G streptococcus. Blood cultures were negative. Orthopedics and Infectious Disease were consulted. No washout was needed. Antibiotics were narrowed to ceftriaxone. Leukocytosis resolved and he improved clinically. He was discharged on cefadroxil, total course of 14 days minus 2 days of ceftriaxone. He should follow up with Orthopedics and PT as an outpatient. Time Attestation Discharge Coordination Time (in mins): 45 Quality: Safe Use of Opioids Does Pt have an Active Cancer Diagnosis on the Problem List?: No Quality: Stroke Does the patient have a stroke diagnosis?: No Physical Exam Vital Signs: Vital Signs: Last Vital Signs Temp 98.2 F 10/25/24 08:00 Pulse 81 10/25/24 08:00 Resp 12 10/25/24 08:00 BP 134/60 10/25/24 08:00 Pulse Ox 96 10/25/24 08:00 O2 Del Method Room Air 10/25/24 08:00 BMI result Body Mass Index 35.7 Gen: in no acute distress HEENT: sclera anicteric, moist mucus membranes Neck: supple Lungs: clear to auscultation bilaterally Heart: regular rate and rhythm, no murmurs Abd: soft, non-tender, non-distended Ext: no edema, L knee with prepatellar swelling and improvement in proximal/lateral erythema, I+D site dry Skin: warm/well-perfused Neuro: alert and oriented x3, no focal findings Psych: appropriate affect DS: Data Data Completed and Pending Completed studies during hospitalization [Text1]: Laboratory Results WBC 7.3 X10*3/uL (4.8-10.8) 10/25/24 06:17 RBC 3.65 X10*6/uL (4.60-5.80) L 10/25/24 06:17 Hgb 10.9 g/dl (14.0-18.0) L 10/25/24 06:17 Hct 32.5 % (42.0-52.0) L 10/25/24 06:17 MCV 89.0 fL (80.0-98.0) 10/25/24 06:17 MCH 29.9 pg (27.0-33.0) 10/25/24 06:17 MCHC 33.5 g/dl (31.0-36.0) 10/25/24 06:17 RDW 12.6 % (11.0-16.0) 10/25/24 06:17 Plt Count 340 X10*3/uL (160-400) D 10/25/24 06:17 MPV 9.8 fL (9.4-12.4) 10/25/24 06:17 Immature Gran % (Auto) 1.0 % (0.0-0.4) H 10/23/24 06:07 Neut % (Auto) 79.5 % (45-73) H 10/23/24 06:07 Lymph % (Auto) 9.6 % (20-40) L 10/23/24 06:07 [place] % (Auto) 8.7 % (2-11) 10/23/24 06:07 Eos % (Auto) 0.9 % (0-4) 10/23/24 06:07 Baso % (Auto) 0.3 % (0-2) 10/23/24 06:07 Lymph # (Auto) 1.1 X10*3/uL (1.2-4.9) L 10/23/24 06:07 [place] # (Auto) 1.0 X10*3/uL (0.1-1.2) 10/23/24 06:07 Eos # (Auto) 0.1 X10*3/uL (0.0-0.4) 10/23/24 06:07 Baso # (Auto) 0.0 X10*3/uL (0.0-0.2) 10/23/24 06:07 Abs Immat Gran (auto) 0.11 X10*3/uL (0.00-0.03) H 10/23/24 06:07 Absolute Neuts (auto) 9.2 x10*3/uL (2.0-8.3) H 10/23/24 06:07 Absolute Nucleated RBC 0.000 X10*3/uL (0.0-0.012) 10/25/24 06:17 Nucleated RBC % (auto) 0.0 /100WBC (0.0-0.2) 10/25/24 06:17 ESR 83 MM/HR (0-15) H 10/22/24 14:08 Sodium 140 mmol/L (135-145) 10/23/24 06:07 Potassium 3.6 mmol/L (3.3-5.1) 10/23/24 06:07 Chloride 101 mmol/L (96-108) 10/23/24 06:07 Carbon Dioxide 30 mmol/L (22-29) H 10/23/24 06:07 Anion Gap 13 (12-20) 10/23/24 06:07 BUN 9 mg/dL (9-16) 10/23/24 06:07 Creatinine 0.92 mg/dL (0.5-1.4) 10/23/24 06:07 Estim Creat Clear Calc 124.5 10/23/24 06:07 Estimated GFR > 60 10/23/24 06:07 POC Glucose 109 mg/dL (60-115) 10/23/24 11:41 Random Glucose 109 mg/dL (60-115) 10/23/24 06:07 Estimat Average Glucose 117 mg/dL 10/22/24 14:08 Hemoglobin A1c % 5.7 % (<6.0) 10/22/24 14:08 Lactic Acid 1.3 mmol/L (0.5-2.0) 10/22/24 14:08 Calcium 8.8 mg/dL (8.4-10.2) D 10/23/24 06:07 Total Bilirubin 1.1 mg/dL (0.0-1.0) H 10/22/24 14:08 AST 28 U/L (5-37) 10/22/24 14:08 ALT 27 U/L (0-40) 10/22/24 14:08 Alkaline Phosphatase 139 U/L (39-117) H 10/22/24 14:08 C-Reactive Protein 9.74 mg/dL (< or = 0.50) H 10/25/24 06:17 Total Protein 8.2 g/dL (6.5-8.0) H 10/22/24 14:08 Albumin 4.0 g/dL (3.5-5.0) 10/22/24 14:08 Synovial Source Left knee prepatellar 10/22/24 15:46 Synovial WBC 217.566 X10*3/uL 10/22/24 15:46 Synovial RBC 0.154 X10*6/uL 10/22/24 15:46 Synovial Neutrophils 79 % 10/22/24 15:46 Synovial Lymphocytes 5 % 10/22/24 15:46 Synovial Monocytes 4 % 10/22/24 15:46 Synovial Other Cells 12 10/22/24 15:46 Lyme Screen IgG & IgM <0.90 index 10/22/24 17:15 Lyme Progressive Test TNP 10/22/24 17:15 Impressions Knee X-Ray 10/22/24 14:20 IMPRESSION: Anterior soft tissue swelling/hematoma. Electronically signed by: Aurelio Wing MD 10/22/2024 02:37 PM EDT RP Discharge Plan Discharge Anticipated Discharge Date/Time: 10/25/24 10:34 Patient Disposition: Home, Self-Care Discharge Diagnosis: sepsis due to infected prepatellar bursa with group G streptococcus Referrals: Physical Therapy - [facility] [Outside] - 1 Week Lewis Clifton PA [Physician [employer] Machine, Orthopedics] - 1 Week Cooper Pearson MD [Primary Care Provider, Internal Medicine] - 1 Week Discharge Medications: New cefadroxil 1 gram tablet 1,000 mg PO BID Qty: 22 0RF Continued buprenorphine-naloxone [Suboxone] 2-0.5 mg film 1 film sublingual BID Qty: 60 1RF metformin 500 mg tablet extended release 24 hr 500 mg PO BID naproxen 500 mg tablet 500 mg PO BID PRN (Reason: Pain) fluticasone furoate-vilanterol [Breo Ellipta] 100-25 mcg/dose blister with device 1 ea inhalation DAILY albuterol sulfate 90 mcg/actuation HFA aerosol inhaler 1 puff inhalation Q6H PRN (Reason: shortness of breath or wheezing) ibuprofen 600 mg tablet 600 mg PO TID PRN (Reason: fever or pain) Qty: 20 0RF atorvastatin 20 mg tablet 20 mg PO BEDTIME Discontinued doxycycline hyclate 100 mg capsule 100 mg PO BID Discharge Orders: Discharge Order (Routine); Ordered 10/25/24 Ordered By: Jovani Robert Diet: Advance to usual diet Activity on Discharge: As tolerated Stand Alone Forms: Patient Portal Discharge page Print Language: Taiwanese Care Plan Goals: cure infection Health Concerns: sepsis due to infected prepatellar bursa with group G streptococcus Plan of Treatment: cefadroxil 1000 mg twice daily for 11 days starting 10/26 naproxen and/or acetaminophen for pain control ice/compression stockings follow up with [facility] Orthopedics in 1 week outpatient PT at [facility] Please follow up with your primary care doctor within 1 week. Return to the hospital if you experience recurrent or worsening symptoms. Assessment: See Discharge Summary.
[2024-10-26 07:37] LABS: Glucose Synovial Fluid < 2
== END 2024-10-25 11:52 | disposition home or self-care (01) | DRG 720 ==
LOC: HO.ED 15:43 → HO.EDOVER 17:21 → HO.S3 10-23 14:28
PROVIDERS: Registered Nurse Emergency; Admitting Provider Physician Assistant Medical; Emergency Provider Student in an Organized Health Care Education/Training Program; PCP Internal Medicine; Visit Provider Family Medicine
DX: A41.9 Sepsis, unspecified organism (principal); E78.5 Hyperlipidemia, unspecified; M71.162 Other infective bursitis, left knee; B95.4 Other streptococcus as the cause of diseases classified elsewhere; R73.03 Prediabetes; J45.909 Unspecified asthma, uncomplicated; F11.20 Opioid dependence, uncomplicated; Z85.47 Personal history of malignant neoplasm of testis; Z79.51 Long term (current) use of inhaled steroids; Z87.891 Personal history of nicotine dependence; Z79.84 Long term (current) use of oral hypoglycemic drugs; Z79.899 Other long term (current) drug therapy
CPT/HCPCS: 36415; 73564; 80048; 80053; 82945; 82947; 83036; 83605; 85025; 85027; 85652; 86140; 86617; 86618; 87040; 87070; 87073; 87147; 87186; 87205; 89051; 93005; 94640; 97161; 99285; J0696; J1885; J2543; J3374; J7120

== ENCOUNTER → 2024-10-22 13:43 | Outpatient (BNV) | payer OTHER, SELFPAY | PROVIDERS: Emergency Provider Student in an Organized Health Care Education/Training Program; PCP Internal Medicine; Visit Provider Radiology Diagnostic Radiology | DX: R22.42 Localized swelling, mass and lump, left lower limb (principal) | CPT/HCPCS: 73564 ==

== ENCOUNTER → 2024-10-22 13:45 | Outpatient (BNV) | payer OTHER, SELFPAY | PROVIDERS: Emergency Provider Student in an Organized Health Care Education/Training Program; PCP Internal Medicine; Visit Provider Internal Medicine Cardiovascular Disease | DX: R00.0 Tachycardia, unspecified (principal) | CPT/HCPCS: 93010 ==

== ENCOUNTER → 2024-10-22 14:54 | Outpatient (BNV) | payer OTHER, SELFPAY | PROVIDERS: Emergency Provider Student in an Organized Health Care Education/Training Program; PCP Internal Medicine | DX: M71.162 Other infective bursitis, left knee (principal) | CPT/HCPCS: 99222 ==

== ENCOUNTER → 2024-10-22 16:14 | Outpatient (BNV) | payer OTHER, SELFPAY | PROVIDERS: Admitting Provider Physician Assistant Medical; Emergency Provider Student in an Organized Health Care Education/Training Program; PCP Internal Medicine; Visit Provider Internal Medicine | DX: A41.9 Sepsis, unspecified organism (principal) | CPT/HCPCS: 99222 ==

== ENCOUNTER → 2024-10-22 16:14 | Outpatient (BNV) | payer OTHER, SELFPAY | PROVIDERS: Admitting Provider Physician Assistant Medical; Emergency Provider Student in an Organized Health Care Education/Training Program; PCP Internal Medicine; Visit Provider Physician Assistant Medical | DX: M71.162 Other infective bursitis, left knee (principal); B95.4 Other streptococcus as the cause of diseases classified elsewhere; A41.9 Sepsis, unspecified organism | CPT/HCPCS: 99223; 99232; 99239 ==

== ENCOUNTER 2024-10-26 10:30 | Outpatient (AMB) | payer OTHER, SELFPAY ==
--- NOTE | 2024-10-26 10:36 | MHC.OFFVIS ---
Vital Signs 10/26/24 10:37 BP 126/70 Pulse 88 Pulse Oximetry (%) 96 Intake Visit Reasons: MAT Allergies metoclopramide (From REGLAN) Allergy (Intermediate, Verified 10/26/24 10:38) FEELS LIKE I'M JUMPING OUT OF MY SKIN{ pneumococcal vaccine (PNEUMOCOCCAL VACCINE) Allergy (Intermediate, Verified 10/26/24 10:38) Swelling pneumococcal 7-valent conjugate to (From Prevnar) Adverse Reaction (Mild, Verified 10/26/24 10:38) Cellulitis HPI HPI MAT: Details: He is feeling well He is taking Suboxone and has no complaints. [facility] Medical History Diabetes Opioid use disorder Substance use Dyslipidemia Lung collapse Thoracic cancer Asthma Gallstones Testicular cancer Surgical History Hx laparoscopic cholecystectomy History of thoracic surgery S/P hernia surgery H/O ventral hernia repair Social History Household Members: Spouse and Children Housing: House Do you presently have visiting nurse or other home services: No Unable to assess alcohol history related to: Unknown Alcohol intake: current Alcohol intake frequency: 0-2 drinks per day Comment: see MAR Patient Tobacco Use Status: Former Tobacco user e-Cigarette/Vaping Use: Never Used Second Hand Smoke Exposure: No Substance Use Type: Marijuana Advance Directives Date on File: 09/18/20 service: No Current occupational status: employed 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 Medications: New buprenorphine-naloxone 2-0.5 mg (Suboxone) place 1 strip/tab under (each) side of tongue 1 film sublingual BID 60 ea 1RF 30 days Coding Level of Care Code Est Pt Level 3 (52847) Diagnoses Opioid use disorder, moderate, in early remission, on maintenance therapy, dependence F11.21
[2024-10-26 10:37] VITALS: BP 126/70; PULSE 88; O2SAT 96
== END 2024-10-26 10:55 | disposition home or self-care (01) ==
LOC: HO.HCC 10:33
PROVIDERS: PCP Internal Medicine; Visit Provider Internal Medicine
DX: F11.21 Opioid dependence, in remission (principal)
CPT/HCPCS: 99213

== ENCOUNTER 2024-11-04 11:47 | Outpatient (AMB) | payer OTHER, SELFPAY ==
--- NOTE | 2024-11-04 11:53 | A.OFFVIS_ITS ---
Vital Signs 11/04/24 11:56 Height 5 ft 9 in Weight 230 lb BMI 34.0 Intake Visit Reasons: ED f/u Infected LT prepatellar bursa Intake Note: Chris is a 44 year old man who presents today for a follow up for his emergency department visit on 10/22/24 for his infected prepatellar bursa of the left knee. Patient reports that he has noticed increasing swelling, redness, and pain in the area of his kneecap. Per ED note was seen at [facility] for this prior to ED visit and he was placed on anti-inflammatory and sent home. While in the ED, aspiration of the prepatellar bursa was performed and approximately 35 cc of purulent drainage was obtained. Patient reports his swelling has been slowly going away since his ED visit. HE has been taking his antibiotics and has a few left over. He denies pain. He is concerned there may be fluid remaining in the left knee and has tried to be cautious to not pop the bubble on the anterior aspect. Allergies metoclopramide (From REGLAN) Allergy (Intermediate, Verified 11/04/24 11:56) FEELS LIKE I'M JUMPING OUT OF MY SKIN{ pneumococcal vaccine (PNEUMOCOCCAL VACCINE) Allergy (Intermediate, Verified 11/04/24 11:56) Swelling pneumococcal 7-valent conjugate to (From Prevnar) Adverse Reaction (Mild, Verified 11/04/24 11:56) Cellulitis HPI HPI ED f/u Infected LT prepatellar bursa: Details: Chris is a 44 year old man who presents today for a follow up for his emergency department visit on 10/22/24 for his infected prepatellar bursa of the left knee. Patient reports that he has noticed increasing swelling, redness, and pain in the area of his kneecap. Per ED note was seen at [facility] for this prior to ED visit and he was placed on anti-inflammatory and sent home. While in the ED, aspiration of the prepatellar bursa was performed and approximately 35 cc of purulent drainage was obtained. Patient reports his swelling has been slowly going away since his ED visit. HE has been taking his antibiotics and has a few left over. He denies pain. He is concerned there may be fluid remaining in the left knee and has tried to be cautious to not pop the bubble on the anterior aspect. [facility] Medical History Diabetes Opioid use disorder Substance use Dyslipidemia Lung collapse Thoracic cancer Asthma Gallstones Testicular cancer Surgical History Hx laparoscopic cholecystectomy History of thoracic surgery S/P hernia surgery H/O ventral hernia repair Social History Household Members: Spouse and Children Housing: House Do you presently have visiting nurse or other home services: No Unable to assess alcohol history related to: Unknown Alcohol intake: current Alcohol intake frequency: 0-2 drinks per day Comment: see MAR Patient Tobacco Use Status: Former Tobacco user e-Cigarette/Vaping Use: Never Used Second Hand Smoke Exposure: No Substance Use Type: Marijuana Advance Directives Date on File: 09/18/20 service: No Current occupational status: employed 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 Systems Const All systems reviewed & are unremarkable except as noted in HPI and below Physical Exam Vital Signs: BMI result Body Mass Index 34.0 Last Vital Signs Temp 98.4 F 10/22/24 15:56 Pulse 100 10/22/24 15:56 Resp 18 10/22/24 15:56 BP 155/79 H 10/22/24 15:56 Pulse Ox 96 10/22/24 15:56 O2 Del Method Room Air 10/22/24 15:56 BMI result Body Mass Index 34.0 Extrem Other: Patient's left knee minimally swollen to inspection over the patella, slightly increased swelling in the area of aspiration No active erythema noted at this time No ecchymosis There is noted to be mild fluctuance of the prepatellar bursa in the area of aspiration Patient reports no tenderness to palpation of the prepatellar bursa, medial or lateral joint line, posterior knee Patient is able to flex the knee to 90 degrees and extend fully without difficulty No pain with axial loading of the left knee Distal sensation intact Capillary refill brisk Assessment & Plan Assessment & Plan (1) Septic prepatellar bursitis of left knee: Code(s): M71.162 - Other infective bursitis, left knee Category: Medical Plan 1. Septic prepatellar bursitis of left knee With tremendous symptom improvement since previous evaluation Patient is educated about this condition Patient is educated about the typical recovery course At this time, antibiotics refilled for a further 7 days, as I do not feel he needs another 2 week course Patient is advised to avoid kneeling or putting prolonged pressure on the prepatellar aspect of the left knee Should continue working on range of motion of the left knee Should present back to the emergency department or call our office for worsening symptoms Patient understands this and is amenable to this plan Follow-up in 1-2 weeks for reassessment, sooner with any acute concerns Medications: Changed From cefadroxil 1,000 mg PO BID 22 tabs 0RF To cefadroxil 1,000 mg PO BID 14 tabs 0RF 7 days Coding Level of Care Code Est Pt Level 3 (61955) Diagnoses Septic prepatellar bursitis of left knee M71.162
[2024-11-04 11:56] VITALS: BMI 34.0
== END 2024-11-04 12:05 | disposition home or self-care (01) ==
LOC: HO.HOS 11:48
PROVIDERS: PCP Internal Medicine
DX: M71.162 Other infective bursitis, left knee (principal)
CPT/HCPCS: 99213

== ENCOUNTER 2024-11-20 11:22 | Outpatient (AMB) | payer OTHER, SELFPAY ==
--- NOTE | 2024-11-20 11:27 | A.OFFVIS_ITS ---
Vital Signs 11/20/24 11:32 Height 5 ft 9 in Weight 230 lb BMI 34.0 Intake Visit Reasons: OV- f/u Infected LT prepatellar bursa Intake Note: Chris is a 44 year old man who presents today for a follow up visit for his infected prepatellar bursa of the left knee. At his last visit it was advised he avoid kneeling or putting prolonged pressure on the left knee and to continue working on range of motion. He was sent cefadroxil 1,000 mg to take by mouth twice a day for the next 7 days. 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 [facility] he currently has no pain, swelling or complaints of the left knee. Allergies metoclopramide (From REGLAN) Allergy (Intermediate, Verified 11/20/24 11:31) FEELS LIKE I'M JUMPING OUT OF MY SKIN{ pneumococcal vaccine (PNEUMOCOCCAL VACCINE) Allergy (Intermediate, Verified 11/20/24 11:31) Swelling pneumococcal 7-valent conjugate to (From Prevnar) Adverse Reaction (Mild, Verified 11/20/24 11:31) Cellulitis HPI HPI OV- f/u Infected LT prepatellar bursa: Details: Chris is a 44 year old man who presents today for a follow up visit for his infected prepatellar bursa of the left knee. At his last visit it was advised he avoid kneeling or putting prolonged pressure on the left knee and to continue working on range of motion. He was sent cefadroxil 1,000 mg to take by mouth twice a day for the next 7 days. 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 [facility] he currently has no pain, swelling or complaints of the left knee. No further infectious symptoms, patient feels that his knee is 100% back to his pre infectious state. [facility] Medical History Diabetes Opioid use disorder Substance use Dyslipidemia Lung collapse Thoracic cancer Asthma Gallstones Testicular cancer Surgical History Hx laparoscopic cholecystectomy History of thoracic surgery S/P hernia surgery H/O ventral hernia repair Social History Household Members: Spouse and Children Housing: House Do you presently have visiting nurse or other home services: No Unable to assess alcohol history related to: Unknown Alcohol intake: current Alcohol intake frequency: 0-2 drinks per day Comment: see MAR Patient Tobacco Use Status: Former Tobacco user e-Cigarette/Vaping Use: Never Used Second Hand Smoke Exposure: No Substance Use Type: Marijuana Advance Directives Date on File: 09/18/20 service: No Current occupational status: employed 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 Systems Const All systems reviewed & are unremarkable except as noted in HPI and below Physical Exam Vital Signs: BMI result Body Mass Index 34.0 Last Vital Signs Temp 98.4 F 10/22/24 15:56 Pulse 100 10/22/24 15:56 Resp 18 10/22/24 15:56 BP 155/79 H 10/22/24 15:56 Pulse Ox 96 10/22/24 15:56 O2 Del Method Room Air 10/22/24 15:56 BMI result Body Mass Index 34.0 Extrem Other: Patient's left knee normal to inspection over the patella No active erythema noted at this time No ecchymosis No more fluctuance noted Patient reports no tenderness to palpation of the prepatellar bursa, medial or lateral joint line, posterior knee Patient is able to flex the knee to 90 degrees and extend fully without difficulty No pain with axial loading of the left knee Distal sensation intact Capillary refill brisk Assessment & Plan Assessment & Plan (1) Septic prepatellar bursitis of left knee: Code(s): M71.162 - Other infective bursitis, left knee Category: Medical Plan 1. Septic prepatellar bursitis of left knee With tremendous symptom improvement since previous evaluation Patient is educated about this condition Patient is educated about the typical recovery course No further antibiotics needed No further restrictions indicated Should continue working on range of motion of the left knee Should present back to the emergency department or call our office for worsening symptoms Patient understands this and is amenable to this plan Follow-up as needed Coding Level of Care Code Est Pt Level 3 (43665) Diagnoses Septic prepatellar bursitis of left knee M71.162
[2024-11-20 11:32] VITALS: BMI 34.0
== END 2024-11-20 11:40 | disposition home or self-care (01) ==
LOC: HO.HOS 11:22
PROVIDERS: PCP Internal Medicine
DX: M71.162 Other infective bursitis, left knee (principal)
CPT/HCPCS: 99213

== ENCOUNTER 2024-12-25 11:33 | Outpatient (AMB) | payer OTHER, SELFPAY ==
[2024-12-25 11:39] VITALS: BP 122/78; PULSE 78; O2SAT 96
--- NOTE | 2024-12-25 11:39 | MHC.OFFVIS ---
Vital Signs 12/25/24 11:39 BP 122/78 Pulse 78 Pulse Oximetry (%) 96 Intake Visit Reasons: MAT Allergies metoclopramide (From REGLAN) Allergy (Intermediate, Verified 12/25/24 11:40) FEELS LIKE I'M JUMPING OUT OF MY SKIN{ pneumococcal vaccine (PNEUMOCOCCAL VACCINE) Allergy (Intermediate, Verified 12/25/24 11:40) Swelling pneumococcal 7-valent conjugate to (From Prevnar) Adverse Reaction (Mild, Verified 12/25/24 11:40) Cellulitis HPI Comments Details: History of Present Illness The patient is a 44-year-old male presenting The patient's medical history highlights the management of opioid use disorder, for which he is receiving treatment with Suboxone. There have been no adverse effects, such as depression or constipation, reported in association with this medication. The patient's recent history includes an engagement with [employer], which has been completed, thus eliminating any immediate obligations. He reported no further health issues, and his vital signs were recorded as stable. His continued adherence to the regimen indicates effective control over his opioid use disorder. Review of Systems - Psychiatric: Denies depression. - Gastrointestinal: Denies constipation. - General: Reports vital signs as stable. Physical Exam - Vitals- Stable. Results Plan Patient was informed and verbally consented to the use of an ambient scribe for clinic note documentation during this visit. 1. Opioid Use Disorder The management plan for the patient's opioid use disorder involves the ongoing use of Suboxone, which has been reported as well-tolerated and effective. Given the stable course without adverse symptoms, the current regimen will be maintained. Monitoring will continue through scheduled follow-ups to ensure continued effectiveness and to make adjustments as needed. Discussion Notes I discussed with the patient the continuation of his current treatment for opioid use disorder, focusing on the effective use of Suboxone, which he has been managing well. We discussed maintaining the same regimen given the absence of adverse effects such as depression or constipation. I explained that continuing with the prescribed treatment and adhering to scheduled follow-ups will be crucial to sustaining his stable condition and monitoring any changes. Consent for proceeding with [place] was obtained to address his healthcare during this visit. Medical Decision Making In assessing the patient?s opioid use disorder, I considered the stable nature of his current medication regimen with Suboxone, noting the absence of complications such as depression or constipation. His condition remains well-controlled, warranting the continuation of the existing therapeutic approach. Given these factors, my decision focused on maintaining the regimen and planned follow-ups to monitor progress and sustain effective control over his disorder. Patient Instructions - Continue taking Suboxone as prescribed. - Attend all scheduled follow-up appointments. - Notify healthcare provider of any new symptoms or health concerns. [facility] Medical History Diabetes Opioid use disorder Substance use Dyslipidemia Lung collapse Thoracic cancer Asthma Gallstones Testicular cancer Surgical History Hx laparoscopic cholecystectomy History of thoracic surgery S/P hernia surgery H/O ventral hernia repair Social History Household Members: Spouse and Children Housing: House Do you presently have visiting nurse or other home services: No Alcohol intake: current Alcohol intake frequency: 0-2 drinks per day Comment: see MAR Patient Tobacco Use Status: Former Tobacco user e-Cigarette/Vaping Use: Never Used Second Hand Smoke Exposure: No Substance Use Type: Marijuana Advance Directives Date on File: 09/18/20 service: No Current occupational status: employed 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 Physical Exam Vital Signs: Last Vital Signs Pulse 78 12/25/24 11:39 BP 122/78 12/25/24 11:39 Pulse Ox 96 12/25/24 11:39 Assessment & Plan Assessment & Plan (1) Opioid use disorder, moderate, in early remission, on maintenance therapy, dependence: Comment: He is doing well Code(s): F11.21 - Opioid dependence, in remission Category: Medical Plan: as above Medications: New buprenorphine-naloxone 2-0.5 mg (Suboxone) place 1 strip/tab under (each) side of tongue 1 film sublingual BID 60 ea 2RF 30 days Coding Level of Care Code Est Pt Level 3 (59771) Diagnoses Opioid use disorder, moderate, in early remission, on maintenance therapy, dependence F11.21
== END 2024-12-25 12:59 | disposition home or self-care (01) ==
LOC: HO.HCC 11:33
PROVIDERS: PCP Internal Medicine; Visit Provider Internal Medicine
DX: F11.21 Opioid dependence, in remission (principal)
CPT/HCPCS: 99213